=== PATIENT | male | born 1960 | race Caucasian/White ===

== ENCOUNTER 2018-04-04 23:46 | Emergency (ER) | payer MEDICAID, SELFPAY ==
[2018-04-04 23:47] VITALS: BP 206/116; PULSE 57; RESP 15; TEMP 36.2; O2SAT 96; BMI 31.4
[2018-04-05] VITALS (7 sets, daily range): BP systolic 162–176; BP diastolic 101–113; PULSE 53–56; RESP 14–18; O2SAT 95–98
--- NOTE | 2018-04-05 00:11 | EKG12_ITS ---
Test Reason : CP Blood Pressure : / mmHG Vent. Rate : 054 BPM Atrial Rate : 054 BPM P-R Int : 172 ms QRS Dur : 096 ms QT Int : 430 ms P-R-T Axes : 039 010 016 degrees QTc Int : 407 ms Sinus bradycardia Poor R wave progression Confirmed by KIM MORALES, YU ([id number]), greeting card editor YANCY CHINO ([id number]) on 04/06/2018 10:30:11 AM Referred By: DR PIKE Confirmed By:YU ALVAREZ MD
--- NOTE | 2018-04-05 00:13 | RAD_ITS ---
STUDY: X-RAY CHEST REASON FOR EXAM: Male, 57 years old. Chest pain and hypertension TECHNIQUE: Single AP portable view of the chest. COMPARISON: None. FINDINGS: The lungs are clear and expanded. There is no demonstrated pleural abnormality. There is mild cardiac enlargement. Normal mediastinum and sofia. Normal visualized pulmonary arteries. Normal visualized aortic arch and descending thoracic aorta. Normal visualized thoracic spine. Normal visualized ribs, clavicles, and shoulders. Status post lower cervical fusion. There is no demonstrated abnormality of the visualized soft tissue structures of the upper abdomen. RAD/Chest 1 View (Portable) IMPRESSION: Cardiomegaly. No pulmonary edema, congestive heart failure or confluent pneumonia. Electronically Signed: Evie Martinez MD at 1:13 EDT , Service support ,
--- NOTE | 2018-04-05 00:32 | ED.VISSUMM ---
- ER Visit Summary Date of Service: 04/05/18 Chief Complaint: Elevated blood pressure History of Present Illness: The patient is a 57 M history of hypertension. States he has been taking his medications. He says for the last 2 months he has had elevated blood pressures. He believes it stress related. Denies that his blood pressure was 200/100+. He had episodes of some dull aching left-sided chest pain. No shortness of breath. Mild nausea. No vomiting. No diaphoresis. He denies any recent exertional chest pain. He has had negative stress test in the past but none done recently. He is never had a cardiac catheterization. No history of DVT or PE. No recent travel, surgery, mobilization. No leg pain or swelling. No hemoptysis. Currently he is pain-free. Physical Examination: Well-appearing middle-age male. Vital signs initial blood pressure is 206/116. Otherwise stable and afebrile. Pulse ox 96% on room air no signs of hypoxia. No distress. H EENT exam unremarkable. Neck nontender. No JVD. Lungs clear to auscultation bilaterally. Heart regular rhythm rate about 60 no murmur. Chest wall nontender. Abdomen is soft and nontender. Normal bowel sounds no peritoneal signs. He is moving all 4 extremities. They are neurovascularly intact. Calves are nontender without edema nor cords. Radial pulses are equal and symmetrical. Back exam nontender. Neurologically is awake and alert with no focal motor deficits. Test Results: Patient will undergo cardiac workup. His initial EKG shows a sinus tachycardia rate of 54 with no signs of [place] nor ischemia. Chest x-ray shows mild cardiomegaly to myself. CBC unremarkable. White count of 9. Hemoglobin 15. Electrolytes unremarkable. Normal creatinine and gap. Troponin normal. Emergency Department Course and Treatment: Patient treated with Lopressor IV x2. Ibuprofen for mild headache. And metoprolol p.o. His blood pressure is improving. On multiple exams is doing well. They are comfortable being discharged home. To follow-up as an outpatient with his primary care physician for reevaluation of his blood pressure medications. And also potentially outpatient stress testing. Treatment Plan: Follow-up with his PCP. Disposition: Discharge Impression: Acute on chronic hypertension Chest pain of uncertain etiology This note was generated with Websupportation software. It may contain incorrect words, spelling, and punctuation that were not noted in review of the chart prior to signing ED Disposition - Plan for ED Patient: Chief Complaint: Hypertension Referrals: Brock Wilkins [Primary Care Provider] -
[2018-04-05 00:33] LABS: Absolute Lymphocyte Count 2.87 X10^3/ul (0.83-4.51); Absolute Neutrophil Count 5.1 X10^3/uL (2.0-7.7); Basophil# 0.04 X10^3/uL; Basophil% 0.4 % (0-1); Eosinophils% 2.2 % (0-5); Hematocrit 46.6 % (40-54); Hemoglobin 15.6 g/dl (13.0-16.5); Lymphocyte # 2.87 X10^3/ul (4.0); Lymphocyte % 31.9 % (19-41); Mean Corp Hgb Conc 33.5 g/gl (32-36); Mean Corpuscular Hgb 30.8 pg (27.0-32.0); Mean Corpuscular Volume 92.1 fL (80-94); Mean Platelet Vol. 10.1 fl (6.2-12.0); Monocyte% 8.9 % (0-10); Neutrophil # 5.08 X10^3/uL (2.7-7.7); Neutrophil % 56.5 % (47-70); Platelet Count 223 K/mm3 (150-450); RBC Distribution Width CV 12.1 % (11.6-14.6); RBC Distribution Width SD 40.3 fl (35.1-43.9); Red Blood Count 5.06 M/mm3 (4.6-6.2)
--- NOTE | 2018-04-05 00:35 | ED.DCSUM_ITS ---
- ER Visit Summary Date of Service: 04/05/18 Chief Complaint: Elevated blood pressure History of Present Illness: The patient is a 57 M history of hypertension. States he has been taking his medications. He says for the last 2 months he has had elevated blood pressures. He believes it stress related. Denies that his blood pressure was 200/100+. He had episodes of some dull aching left-sided chest pain. No shortness of breath. Mild nausea. No vomiting. No diaphoresis. He denies any recent exertional chest pain. He has had negative stress test in the past but none done recently. He is never had a cardiac catheterization. No history of DVT or PE. No recent travel, surgery, mobilization. No leg pain or swelling. No hemoptysis. Currently he is pain- free. Physical Examination: Well-appearing middle-age male. Vital signs initial blood pressure is 206/116. Otherwise stable and afebrile. Pulse ox 96% on room air no signs of hypoxia. No distress. H EENT exam unremarkable. Neck nontender. No JVD. Lungs clear to auscultation bilaterally. Heart regular rhythm rate about 60 no murmur. Chest wall nontender. Abdomen is soft and nontender. Normal bowel sounds no peritoneal signs. He is moving all 4 extremities. They are neurovascularly intact. Calves are nontender without edema nor cords. Radial pulses are equal and symmetrical. Back exam nontender. Neurologically is awake and alert with no focal motor deficits. Test Results: Patient will undergo cardiac workup. His initial EKG shows a sinus tachycardia rate of 54 with no signs of [place] nor ischemia. Chest x-ray shows mild cardiomegaly to myself. CBC unremarkable. White count of 9. Hemoglobin 15. Electrolytes unremarkable. Normal creatinine and gap. Troponin normal. Emergency Department Course and Treatment: Patient treated with Lopressor IV x2. Ibuprofen for mild headache. And metoprolol p.o. His blood pressure is improving. On multiple exams is doing well. They are comfortable being discharged home. To follow-up as an outpatient with his primary care physician for reevaluation of his blood pressure medications. And also potentially outpatient stress testing. Treatment Plan: Follow-up with his PCP. Disposition: Discharge Impression: Acute on chronic hypertension Chest pain of uncertain etiology This note was generated with RollCall (roll.[email or web address])ation software. It may contain incorrect words, spelling, and punctuation that were not noted in review of the chart prior to signing ED Disposition - Plan for ED Patient: Chief Complaint: Hypertension Referrals: Brock Wilkins [Primary Care Provider] -
[2018-04-05 00:36] LABS: POSITIVE COUNT NO; POSITIVE DIFFERENTIAL NO; POSITIVE MORPHOLOGY NO
[2018-04-05 00:48] LABS: Anion Gap 9 (5-15); BUN 8 mg/dL (7-18); BUN/Creat Ratio 8.8 RATIO (10-20); Calcium,Total 8.2 mg/dL (8.5-10.1); Chloride 105 mmol/L (98-107); EST Glomerular Filtration Rate 93 mL/min (>60); Est Glom Filt Rate - Afr Amer 112 mL/min (>60); Estimated Creatinine Clearance 104.81 ml/min; Glucose 100 mg/dL (74-106); Potassium 3.8 mmol/L (3.5-5.1); Sodium Level 140 mmol/L (136-145)
[2018-04-05] MEDS: Metoprolol Tartrate 5 MG/5 ML Vial IV ×2 (01:15→01:52)
[2018-04-05] MEDS: Ibuprofen 600 MG Tablet PO (01:16)
[2018-04-05] MEDS: HYDROcodone Bitartrate/Apap 5/325 Tablet PO (02:03)
--- NOTE | 2018-04-05 02:57 | ED.DEP ---
ED Disposition - Plan for ED Patient: Disposition: Home or Assisted Living Chief Complaint: Hypertension Instructions: ED Hypertension Conf Out Of Control, ED Chest Pain Atypical Unkn Cause Referrals: Brock Wilkins [Primary Care Provider] - As soon as possible Additional Instructions: Continue your current medications. Log your blood pressures at least twice daily and ensure there is readings your primary care physician so he can regulate your blood pressure medications as needed. Also follow-up your primary care physician for your chest pain. If you feel worse or having increasing episodes of chest pain that you need to return for further evaluation. You may need outpatient stress test.
[2018-04-05] MEDS: Metoprolol Tartrate 25 MG Tablet 50 MG PO (03:22)
--- NOTE | 2018-04-05 03:25 | ED.RN ---
pt given written and verbal discharge instructions. pt educated to take morning medications if bp systolic is >140. pt verbalizes understanding and denies any further questions. pt iv d/c and covered with 2x2 gauze and paper tape.
== END 2018-04-05 03:28 | disposition home or self-care (01) ==
PROVIDERS: Emergency Provider Emergency Medicine
DX: R07.89 Other chest pain (principal); I10 Essential (primary) hypertension; Z79.899 Other long term (current) drug therapy
CPT/HCPCS: 71045; 80048; 84484; 85025; 93005; 99285; A4216

== ENCOUNTER → 2018-06-30 09:53 | Outpatient (CLI) | payer MEDICAID, SELFPAY ==
[2018-05-12 13:48] VITALS: BMI 29.9
[2018-06-30 11:52] LABS: AST(SGOT) 28 U/L (15-37); Alanine Aminotransfer ALT/SGPT 48 U/L (16-61); Albumin, Serum 3.6 g/dL (3.2-5.0); Alkaline Phosphatase 78 U/L (45-117); Anion Gap 8 (5-15); BUN 12 mg/dL (7-18); BUN/Creat Ratio 10.8 RATIO (10-20); Bilirubin, Direct 0.13 mg/dL (0.00-0.30); Chloride 104 mmol/L (98-107); Cholesterol 129 mg/dL (200); Creatinine, Serum 1.11 mg/dL (0.70-1.30); EST Glomerular Filtration Rate 73 mL/min (>60); Est Glom Filt Rate - Afr Amer 88 mL/min (>60); Globulin 2.9 g/dL (2.2-4.2); Glucose 92 mg/dL (74-106); High Density Lipoprotein 34 mg/dL; Potassium 3.9 mmol/L (3.5-5.1); Protein, Total 6.5 g/dL (6.4-8.2); Sodium Level 141 mmol/L (136-145); T4 Free Direct 0.85 ng/dL (0.76-1.46); Thyroid Stim Hormone (TSH) 1.16 uIU/mL (0.358-3.74); Triglycerides 178 mg/dL; Very Low Density Lipoprotein 36 mg/dL (5-40)
--- OUTSIDE RECORDS SUMMARY | 2018-09-01 06:28 | XMS RPT_ITS ---
:1960 Author Organization [employer] Address [address] [place] [address] Phone Care Team Providers Name Role Phone Marcos DERAS, Scot D Unavailable Reason for Visit Reason For Visit Description Start Date Postop - subsequent visit Preliminary reason for visit data, not yet signed by the author as of lower neck post ACDF C5-7 on 08/25/2016 Preliminary reason for visit data, not yet signed by the author as of Chief Complaint Chief Complaint Description Start Date lower neck post ACDF C5-7 on 08/25/2016 Preliminary chief complaint data, not yet signed by the author as of Instructions Instruction Description Start Date Please follow-up with Primary Care Physician or Barrel Loader for treatment or adjustment of medication regarding elevated blood pressure.Patient advised to follow-up with Primary Care Physician for BMI management. Plan of Care Type Date Detail Appointment 03:45 PM Suad Mejia , [address] [facility], [place], [address], Pending order XR CERVICAL 4VWS FLEX/EXT Patient education \cps-sql1\CPS_PtEducation\htn .pdf Medications Medication Instructions Start Stop Generic Name NDC Provider Date Date NORCO 5-325 MG one tab every / HYDROCODONE-PHILIP [id number] Scot D TABS six hours as 10 TAMINOPHEN Marcos DERAS needed for pain. ATIVAN 1 MG take 1 tablet / LORAZEPAM [id number] Shelby TABS once daily as 08 [place] ASSISTANT OPERATIONS MANAGER needed TOPROL XL 25 take 1 tablet / METOPROLOL 62670178814 Shelby MG [id number] once daily 05 SUCCINATE Stone ASSISTANT OPERATIONS MANAGER EC-NAPROSYN Take 1 tablet 2 / NAPROXEN 21250918927 Shelby 500 MG TBEC times a day as 24 Stone ASSISTANT OPERATIONS MANAGER needed FIORICET take 1 capsule / BUTALBITAL-APAP 96019724338 Shelby 50-300-40 MG once daily as 08 -CAFFEINE [place] ASSISTANT OPERATIONS MANAGER CAPS needed LIPITOR 40 MG take 1 tablet / ATORVASTATIN 95584451933 Shelby TABS once daily 08 CALCIUM Stone ASSISTANT OPERATIONS MANAGER SINGULAIR 10 take 1 tablet / MONTELUKAST 38772257519 Shelby MG TABS once daily 08 SODIUM Stone ASSISTANT OPERATIONS MANAGER COZAAR 100 MG take 1 tablet / LOSARTAN 81324297403 Shelby TABS once daily 05 POTASSIUM [place]arr[place] ASSISTANT OPERATIONS MANAGER FLUOXETINE HCL take 1 capsule / FLUOXETINE HCL 86573048256 Shelby 40 MG CAPS once daily 08 Stone ASSISTANT OPERATIONS MANAGER LORATADINE 10 take 1 tablet / LORATADINE 85587699505 Shelby MG TABS once daily 08 [place] ASSISTANT OPERATIONS MANAGER Conditions or Problems Problem Name Problem Onset Status Entry Provider Comment Standard Annotate Code Date Date Description Low back pain 819116701 Active Toya Hernandez Low back pain (SNOMED 02/10 02/[address] [place] [address]) DIRECTOR PATIENT FINANCIAL SERVICES-STREETCAR OPERATOR S/P cervical 114643394 Active Leanna H/O: spinal fusion (SNOMED 09/11 09/[address] [place] [address]) DIRECTOR PATIENT FINANCIAL SERVICES-STREETCAR OPERATOR Spinal 33051917 Active Toya Hernandez Spinal stenosis stenosis of (SNOMED 08/05 08/05 [place] in cervical cervical CT) DIRECTOR PATIENT FINANCIAL SERVICES-STREETCAR OPERATOR region region HNP (herniated [id number] Active Toya Hernandez Herniation of nucleus (SNOMED 08/05 08/05 [place] nucleus pulposus), CT) DIRECTOR PATIENT FINANCIAL SERVICES-STREETCAR OPERATOR pulposus cervical Risk for falls 087235840 Active Tyrone Wong At risk for (SNOMED 07/04 07/[address] [place] [address]) Degenerative 38973161 Active Tyrone Wong Degeneration of cervical disc (SNOMED 06/29 07/[address] [place] [address]) intervertebral disc Cervical spine 095504316 Active Tyrone Wong Cervical degeneration (SNOMED 06/29 07/[address] [place] [address]) Hypertension 81989803 Active Tyrone Wong Hypertensive (SNOMED 06/29 07/[address] [place] [address]) Cervical 22046402 Active Rebeca A Cervical radiculopathy (SNOMED 11/14 11/[address] [place] [address]) DIRECTOR PATIENT FINANCIAL SERVICES-STREETCAR OPERATOR Cervicalgia 36670868 Active Rebeca A Neck pain (SNOMED 11/14 11/[address] [place] [address]) DIRECTOR PATIENT FINANCIAL SERVICES-STREETCAR OPERATOR Allergies, Adverse Reactions, Alerts Allergy Name Reaction Start Date Severity Status Provider Description HAY Critical Active Shelby Stone ASSISTANT OPERATIONS MANAGER SEASONAL Critical Active Shelby [place]arr[place] ASSISTANT OPERATIONS MANAGER TOPICAL He states that Critical Active Shelby Stone ANESTHETICS any of the ASSISTANT OPERATIONS MANAGER topical medications in the ki family cause hives POLLEN, GOLDENROD Critical Active Shelby Farrar ASSISTANT OPERATIONS MANAGER Social History No information available. Vital Signs Date Name Value Unit Description BMI (Body Mass 29.40 kg/m2 Body Mass Index Index) [Ratio] Preliminary vital sign data, not yet signed by the author as of BP Diastolic 93 mm[Hg] blood pressure, diastolic Preliminary vital sign data, not yet signed by the author as of BP Diastolic 96 mm[Hg] blood pressure, diastolic, second observation Preliminary vital sign data, not yet signed by the author as of BP Systolic 161 mm[Hg] blood pressure, systolic Preliminary vital sign data, not yet signed by the author as of BP Systolic 153 mm[Hg] blood pressure, systolic, second observation Preliminary vital sign data, not yet signed by the author as of Heart Rate 48 /min pulse rate E&M Preliminary vital sign data, not yet signed by the author as of Height 73 [in_us] height E&M Preliminary vital sign data, not yet signed by the author as of Height 185 cm height in centimeters E&M Preliminary vital sign data, not yet signed by the author as of Weight Measured 222 [lb_av] weight E&M Preliminary vital sign data, not yet signed by the author as of Weight Measured 101 kg weight in kilograms E&M Preliminary vital sign data, not yet signed by the author as of Results Date Name Value Unit Range Flag Description Office Visit: Postop - subsequent visit, Rm: 23 MEDS REVIEW Done Documentation of current medications (procedure) Preliminary observation data, not yet signed by the author as of Preliminary observation data, not yet signed by the author as of Clinical Summary: HMSPatientID OOP account number Procedures Code Procedure Name Date Entry Date G8731 Pain assessment documented as negative - follow-up not required G8427 Current medications documented 1036F Tobacco screening was negative - non user G8417 BMI documented as above normal parameters - follow-up documented G8950 Blood pressure outside of normal parameters - follow-up documented [id number] Patient Encounter Medications Administered No information available. Immunizations No information available. Advance Directives There may be information available, but it has not been provided by the sender. Assessments There may be information available, but it has not been provided by the sender. Review of Systems There may be information available, but it has not been provided by the sender. Family History There may be information available, but it has not been provided by the sender. History of Past Illness There may be information available, but it has not been provided by the sender. History of Present Illness There may be information available, but it has not been provided by the sender.
--- OUTSIDE RECORDS SUMMARY | 2018-09-01 06:28 | XMS RPT_ITS ---
:1960 Author Organization [employer] Address [address] [place] [address] Phone Care Team Providers Name Role Phone Gaetano CARO, Toya Hernandez Unavailable Reason for Visit Reason For Visit Description Start Date Follow-up by complaint Preliminary reason for visit data, not yet signed by the author as of neck pain Preliminary reason for visit data, not yet signed by the author as of Chief Complaint Chief Complaint Description Start Date neck pain Preliminary chief complaint data, not yet signed by the author as of Instructions Instruction Description Start Date Please follow-up with Primary Care Physician or Narrow Fabric Calenderer for treatment or adjustment of medication regarding elevated blood pressure.Patient advised to follow-up with Primary Care Physician for BMI management. Plan of Care Type Date Detail Appointment 11:00 AM Toya CARO, [address] [facility], [place], [address], Appointment 05:30 PM Suad Mejia PT, [address] [place], [address], Appointment 05:30 PM Suad Mejia PT, [address], [place], [address], Appointment 05:30 PM Suad Mejia PT, [address], [place], [address], Appointment 05:30 PM Suad Mejia PT, [address] [place], [address], Appointment 02:40 PM Toya Hernandez Gaetano BLOCK-HOOF TRIMMER, [address] [facility], [place], [address], Appointment 05:30 PM Suad Herve-Mary PT, [address], [place], [address], Appointment 05:30 PM Suad Herve-Mary PT, [address], [place], [address], Appointment 05:30 PM Suad Herve-Mary PT, [address], [place], [address], Appointment 05:30 PM Suad Herve-Mary PT, [address], [place], [address], Appointment 05:30 PM Suad Herve-Mary PT, [address] [place], [address], Appointment 05:30 PM Suad Herve-Mary PT, [address], [place], [address], Pending order XR CERVICAL 4VWS FLEX/EXT Pending order XR CERVICAL 4VWS FLEX/EXT Patient education \cps-sql1\CPS_PtEducation\htn .pdf Medications Medication Instructions Start Stop Generic Name [facility] Provider Date Date MELOXICAM 7.5 Take 1 tablet / MELOXICAM [id number] Toya M MG TABS by mouth daily 10 Gaetano BLOCK-HOOF TRIMMER ATIVAN 1 MG take 1 tablet / LORAZEPAM 29439302888 Shelby [place] TABS once daily as 08 CUSTOMS COMPLIANCE SPECIALIST needed TOPROL XL 25 take 1 tablet / METOPROLOL 55851602446 Shelby [place] MG [id number] once daily 05 SUCCINATE CUSTOMS COMPLIANCE SPECIALIST FIORICET take 1 capsule / BUTALBITAL-APAP 12027711032 Shelby Stone 50-300-40 MG once daily as 08 -CAFFEINE CUSTOMS COMPLIANCE SPECIALIST CAPS needed LIPITOR 40 MG take 1 tablet / ATORVASTATIN 84506021608 Shelby [place] TABS once daily 08 CALCIUM CUSTOMS COMPLIANCE SPECIALIST SINGULAIR 10 take 1 tablet / MONTELUKAST 81955043325 Shelby Stone MG TABS once daily 08 SODIUM CUSTOMS COMPLIANCE SPECIALIST COZAAR 100 MG take 1 tablet / LOSARTAN 62017511086 Shelby [place] TABS once daily 05 POTASSIUM CUSTOMS COMPLIANCE SPECIALIST FLUOXETINE HCL take 1 capsule / FLUOXETINE HCL 22010501063 Shelby [place] 40 MG CAPS once daily 08 CUSTOMS COMPLIANCE SPECIALIST LORATADINE 10 take 1 tablet / LORATADINE 35033358613 Shelby Stone MG TABS once daily 08 CUSTOMS COMPLIANCE SPECIALIST Conditions or Problems Problem Name Problem Onset Status Entry Provider Comment Standard Annotate Code Date Date Description Low back pain 884130001 Active Toya Hernandez Low back pain (SNOMED 02/10 02/[address] [place] [address]) MICA SIZER-HOOF TRIMMER S/P cervical 156473299 Active Leanna H/O: spinal fusion [facility]11 [facility] MICA SIZER-HOOF TRIMMER Spinal 44891875 Active Toya Hernandez Spinal stenosis stenosis of (SNOMED 08/05 08/05 [place] in cervical cervical CT) MICA SIZER-HOOF TRIMMER region region HNP (herniated [id number] Active Toya Hernandez Herniation of nucleus (SNOMED 08/05 08/05 [place] nucleus pulposus), CT) MICA SIZER-HOOF TRIMMER pulposus cervical Risk for falls 030221264 Active Tyrone Wong At risk for (SNOMED 07/04 07/[address] [place] [address]) Degenerative 55097511 Active Tyrone Wong Degeneration of cervical disc (SNOMED 06/29 07/[address] [place] [address]) intervertebral disc Cervical spine 084124760 Active Tyrone Wong Cervical degeneration (SNOMED 06/29 07/[address] [place] [address]) Hypertension 18888426 Active Tyrone Wogn Hypertensive (SNOMED 06/29 07/[address] [place] [address]) Cervical 75055528 Active Rebeca A Cervical radiculopathy (SNOMED 11/14 11/[address] [place] [address]) MICA SIZER-HOOF TRIMMER Cervicalgia 93545316 Active Rebeca A Neck pain (SNOMED 11/14 11/[address] [place] [address]) MICA SIZER-HOOF TRIMMER Allergies, Adverse Reactions, Alerts Allergy Name Reaction Start Date Severity Status Provider Description HAY Critical Active Shelby [place] CUSTOMS COMPLIANCE SPECIALIST SEASONAL Critical Active Shelby [place] CUSTOMS COMPLIANCE SPECIALIST TOPICAL He states that Critical Active Shelby Stone ANESTHETICS any of the CUSTOMS COMPLIANCE SPECIALIST topical medications in the ki family cause hives POLLEN, GOLDENROD Critical Active Shelby Stone CUSTOMS COMPLIANCE SPECIALIST Social History No information available. Vital Signs Date Name Value Unit Description BMI (Body Mass 29.40 kg/m2 Body Mass Index Index) [Ratio] Preliminary vital sign data, not yet signed by the author as of BP Diastolic 99 mm[Hg] blood pressure, diastolic Preliminary vital sign data, not yet signed by the author as of BP Diastolic 104 mm[Hg] blood pressure, diastolic, second observation Preliminary vital sign data, not yet signed by the author as of BP Systolic 161 mm[Hg] blood pressure, systolic Preliminary vital sign data, not yet signed by the author as of BP Systolic 153 mm[Hg] blood pressure, systolic, second observation Preliminary vital sign data, not yet signed by the author as of Heart Rate 55 /min pulse rate E&M Preliminary vital sign [...] Value Unit Range Flag Description Office Visit: Follow-up by complaint, Rm: 42 EMG HX of the BUE on EMG (electromyograph) 08/2017 history Preliminary observation data, not yet signed by the author as of MRI HX of the cervical on MRI (magnetic 06/03/2017 at [facility] resonance imaging) history Preliminary observation data, not yet signed by the author as of MEDS REVIEW Done Documentation of current medications (procedure) Preliminary observation data, not yet signed by the author as of XRAY HX of the cervical xray history spine on 09/15/2017 at [facility] Preliminary observation data, not yet signed by the author as of Preliminary observation data, not yet signed by the author as of Clinical Summary: HMSPatientID OOP account number Procedures Code Procedure Name Date Entry Date CPT-12966 Physical Therapy G8730 Pain assessment documented as positive - follow-up documented G8427 Current medications documented 1036F Tobacco screening was negative - non user G8417 BMI documented as above normal parameters - follow-up documented G8950 Blood pressure outside of normal parameters - follow-up documented [facility]-[id number] Patient Encounter Medications Administered No information available. [...]
--- OUTSIDE RECORDS SUMMARY | 2018-09-01 06:29 | XMS RPT_ITS ---
:1960 Author Organization OHIP Support Name Relationship Address Phone GLENDY MAJANO Unavailable [address] + [place] [address] S Unavailable Unavailable Unavailable GLENDY MAJANO Unavailable [address] + [place] [address] S Unavailable Unavailable Unavailable GLENDY MAJANO Unavailable [address] + [place] [address] S Unavailable Unavailable Unavailable GLENDY MAJANO Unavailable [address] + [place] [address] S Unavailable Unavailable Unavailable GLENDY MAJANO Unavailable [address] + [place] [address] S Unavailable Unavailable Unavailable ALMAS COOPER Unavailable [address] + [place] [address] ALMAS COOPER Unavailable [address] + [place] [address] NONE PER PT Unavailable Unavailable + GLENDY MAJANO Unavailable [address] + [place] [address] S Unavailable Unavailable Unavailable ALMAS COOPER Unavailable [address] + [place] [address] ALMAS COOPER Unavailable [address] + [place] [address] NONE PER PT Unavailable Unavailable Unavailable ALAMS COOPER Unavailable [address] + [place] [address] ALMAS COOPER Unavailable [address] + [place] [address] NONE PER PT Unavailable Unavailable Unavailable SONIA GAMBOA Unavailable Unavailable + Care Team Providers Name Role Phone FELIPE HACKETT Attending Unavailable RYANTAY, FELIPE B Attending Unavailable FALTAY, FELIPE B Referring Unavailable FALTAY, FELIPE B Attending Unavailable FALTAY, FELIPE B Referring Unavailable UNKNOWN, PROVIDER Attending Unavailable CAREY, BROCK Referring Unavailable CAREY, BROCK Primary Care Unavailable CAREY, BROCK Referring Unavailable CAREY, BROCK Primary Care Unavailable UNKNOWN, PROVIDER Attending Unavailable CAREY, BROCK Primary Care Unavailable ERNESTO OVALLES Attending Unavailable CAREY, BROCK Referring Unavailable Kodak Quinones Attending Unavailable CAREY, DALE Primary Care Unavailable Karina Hoyt Attending Unavailable Torie, Fermin Attending Unavailable CAREY, DALE Referring Unavailable Roof, Shon H Attending Unavailable CAREY, DALE Referring Unavailable Torie, Fermin Attending Unavailable Torie, Fermin Referring Unavailable CAREY, DALE Primary Care Unavailable Roof, Shon H Attending Unavailable Roof, Shon H Referring Unavailable CAREY, DALE Primary Care Unavailable KODAK MIJARES Admitting Unavailable KODAK MIJARES Attending Unavailable JUDE CLARK Attending Unavailable MATTI SCOT Ramakrishna Referring Unavailable SHIVAM BUTT (DC) Attending Unavailable FIDENCIOOZLEONILA, MENDY EAGLE Referring Unavailable ELLA NEELY (AWNING MAKER AND INSTALLER) Attending Unavailable BANOZLEONILA, MENDY EAGLE Referring Unavailable SHIVAM BUTT (DC) Attending Unavailable BANOZIC, MENDY EAGLE Referring Unavailable SHIVAM BUTT (DC) Attending Unavailable SHIVAM BUTT (DC) Referring Unavailable ELLA NEELY (AWNING MAKER AND INSTALLER) Attending Unavailable SHIVAM BUTT (DC) Attending Unavailable SHIVAM BUTT (DC) Referring Unavailable PROVIDER, UNKNOWN Admitting Unavailable PROVIDER, UNKNOWN Attending Unavailable AZAM CARDOSO Referring Unavailable CAREY, BROCK R. Primary Care Unavailable Ramirez MIJARES Attending Unavailable IMCA Referring Unavailable BANOZIC, MENDY Primary Care Unavailable Ramirez MIJARES Admitting Unavailable Ramirez MIJARES Attending Unavailable BANOZIC, MENDY Primary Care Unavailable JUDE CLARK Attending Unavailable MATTI, SCOT D Referring Unavailable BANOZIC, MENDY Primary Care Unavailable SHIVAM BUTT (DC) Attending Unavailable BANOZIC, MENDY Referring Unavailable BANOZIC, MENDY Primary Care Unavailable ELLA NEELY Attending Unavailable BANOZIC, MENDY Referring Unavailable BANOZIC, MENDY Primary Care Unavailable SHIVAM BUTT (DC) Attending Unavailable BANOZIC, MENDY Referring Unavailable BANOZIC, MENDY Primary Care Unavailable SHIVAM BUTT (DC) Attending Unavailable BANOZIC, MENDY Referring Unavailable BANOZIC, MENDY Primary Care Unavailable SHIVAM BUTT (DC) Attending Unavailable BANOZIC, MENDY Referring Unavailable BANOZIC, MENDY Primary Care Unavailable SHIVAM BUTT (DC) Attending Unavailable SHIVAM BUTT (DC) Referring Unavailable BANOZIC, MENDY Primary Care Unavailable SHIVAM BUTT (DC) Attending Unavailable SHIVAM BUTT (DC) Referring Unavailable BANOZIC, MENDY Primary Care Unavailable SHIVAM BUTT (DC) Attending Unavailable SHIVAM BUTT (DC) Referring Unavailable BANOZIC, MENDY Primary Care Unavailable ELLA NEELY Attending Unavailable IMCA Referring Unavailable BANOZIC, MENDY Primary Care Unavailable SHIVAM BUTT (DC) Attending Unavailable SHIVAM BUTT (DC) Referring Unavailable BANOZIC, MENDY Primary Care Unavailable SHIVAM BUTT (DC) Attending Unavailable SHIVAM BUTT (DC) Referring Unavailable BANOZIC, MENDY Primary Care Unavailable PROBLEMS PROBLEMS DATE TYPE CONDITION / CODE ATTENDING STATUS SOURCE Unknown I10 - Essential (primary) Shon [place]es Active [facility] hypertension / Community I10(ICD-10) Hospital Repository Unknown E78.5 - Hyperlipidemia, Shon Corrales Active [facility] 9 unspecified / Community E78.5(ICD-10) Hospital Repository Unknown R53.83 - Other fatigue / Shon Corrales Active [facility] 9 R53.83(ICD-10) [facility] Repository Active Postlaminectomy syndrome, ELLA NEELY Active [facility] 8 not elsewhere classified (AWNING MAKER AND INSTALLER) Clinic Other / M96.1(ICD-10) [place] Repository Active Cervicalgia / ELLA NEELY Active [facility] 8 M54.2(ICD-10) (AWNING MAKER AND INSTALLER) Clinic Other [place] Repository Active Other chronic pain / ELLA NEELY Active [facility] 8 G89.29(ICD-10) (AWNING MAKER AND INSTALLER) Clinic Other [place] Repository Active Radiculopathy, cervical ELLA NEELY Active [facility] 8 region / M54.12(ICD-10) (AWNING MAKER AND INSTALLER) Clinic Other [place] Repository Admitting Unknown / UNK(Unknown) ELLA NEELY Active [facility] 8 diagnosis [facility] Repository Unknown E78.00 - Pure Torie, Fermin Active [facility] 8 hypercholesterolemia, Community unspecified / Hospital E78.00(ICD-10) Repository Unknown E78.0 - Pure Torie, Fermin Active [facility] 8 hypercholesterolemia / Community E78.0(ICD-10) Hospital Repository Admitting ACUTE PHARYNGITIS, CHARLETTE, Active [facility] 8 Diagnosis UNSPECIFIED / [facility] J02.9(ICD-10) Hospital Repository Final ACUTE PHARYNGITIS, CHARLETTE, Active [facility] 8 Diagnosis UNSPECIFIED / [facility] (Discharge) J02.9(ICD-10) Hospital Repository Final OTHER SOLUTIONS ANALYST (CURRENT) CHARLETTE, Active [facility] 8 Diagnosis DRUG THERAPY / [facility] (Discharge) Z79.899(ICD-10) Hospital Repository Active Other cervical disc VUCETIC, Active [facility] 8 degeneration, unspecified [facility] Other cervical region / [place] M50.30(ICD-10) Repository Active 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, Active [facility] 8 myelopathy or [facility] Other radiculopathy, cervical [place] region / M47.812(ICD-10) Repository Admitting ALCOHOL ABUSE WITH Unknown Active [facility] 8 Diagnosis INTOXICATION, UNSPECIFIED [facility] / F10.129(ICD-10) Hospital Repository Final ALCOHOL ABUSE WITH Unknown Active [facility] 8 Diagnosis INTOXICATION, UNSPECIFIED [facility] (Discharge) / F10.129(ICD-10) Hospital Repository Final ALTERED MENTAL STATUS, Unknown Active [facility] 8 Diagnosis UNSPECIFIED / [facility] (Discharge) R41.82(ICD-10) Hospital Repository Final ESSENTIAL (PRIMARY) Unknown Active [facility] 8 Diagnosis HYPERTENSION / [facility] (Discharge) I10(ICD-10) Hospital Repository Final HYPERLIPIDEMIA, Unknown Active [facility] 8 Diagnosis UNSPECIFIED / [facility] (Discharge) E78.5(ICD-10) Hospital Repository Final MAJOR DEPRESSIVE Unknown Active [facility] 8 Diagnosis DISORDER, SINGLE EPISODE, [facility] (Discharge) UNSPECIFIED / Hospital F32.9(ICD-10) Repository Final BLOOD ALCOHOL LEVEL OF Unknown Active [facility] 8 Diagnosis 200-239 MG/100 ML / [facility] (Discharge) Y90.7(ICD-10) Hospital Repository Admitting ALLERGY, UNSPECIFIED, Unknown Active [facility] 8 Diagnosis INITIAL ENCOUNTER / [facility] T78.40XA(ICD-10) Hospital Repository Final ADVERSE EFFECT OF UNSP Unknown Active [facility] 8 Diagnosis DRUG/MEDS/BIOL [facility] (Discharge) INIT / T50.905A(ICD-10) Hospital Repository Active Personal history of NE, Active [place] 8 colonic polyps / KODAK RAY Clinic Other Z86.010(ICD-10) [place] Repository PROCEDURES PROCEDURES No Procedure Records FoundRESULTS RESULTS TESTOSTERONE, SERUM TOTAL Collected: 06/30/2018 Status: F Source: [place] 10:03 AM [facility] REPOSITORY Order Comment: XAVIER WANTS THE T4F TSH WANTS [facility] LIPID TEST PSA LIVER TYPE CODE TESTS RESULT OUT OF REFERENCE UNITS RANGE LAB L509.3000 ng/dL Testosterone Normal 464.86 Result Comment: NORMAL REFERENCE RANGES MALE AGE <50 123.06 - 813.86 ng/dL MALE AGE >50 89.98 - 780.10 ng/dL FEMALE PREMENOPAUSE AGE 21 - 60 9.01 - 47.94 ng/dL FEMALE POSTMENOPAUSE AGE 45 - 89 <7.00 - 45.62 ng/dL REFERENCE RANGE AND METHODOLOGY CHANGED 05/27/2017 Performed By: #### L509.3000 #### [facility] [place], [address] BASIC METABOLIC Collected: 06/30/2018 Status: F Source: [place] PROFILE (BMP) 10:00 AM [facility] REPOSITORY Order Comment: XAVIER WANTS THE T4F TSH WANTS THE BMP LIPID TEST PSA LIVER TYPE CODE TESTS RESULT OUT OF RANGE REFERENCE UNITS LAB L501.0100 74-106 mg/dL Normal GLU 92 Result Comment: Please note revised GLUCOSE reference range effective 2017. LAB L501.1000 7-18 mg/dL Normal BUN 12 LAB L501.1100 0.70-1.30 mg/dL Normal CREAT,SERUM 1.11 Result Comment: The validity of the calculated GFR AND GFRAA in patients over 70 years has not been determined. Clinical correlation is essential. LAB L501.1110 >60 mL/min Normal EST GFR 73 Result Comment: Non- GFR Calc LAB L501.1115 >60 mL/min Normal EST GFR - AA 88 Result Comment: GFR Calc LAB L501.1300 10-20 RATIO Normal BUN/CRE 10.8 LAB L501.2200 8.5-10.1 mg/dL CA Normal 9.0 LAB L501.5300 136-145 mmol/L NA Normal 141 LAB L501.5600 3.5-5.1 mmol/L K Normal 3.9 LAB L501.5900 98-107 mmol/L CL Normal 104 LAB L501.6100 21.0-32.0 mmol/L Normal CO2 29.0 LAB L501.6200 5-15 Normal GAP 8 Performed By: #### L500.2500, L500.3400, L500.4100, L501.9520, L501.9910, L506.0400 #### [facility] [address] [facility] [place], [place], [id number] LIVER PROFILE Collected: 06/30/2018 Status: F Source: [place] 10:00 AM [facility] REPOSITORY Order Comment: XAVIER WANTS THE T4F TSH WANTS THE BMP LIPID TEST PSA LIVER TYPE CODE TESTS RESULT OUT OF RANGE REFERENCE UNITS LAB L501.1500 6.4-8.2 g/dL Normal T PROT 6.5 LAB L501.1800 3.2-5.0 g/dL Normal ALB 3.6 LAB L501.1950 2.2-4.2 g/dL Normal GLOB 2.9 LAB L501.4100 15-37 U/L Normal AST 28 LAB L501.4305 45-117 U/L Normal ALK P 78 LAB L501.4405 16-61 U/L Normal ALT 48 LAB L501.4600 0.20-1.00 mg/dL Normal T BILI 0.50 LAB L501.4700 0.00-0.30 mg/dL Normal D BILI 0.13 Performed By: #### L500.2500, L500.3400, L500.4100, L501.9520, L501.9910, L506.0400 #### [facility] [address] [place], [address] LIPID PROFILE Collected: 06/30/2018 Status: F Source: [place] 10:00 AM [facility] REPOSITORY Order Comment: XAVIER WANTS THE T4F TSH WANTS THE BMP LIPID TEST PSA LIVER TYPE CODE TESTS RESULT OUT OF RANGE REFERENCE UNITS LAB L501.4900 200 mg/dL Normal CHOL 129 Result Comment: <200 mg/dL Desirable 200-240 mg/dL Borderline >240 mg/dL High Risk LAB L501.5000 mg/dL Normal TRIG 178 Result Comment: The drugs N-Acetylcysteine and Metamizole may falsely depress this assay. Serum Triglycerides Reference Interval Normal <150 mg/dL Borderline high 150 - 199 mg/dL High 200 - 499 mg/dL Very High > or = 500 mg/dL LAB L501.6400 mg/dL Low HDL 34 Result Comment: The drugs N-Acetylcysteine and Metamizole may falsely depress this assay. Reference Range HDL <40 mg/dL Low HDL Cholesterol HDL >or= 60 mg/dL High HDL Cholesterol LAB L501.6500 0-130 mg/dL Normal LDL 59 LAB L501.6600 5-40 mg/dL Normal VLDL 36 Performed By: #### L500.2500, L500.3400, L500.4100, L501.9520, L501.9910, L506.0400 #### [facility] [address] [facility] [place], [place], [id number] THYROID STIM HORMONE Collected: 06/30/2018 Status: F Source: [place] (TSH) 10:00 AM [facility] REPOSITORY Order Comment: XAVIER WANTS THE T4F TSH WANTS THE BMP LIPID TEST PSA LIVER TYPE CODE TESTS RESULT OUT OF RANGE REFERENCE UNITS LAB L501.9520 0.358-3.74 uIU/mL Normal TSH 1.16 Performed By: #### L500.2500, L500.3400, L500.4100, L501.9520, L501.9910, L506.0400 #### [facility] [address] [facility] [facility] [place], [address] PSA,TOTAL - ANNUAL Collected: 06/30/2018 Status: F Source: [place] SCREEN 10:00 AM [facility] REPOSITORY Order Comment: XAVIER WANTS THE T4F TSH WANTS THE BMP LIPID TEST PSA LIVER TYPE CODE TESTS RESULT OUT OF RANGE REFERENCE UNITS LAB L501.9910 0.00-4.00 ng/mL Normal PSA,TOT 0.90 SCREEN Result Comment: This test was performed using the TPSA assay method for the saperatec chemistry system. Values obtained with different assay methods cannot be used interchangably. When changing PSA assays in the course of monitoring a patient, additional sequential testing should be carried out to confirm baseline values. Performed By: #### L500.2500, L500.3400, L500.4100, L501.9520, L501.9910, L506.0400 #### [facility] [address] [place], [place], [address] T4 FREE DIRECT Collected: 06/30/2018 Status: F Source: [place] 10:00 AM [facility] REPOSITORY Order Comment: XAVIER WANTS THE T4F TSH WANTS THE BMP LIPID TEST PSA LIVER TYPE CODE TESTS RESULT OUT OF RANGE REFERENCE UNITS LAB L506.0400 0.76-1.46 ng/dL Normal T4 FREE 0.85 DIRECT Performed By: #### L500.2500, L500.3400, L500.4100, L501.9520, L501.9910, L506.0400 #### [facility] [address] [facility] [place], [place], [address] CNPN Observed: 06/14/2018 Status: COMPLETED Source: [place] 12:00 AM [facility] REPOSITORY Telephone ([facility]) KODAK GAMBOA ([id number]) 1960 M [facility] Date Time Provider Department 06/14/[address] [facility] During your visit today, we recorded the following information about you: Angelia Choe, RN, RN 06/14/2018 2:29 PM [facility] stating that [facility] needs medical clearance before Functional Capacity Evaluation can be performed. Please advise. Allergies As of Date: 06/14/2018 Noted Allergy Reaction BENZOCAINE 04/01/2016 4 - Hives POLLEN EXTRACTS 03/01/2013 9 - Itching PROCAINE 03/01/2013 4 - Hives Date Reviewed: 06/13/2018 Reviewed by: Shivam Tsang) Daquan - Fully Assessed Reason for Visit: Medical Clearance [1983] Prescriptions as of 06/14/2018 Sig: VITAMIN B-12 ORAL Take by mouth. FLUOROMETHOLONE 0.1 % EYE ROSALINDA* OXYCODONE-ACETAMINOPHEN 5 MG-* TRIAMCINOLONE ACETONIDE 0.1 %* 1 application by DENTAL route* MOMETASONE 0.1 % TOPICAL CREAM Apply 1 application to affect* VITAMIN D2 ORAL Take by mouth once daily. CALCIUM 166.75 MG-VIT D3 166.* Take 1,500 mg by mouth once d* MAGNESIUM 250 MG TABLET Take 500 mg by mouth once deysi* SELENIUM 200 MCG TABLET,DELAY* Take 250 tablets by mouth onc* BIOTIN 5 MG TABLET Take 5 mg by mouth once daily. MULTIVITAMIN-IRON 9 MG-FOLIC * Take 1 tablet by mouth once d* ZINC-FOR TPN once daily. VIT C 1000 [id number]* Take by mouth. AMOXICILLIN 500 MG CAPSULE Take 500 mg by mouth twice da* ATORVASTATIN 40 MG TABLET Take 40 mg by mouth once tray* BUTALBITAL 50 MG-ACETAMINOPHE* Take 1 capsule by mouth as ne* FLUOXETINE 40 MG CAPSULE Take 40 mg by mouth once tray* FLUTICASONE 50 MCG/ACTUATION * Use 2 Sprays in the nose once* IBUPROFEN 800 MG TABLET Take 800 mg by mouth every 8 * LORATADINE 10 MG TABLET Take 10 mg by mouth once tray* LORAZEPAM 1 MG TABLET Take 1 mg by mouth every 8 ho* LOSARTAN 100 MG TABLET Take 100 mg by mouth once deysi* METOPROLOL SUCCINATE ER 50 MG* Take 50 mg by mouth once tray* NAPROXEN 500 MG TABLET,DELAYE* Take 500 mg by mouth twice da* MONTELUKAST 10 MG TABLET Take 10 mg by mouth daily at * FISH OIL 60 MG-90 MG-500 MG C* Take 1 capsule by mouth once * TESTOSTERONE CYPIONATE 200 MG* Inject 200 mg intramuscularly* TIZANIDINE 4 MG TABLET Take 4 mg by mouth as needed.* ALBUTEROL SULFATE HFA 90 MCG/* Inhale 2 Puffs as instructed * Problem List As Of Date 06/14/2018 Noted Resolved Benzocaine adverse reaction, initial encounter *INVALID FOR* Cervical spondylosis without myelopathy [M47.81*INVALID FOR* DDD (degenerative disc disease), cervical [M50.*INVALID FOR* Chronic cervical pain [M54.2, G89.29] INVALID FOR* Cervical post-laminectomy syndrome [M96.1] INVALID FOR* Encounter Status:Closed by ANGELIA CHOE on 06/14/18 LIN[place] Observed: 06/14/2018 Status: COMPLETED Source: [place] 12:00 AM [facility] OTHER [facility] REPOSITORY Telephone ([facility]) KODAK GAMBOA ([id number]) 1960 M [facility] Date Time Provider Department 06/14/18 ELLA NEELY (AWNING MAKER AND INSTALLER) [facility] During your visit today, we recorded the following information about you: Kelli Dickerson THERAPIST 06/14/2018 3:04 PM Signed Fish from [facility] orthopedics called in stating that the patient was sent to them for functional capacity test and the patient has DDD so they need medical clearance to perform the evaluation. Her number is [phone] - fish Neely APRN.ENTERER 06/15/2018 8:37 AM Signed He is post laminectomy on his neck. He may need to look into other work. I would like this completed Felipe Valdovinos CMA 06/16/2018 10:05 AM Signed I called and spoke to Fish from [facility]. I provided her with the information and she stated that she needs a letter stating that they can go ahead with the FCT. Just a brief summary stating that you're clearing him for the test. The letter can be faxed to [phone], attn: Fish. Thank you, Felipe YESSENIA Valdovinos June 16, 2018 10:05 AM Ella Neely APRN.ENTERER 06/18/2018 8:24 AM Signed Am I clearing him medically? Because I only treat his ortho issues. They may need this from his PCP Felipe Valdovinos CMA 06/18/2018 8:40 AM Signed I called and spoke to Fish. She states that she needs clearance from us that you are comfortable, in reference to his medical treatment here, that you are okay with him getting the FCT. They are getting a clearance from his PCP as well. Thanks, Felipe Valdovinos CMA June 18, 2018 8:40 AM Ella Neely APRN.ENTERER 06/19/2018 2:46 PM Signed Ok letter in. Nanette Saldana 06/21/2018 8:05 AM Signed Letter faxed to Fish at fax number below. Nanette Saldana Salt Washer to Dr. Jude Clark and Dr. Valentine Chapman [facility] [phone] ext [phone] Allergies As of Date: 06/14/2018 Noted Allergy Reaction BENZOCAINE 04/01/2016 4 - Hives POLLEN EXTRACTS 03/01/2013 9 - Itching PROCAINE 03/01/2013 4 - Hives Date Reviewed: 06/13/2018 Reviewed by: Shivam Butt - Fully Assessed Reason for Visit: Physical Therapy [503] Cmt: [facility] Prescriptions as of 06/14/2018 Sig: VITAMIN B-12 ORAL Take by mouth. FLUOROMETHOLONE 0.1 % EYE ROSALINDA* OXYCODONE-ACETAMINOPHEN 5 MG-* TRIAMCINOLONE ACETONIDE 0.1 %* 1 application by DENTAL route* MOMETASONE 0.1 % TOPICAL CREAM Apply 1 application to affect* VITAMIN D2 ORAL Take by mouth once daily. CALCIUM 166.75 MG-VIT D3 166.* Take 1,500 mg by mouth once d* MAGNESIUM 250 MG TABLET Take 500 mg by mouth once deysi* SELENIUM 200 MCG TABLET,DELAY* Take 250 tablets by mouth onc* BIOTIN 5 MG TABLET Take 5 mg by mouth once daily. MULTIVITAMIN-IRON 9 MG-FOLIC * Take 1 tablet by mouth once d* ZINC-FOR TPN once daily. VIT C 1000 [id number]* Take by mouth. AMOXICILLIN 500 MG CAPSULE Take 500 mg by mouth twice da* ATORVASTATIN 40 MG TABLET Take 40 mg by mouth once tray* BUTALBITAL 50 MG-ACETAMINOPHE* Take 1 capsule by mouth as ne* FLUOXETINE 40 MG CAPSULE Take 40 mg by mouth once tray* FLUTICASONE 50 MCG/ACTUATION * Use 2 Sprays in the nose once* IBUPROFEN 800 MG TABLET Take 800 mg by mouth every 8 * LORATADINE 10 MG TABLET Take 10 mg by mouth once tray* LORAZEPAM 1 MG TABLET Take 1 mg by mouth every 8 ho* LOSARTAN 100 MG TABLET Take 100 mg by mouth once deysi* METOPROLOL SUCCINATE ER 50 MG* Take 50 mg by mouth once tray* NAPROXEN 500 MG TABLET,DELAYE* Take 500 mg by mouth twice da* MONTELUKAST 10 MG TABLET Take 10 mg by mouth daily at * FISH OIL 60 MG-90 MG-500 MG C* Take 1 capsule by mouth once * TESTOSTERONE CYPIONATE 200 MG* Inject 200 mg intramuscularly* TIZANIDINE 4 MG TABLET Take 4 mg by mouth as needed.* ALBUTEROL SULFATE HFA 90 MCG/* Inhale 2 Puffs as instructed * Problem List As Of Date 06/14/2018 Noted Resolved Benzocaine adverse reaction, initial encounter *INVALID FOR* Cervical spondylosis without myelopathy [M47.81*INVALID FOR* DDD (degenerative disc disease), cervical [M50.*INVALID FOR* Chronic cervical pain [M54.2, G89.29] INVALID FOR* Cervical post-laminectomy syndrome [M96.1] INVALID FOR* Letter Text [facility] Ella Neely APRN.ENTERER 06/19/2018 Kodak Rosenberg [facility] [address] To Whom This May Concern, I am clearing patient to have the FCE completed. This is needed to determine workability. If you have any further questions please contact our office at [phone]. Ella Neely APRN.LINNETTE (Signed electronically to expedite mailing.) [address] [address] Encounter Status:Closed by CB THERAPISTKELLI on 06/14/18 PROGRESS Observed: 06/09/2018 Status: COMPLETED Source: [place] 12:14 PM CLINIC OTHER CAMPUS REPOSITORY HNO ID: [id number] Author: Shivam Butt Service: (none) Author Type: Chiropractor Type: Progress Notes Filed: 06/13/2018 8:02 PM Note Text: Kodak Gamboa is a 57 year old male who presents for Chiropractic follow up for Neck Pain (left arm) 10/05 - benefits need called to check 15 mp tm Have you noticed any improvement since your last visit? Yes, less pain Have you done any home exercises that Dr. Butt gave you? None given What is your response to the home exercises? na What aggravates your pain? Nothing specific What makes your pain better? meds Current pain level? 11/15 How low has your pain level been on the pain scale since your last visit? 08/15 How high has your pain level been on the pain scale since your last visit? 11/15. Since your last visit with Dr. Butt have you had any Images or injections? no REVIEW OF SYSTEMS: Constitutional: Negative for fever and chills. Eyes: Negative for blurred vision and double vision. Respiratory: Negative for shortness of breath. Cardiovascular: Negative for chest pain and leg swelling. Gastrointestinal: Negative for nausea. Genitourinary: Negative for dysuria. Neurological: Negative for tingling, weakness and headaches. Endo/Heme/Allergies: Does not bruise/bleed easily. Psychiatric/Behavioral: Negative for suicidal ideas and substance abuse. The patient is alert and oriented in no acute distress. There is moderate hypertonicity through the bilateral cervical paraspinal muscles, bilateral shoulder girdle, bilateral interscapular muscles and bilateral thoracic paraspinal muscles. Range of motion: reduced Pain on side bend and rotation. Motor Strength: normal Neurovascular intact. Orthopedic testing left shoulder depression test positive for reproduction of neck pain. Brachial plexus tension test, median bias, reproduces ongoing left radicular symptoms .Axial compression positive for reproduction of neck pain. Axial distraction negative.. Spinal segmental dysfunction: none noted on motion palpation TREATMENTS: Acupuncture: 30 minutes; bilateral cervical and left UE; prone position Patient responded well, instructed to call with problems or concerns Time In: 12:08 Time Out:: 117 IMPRESSION/PLAN: (M96.1) Cervical post-laminectomy syndrome (primary encounter diagnosis) (G89.29) Other chronic pain Shivam Butt DC CNOV Observed: 06/09/2018 Status: COMPLETED Source: [place] 11:45 AM CLINIC OTHER CAMPUS REPOSITORY Office Visit (AGSP[facility]3) KODAK GAMBOA ([id number]) 1960 M [facility] Date Time Provider Department 06/09/18 11:45 AM SHIVAM BUTT (JAVIER) AGSPINE3 During your visit today, we recorded the following information about you: Pulse Blood pressure Weight Height 86/minute 130/90 99.8 kg 1.854 m Shivam Butt DC 06/13/2018 8:02 PM Signed Kodak Gamboa is a 57 year old male who presents for Chiropractic follow up for Neck Pain (left arm) 10/05 - benefits need called to check 15 mp tm Have you noticed any improvement since your last visit? Yes, less pain Have you done any home exercises that Dr. Butt gave you? None given What is your response to the home exercises? na What aggravates your pain? Nothing specific What makes your pain better? meds Current pain level? 10 How low has your pain level been on the pain scale since your last visit? 310 How high has your pain level been on the pain scale since your last visit? 10. Since your last visit with Dr. Butt have you had any Images or injections? no REVIEW OF SYSTEMS: Constitutional: Negative for fever and chills. Eyes: Negative for blurred vision and double vision. Respiratory: Negative for shortness of breath. Cardiovascular: Negative for chest pain and leg swelling. Gastrointestinal: Negative for nausea. Genitourinary: Negative for dysuria. Neurological: Negative for tingling, weakness and headaches. Endo/Heme/Allergies: Does not bruise/bleed easily. Psychiatric/Behavioral: Negative for suicidal ideas and substance abuse. The patient is alert and oriented in no acute distress. There is moderate hypertonicity through the bilateral cervical paraspinal muscles, bilateral shoulder girdle, bilateral interscapular muscles and bilateral thoracic paraspinal muscles. Range of motion: reduced Pain on side bend and rotation. Motor Strength: normal Neurovascular intact. Orthopedic testing left shoulder depression test positive for reproduction of neck pain. Brachial plexus tension test, median bias, reproduces ongoing left radicular symptoms .Axial compression positive for reproduction of neck pain. Axial distraction negative.. Spinal segmental dysfunction: none noted on motion palpation TREATMENTS: Acupuncture: 30 minutes; bilateral cervical and left UE; prone position Patient responded well, instructed to call with problems or concerns Time In: 12:08 Time Out:: 117 IMPRESSION/PLAN: (M96.1) Cervical post-laminectomy syndrome (primary encounter diagnosis) (G89.29) Other chronic pain JAVIER Ku DC 06/13/2018 8:00 PM Signed Activity as tolerated Continue HEP Ice/Heat as needed Call if symptoms worsen Referring Provider: SHIVAM BUTT) [[id number]] Allergies As of Date: 06/09/2018 Noted Allergy Reaction BENZOCAINE 04/01/2016 4 - Hives POLLEN EXTRACTS 03/01/2013 9 - Itching PROCAINE 03/01/2013 4 - Hives Date Reviewed: 06/09/2018 Reviewed by: Faviola (t) Alberto - Fully Assessed Reason for Visit: Neck Pain [135] Cmt: left arm Primary Visit Diagnosis:Cervical post-laminectomy syndrome [M96.1] Other Visit Diagnosis:Other chronic pain [G89.29] Order(s):ACUPUNCT W/O STIMUL 15 MIN [[id number]] Order #: [id number] ACUPUNCT W/O STIMUL ADDL 15M [[id number]] Order #: [id number] Prescriptions as of 06/09/2018 Sig: VITAMIN B-12 ORAL Take by mouth. FLUOROMETHOLONE 0.1 % EYE ROSALINDA* OXYCODONE-ACETAMINOPHEN 5 MG-* TRIAMCINOLONE ACETONIDE 0.1 %* 1 application by DENTAL route* MOMETASONE 0.1 % TOPICAL CREAM Apply 1 application to affect* VITAMIN D2 ORAL Take by mouth once daily. CALCIUM 166.75 MG-VIT D3 166.* Take 1,500 mg by mouth once d* MAGNESIUM 250 MG TABLET Take 500 mg by mouth once deysi* SELENIUM 200 MCG TABLET,DELAY* Take 250 tablets by mouth onc* BIOTIN 5 MG TABLET Take 5 mg by mouth once daily. MULTIVITAMIN-IRON 9 MG-FOLIC * Take 1 tablet by mouth once d* ZINC-FOR TPN once daily. VIT C 1000 SY-ONQBHAWB-VOU-LY* Take by mouth. AMOXICILLIN 500 MG CAPSULE Take 500 mg by mouth twice da* ATORVASTATIN 40 MG TABLET Take 40 mg by mouth once tray* BUTALBITAL 50 MG-ACETAMINOPHE* Take 1 capsule by mouth as ne* FLUOXETINE 40 MG CAPSULE Take 40 mg by mouth once tray* FLUTICASONE 50 MCG/ACTUATION * Use 2 Sprays in the nose once* IBUPROFEN 800 MG TABLET Take 800 mg by mouth every 8 * LORATADINE 10 MG TABLET Take 10 mg by mouth once tray* LORAZEPAM 1 MG TABLET Take 1 mg by mouth every 8 ho* LOSARTAN 100 MG TABLET Take 100 mg by mouth once deysi* METOPROLOL SUCCINATE ER 50 MG* Take 50 mg by mouth once tray* NAPROXEN 500 MG TABLET,DELAYE* Take 500 mg by mouth twice da* MONTELUKAST 10 MG TABLET Take 10 mg by mouth daily at * FISH OIL 60 MG-90 MG-500 MG C* Take 1 capsule by mouth once * TESTOSTERONE CYPIONATE 200 MG* Inject 200 mg intramuscularly* TIZANIDINE 4 MG TABLET Take 4 mg by mouth as needed.* ALBUTEROL SULFATE HFA 90 MCG/* Inhale 2 Puffs as instructed * Problem List As Of Date 06/09/2018 Noted Resolved Benzocaine adverse reaction, initial encounter *INVALID FOR* Cervical spondylosis without myelopathy [M47.81*INVALID FOR* DDD (degenerative disc disease), cervical [M50.*INVALID FOR* Chronic cervical pain [M54.2, G89.29] INVALID FOR* Cervical post-laminectomy syndrome [M96.1] INVALID FOR* Other instructions from your clinician: Activity as tolerated Continue HEP Ice/Heat as needed Call if symptoms worsen Level of Service: CLINIC VISIT NO CHARGE [[id number]] Disposition: Return in about 1 week (around 06/16/2018). Follow-up and Disposition History Recorded Encounter Status:Closed by SHIVAM BUTT DC on 06/13/18 PROGRESS Observed: 06/09/2018 Status: COMPLETED Source: [place] 11:44 AM CLINIC OTHER CAMPUS REPOSITORY HNO ID: [id number] Author: Ella (Priya) Tomy Service: (none) Author Type: Nurse Practitioner Type: Progress Notes Filed: 06/09/2018 12:12 PM Note Text: Subjective Neck Pain The problem has been unchanged. The quality of the pain is described as aching. The pain is at a severity of 6/10. The pain is moderate. Associated symptoms include headaches and tingling. Pertinent negatives include no chest pain or weakness. He is currently doing acupuncture with Dr. Butt. HE is getting some relief with this. He would like to hold off on an injection at this time. Review of Systems Eyes: Negative for blurred vision. Respiratory: Negative for shortness of breath. Cardiovascular: Negative for chest pain and leg swelling. Gastrointestinal: Negative for constipation, diarrhea, nausea and vomiting. Genitourinary: Negative for dysuria. Musculoskeletal: Positive for neck pain. Skin: Negative for itching. Neurological: Positive for dizziness, tingling and headaches. Negative for weakness. Endo/Heme/Allergies: Does not bruise/bleed easily. Psychiatric/Behavioral: Negative for depression and suicidal ideas. The patient is nervous/anxious. PAST MEDICAL HISTORY Diagnosis Date - Anxiety - Asthma - High cholesterol - Hypertension - Migraines - Subdural hematoma caused by concussion (HCC) 2001 PAST SURGICAL HISTORY Procedure Laterality Date - ADDTL NECK SPINE FUSION - ELBOW SURGERY HX Right - HERNIA REPAIR HX - PRK ENHANCEMENT - REMOVAL OF TONSILS,<12 Y/O FAMILY HISTORY Problem Relation Age of Onset - Hypertension Mother - Arthritis Mother - Heart disease Father - other (Pancreatic Cancer) Maternal Grandmother - Colon Cancer Maternal Grandfather - Heart disease Paternal Grandfather Social History Marital status: Spouse name: Years of education: Number of children: Social History Main Topics Smoking status: Never Smoker Smokeless tobacco: Never Used Alcohol use: Yes Comment: Occasional Drug use: No Other Topics Concern Caffeine Concern No Special Diet No Exercise No Current Meds albuterol HFA (VENTOLIN HFA) 90 mcg/actuation inhaler Inhale 2 Puffs as instructed every 4 hours as needed. atorvastatin (LIPITOR) 40 mg tablet Take 40 mg by mouth once daily. biotin 5 mg tab Take 5 mg by mouth once daily. Fdsiabjlia-Avu-Jlehfbdxbt-Caf 15-356-13-30 mg per capsule Take 1 capsule by mouth as needed. cyanocobalamin, vitamin B-12, (VITAMIN B-12 ORAL) Take by mouth. ergocalciferol, vitamin D2, (VITAMIN D2 ORAL) Take by mouth once daily. FISH OIL 60-90-500 mg cap Take 1 capsule by mouth once daily. fluorometholone (FML LIQUID FILM) 0.1 % ophthalmic suspension FLUoxetine HCl (PROZAC) 40 mg capsule Take 40 mg by mouth once daily. fluticasone (FLONASE) 50 mcg/actuation nasal spray Use 2 Sprays in the nose once daily. ibuprofen (MOTRIN) 800 mg tablet Take 800 mg by mouth every 8 hours as needed. loratadine (CLARITIN) 10 mg tablet Take 10 mg by mouth once daily. LORazepam (ATIVAN) 1 mg tablet Take 1 mg by mouth every 8 hours as needed. losartan (COZAAR) 100 mg tablet Take 100 mg by mouth once daily. metoprolol succinate ER (TOPROL XL) 50 mg 24 hr tablet Take 50 mg by mouth once daily. mometasone (ELOCON) 0.1 % cream Apply 1 application to affected area twice daily. montelukast (SINGULAIR) 10 mg tablet Take 10 mg by mouth daily at bedtime. Naproxen SR (EC-NAPROSYN) 500 mg EC tablet Take 500 mg by mouth twice daily as needed. Selenium 200 mcg TbEC Take 250 tablets by mouth once daily. testosterone cypionate (DEPO-TESTOSTERONE) 200 mg/mL injection Inject 200 mg intramuscularly once every month. therapeutic multivitamin w/ iron (THERAGRAN-M) 9 mg iron-400 mcg tablet Take 1 tablet by mouth once daily. tiZANidine (ZANAFLEX) 4 mg tablet Take 4 mg by mouth as needed. triamcinolone (KENALOG IN ORABASE) 0.1 % paste 1 application by DENTAL route twice daily. amoxicillin (POLYMOX, AMOXIL) 500 mg capsule Take 500 mg by mouth twice daily. calcium-vits Y6-M-G1-minerals 166.75 mg- 166.75 unit cap Take 1,500 mg by mouth once daily. Magnesium 250 mg tab Take 500 mg by mouth once daily. oxyCODONE-acetaminophen (PERCOCET) 5-325 mg tablet vit I-ttkrvzqh-ztqf-lycopene 1,000-2-650 mg pwep Take by mouth. zinc once daily. Objective BP 130/90 Ht 6' 1 (1.85m) Wt 220 lb (99.8kg) BMI 29.03 kg/(m2). Physical Exam Constitutional: He is oriented to person, place, and time and well-developed, well-nourished, and in no distress. HENT: Head: Normocephalic and atraumatic. Head is without abrasion and without contusion. Hair is normal. Right Ear: Hearing normal. Left Ear: Hearing normal. Nose: No rhinorrhea. Mouth/Throat: No oropharyngeal exudate. Eyes: Lids are normal. Right eye exhibits no discharge. Left eye exhibits no discharge. Right conjunctiva is not injected. Left conjunctiva is not injected. Neck: Normal range of motion. No JVD present. Muscular tenderness present. No spinous process tenderness present. No neck rigidity. Pulmonary/Chest: Effort normal. No stridor. No apnea and no tachypnea. No respiratory distress. Abdominal: Normal appearance. He exhibits no distension. Musculoskeletal: Normal range of motion. Lumbar back: Normal. Lymphadenopathy: He has no cervical adenopathy. Neurological: He is alert and oriented to person, place, and time. He has normal strength. He displays no weakness, no atrophy, no tremor and normal reflexes. No sensory deficit. He exhibits normal muscle tone. Gait normal. Coordination and gait normal. Reflex Scores: Bicep reflexes are 2+ on the right side and 2+ on the left side. Brachioradialis reflexes are 2+ on the right side and 2+ on the left side. Velázquez (-) BL Skin: Skin is warm and dry. No lesion noted. Psychiatric: Mood, memory, affect and judgment normal. Nursing note and vitals reviewed. Assessment/Plan 1. Chronic cervical pain He will continue with acupuncture. He is doing well with this. WE will hold off on an injection at this time. He was given a script for an FCE. 2. Cervical spondylosis without myelopathy 3. DDD (degenerative disc disease), cervical 4. Cervical post-laminectomy syndrome Follow upprn - CONSULT TO PHYSICAL THERAPY (AG) Ella Neely APRN.LINNETTE GIBSON Observed: 06/09/2018 Status: COMPLETED Source: [place] 11:30 AM CLINIC OTHER CAMPUS REPOSITORY Office Visit (AGSPINE3) KODAK GAMBOA ([id number]) 1960 M [facility] Date Time Provider Department 06/09/18 11:30 AM ELLA NEELY ([employer]) AGSPINE3 During your visit today, we recorded the following information about you: Blood pressure Weight Height 130/90 99.8 kg 1.854 m Ella Neely APRN.ENTERER 06/09/2018 12:12 PM Signed Subjective Neck Pain The problem has been unchanged. The quality of the pain is described as aching. The pain is at a severity of 6/10. The pain is moderate. Associated symptoms include headaches and tingling. Pertinent negatives include no chest pain or weakness. He is currently doing acupuncture with Dr. Butt. HE is getting some relief with this. He would like to hold off on an injection at this time. Review of Systems Eyes: Negative for blurred vision. Respiratory: Negative for shortness of breath. Cardiovascular: Negative for chest pain and leg swelling. Gastrointestinal: Negative for constipation, diarrhea, nausea and vomiting. Genitourinary: Negative for dysuria. Musculoskeletal: Positive for neck pain. Skin: Negative for itching. Neurological: Positive for dizziness, tingling and headaches. Negative for weakness. Endo/Heme/Allergies: Does not bruise/bleed easily. Psychiatric/Behavioral: Negative for depression and suicidal ideas. The patient is nervous/anxious. PAST MEDICAL HISTORY Diagnosis Date - Anxiety - Asthma - High cholesterol - Hypertension - Migraines - Subdural hematoma caused by concussion (HCC) 2001 PAST SURGICAL HISTORY Procedure Laterality Date - ADDTL NECK SPINE FUSION - ELBOW SURGERY HX Right - HERNIA REPAIR HX - PRK ENHANCEMENT - REMOVAL OF TONSILS,<12 Y/O FAMILY HISTORY Problem Relation Age of Onset - Hypertension Mother - Arthritis Mother - Heart disease Father - other (Pancreatic Cancer) Maternal Grandmother - Colon Cancer Maternal Grandfather - Heart disease Paternal Grandfather Social History Marital status: Spouse name: Years of education: Number of children: Social History Main Topics Smoking status: Never Smoker Smokeless tobacco: Never Used Alcohol use: Yes Comment: Occasional Drug use: No Other Topics Concern Caffeine Concern No Special Diet No Exercise No Current Meds albuterol HFA (VENTOLIN HFA) 90 mcg/actuation inhaler Inhale 2 Puffs as instructed every 4 hours as needed. atorvastatin (LIPITOR) 40 mg tablet Take 40 mg by mouth once daily. biotin 5 mg tab Take 5 mg by mouth once daily. Xwcdquofex-Koe-Hehfdoqvpj-Caf 48-748-91-30 mg per capsule Take 1 capsule by mouth as needed. cyanocobalamin, vitamin B-12, (VITAMIN B-12 ORAL) Take by mouth. ergocalciferol, vitamin D2, (VITAMIN D2 ORAL) Take by mouth once daily. FISH OIL 60-90-500 mg cap Take 1 capsule by mouth once daily. fluorometholone (FML LIQUID FILM) 0.1 % ophthalmic suspension FLUoxetine HCl (PROZAC) 40 mg capsule Take 40 mg by mouth once daily. fluticasone (FLONASE) 50 mcg/actuation nasal spray Use 2 Sprays in the nose once daily. ibuprofen (MOTRIN) 800 mg tablet Take 800 mg by mouth every 8 hours as needed. loratadine (CLARITIN) 10 mg tablet Take 10 mg by mouth once daily. LORazepam (ATIVAN) 1 mg tablet Take 1 mg by mouth every 8 hours as needed. losartan (COZAAR) 100 mg tablet Take 100 mg by mouth once daily. metoprolol succinate ER (TOPROL XL) 50 mg 24 hr tablet Take 50 mg by mouth once daily. mometasone (ELOCON) 0.1 % cream Apply 1 application to affected area twice daily. montelukast (SINGULAIR) 10 mg tablet Take 10 mg by mouth daily at bedtime. Naproxen SR (EC-NAPROSYN) 500 mg EC tablet Take 500 mg by mouth twice daily as needed. Selenium 200 mcg TbEC Take 250 tablets by mouth once daily. testosterone cypionate (DEPO-TESTOSTERONE) 200 mg/mL injection Inject 200 mg intramuscularly once every month. therapeutic multivitamin w/ iron (THERAGRAN-M) 9 mg iron-400 mcg tablet Take 1 tablet by mouth once daily. tiZANidine (ZANAFLEX) 4 mg tablet Take 4 mg by mouth as needed. triamcinolone (KENALOG IN ORABASE) 0.1 % paste 1 application by DENTAL route twice daily. amoxicillin (POLYMOX, AMOXIL) 500 mg capsule Take 500 mg by mouth twice daily. calcium-vits A5-M-Q0-minerals 166.75 mg- 166.75 unit cap Take 1,500 mg by mouth once daily. Magnesium 250 mg tab Take 500 mg by mouth once daily. oxyCODONE-acetaminophen (PERCOCET) 5-325 mg tablet vit H-iyakikcp-nsbw-lycopene 1,000-2-650 mg pwep Take by mouth. zinc once daily. Objective BP 130/90 Ht 6' 1 (1.85m) Wt 220 lb (99.8kg) BMI 29.03 kg/(m2). Physical Exam Constitutional: He is oriented to person, place, and time and well-developed, well-nourished, and in no distress. HENT: Head: Normocephalic and atraumatic. Head is without abrasion and without contusion. Hair is normal. Right Ear: Hearing normal. Left Ear: Hearing normal. Nose: No rhinorrhea. Mouth/Throat: No oropharyngeal exudate. Eyes: Lids are normal. Right eye exhibits no discharge. Left eye exhibits no discharge. Right conjunctiva is not injected. Left conjunctiva is not injected. Neck: Normal range of motion. No JVD present. Muscular tenderness present. No spinous process tenderness present. No neck rigidity. Pulmonary/Chest: Effort normal. No stridor. No apnea and no tachypnea. No respiratory distress. Abdominal: Normal appearance. He exhibits no distension. Musculoskeletal: Normal range of motion. Lumbar back: Normal. Lymphadenopathy: He has no cervical adenopathy. Neurological: He is alert and oriented to person, place, and time. He has normal strength. He displays no weakness, no atrophy, no tremor and normal reflexes. No sensory deficit. He exhibits normal muscle tone. Gait normal. Coordination and gait normal. Reflex Scores: Bicep reflexes are 2+ on the right side and 2+ on the left side. Brachioradialis reflexes are 2+ on the right side and 2+ on the left side. Velázquez (-) BL Skin: Skin is warm and dry. No lesion noted. Psychiatric: Mood, memory, affect and judgment normal. Nursing note and vitals reviewed. Assessment/Plan 1. Chronic cervical pain He will continue with acupuncture. He is doing well with this. WE will hold off on an injection at this time. He was given a script for an FCE. 2. Cervical spondylosis without myelopathy 3. DDD (degenerative disc disease), cervical 4. Cervical post-laminectomy syndrome Follow upprn - CONSULT TO PHYSICAL THERAPY () Ella Neely APRN.ENTERER Referring Provider: SELF [[id number]] Allergies As of Date: 06/09/2018 Noted Allergy Reaction BENZOCAINE 04/01/2016 4 - Hives POLLEN EXTRACTS 03/01/2013 9 - Itching PROCAINE 03/01/2013 4 - Hives Date Reviewed: 06/09/2018 Reviewed by: Rosalia ([facility]) Yinka - Fully Assessed Reason for Visit: Follow Up [171] Neck Pain [135] Pain [78] Cmt: Shoulders Reason For Visit History Recorded Primary Visit Diagnosis:Chronic cervical pain [M54.2, G89.29] Other Visit Diagnoses:Cervical spondylosis without myelopathy [M47.812] DDD (degenerative disc disease), cervical [M50.30] Cervical post-laminectomy syndrome [M96.1] Order(s):CONSULT TO PHYSICAL THERAPY () [[id number]] Order #: [id number]: 1 Prescriptions as of 06/09/2018 Sig: ALBUTEROL SULFATE HFA 90 MCG/* Inhale 2 Puffs as instructed * ATORVASTATIN 40 MG TABLET Take 40 mg by mouth once tray* BIOTIN 5 MG TABLET Take 5 mg by mouth once daily. BUTALBITAL 50 MG-ACETAMINOPHE* Take 1 capsule by mouth as ne* VITAMIN B-12 ORAL Take by mouth. VITAMIN D2 ORAL Take by mouth once daily. FISH OIL 60 MG-90 MG-500 MG C* Take 1 capsule by mouth once * FLUOROMETHOLONE 0.1 % EYE ROSALINDA* FLUOXETINE 40 MG CAPSULE Take 40 mg by mouth once tray* FLUTICASONE 50 MCG/ACTUATION * Use 2 Sprays in the nose once* IBUPROFEN 800 MG TABLET Take 800 mg by mouth every 8 * LORATADINE 10 MG TABLET Take 10 mg by mouth once tray* LORAZEPAM 1 MG TABLET Take 1 mg by mouth every 8 ho* LOSARTAN 100 MG TABLET Take 100 mg by mouth once deysi* METOPROLOL SUCCINATE ER 50 MG* Take 50 mg by mouth once tray* MOMETASONE 0.1 % TOPICAL CREAM Apply 1 application to affect* MONTELUKAST 10 MG TABLET Take 10 mg by mouth daily at * NAPROXEN 500 MG TABLET,DELAYE* Take 500 mg by mouth twice da* SELENIUM 200 MCG TABLET,DELAY* Take 250 tablets by mouth onc* TESTOSTERONE CYPIONATE 200 MG* Inject 200 mg intramuscularly* MULTIVITAMIN-IRON 9 MG-FOLIC * Take 1 tablet by mouth once d* TIZANIDINE 4 MG TABLET Take 4 mg by mouth as needed.* TRIAMCINOLONE ACETONIDE 0.1 %* 1 application by DENTAL route* AMOXICILLIN 500 MG CAPSULE Take 500 mg by mouth twice da* CALCIUM 166.75 MG-VIT D3 166.* Take 1,500 mg by mouth once d* MAGNESIUM 250 MG TABLET Take 500 mg by mouth once deysi* OXYCODONE-ACETAMINOPHEN 5 MG-* VIT C 1000 HR-YKDJMMXU-BTW-LY* Take by mouth. ZINC-FOR TPN once daily. Problem List As Of Date 06/09/2018 Noted Resolved Benzocaine adverse reaction, initial encounter *INVALID FOR* Cervical spondylosis without myelopathy [M47.81*INVALID FOR* DDD (degenerative disc disease), cervical [M50.*INVALID FOR* Chronic cervical pain [M54.2, G89.29] INVALID FOR* Cervical post-laminectomy syndrome [M96.1] INVALID FOR* Encounter Status:Closed by ELLA NEELY CNP on 06/09/18 PROGRESS Observed: 05/17/2018 Status: COMPLETED Source: [place] 4:10 PM CLINIC OTHER CAMPUS REPOSITORY HNO ID: [id number] Author: Shivam Butt Service: (none) Author Type: Chiropractor Type: Progress Notes Filed: 05/17/2018 4:49 PM Note Text: Kodak Gamboa is a 57 year old male who presents for Chiropractic follow up for Neck Pain 09/04 acu 0/15 MP USED Have you noticed any improvement since your last visit? No reduction in pain level Have you done any home exercises that Dr. Butt gave you? Patient has not been performing What is your response to the home exercises? n/a What aggravates your pain? Cervical rotation, cervical extension What makes your pain better? Heat, medication Current pain level? 12/15 How low has your pain level been on the pain scale since your last visit? 08/15 How high has your pain level been on the pain scale since your last visit? 12/15. Since your last visit with Dr. Butt have you had any Images or injections? none REVIEW OF SYSTEMS: Constitutional: Negative for fever and chills. Eyes: Negative for blurred vision and double vision. Respiratory: Negative for shortness of breath. Cardiovascular: Negative for chest pain and leg swelling. Gastrointestinal: Negative for nausea. Genitourinary: Negative for dysuria. Neurological: POSITIVE for tingling, NEG weakness POSITIVE headaches. Endo/Heme/Allergies: Does not bruise/bleed easily. Psychiatric/Behavioral: Negative for suicidal ideas and substance abuse. POSITIVE anxiety The patient is alert and oriented in no acute distress. There is moderate hypertonicity through the bilateral cervical paraspinal muscles, bilateral shoulder girdle, bilateral interscapular muscles. Range of motion: reduced Pain on side bend and rotation. Motor Strength: normal Neurovascular intact. Orthopedic testing right shoulder depression test positive for reproduction of neck pain. Axial compression positive for reproduction of neck pain. Axial distraction negative. Right brachial plexus tension test, median bias, positive reproduction of ongoing neural tension Spinal segmental dysfunction: none noted on motion palpation TREATMENTS: Acupuncture: 30 minutes; bilateral cervical and right UE; prone position Patient responded well, instructed to call with problems or concerns Time In: 4:07pm Time Out:: 450 IMPRESSION/PLAN: (M96.1) Cervical post-laminectomy syndrome (primary encounter diagnosis) (M47.812) Cervical spondylosis without myelopathy (G89.29) Other chronic pain Shivam Butt DC CNOV Observed: 05/17/2018 Status: COMPLETED Source: [place] 4:00 PM CLINIC OTHER CAMPUS REPOSITORY Office Visit (AGSPINE3) KODAK GAMBOA ([id number]) 1960 M [facility] Date Time Provider Department 05/17/18 4:00 PM SHIVAM BUTT) AGSPINE3 During your visit today, we recorded the following information about you: Pulse Blood pressure Weight Height 66/minute 122/85 99.8 kg 1.854 m Shivam Butt DC 05/17/2018 4:49 PM Signed Kodak Gamboa is a 57 year old male who presents for Chiropractic follow up for Neck Pain AH 09/04 acu 0/15 MP USED Have you noticed any improvement since your last visit? No reduction in pain level Have you done any home exercises that Dr. Butt gave you? Patient has not been performing What is your response to the home exercises? n/a What aggravates your pain? Cervical rotation, cervical extension What makes your pain better? Heat, medication Current pain level? 12/15 How low has your pain level been on the pain scale since your last visit? 08/15 How high has your pain level been on the pain scale since your last visit? 12/15. Since your last visit with Dr. Butt have you had any Images or injections? none REVIEW OF SYSTEMS: Constitutional: Negative for fever and chills. Eyes: Negative for blurred vision and double vision. Respiratory: Negative for shortness of breath. Cardiovascular: Negative for chest pain and leg swelling. Gastrointestinal: Negative for nausea. Genitourinary: Negative for dysuria. Neurological: POSITIVE for tingling, NEG weakness POSITIVE headaches. Endo/Heme/Allergies: Does not bruise/bleed easily. Psychiatric/Behavioral: Negative for suicidal ideas and substance abuse. POSITIVE anxiety The patient is alert and oriented in no acute distress. There is moderate hypertonicity through the bilateral cervical paraspinal muscles, bilateral shoulder girdle, bilateral interscapular muscles. Range of motion: reduced Pain on side bend and rotation. Motor Strength: normal Neurovascular intact. Orthopedic testing right shoulder depression test positive for reproduction of neck pain. Axial compression positive for reproduction of neck pain. Axial distraction negative. Right brachial plexus tension test, median bias, positive reproduction of ongoing neural tension Spinal segmental dysfunction: none noted on motion palpation TREATMENTS: Acupuncture: 30 minutes; bilateral cervical and right UE; prone position Patient responded well, instructed to call with problems or concerns Time In: 4:07pm Time Out:: 450 IMPRESSION/PLAN: (M96.1) Cervical post-laminectomy syndrome (primary encounter diagnosis) (M47.812) Cervical spondylosis without myelopathy (G89.29) Other chronic pain JAVIER Ku DC 05/17/2018 4:46 PM Signed Activity as tolerated Continue HEP Ice/Heat as needed Call if symptoms worsen Referring Provider: SHIVAM BUTT (JAVIER) [[id number]] Allergies As of Date: 05/17/2018 Noted Allergy Reaction BENZOCAINE 04/01/2016 4 - Hives POLLEN EXTRACTS 03/01/2013 9 - Itching PROCAINE 03/01/2013 4 - Hives Date Reviewed: 05/17/2018 Reviewed by: Shivam (Javier) Daquan - Fully Assessed Reason for Visit: Neck Pain [135] Primary Visit Diagnosis:Cervical post-laminectomy syndrome [M96.1] Other Visit Diagnoses:Cervical spondylosis without myelopathy [M47.812] Other chronic pain [G89.29] Order(s):ACUPUNCT W/O STIMUL ADDL 15M [[id number]] Order #: [id number] ACUPUNCT W/O STIMUL 15 MIN [[id number]] Order #: [id number] Prescriptions as of 05/17/2018 Sig: VITAMIN B-12 ORAL Take by mouth. FLUOROMETHOLONE 0.1 % EYE ROSALINDA* OXYCODONE-ACETAMINOPHEN 5 MG-* TRIAMCINOLONE ACETONIDE 0.1 %* 1 application by DENTAL route* MOMETASONE 0.1 % TOPICAL CREAM Apply 1 application to affect* VITAMIN D2 ORAL Take by mouth once daily. CALCIUM 166.75 MG-VIT D3 166.* Take 1,500 mg by mouth once d* MAGNESIUM 250 MG TABLET Take 500 mg by mouth once deysi* SELENIUM 200 MCG TABLET,DELAY* Take 250 tablets by mouth onc* BIOTIN 5 MG TABLET Take 5 mg by mouth once daily. MULTIVITAMIN-IRON 9 MG-FOLIC * Take 1 tablet by mouth once d* ZINC-FOR TPN once daily. VIT C 1000 PK-[id number]-VPK-LY* Take by mouth. AMOXICILLIN 500 MG CAPSULE Take 500 mg by mouth twice da* ATORVASTATIN 40 MG TABLET Take 40 mg by mouth once tray* BUTALBITAL 50 MG-ACETAMINOPHE* Take 1 capsule by mouth as ne* FLUOXETINE 40 MG CAPSULE Take 40 mg by mouth once tray* FLUTICASONE 50 MCG/ACTUATION * Use 2 Sprays in the nose once* IBUPROFEN 800 MG TABLET Take 800 mg by mouth every 8 * LORATADINE 10 MG TABLET Take 10 mg by mouth once tray* LORAZEPAM 1 MG TABLET Take 1 mg by mouth every 8 ho* LOSARTAN 100 MG TABLET Take 100 mg by mouth once deysi* METOPROLOL SUCCINATE ER 50 MG* Take 50 mg by mouth once tray* NAPROXEN 500 MG TABLET,DELAYE* Take 500 mg by mouth twice da* MONTELUKAST 10 MG TABLET Take 10 mg by mouth daily at * FISH OIL 60 MG-90 MG-500 MG C* Take 1 capsule by mouth once * TESTOSTERONE CYPIONATE 200 MG* Inject 200 mg intramuscularly* TIZANIDINE 4 MG TABLET Take 4 mg by mouth as needed.* ALBUTEROL SULFATE HFA 90 MCG/* Inhale 2 Puffs as instructed * Problem List As Of Date 05/17/2018 Noted Resolved Benzocaine adverse reaction, initial encounter *INVALID FOR* Cervical spondylosis without myelopathy [M47.81*INVALID FOR* DDD (degenerative disc disease), cervical [M50.*INVALID FOR* Chronic cervical pain [M54.2, G89.29] INVALID FOR* Cervical post-laminectomy syndrome [M96.1] INVALID FOR* Other instructions from your clinician: Activity as tolerated Continue HEP Ice/Heat as needed Call if symptoms worsen Level of Service: CLINIC VISIT NO CHARGE [[id number]] Disposition: Return in about 1 week (around 05/24/2018). Follow-up and Disposition History Recorded Encounter Status:Closed by SHIVAM BUTT DC on 05/17/18 PROGRESS Observed: 05/07/2018 Status: COMPLETED Source: [place] 11:48 AM CLINIC OTHER CAMPUS REPOSITORY O ID: [id number] Author: Shivam Butt Service: (none) Author Type: Chiropractor Type: Progress Notes Filed: 05/07/2018 12:55 PM Note Text: Kodak Gamboa is a 57 year old male who presents for Chiropractic follow up for Neck Pain Df vpcy 15mp Have you noticed any improvement since your last visit? No didn't notice much after last visit Have you done any home exercises that Dr. butt gave you? yes What is your response to the home exercises? Not doing them What aggravates your pain? Working every day is different with pain What makes your pain better? Rest Current pain level? 10 How low has your pain level been on the pain scale since your last visit? 10 How high has your pain level been on the pain scale since your last visit? 12/15. Since your last visit with Dr. Butt have you had any Images or injections? no REVIEW OF SYSTEMS: Constitutional: Negative for fever and chills. Eyes: Negative for blurred vision and double vision. Respiratory: Negative for shortness of breath. Cardiovascular: Negative for chest pain and leg swelling. Gastrointestinal: Negative for nausea. Genitourinary: Negative for dysuria. Neurological: POSITIVE for tingling, weakness and POSITIVE headaches. Endo/Heme/Allergies: Does not bruise/bleed easily. Psychiatric/Behavioral: Negative for suicidal ideas and substance abuse. The patient is alert and oriented in no acute distress. There is moderate hypertonicity through the cervical paraspinal muscles, suboccipital muscles, shoulder girdle, interscapular muscles and thoracic paraspinal muscles. Range of motion: reduced Pain on side bend and rotation. Motor Strength: normal Neurovascular intact. Orthopedic testing shoulder depression test positive bilaterally for reproduction of neck pain. Axial compression positive for reproduction of neck pain. Axial distraction negative.. Spinal segmental dysfunction: none noted on motion palpation TREATMENTS: Acupuncture 30 minutes 1155-1225pm; bilateral cervical and Left UE; prone position Patient responded well, instructed to call with problems or concerns Time In: 1145am Time Out:: 1230 IMPRESSION/PLAN: (M96.1) Cervical post-laminectomy syndrome (primary encounter diagnosis) (M54.2, G89.29) Chronic cervical pain (G89.29) Other chronic pain (G44.209) Tension headache Shivam Butt DC CNOV Observed: 05/07/2018 Status: COMPLETED Source: [place] 11:15 AM CLINIC OTHER CAMPUS REPOSITORY Office Visit (AGSPINE3) KODAK GAMBOA ([id number]) 1960 [facility] Date Time Provider Department 05/07/18 11:15 AM SHIVAM BUTT) AGSPINE3 During your visit today, we recorded the following information about you: Pulse Blood pressure Weight Height 60/minute 112/65 99.8 kg 1.854 m Shivam Butt DC 05/07/2018 12:55 PM Addendum Kodak Gamboa is a 57 year old male who presents for Chiropractic follow up for Neck Pain Df vpcy 15mp Have you noticed any improvement since your last visit? No didn't notice much after last visit Have you done any home exercises that Dr. butt gave you? yes What is your response to the home exercises? Not doing them What aggravates your pain? Working every day is different with pain What makes your pain better? Rest Current pain level? 10 How low has your pain level been on the pain scale since your last visit? 10 How high has your pain level been on the pain scale since your last visit? 12/15. Since your last visit with Dr. Butt have you had any Images or injections? no REVIEW OF SYSTEMS: Constitutional: Negative for fever and chills. Eyes: Negative for blurred vision and double vision. Respiratory: Negative for shortness of breath. Cardiovascular: Negative for chest pain and leg swelling. Gastrointestinal: Negative for nausea. Genitourinary: Negative for dysuria. Neurological: POSITIVE for tingling, weakness and POSITIVE headaches. Endo/Heme/Allergies: Does not bruise/bleed easily. Psychiatric/Behavioral: Negative for suicidal ideas and substance abuse. The patient is alert and oriented in no acute distress. There is moderate hypertonicity through the cervical paraspinal muscles, suboccipital muscles, shoulder girdle, interscapular muscles and thoracic paraspinal muscles. Range of motion: reduced Pain on side bend and rotation. Motor Strength: normal Neurovascular intact. Orthopedic testing shoulder depression test positive bilaterally for reproduction of neck pain. Axial compression positive for reproduction of neck pain. Axial distraction negative.. Spinal segmental dysfunction: none noted on motion palpation TREATMENTS: Acupuncture 30 minutes 1155-1225pm; bilateral cervical and Left UE; prone position Patient responded well, instructed to call with problems or concerns Time In: 1145am Time Out:: 1230 IMPRESSION/PLAN: (M96.1) Cervical post-laminectomy syndrome (primary encounter diagnosis) (M54.2, G89.29) Chronic cervical pain (G89.29) Other chronic pain (G44.209) Tension headache JAVIER Ku DC 05/07/2018 12:50 PM Signed Activity as tolerated Continue HEP Ice/Heat as needed Call if symptoms worsen Referring Provider: MENDY TREJO [[id number]] Allergies As of Date: 05/07/2018 Noted Allergy Reaction BENZOCAINE 04/01/2016 4 - Hives POLLEN EXTRACTS 03/01/2013 9 - Itching PROCAINE 03/01/2013 4 - Hives Date Reviewed: 05/07/2018 Reviewed by: Shivam Tsang) Daquan - Fully Assessed Reason for Visit: Neck Pain [135] Primary Visit Diagnosis:Cervical post-laminectomy syndrome [M96.1] Other Visit Diagnoses:Chronic cervical pain [M54.2, G89.29] Other chronic pain [G89.29] Order(s):ACUPUNCT W/O STIMUL ADDL 15M [[id number]] Order #: [id number] ACUPUNCT W/O STIMUL 15 MIN [[id number]] Order #: [id number] Prescriptions as of 05/07/2018 Sig: VITAMIN B-12 ORAL Take by mouth. FLUOROMETHOLONE 0.1 % EYE ROSALINDA* OXYCODONE-ACETAMINOPHEN 5 MG-* TRIAMCINOLONE ACETONIDE 0.1 %* 1 application by DENTAL route* MOMETASONE 0.1 % TOPICAL CREAM Apply 1 application to affect* VITAMIN D2 ORAL Take by mouth once daily. CALCIUM 166.75 MG-VIT D3 166.* Take 1,500 mg by mouth once d* MAGNESIUM 250 MG TABLET Take 500 mg by mouth once deysi* SELENIUM 200 MCG TABLET,DELAY* Take 250 tablets by mouth onc* BIOTIN 5 MG TABLET Take 5 mg by mouth once daily. MULTIVITAMIN-IRON 9 MG-FOLIC * Take 1 tablet by mouth once d* ZINC once daily. VIT C 1000 YU-IUMYDBAC-NCO-LY* Take by mouth. AMOXICILLIN 500 MG CAPSULE Take 500 mg by mouth twice da* ATORVASTATIN 40 MG TABLET Take 40 mg by mouth once tray* BUTALBITAL 50 MG-ACETAMINOPHE* Take 1 capsule by mouth as ne* FLUOXETINE 40 MG CAPSULE Take 40 mg by mouth once tray* FLUTICASONE 50 MCG/ACTUATION * Use 2 Sprays in the nose once* IBUPROFEN 800 MG TABLET Take 800 mg by mouth every 8 * LORATADINE 10 MG TABLET Take 10 mg by mouth once tray* LORAZEPAM 1 MG TABLET Take 1 mg by mouth every 8 ho* LOSARTAN 100 MG TABLET Take 100 mg by mouth once deysi* METOPROLOL SUCCINATE ER 50 MG* Take 50 mg by mouth once tray* NAPROXEN 500 MG TABLET,DELAYE* Take 500 mg by mouth twice da* MONTELUKAST 10 MG TABLET Take 10 mg by mouth daily at * FISH OIL 60 MG-90 MG-500 MG C* Take 1 capsule by mouth once * TESTOSTERONE CYPIONATE 200 MG* Inject 200 mg intramuscularly* TIZANIDINE 4 MG TABLET Take 4 mg by mouth as needed.* ALBUTEROL SULFATE HFA 90 MCG/* Inhale 2 Puffs as instructed * Problem List As Of Date 05/07/2018 Noted Resolved Benzocaine adverse reaction, initial encounter *INVALID FOR* Cervical spondylosis without myelopathy [M47.81*INVALID FOR* DDD (degenerative disc disease), cervical [M50.*INVALID FOR* Chronic cervical pain [M54.2, G89.29] INVALID FOR* Cervical post-laminectomy syndrome [M96.1] INVALID FOR* Other instructions from your clinician: Activity as tolerated Continue HEP Ice/Heat as needed Call if symptoms worsen Level of Service: CLINIC VISIT NO CHARGE [[id number]] Disposition: Return in about 1 week (around 05/14/2018). Follow-up and Disposition History Recorded Encounter Status:Closed by SHIVAM BUTT DC on 05/07/18 PROGRESS Observed: 05/07/2018 Status: COMPLETED Source: [place] 9:55 AM CLINIC OTHER CAMPUS REPOSITORY O ID: [id number] Author: Ella (Priya) Tomy Service: (none) Author Type: Nurse Practitioner Type: Progress Notes Filed: 05/07/2018 12:32 PM Note Text: Subjective Neck Pain The problem has been unchanged. The quality of the pain is described as aching. The pain is at a severity of 6/10. The pain is moderate. Associated symptoms include headaches, tingling and weakness. He just started with Dr. Butt. He states it seemed to be helpful. Review of Systems HENT: Negative. Eyes: Negative. Respiratory: Negative. Cardiovascular: Negative. Gastrointestinal: Negative. Genitourinary: Negative. Musculoskeletal: Positive for neck pain. Skin: Negative. Neurological: Positive for dizziness, tingling, weakness and headaches. Endo/Heme/Allergies: Negative. Psychiatric/Behavioral: The patient is nervous/anxious. PAST MEDICAL HISTORY Diagnosis Date - Anxiety - Asthma - High cholesterol - Hypertension - Migraines - Subdural hematoma caused by concussion (HCC) 2002 PAST SURGICAL HISTORY Procedure Laterality Date - ADDTL NECK SPINE FUSION - ELBOW SURGERY HX Right - HERNIA REPAIR HX - PRK ENHANCEMENT - REMOVAL OF TONSILS,<12 Y/O FAMILY HISTORY Problem Relation Age of Onset - Hypertension Mother - Arthritis Mother - Heart disease Father - other (Pancreatic Cancer) Maternal Grandmother - Colon Cancer Maternal Grandfather - Heart disease Paternal Grandfather Social History Marital status: Spouse name: Years of education: Number of children: Social History Main Topics Smoking status: Never Smoker Smokeless tobacco: Never Used Alcohol use: Yes Comment: Occasional Drug use: No Other Topics Concern Caffeine Concern No Special Diet No Exercise No Current Meds cyanocobalamin, vitamin B-12, (VITAMIN B-12 ORAL) Take by mouth. fluorometholone (FML LIQUID FILM) 0.1 % ophthalmic suspension triamcinolone (KENALOG IN ORABASE) 0.1 % paste 1 application by DENTAL route twice daily. mometasone (ELOCON) 0.1 % cream Apply 1 application to affected area twice daily. ergocalciferol, vitamin D2, (VITAMIN D2 ORAL) Take by mouth once daily. Magnesium 250 mg tab Take 500 mg by mouth once daily. Selenium 200 mcg TbEC Take 250 tablets by mouth once daily. biotin 5 mg tab Take 5 mg by mouth once daily. therapeutic multivitamin w/ iron (THERAGRAN-M) 9 mg iron-400 mcg tablet Take 1 tablet by mouth once daily. amoxicillin (POLYMOX, AMOXIL) 500 mg capsule Take 500 mg by mouth twice daily. atorvastatin (LIPITOR) 40 mg tablet Take 40 mg by mouth once daily. Ilzdwgnqwx-Hqj-Csyuboldae-Caf 61-304-56-30 mg per capsule Take 1 capsule by mouth as needed. FLUoxetine HCl (PROZAC) 40 mg capsule Take 40 mg by mouth once daily. fluticasone (FLONASE) 50 mcg/actuation nasal spray Use 2 Sprays in the nose once daily. ibuprofen (MOTRIN) 800 mg tablet Take 800 mg by mouth every 8 hours as needed. loratadine (CLARITIN) 10 mg tablet Take 10 mg by mouth once daily. LORazepam (ATIVAN) 1 mg tablet Take 1 mg by mouth every 8 hours as needed. losartan (COZAAR) 100 mg tablet Take 100 mg by mouth once daily. metoprolol succinate ER (TOPROL XL) 50 mg 24 hr tablet Take 50 mg by mouth once daily. Naproxen SR (EC-NAPROSYN) 500 mg EC tablet Take 500 mg by mouth twice daily as needed. montelukast (SINGULAIR) 10 mg tablet Take 10 mg by mouth daily at bedtime. FISH OIL 60-90-500 mg cap Take 1 capsule by mouth once daily. testosterone cypionate (DEPO-TESTOSTERONE) 200 mg/mL injection Inject 200 mg intramuscularly once every month. tiZANidine (ZANAFLEX) 4 mg tablet Take 4 mg by mouth as needed. albuterol HFA (VENTOLIN HFA) 90 mcg/actuation inhaler Inhale 2 Puffs as instructed every 4 hours as needed. oxyCODONE-acetaminophen (PERCOCET) 5-325 mg tablet calcium-vits A0-Q-V2-minerals 166.75 mg- 166.75 unit cap Take 1,500 mg by mouth once daily. zinc once daily. vit W-tqomkebu-hrce-lycopene 1,000-2-650 mg pwep Take by mouth. Objective There were no vitals taken for this visit. Physical Exam Constitutional: He is oriented to person, place, and time and well-developed, well-nourished, and in no distress. HENT: Head: Normocephalic and atraumatic. Head is without abrasion and without contusion. Hair is normal. Right Ear: Hearing normal. Left Ear: Hearing normal. Nose: No rhinorrhea. Mouth/Throat: No oropharyngeal exudate. Eyes: Lids are normal. Right eye exhibits no discharge. Left eye exhibits no discharge. Right conjunctiva is not injected. Left conjunctiva is not injected. Neck: Normal range of motion. No JVD present. Muscular tenderness present. No spinous process tenderness present. No neck rigidity. Pulmonary/Chest: Effort normal. No stridor. No apnea and no tachypnea. No respiratory distress. Abdominal: Normal appearance. He exhibits no distension. Musculoskeletal: Normal range of motion. Lumbar back: Normal. Lymphadenopathy: He has no cervical adenopathy. Neurological: He is alert and oriented to person, place, and time. He has normal strength. He displays no weakness, no atrophy, no tremor and normal reflexes. No sensory deficit. He exhibits normal muscle tone. Gait normal. Coordination and gait normal. Reflex Scores: Bicep reflexes are 2+ on the right side and 2+ on the left side. Brachioradialis reflexes are 2+ on the right side and 2+ on the left side. Velázquez (-) BL Skin: Skin is warm and dry. No lesion noted. Psychiatric: Mood, memory, affect and judgment normal. Nursing note and vitals reviewed. Assessment/Plan 1. Cervical post-laminectomy syndrome WE will continue with acupuncture for now. He may benfeit from a C7/t1 ILIR. He will follow up after acupuncture. 2. Chronic cervical pain 3. Radiculopathy, cervical region Ella Neely APRN.LINNETTE CNOV Observed: 05/07/2018 Status: COMPLETED Source: [place] 9:45 AM CLINIC OTHER CAMPUS REPOSITORY Office Visit (AGSPINE3) KODAK GAMBOA ([id number]) 1960 [facility] Date Time Provider Department 05/07/18 9:45 AM ELLA NEELY ([employer]) AGSPINE3 During your visit today, we recorded the following information about you: Pulse Blood pressure Weight Height 60/minute 112/65 99.8 kg 1.854 m Ella Neely APRN.ENTERER 05/07/2018 12:32 PM Signed Subjective Neck Pain The problem has been unchanged. The quality of the pain is described as aching. The pain is at a severity of 6/10. The pain is moderate. Associated symptoms include headaches, tingling and weakness. He just started with Dr. Butt. He states it seemed to be helpful. Review of Systems HENT: Negative. Eyes: Negative. Respiratory: Negative. Cardiovascular: Negative. Gastrointestinal: Negative. Genitourinary: Negative. Musculoskeletal: Positive for neck pain. Skin: Negative. Neurological: Positive for dizziness, tingling, weakness and headaches. Endo/Heme/Allergies: Negative. Psychiatric/Behavioral: The patient is nervous/anxious. PAST MEDICAL HISTORY Diagnosis Date - Anxiety - Asthma - High cholesterol - Hypertension - Migraines - Subdural hematoma caused by concussion (HCC) 2001 PAST SURGICAL HISTORY Procedure Laterality Date - ADDTL NECK SPINE FUSION - ELBOW SURGERY HX Right - HERNIA REPAIR HX - PRK ENHANCEMENT - REMOVAL OF TONSILS,<12 Y/O FAMILY HISTORY Problem Relation Age of Onset - Hypertension Mother - Arthritis Mother - Heart disease Father - other (Pancreatic Cancer) Maternal Grandmother - Colon Cancer Maternal Grandfather - Heart disease Paternal Grandfather Social History Marital status: Spouse name: Years of education: Number of children: Social History Main Topics Smoking status: Never Smoker Smokeless tobacco: Never Used Alcohol use: Yes Comment: Occasional Drug use: No Other Topics Concern Caffeine Concern No Special Diet No Exercise No Current Meds cyanocobalamin, vitamin B-12, (VITAMIN B-12 ORAL) Take by mouth. fluorometholone (FML LIQUID FILM) 0.1 % ophthalmic suspension triamcinolone (KENALOG IN ORABASE) 0.1 % paste 1 application by DENTAL route twice daily. mometasone (ELOCON) 0.1 % cream Apply 1 application to affected area twice daily. ergocalciferol, vitamin D2, (VITAMIN D2 ORAL) Take by mouth once daily. Magnesium 250 mg tab Take 500 mg by mouth once daily. Selenium 200 mcg TbEC Take 250 tablets by mouth once daily. biotin 5 mg tab Take 5 mg by mouth once daily. therapeutic multivitamin w/ iron (THERAGRAN-M) 9 mg iron-400 mcg tablet Take 1 tablet by mouth once daily. amoxicillin (POLYMOX, AMOXIL) 500 mg capsule Take 500 mg by mouth twice daily. atorvastatin (LIPITOR) 40 mg tablet Take 40 mg by mouth once daily. Qmnpvzkooi-Tcp-Gpksglenda-Caf 98-105-05-30 mg per capsule Take 1 capsule by mouth as needed. FLUoxetine HCl (PROZAC) 40 mg capsule Take 40 mg by mouth once daily. fluticasone (FLONASE) 50 mcg/actuation nasal spray Use 2 Sprays in the nose once daily. ibuprofen (MOTRIN) 800 mg tablet Take 800 mg by mouth every 8 hours as needed. loratadine (CLARITIN) 10 mg tablet Take 10 mg by mouth once daily. LORazepam (ATIVAN) 1 mg tablet Take 1 mg by mouth every 8 hours as needed. losartan (COZAAR) 100 mg tablet Take 100 mg by mouth once daily. metoprolol succinate ER (TOPROL XL) 50 mg 24 hr tablet Take 50 mg by mouth once daily. Naproxen SR (EC-NAPROSYN) 500 mg EC tablet Take 500 mg by mouth twice daily as needed. montelukast (SINGULAIR) 10 mg tablet Take 10 mg by mouth daily at bedtime. FISH OIL 60-90-500 mg cap Take 1 capsule by mouth once daily. testosterone cypionate (DEPO-TESTOSTERONE) 200 mg/mL injection Inject 200 mg intramuscularly once every month. tiZANidine (ZANAFLEX) 4 mg tablet Take 4 mg by mouth as needed. albuterol HFA (VENTOLIN HFA) 90 mcg/actuation inhaler Inhale 2 Puffs as instructed every 4 hours as needed. oxyCODONE-acetaminophen (PERCOCET) 5-325 mg tablet calcium-vits S0-E-W0-minerals 166.75 mg- 166.75 unit cap Take 1,500 mg by mouth once daily. zinc once daily. vit Z-pousjuna-axmk-lycopene 1,000-2-650 mg pwep Take by mouth. Objective There were no vitals taken for this visit. Physical Exam Constitutional: He is oriented to person, place, and time and well-developed, well-nourished, and in no distress. HENT: Head: Normocephalic and atraumatic. Head is without abrasion and without contusion. Hair is normal. Right Ear: Hearing normal. Left Ear: Hearing normal. Nose: No rhinorrhea. Mouth/Throat: No oropharyngeal exudate. Eyes: Lids are normal. Right eye exhibits no discharge. Left eye exhibits no discharge. Right conjunctiva is not injected. Left conjunctiva is not injected. Neck: Normal range of motion. No JVD present. Muscular tenderness present. No spinous process tenderness present. No neck rigidity. Pulmonary/Chest: Effort normal. No stridor. No apnea and no tachypnea. No respiratory distress. Abdominal: Normal appearance. He exhibits no distension. Musculoskeletal: Normal range of motion. Lumbar back: Normal. Lymphadenopathy: He has no cervical adenopathy. Neurological: He is alert and oriented to person, place, and time. He has normal strength. He displays no weakness, no atrophy, no tremor and normal reflexes. No sensory deficit. He exhibits normal muscle tone. Gait normal. Coordination and gait normal. Reflex Scores: Bicep reflexes are 2+ on the right side and 2+ on the left side. Brachioradialis reflexes are 2+ on the right side and 2+ on the left side. Velázquez (-) BL Skin: Skin is warm and dry. No lesion noted. Psychiatric: Mood, memory, affect and judgment normal. Nursing note and vitals reviewed. Assessment/Plan 1. Cervical post-laminectomy syndrome WE will continue with acupuncture for now. He may benfeit from a C7/t1 ILIR. He will follow up after acupuncture. 2. Chronic cervical pain 3. Radiculopathy, cervical region Ella Neely APRN.ENTERER Referring Provider: MENDY TREJO [[id number]] Allergies As of Date: 05/07/2018 Noted Allergy Reaction BENZOCAINE 04/01/2016 4 - Hives POLLEN EXTRACTS 03/01/2013 9 - Itching PROCAINE 03/01/2013 4 - Hives Date Reviewed: 05/07/2018 Reviewed by: Kelli Dickerson THERAPIST - Fully Assessed Reason for Visit: Follow Up [171] Cmt: chiro Primary Visit Diagnosis:Cervical post-laminectomy syndrome [M96.1] Other Visit Diagnoses:Chronic cervical pain [M54.2, G89.29] Radiculopathy, cervical region [M54.12] Prescriptions as of 05/07/2018 Sig: VITAMIN B-12 ORAL Take by mouth. FLUOROMETHOLONE 0.1 % EYE ROSALINDA* TRIAMCINOLONE ACETONIDE 0.1 %* 1 application by DENTAL route* MOMETASONE 0.1 % TOPICAL CREAM Apply 1 application to affect* VITAMIN D2 ORAL Take by mouth once daily. MAGNESIUM 250 MG TABLET Take 500 mg by mouth once deysi* SELENIUM 200 MCG TABLET,DELAY* Take 250 tablets by mouth onc* BIOTIN 5 MG TABLET Take 5 mg by mouth once daily. MULTIVITAMIN-IRON 9 MG-FOLIC * Take 1 tablet by mouth once d* AMOXICILLIN 500 MG CAPSULE Take 500 mg by mouth twice da* ATORVASTATIN 40 MG TABLET Take 40 mg by mouth once tray* BUTALBITAL 50 MG-ACETAMINOPHE* Take 1 capsule by mouth as ne* FLUOXETINE 40 MG CAPSULE Take 40 mg by mouth once tray* FLUTICASONE 50 MCG/ACTUATION * Use 2 Sprays in the nose once* IBUPROFEN 800 MG TABLET Take 800 mg by mouth every 8 * LORATADINE 10 MG TABLET Take 10 mg by mouth once tray* LORAZEPAM 1 MG TABLET Take 1 mg by mouth every 8 ho* LOSARTAN 100 MG TABLET Take 100 mg by mouth once deysi* METOPROLOL SUCCINATE ER 50 MG* Take 50 mg by mouth once tray* NAPROXEN 500 MG TABLET,DELAYE* Take 500 mg by mouth twice da* MONTELUKAST 10 MG TABLET Take 10 mg by mouth daily at * FISH OIL 60 MG-90 MG-500 MG C* Take 1 capsule by mouth once * TESTOSTERONE CYPIONATE 200 MG* Inject 200 mg intramuscularly* TIZANIDINE 4 MG TABLET Take 4 mg by mouth as needed.* ALBUTEROL SULFATE HFA 90 MCG/* Inhale 2 Puffs as instructed * OXYCODONE-ACETAMINOPHEN 5 MG-* CALCIUM 166.75 MG-VIT D3 166.* Take 1,500 mg by mouth once d* ZINC once daily. VIT C 1000 JX-EQLKJRVU-NTL-LY* Take by mouth. Medication notes this encounter AMOXICILLIN 500 MG CAPSULE >> Patt Del Real CMA 05/07/2018 9:53 AM >> PATT DEL REAL CMA ThuMay 07, 2018 9:53 AM D/C Problem List As Of Date 05/07/2018 Noted Resolved Benzocaine adverse reaction, initial encounter *INVALID FOR* Cervical spondylosis without myelopathy [M47.81*INVALID FOR* DDD (degenerative disc disease), cervical [M50.*INVALID FOR* Chronic cervical pain [M54.2, G89.29] INVALID FOR* Cervical post-laminectomy syndrome [M96.1] INVALID FOR* Encounter Status:Closed by ELLA NEELY CNP on 05/07/18 PROGRESS Observed: 04/26/2018 Status: COMPLETED Source: [place] 9:43 AM CLINIC OTHER CAMPUS REPOSITORY O ID: [id number] Author: Shivam Butt Service: (none) Author Type: Chiropractor Type: Progress Notes Filed: 04/26/2018 12:57 PM Note Text: Kodak Gamboa is a 57 year old male who presents today with complaints of low back and neck pain. He describes the pain as being burning, aching and shooting and rates the pain as a 6/10. The pain began many years ago as a result of nothing specific. The pain is exacerbated by looking up. Previous treatments have included Tylenol, heat, activity modification, rest, Physical therapy and massage therapy. He complains of radiation to the the left arm. He reports numbness or tingling. He reports grinding. He reports difficulty with walking. 07/07 acu 15mp Tm Pain Intensity The pain is moderate at the moment Personal Care (Washing/Dressing) I can look after myself normally but it causes extra pain Lifting I can lift heavy weights but it gives extra pain Walking Pain prevents me from walking more than 1 mile Sitting no answer Standing I stand as long as I want without extra pain Sleeping I can sleep well only by using medication Sex Life My sex life is normal but causes some extra pain Social Life My social life is normal but increases the degree of pain Traveling I can travel anywhere but it gives me extra pain MEDICATIONS: Current Outpatient Prescriptions: cyanocobalamin, vitamin B-12, (VITAMIN B-12 ORAL) Take by mouth. fluorometholone (FML LIQUID FILM) 0.1 % ophthalmic suspension oxyCODONE-acetaminophen (PERCOCET) 5-325 mg tablet triamcinolone (KENALOG IN ORABASE) 0.1 % paste 1 application by DENTAL route twice daily. mometasone (ELOCON) 0.1 % cream Apply 1 application to affected area twice daily. ergocalciferol, vitamin D2, (VITAMIN D2 ORAL) Take by mouth once daily. calcium-vits H1-L-N9-minerals 166.75 mg- 166.75 unit cap Take 1,500 mg by mouth once daily. Magnesium 250 mg tab Take 500 mg by mouth once daily. Selenium 200 mcg TbEC Take 250 tablets by mouth once daily. biotin 5 mg tab Take 5 mg by mouth once daily. therapeutic multivitamin w/ iron (THERAGRAN-M) 9 mg iron-400 mcg tablet Take 1 tablet by mouth once daily. zinc once daily. vit Y-jlajxnuf-zaqq-lycopene 1,000-2-650 mg pwep Take by mouth. amoxicillin (POLYMOX, AMOXIL) 500 mg capsule Take 500 mg by mouth twice daily. atorvastatin (LIPITOR) 40 mg tablet Take 40 mg by mouth once daily. Fuofesmcul-Pua-Zpecpbsuuj-Caf 35-454-17-30 mg per capsule Take 1 capsule by mouth as needed. FLUoxetine HCl (PROZAC) 40 mg capsule Take 40 mg by mouth once daily. fluticasone (FLONASE) 50 mcg/actuation nasal spray Use 2 Sprays in the nose once daily. ibuprofen (MOTRIN) 800 mg tablet Take 800 mg by mouth every 8 hours as needed. loratadine (CLARITIN) 10 mg tablet Take 10 mg by mouth once daily. LORazepam (ATIVAN) 1 mg tablet Take 1 mg by mouth every 8 hours as needed. losartan (COZAAR) 100 mg tablet Take 100 mg by mouth once daily. metoprolol succinate ER (TOPROL XL) 50 mg 24 hr tablet Take 50 mg by mouth once daily. Naproxen SR (EC-NAPROSYN) 500 mg EC tablet Take 500 mg by mouth twice daily as needed. montelukast (SINGULAIR) 10 mg tablet Take 10 mg by mouth daily at bedtime. FISH OIL 60-90-500 mg cap Take 1 capsule by mouth once daily. testosterone cypionate (DEPO-TESTOSTERONE) 200 mg/mL injection Inject 200 mg intramuscularly once every month. tiZANidine (ZANAFLEX) 4 mg tablet Take 4 mg by mouth as needed. albuterol HFA (VENTOLIN HFA) 90 mcg/actuation inhaler Inhale 2 Puffs as instructed every 4 hours as needed. No current facility-administered medications for this visit. REVIEW OF SYSTEMS: Constitutional: Negative for fever and chills. Eyes: Negative for blurred vision and double vision. Respiratory: Negative for shortness of breath. Cardiovascular: Negative for chest pain and leg swelling. Gastrointestinal: Negative for nausea. Genitourinary: Negative for dysuria. Neurological: Negative for tingling, weakness and headaches. Endo/Heme/Allergies: Does not bruise/bleed easily. Psychiatric/Behavioral: Negative for suicidal ideas and substance abuse. OBSERVATION/PHYSICAL EXAM: AANDOx3 Antalgic: Flexed Bilateral, rounded shoulders bilaterally, anterior head carriage DTR: 2/4 to UE and LE MOTOR : 5/5 to upper extremity and lower extremity SENSORY: Pin prick/light touch intact RANGE OF MOTION: Decreased active range of motion in lateral flexion bilaterally HEEL WALK: WNL TOE WALK: WNL ORTHO EXAM: Shoulder depression test positive bilaterally for production of ongoing neck pain. Left brachial plexus tension test, median bias, reproduces ongoing neural tension. Axial compression negative, axial distraction negative Spurling's negative bilaterally. Increases in hypertonicity palpated throughout the bilateral cervical paraspinal trapezius levator scalenes SCM. LEG LENGTH: N/A wnl PERIPHERAL PULSES: Palpable PERIPHERAL EDEMA: Visually noted be within normal limits Segmental dysfunction : none noted on motion palpation IMPRESSION AND PLAN: (M47.812) Cervical spondylosis without myelopathy (primary encounter diagnosis) (M50.30) DDD (degenerative disc disease), cervical (G89.29) Other chronic pain Office Visit on 04/26/18 -ACUPUNCT W/O STIMUL 15 MIN -ACUPUNCT W/O STIMUL ADDL 15M Treatment: Acupuncture: 30min cervcial Prone position Patient responded well, instructed to call with problems or concerns. Time In: 9:45 Time Out:: 1051 PLAN: 1.) Activity: As tolerated and Discussed activity modifications 2.) Massage therapy: none 3.) resident care aid: Discussed with patient the etiology of his ongoing neck pain and left arm symptoms are likely neural tension. Discussed with patient treatment options treatment recommendations. Plan is being care manager consisting of spinal manipulation when indicated, and acupuncture. However, high velocity low amplitude chiropractic manipulation contraindicated due to patient's history of cervical fusion 4.) Duration: 1 time a week for 4 weeks 5.) Interventions: May consider lumbar medial branch blocks if patient does not respond well to conservative management 6.) Patient will call with any questions, concerns, or neurologic changes. Shivam Butt DC CNOV Observed: 04/26/2018 Status: COMPLETED Source: [place] 9:30 AM [facility] OTHER [facility] REPOSITORY Office Visit (AGSPINE3) KODAK GAMBOA ([id number]) 1960 [facility] Date Time Provider Department 04/26/18 9:30 AM SHIVAM BUTT) AGSPINE3 During your visit today, we recorded the following information about you: Pulse Blood pressure Weight Height 57/minute 88/60 99.8 kg 1.854 m Shivam Butt DC 04/26/2018 12:57 PM Signed Kodak Gamboa is a 57 year old male who presents today with complaints of low back and neck pain. He describes the pain as being burning, aching and shooting and rates the pain as a 6/10. The pain began many years ago as a result of nothing specific. The pain is exacerbated by looking up. Previous treatments have included Tylenol, heat, activity modification, rest, Physical therapy and massage therapy. He complains of radiation to the the left arm. He reports numbness or tingling. He reports grinding. He reports difficulty with walking. 07/07 acu 15mp Tm Pain Intensity The pain is moderate at the moment Personal Care (Washing/Dressing) I can look after myself normally but it causes extra pain Lifting I can lift heavy weights but it gives extra pain Walking Pain prevents me from walking more than 1 mile Sitting no answer Standing I stand as long as I want without extra pain Sleeping I can sleep well only by using medication Sex Life My sex life is normal but causes some extra pain Social Life My social life is normal but increases the degree of pain Traveling I can travel anywhere but it gives me extra pain MEDICATIONS: Current Outpatient Prescriptions: cyanocobalamin, vitamin B-12, (VITAMIN B-12 ORAL) Take by mouth. fluorometholone (FML LIQUID FILM) 0.1 % ophthalmic suspension oxyCODONE-acetaminophen (PERCOCET) 5-325 mg tablet triamcinolone (KENALOG IN ORABASE) 0.1 % paste 1 application by DENTAL route twice daily. mometasone (ELOCON) 0.1 % cream Apply 1 application to affected area twice daily. ergocalciferol, vitamin D2, (VITAMIN D2 ORAL) Take by mouth once daily. calcium-vits S5-T-S3-minerals 166.75 mg- 166.75 unit cap Take 1,500 mg by mouth once daily. Magnesium 250 mg tab Take 500 mg by mouth once daily. Selenium 200 mcg TbEC Take 250 tablets by mouth once daily. biotin 5 mg tab Take 5 mg by mouth once daily. therapeutic multivitamin w/ iron (THERAGRAN-M) 9 mg iron-400 mcg tablet Take 1 tablet by mouth once daily. zinc once daily. vit L-syhjfuko-cakm-lycopene 1,000-2-650 mg pwep Take by mouth. amoxicillin (POLYMOX, AMOXIL) 500 mg capsule Take 500 mg by mouth twice daily. atorvastatin (LIPITOR) 40 mg tablet Take 40 mg by mouth once daily. Ywqmtxgwma-Iir-Uynzoygfub-Caf 13-553-94-30 mg per capsule Take 1 capsule by mouth as needed. FLUoxetine HCl (PROZAC) 40 mg capsule Take 40 mg by mouth once daily. fluticasone (FLONASE) 50 mcg/actuation nasal spray Use 2 Sprays in the nose once daily. ibuprofen (MOTRIN) 800 mg tablet Take 800 mg by mouth every 8 hours as needed. loratadine (CLARITIN) 10 mg tablet Take 10 mg by mouth once daily. LORazepam (ATIVAN) 1 mg tablet Take 1 mg by mouth every 8 hours as needed. losartan (COZAAR) 100 mg tablet Take 100 mg by mouth once daily. metoprolol succinate ER (TOPROL XL) 50 mg 24 hr tablet Take 50 mg by mouth once daily. Naproxen SR (EC-NAPROSYN) 500 mg EC tablet Take 500 mg by mouth twice daily as needed. montelukast (SINGULAIR) 10 mg tablet Take 10 mg by mouth daily at bedtime. FISH OIL 60-90-500 mg cap Take 1 capsule by mouth once daily. testosterone cypionate (DEPO-TESTOSTERONE) 200 mg/mL injection Inject 200 mg intramuscularly once every month. tiZANidine (ZANAFLEX) 4 mg tablet Take 4 mg by mouth as needed. albuterol HFA (VENTOLIN HFA) 90 mcg/actuation inhaler Inhale 2 Puffs as instructed every 4 hours as needed. No current facility-administered medications for this visit. REVIEW OF SYSTEMS: Constitutional: Negative for fever and chills. Eyes: Negative for blurred vision and double vision. Respiratory: Negative for shortness of breath. Cardiovascular: Negative for chest pain and leg swelling. Gastrointestinal: Negative for nausea. Genitourinary: Negative for dysuria. Neurological: Negative for tingling, weakness and headaches. Endo/Heme/Allergies: Does not bruise/bleed easily. Psychiatric/Behavioral: Negative for suicidal ideas and substance abuse. OBSERVATION/PHYSICAL EXAM: AANDOx3 Antalgic: Flexed Bilateral, rounded shoulders bilaterally, anterior head carriage DTR: 2/4 to UE and LE MOTOR : 5/5 to upper extremity and lower extremity SENSORY: Pin prick/light touch intact RANGE OF MOTION: Decreased active range of motion in lateral flexion bilaterally HEEL WALK: WNL TOE WALK: WNL ORTHO EXAM: Shoulder depression test positive bilaterally for production of ongoing neck pain. Left brachial plexus tension test, median bias, reproduces ongoing neural tension. Axial compression negative, axial distraction negative Spurling's negative bilaterally. Increases in hypertonicity palpated throughout the bilateral cervical paraspinal trapezius levator scalenes SCM. LEG LENGTH: N/A wnl PERIPHERAL PULSES: Palpable PERIPHERAL EDEMA: Visually noted be within normal limits Segmental dysfunction : none noted on motion palpation IMPRESSION AND PLAN: (M47.812) Cervical spondylosis without myelopathy (primary encounter diagnosis) (M50.30) DDD (degenerative disc disease), cervical (G89.29) Other chronic pain Office Visit on 04/26/18 -ACUPUNCT W/O STIMUL 15 MIN -ACUPUNCT W/O STIMUL ADDL 15M Treatment: Acupuncture: 30min cervcial Prone position Patient responded well, instructed to call with problems or concerns. Time In: 9:45 Time Out:: 1051 PLAN: 1.) Activity: As tolerated and Discussed activity modifications 2.) Massage therapy: none 3.) resident care aid: Discussed with patient the etiology of his ongoing neck pain and left arm symptoms are likely neural tension. Discussed with patient treatment options treatment recommendations. Plan is being care manager consisting of spinal manipulation when indicated, and acupuncture. However, high velocity low amplitude chiropractic manipulation contraindicated due to patient's history of cervical fusion 4.) Duration: 1 time a week for 4 weeks 5.) Interventions: May consider lumbar medial branch blocks if patient does not respond well to conservative management 6.) Patient will call with any questions, concerns, or neurologic changes. JAVIER Ku DC 04/26/2018 12:55 PM Signed Activity as tolerated Continue HEP Ice/Heat as needed Call if symptoms worsen Referring Provider: MENDY TREJO [[id number]] Allergies As of Date: 04/26/2018 Noted Allergy Reaction BENZOCAINE 04/01/2016 4 - Hives POLLEN EXTRACTS 03/01/2013 9 - Itching PROCAINE 03/01/2013 4 - Hives Date Reviewed: 04/26/2018 Reviewed by: Shivam Tsang) [place] - Fully Assessed Reason for Visit: Low Back Pain [126] Neck Pain [135] Primary Visit Diagnosis:Cervical spondylosis without myelopathy [M47.812] Other Visit Diagnoses:DDD (degenerative disc disease), cervical [M50.30] Other chronic pain [G89.29] Order(s):ACUPUNCT W/O STIMUL 15 MIN [[id number]] Order #: [id number] ACUPUNCT W/O STIMUL ADDL 15M [[id number]] Order #: [id number] Prescriptions as of 04/26/2018 Sig: VITAMIN B-12 ORAL Take by mouth. FLUOROMETHOLONE 0.1 % EYE ROSALINDA* OXYCODONE-ACETAMINOPHEN 5 MG-* TRIAMCINOLONE ACETONIDE 0.1 %* 1 application by DENTAL route* MOMETASONE 0.1 % TOPICAL CREAM Apply 1 application to affect* VITAMIN D2 ORAL Take by mouth once daily. CALCIUM 166.75 MG-VIT D3 166.* Take 1,500 mg by mouth once d* MAGNESIUM 250 MG TABLET Take 500 mg by mouth once deysi* SELENIUM 200 MCG TABLET,DELAY* Take 250 tablets by mouth onc* BIOTIN 5 MG TABLET Take 5 mg by mouth once daily. MULTIVITAMIN-IRON 9 MG-FOLIC * Take 1 tablet by mouth once d* ZINC once daily. VIT C 1000 GA-KCPYXTVU-UOD-LY* Take by mouth. AMOXICILLIN 500 MG CAPSULE Take 500 mg by mouth twice da* ATORVASTATIN 40 MG TABLET Take 40 mg by mouth once tray* BUTALBITAL 50 MG-ACETAMINOPHE* Take 1 capsule by mouth as ne* FLUOXETINE 40 MG CAPSULE Take 40 mg by mouth once tray* FLUTICASONE 50 MCG/ACTUATION * Use 2 Sprays in the nose once* IBUPROFEN 800 MG TABLET Take 800 mg by mouth every 8 * LORATADINE 10 MG TABLET Take 10 mg by mouth once tray* LORAZEPAM 1 MG TABLET Take 1 mg by mouth every 8 ho* LOSARTAN 100 MG TABLET Take 100 mg by mouth once deysi* METOPROLOL SUCCINATE ER 50 MG* Take 50 mg by mouth once tray* NAPROXEN 500 MG TABLET,DELAYE* Take 500 mg by mouth twice da* MONTELUKAST 10 MG TABLET Take 10 mg by mouth daily at * FISH OIL 60 MG-90 MG-500 MG C* Take 1 capsule by mouth once * TESTOSTERONE CYPIONATE 200 MG* Inject 200 mg intramuscularly* TIZANIDINE 4 MG TABLET Take 4 mg by mouth as needed.* ALBUTEROL SULFATE HFA 90 MCG/* Inhale 2 Puffs as instructed * Problem List As Of Date 04/26/2018 Noted Resolved Benzocaine adverse reaction, initial encounter *INVALID FOR* Cervical spondylosis without myelopathy [M47.81*INVALID FOR* DDD (degenerative disc disease), cervical [M50.*INVALID FOR* Other instructions from your clinician: Activity as tolerated Continue HEP Ice/Heat as needed Call if symptoms worsen Level of Service: CLINIC VISIT NO CHARGE [[id number]] Disposition: Return in about 1 week (around 05/03/2018). Follow-up and Disposition History Recorded Questionnaire: AG SPINE PAIN OSWESTRY QUESTIONNAIRE Pain Intensity -> The pain is moderate at the moment Personal Care (Washing/Dressing) -> I can look after myself normally but it causes extra pain Lifting -> I can lift heavy weights but it gives extra pain Walking -> Pain prevents me from walking more than 1 mile Sitting -> Cmt: no answer Standing -> I stand as long as I want without extra pain Sleeping -> I can sleep well only by using medication Sex Life -> My sex life is normal but causes some extra pain Social Life -> My social life is normal but increases the degree of pain Traveling -> I can travel anywhere but it gives me extra pain Encounter Status:Closed by SHIVAM BUTT DC on 04/26/18 GIOVANNI Observed: 04/20/2018 Status: COMPLETED Source: [place] 12:00 AM CLINIC OTHER CAMPUS REPOSITORY Telephone (AGSPINE2) KODAK GAMBOA ([id number]) 1960 [facility] Date Time Provider Department 04/20/18 SHIVAM BUTT) AGSPINE2 During your visit today, we recorded the following information about you: Anastasiya Hager 04/20/2018 2:28 PM Signed INSURANCE CO. ID # GROUP # CO-PAY DEDUCTIBLE COINSUR. OUT OF POCKET MAX PRIOR AUTH REQU'D LIMITATIONS REFERENCE # SPOKE TO: Sandra [id number] Manip 15 VPCY 0 Used ACU 30 VPCY 0 uSED [id number] Aysha Is this a Medicare or Medicaid product? Yes Does this follow Medicare guidelines? No Is this a [employer] product? No Does this require clinical submission through [employer]? NA Chiropractor: Dr. Neely/ Dr. Butt Contracted: Yes Chiropractic benefits: In network Are the billable benefits a HARD LIMIT? Yes If yes, what is the mailing address for additional requests to be sent? Where are chiropractic claims sent: Is there a pre-existing rider on claims: Ask for the [employer] care department for benefits Be sure to ask: Are these supervised or unsupervised therapeutic modalities covered if billed by a chiropractor? CPT CODE NAME COVERED? 93674 Manual manipulations spine 1-2 Y [id number] Manual manipulations spine 3-4 Manual manipulations spine 5 Y Y 70526 Manual manipulations of extremities Y 00682 Hot/cold packs N 44158 Mechanical traction N 49584 Electrical stimulation N 65323 Therapeutic exercises N 65496 Neuromuscular re-education N 09966 Massage therapy N 81596 Manual therapy N 48349 Acupuncture < 15 minutes Y 54744 [id number] Acupuncture > 15 minutes Acupuncture with stim < 15 minutes Acupuncture with stim > 15 minutes Y Y Y Anastasiya Hager Allergies As of Date: 04/20/2018 Noted Allergy Reaction BENZOCAINE 04/01/2016 4 - Hives POLLEN EXTRACTS 03/01/2013 9 - Itching PROCAINE 03/01/2013 4 - Hives Date Reviewed: 04/06/2018 Reviewed by: Jude Clark - Fully Assessed Reason for Visit: other [Other] Cmt: CHIRO BENEFITS Reason For Visit History Recorded Prescriptions as of 04/20/2018 Sig: VITAMIN B-12 ORAL Take by mouth. FLUOROMETHOLONE 0.1 % EYE ROSALINDA* OXYCODONE-ACETAMINOPHEN 5 MG-* TRIAMCINOLONE ACETONIDE 0.1 %* 1 application by DENTAL route* MOMETASONE 0.1 % TOPICAL CREAM Apply 1 application to affect* VITAMIN D2 ORAL Take by mouth once daily. CALCIUM 166.75 MG-VIT D3 166.* Take 1,500 mg by mouth once d* MAGNESIUM 250 MG TABLET Take 500 mg by mouth once deysi* SELENIUM 200 MCG TABLET,DELAY* Take 250 tablets by mouth onc* BIOTIN 5 MG TABLET Take 5 mg by mouth once daily. MULTIVITAMIN-IRON 9 MG-FOLIC * Take 1 tablet by mouth once d* ZINC once daily. VIT C 1000 HW-AEHVJGOD-OUF-LY* Take by mouth. AMOXICILLIN 500 MG CAPSULE Take 500 mg by mouth twice da* ATORVASTATIN 40 MG TABLET Take 40 mg by mouth once tray* BUTALBITAL 50 MG-ACETAMINOPHE* Take 1 capsule by mouth as ne* FLUOXETINE 40 MG CAPSULE Take 40 mg by mouth once tray* FLUTICASONE 50 MCG/ACTUATION * Use 2 Sprays in the nose once* IBUPROFEN 800 MG TABLET Take 800 mg by mouth every 8 * LORATADINE 10 MG TABLET Take 10 mg by mouth once tray* LORAZEPAM 1 MG TABLET Take 1 mg by mouth every 8 ho* LOSARTAN 100 MG TABLET Take 100 mg by mouth once deysi* METOPROLOL SUCCINATE ER 50 MG* Take 50 mg by mouth once tray* NAPROXEN 500 MG TABLET,DELAYE* Take 500 mg by mouth twice da* MONTELUKAST 10 MG TABLET Take 10 mg by mouth daily at * FISH OIL 60 MG-90 MG-500 MG C* Take 1 capsule by mouth once * TESTOSTERONE CYPIONATE 200 MG* Inject 200 mg intramuscularly* TIZANIDINE 4 MG TABLET Take 4 mg by mouth as needed.* ALBUTEROL SULFATE HFA 90 MCG/* Inhale 2 Puffs as instructed * Problem List As Of Date 04/20/2018 Noted Resolved Benzocaine adverse reaction, initial encounter *INVALID FOR* Cervical spondylosis without myelopathy [M47.81*INVALID FOR* DDD (degenerative disc disease), cervical [M50.*INVALID FOR* Encounter Status:Closed by ANASTASIYA HAGER on 04/20/18 CARDIOLOGY VISIT Observed: 04/07/2018 Status: F Source: [facility] REPORT 4:48 PM [facility] REPOSITORY [facility] [address] [place] [address]. [address] [place] [address] OFFICE VISIT Date of Service: 04/07/18 MR#: [id number] Acct: [id number] Name: DEBORA GAMBOA Rep #: [id number] : 1960 Provider: Fermin Vogt MD Age/Sex: 57/M [place] [facility] [place] Status: Signed HPI [facility] Chief Complaint: Initial visit Details: DEBORA GAMBOA, is a 57 M who presents to the office today for an initial visit. He is a pleasant gentleman with a history of long-standing hypertension who is also under some amount of stress. He tells me that his blood pressure has been markedly elevated and it sometimes over 200 systolic. He has been on 2 blood pressure medications and says that he was diagnosed with probable mitral valve prolapse in the past. A stress test in 2013 for evaluation of chest discomfort did not demonstrate any evidence of ischemia. He has had no neck arm or jaw discomfort suggest angina no dizziness or diaphoresis no near syncope or syncope. He does have a significant family history of coronary artery disease with his father having of a myocardial infarction at age 44. His last visit to the emergency room was a few days ago where he was noted to have a blood pressure of 206 / 116. His physical exam today demonstrates clear lung dominguez regular rate and rhythm and no pedal edema his electrocardiogram demonstrated sinus bradycardia with a rate of 54 bpm and poor R wave progression. Intake Vital Signs04/07/18 Height 6 ft 1 in 04/07/18 Weight: 230 lb 04/07/18 Body Mass Index (BMI) 30.3 04/07/18 Blood Pressure 162/102 H 04/07/18 Blood Pressure Location Lt brachial Intake Visit Reasons: ER WC 04-04 for high BP, has cardiac Hx Sheet Sewer Required: No Accompanied by: one Is patient in pain?: No Allergies benzocaine Adverse Reaction (Verified 04/07/18 16:13) Hives Medications Atorvastatin Calcium 40 mg PO QHS 04/04/18 [History Confirmed 04/07/18] Butalbit/Acetamin/Caff/Codeine [Pnrbik-Sdhh-Rccfyfddnau-Codein] 1 tab PO DAILY PRN 04/04/18 [History Confirmed 04/07/18] Fluoxetine [Prozac] 40 mg PO DAILY 04/04/18 [History Confirmed 04/07/18] Loratadine 10 mg PO DAILY 04/04/18 [History Confirmed 04/07/18] Lorazepam [Ativan] 1 mg PO BID 04/04/18 [History Confirmed 04/07/18] Losartan Potassium 100 mg PO QHS 04/04/18 [History Confirmed 04/07/18] Meloxicam 7.5 mg PO DAILY 04/04/18 [History Confirmed 04/07/18] Metoprolol Succinate 50 mg PO DAILY 04/04/18 [History Confirmed 04/07/18] Montelukast [Singulair] 10 mg PO DAILY 04/04/18 [History Confirmed 04/07/18] Mayfield-3 Fatty Acids [Fish Oil] 500 mg PO DAILY 04/04/18 [History Confirmed 04/07/18] Pantoprazole Sodium 40 mg PO DAILY PRN 04/04/18 [History Confirmed 04/07/18] amlodipine 10 mg tablet 10 mg PO DAILY #90 tab 04/07/18 [Rx Confirmed 04/07/18] hydrochlorothiazide 25 mg tablet 25 mg PO DAILY #90 tab 04/07/18 [Rx Confirmed 04/07/18] tizanidine 4 mg capsule 4 mg PO TID PRN 04/07/18 [History Confirmed 04/07/18] [facility] Medical History Hyperlipidemia (Chronic) Essential (primary) hypertension (Chronic) GERD (gastroesophageal reflux disease) (Chronic) Surgical History H/O cervical spine surgery (Resolved 08/2016) History of elbow surgery (Resolved) Family History Father CAD (coronary artery disease) Myocardial infarction age 42 from [place] Mother Hypertension Social History Smoking Status: Never smoker ROS Const Const: Positive for headache(s) (due to high blood pressure); negative for fatigue, weakness, night sweats, excessive sweating, frequent falls or daytime sleepiness Eyes Eyes: Negative for loss of peripheral vision, transient loss of vision, blind spots, double vision or blurry vision ENT ENT: Positive for headache(s) (due to high blood pressure); negative for dizziness, balance problems, Nosebleed/epistaxis, tongue swelling or lip swelling Cardio Chest Pain: No Palpitations: No Edema: None Muscle aches with walking: None Resp Respiratory: Positive for SOB with activity; negative for SOB at rest, SOB orthopnea\SOB lying down, Cough or paroxysmal nocturnal dyspnea GI GI: Negative nausea, vomiting, heartburn, black,tarry stools or bright, red blood in stools : Negative for hematuria Musc Musc: Negative for balance problems, muscle aches/ myalgia, muscle weakness or joint pain Skin Skin: Negative non-healing lesions, unusual bruising or rash Neuro Neuro: Positive for headache(s) (due to high blood pressure); negative for weakness, frequent falls, double vision, dizziness, lightheadedness, orthostatic symptoms, blurry vision or lack of coordination [place] Hematologic/Lymphatic: Negative for easy bruising or easy bleeding Endo Endo: Negative for fatigue, excessive sweating, cold intolerance, heat intolerance, increased thirst/drinking or hair loss Psych Psych: Negative for anxiety or depression Allergy Allergy/Immunology: Negative for throat swelling, Negative for tongue swelling, Negative for hives, Negative for rash, Negative for lip swelling Cardiology Exam Const Appearance: cooperative, healthy appearing, well developed, well groomed and no acute distress Nutritional Appearance: well nourished and average body habitus Orientation: alert, awake and oriented x3 Head Head: normal to inspection, normocephalic and atraumatic Ears: hearing grossly normal bilaterally and external ears normal Nose: external nose normal, nasal mucous membranes and turbinates normal, nares normal, septum normal, no nasal discharge Face and Sinus: face symmetric Mouth: oral mucosae normal, tongue normal, oropharynx normal and moist mucous membranes Teeth and gingiva: dentition normal Throat: posterior oropharynx normal, tonsils normal and uvula midline Eyes General: appearance normal, both eyes and all related structures Eyelids: eyelids normal Conjunctivae: conjunctivae normal Pupils: PERRL, normal by confrontation and accommodation normal EOM: EOM intact bilaterally Neck Neck: normal visual inspection, trachea midline and no JVD JVD: +5 Carotids: normal carotid upstroke and bounding pulses Chest Chest inspection: normal inspection of the chest, symmetric chest movement and normal respiratory effort Auscultation: Bilateral: Clear to Auscultation Cardio Palpation: normal PMI Rate: regular rate Rhythm: regular rhythm Heart sounds: S1 normal, S2 normal and normal, physiologic split S2; negative rub, gallop or murmur GI GI: normal to inspection, soft, no hepatosplenomegaly and bowel sounds present Neuro General: alert, awake, oriented x3, no focal sensory deficit, gait normal and moves all extremities Skin Skin: no rashes or lesions noted Extremities Pulses: Normal: Right Femoral Pulse, Left Femoral Pulse, Right Dorsalis Pedis Pulse, Left Dorsalis Pedis Pulse, Right Posterior Tibial Pulse, Left Posterior Tibial Pulse, Right Radial Pulse, Left Radial Pulse Lower Extremity Edema: None: Bilateral Musculoskel Musculoskeletal: No joint tenderness Psych Psychological: normal affect Assessment AND Plan 1. Essential (primary) hypertension I10 Plan He does have a history of uncontrolled hypertension. My recommendation at this time would be to add a thiazide diuretic to his losartan and to add amlodipine 10 mg to his current regimen. He would continue to monitor his blood pressure and we would obtain an echocardiogram to assess his left ventricular function, evaluate wall thickness, and evaluate for any other valvular abnormality. I do not hear any murmur suggestive of mitral regurgitation though at this time. Depending on the findings further recommendations will be made. Orders Orders: 2. Pure hypercholesterolemia E78.00; E78.0 Plan He does have a history of hyperlipidemia and remains on high intensity statin. We will continue him on the same without making any changes. A lipid profile will be obtained within the next few months. Thank you for allowing me to participate in his care. Plan Detail Other Medications New: Follow Up 6 Weeks (jhr) Coding Level of Care Code Off vis,new,level 4 Diagnoses Essential (primary) hypertension I10 Pure hypercholesterolemia E78.00; E78.0 Hyperlipidemia type: pure hypercholesterolemia Coding Level of Care Code Off vis,new,level 4 Diagnoses Essential (primary) hypertension I10 Pure hypercholesterolemia E78.00; E78.0 Hyperlipidemia type: pure hypercholesterolemia 04/07/18 1648 <Electronically signed by Fermin Vogt MD> Date Fermin Vogt MD Cosigner Signature: Date (if applicable) CC: DALE CAREY PROVIDER NOTE - ED Observed: 04/07/2018 Status: COMPLETED Source: [place] 6:15 AM [facility] REPOSITORY TIME SEEN: ? Time [id number] 05:55 ED NOTES: ? ED Notes Patient states he's had a sore throat for about 2 or 3 days. He doesn't think he's had a fever. He really doesn't have a cough. He has a slight left earache. He is eating and drinking normally. He has no abdominal pain, chest pain or shortness of breath. He's had no wheezing. Of note patient's blood pressures up this morning. But over the weekend he admitted his mother's house and was tender. He left his medications there. He did not take his losartan dose last night. He has not yet taken his metoprolol this morning although he does have that one with him. He is going [id number] this [place] and will nut picker his medications there. He is taking his metoprolol now. CHIEF COMPLAINT/REASON FOR VISIT: ? REASON FOR VISITsore throat(1) ALLERGIES: Allergies: ? topical anesthetics- gets welts: Drug Category, topical anesthetics- gets welts, Other(See Desc), Active OUTPATIENT MEDICATION, REVIEW/ADD MEDICATIONS: * Patient Currently Takes Medications as of 22-Jan-2018 14:58 documented in Structured Notes PAST MEDICAL HISTORY: CV: HYPERTENSION, HYPERLIPIDEMIA(1) Neuro/Psych: DEPRESSION(1) SUBSTANCE USE: ? Smoking Statusnever smoker(1) ? Alcohol Use Statuscurrent alcohol (1) ? Street Drug/Inhalant/Medication Use Statusstreet drug/inhalants/medication never used (1) ? Exposure to Second Hand Smokenone (1) HISTORY ATTESTATION: ? AttestationI have reviewed and confirmed nurse's/medic's notes for patient's medications, allergies, medical history, and surgical history REVIEW OF SYSTEMS: ? General: NEGATIVE: chills, fever, malaise/fatigue ? Skin: NEGATIVE: rash ? Ear: POSITIVE: pain ? Nose: NEGATIVE: congestion ? Mouth/Throat: POSITIVE: throat pain; NEGATIVE: dysphagia, hoarseness, lesions, rash ? Respiratory: NEGATIVE: dyspnea, hemoptysis, wheezing ? Cardiovascular: NEGATIVE: chest pain, palpitation ? Gastrointestinal: NEGATIVE: abdominal pain, nausea, vomiting ? Neurological: NEGATIVE: dizziness, headache ? Musculoskeletal: NEGATIVE: arthralgia/myalgia, back pain VITAL SIGNS: 2. Vital Signs: Date/TimeTemp (degrees F) (degrees F)Temp (degrees C) (degrees C)Temperature Site SiteHeart Rate (beats/min) beats/minBP Systolic (mm Hg) Systolic 07-Apr-2018 05:[id number] BP Diastolic (mm Hg) Diastolic (mm Hg)BP Mean (mm Hg) Mean (mm Hg) Respiration (breaths/min) Respiration (breaths/min)SpO2 (%) SpO2 (%)Height (ft) Height (ft) [id number] Height (remainder in inches) Height (in)Height (cm) Height (cm)Height Method Height MethodWeight MethodBSA (m2) 1185.5wpdxvuqavced4.29 BMI (kg/m2) BMI (kg/m2)Weight (lbs) Weight (lbs)Weight (kg) Weight (kg) Presence of PainLocation Location [id number] of pain/discomfortthroat Pain Rating 10/10 PHYSICAL EXAMINATION: ? General Appearance CommentsPatient awake alert and nontoxic. He is laying comfortably in the bed. ? Skin CommentsNo rashes or pallor is noted. ? Neck and Thyroid CommentsNo JVD. ? Eyes CommentsExtraocular muscles are intact. There is no discharge or erythema. ? Ears, Nose, Mouth and Throat CommentsBoth tympanic membranes are clear. The left one does have a very small amount of fluid. There is no sign of infection. There is no sinus tenderness or nasal congestion. His throat has some mild erythema but no exudate. His voice is normal. ? Respiratory CommentsLungs are clear bilaterally. No pain with a deep breath. No rales. ? Cardiovascular CommentsHeart is regular without murmur gallop or rub. No muffled heart tones. ? Pulses CommentsPeripheral pulses are normal. ? Edema Or Varicosities CommentsThere is no edema. ? Gastrointestinal CommentsAbdomen is soft, nondistended and nontender. ? Musculoskeletal CommentsNo discomfort with joint motion. ? Neurological CommentsPatient awake alert and appropriate. Moves all extremities well. LAB AND MICRO RESULTS (24 hours): General Microbiology: 07-Apr-2018 06:02 Rapid Strep ResultValueRange Rapid StrepNegative[Negative] DIAGNOSES/PROBLEM LIST: Problem [id number] ? Elevated blood pressure readingED BdCcsxpa289.2R03.0 ? Sore throatED [id number] DISCHARGE DISPOSITION: ? Disposition: discharged ? Discharge Type: home CONDITION ON DISCHARGE: ? Condition on Dispositionstable MEDICATION RECONCILIATION AND DISCHARGE MEDS: * Outpatient Medication Status not yet specified CO-SIGN/ATTESTATION: Comments/ Additional Findings: Rapid strep test is negative. Patient has symptoms most consistent with viral URI. Patient is taking his morning metoprolol dose. He will be taking his low certain within a few hours. Although his blood pressure is elevated he has a long history of hypertension and has missed medication dosages. As long as he is back on these medications and well-controlled that should be appropriate. 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 He will have repeat blood pressures done at that visit. Electronic Signatures: Ernesto Ovalles () (Signed 07-Apr-2018 06:26) Entered: Time Seen/ED Notes, Chief Complaint/Reason for Visit via Triage Note, Patient History, History Attestation, ROS, Physical Exam, Lab Results Review, ED Disposition (REQUIRED), Attestation Authored: Time Seen/ED Notes, Chief Complaint/Reason for Visit via Triage Note, Patient History, History Attestation, ROS, Vital Signs, Physical Exam, Lab Results Review, ED Disposition (REQUIRED), Attestation Last Updated: 07-Apr-2018 06:26 by Ernesto Ovalles () References: 1. Data Referenced From Triage Note, Emergency 04/07/2018 5:52 AM RSTP Collected: 04/07/2018 Status: F Source: [place] 6:02 AM [facility] REPOSITORY TYPE CODE TESTS RESULT OUT OF REFERENCE UNITS RANGE LAB [id number]([place] Negative NC) Rapid Negative Strep PROGRESS Observed: 04/06/2018 Status: COMPLETED Source: [place] 2:09 PM [facility] OTHER [facility]US REPOSITORY O ID: [id number] Author: Jude Clark Service: (none) Author Type: Physician Type: Progress Notes Filed: 04/06/2018 3:11 PM Note Text: Subjective Neck Pain The history is provided by the patient. Kodak Gamboa is a 57 year old male who presents today for a new patient evaluation of his neck pain. He had ACDF with Dr. Chino in 08/2016. He did well for about 1 year before his pain returned. Pain is mostly in the neck but it will occasionally shoot down the arms. He reports that the left = right. He reports some numbness and tingling in the hands but not as bad as it was before the surgery. He is rating his pain as a 6-7/10 today. He attempted to start PT but had to cancel because of his work. He has never tried acu before but is interested in this. He had a surgical evaluation with Dr. Chino and was told no more surgery is indicated at this time and he should focus on conservative rehab and intervention. 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 Greenlight Questionnaire GREENLIGHT Completed Date 04/06/2018 Opioid Risk Tool Opiod Risk Tool Date Completed 04/06/2018 Review of Systems Eyes: Negative for blurred vision and double vision. Respiratory: Negative for shortness of breath. Cardiovascular: Positive for chest pain. Negative for leg swelling. Gastrointestinal: Negative for constipation, diarrhea, nausea and vomiting. Genitourinary: Negative for dysuria. Skin: Negative for itching. Neurological: Positive for dizziness and headaches. Negative for tingling and weakness. Endo/Heme/Allergies: Does not bruise/bleed easily. Psychiatric/Behavioral: Negative for depression and suicidal ideas. The patient is nervous/anxious. PAST MEDICAL HISTORY Diagnosis Date - Anxiety - Asthma - High cholesterol - Hypertension - Migraines - Subdural hematoma caused by concussion (HCC) 2001 PAST SURGICAL HISTORY Procedure Laterality Date - ADDTL NECK SPINE FUSION - ELBOW SURGERY HX Right - HERNIA REPAIR HX - PRK ENHANCEMENT - REMOVAL OF TONSILS,<12 Y/O FAMILY HISTORY Problem Relation Age of Onset - Hypertension Mother - Arthritis Mother - Heart disease Father - other (Pancreatic Cancer) Maternal Grandmother - Colon Cancer Maternal Grandfather - Heart disease Paternal Grandfather Social History Marital status: Spouse name: Years of education: Number of children: Social History Main Topics Smoking status: Never Smoker Smokeless tobacco: Never Used Alcohol use: Yes Comment: Occasional Drug use: No Other Topics Concern Caffeine Concern No Special Diet No Exercise No Current Meds cyanocobalamin, vitamin B-12, (VITAMIN B-12 ORAL) Take by mouth. fluorometholone (FML LIQUID FILM) 0.1 % ophthalmic suspension triamcinolone (KENALOG IN ORABASE) 0.1 % paste 1 application by DENTAL route twice daily. mometasone (ELOCON) 0.1 % cream Apply 1 application to affected area twice daily. ergocalciferol, vitamin D2, (VITAMIN D2 ORAL) Take by mouth once daily. Selenium 200 mcg TbEC Take 250 tablets by mouth once daily. biotin 5 mg tab Take 5 mg by mouth once daily. therapeutic multivitamin w/ iron (THERAGRAN-M) 9 mg iron-400 mcg tablet Take 1 tablet by mouth once daily. amoxicillin (POLYMOX, AMOXIL) 500 mg capsule Take 500 mg by mouth twice daily. atorvastatin (LIPITOR) 40 mg tablet Take 40 mg by mouth once daily. Fgarldxjjv-Skp-Dywpokllcp-Caf 50-641-05-30 mg per capsule Take 1 capsule by mouth as needed. FLUoxetine HCl (PROZAC) 40 mg capsule Take 40 mg by mouth once daily. fluticasone (FLONASE) 50 mcg/actuation nasal spray Use 2 Sprays in the nose once daily. ibuprofen (MOTRIN) 800 mg tablet Take 800 mg by mouth every 8 hours as needed. loratadine (CLARITIN) 10 mg tablet Take 10 mg by mouth once daily. LORazepam (ATIVAN) 1 mg tablet Take 1 mg by mouth every 8 hours as needed. losartan (COZAAR) 100 mg tablet Take 100 mg by mouth once daily. metoprolol succinate ER (TOPROL XL) 50 mg 24 hr tablet Take 50 mg by mouth once daily. Naproxen SR (EC-NAPROSYN) 500 mg EC tablet Take 500 mg by mouth twice daily as needed. montelukast (SINGULAIR) 10 mg tablet Take 10 mg by mouth daily at bedtime. FISH OIL 60-90-500 mg cap Take 1 capsule by mouth once daily. testosterone cypionate (DEPO-TESTOSTERONE) 200 mg/mL injection Inject 200 mg intramuscularly once every month. tiZANidine (ZANAFLEX) 4 mg tablet Take 4 mg by mouth as needed. albuterol HFA (VENTOLIN HFA) 90 mcg/actuation inhaler Inhale 2 Puffs as instructed every 4 hours as needed. oxyCODONE-acetaminophen (PERCOCET) 5-325 mg tablet calcium-vits C2-T-D0-minerals 166.75 mg- 166.75 unit cap Take 1,500 mg by mouth once daily. Magnesium 250 mg tab Take 500 mg by mouth once daily. zinc once daily. vit W-heenrdef-jink-lycopene 1,000-2-650 mg pwep Take by mouth. Objective Ht 6' 1 (1.85m) Wt 220 lb (99.8kg) BMI 29.03 kg/(m2). Physical Exam Constitutional: He is oriented to person, place, and time and well-developed, well-nourished, and in no distress. HENT: Head: Normocephalic and atraumatic. Head is without abrasion and without contusion. Hair is normal. Right Ear: Hearing normal. Left Ear: Hearing normal. Nose: No rhinorrhea. Mouth/Throat: No oropharyngeal exudate. Eyes: Lids are normal. Right eye exhibits no discharge. Left eye exhibits no discharge. Right conjunctiva is not injected. Left conjunctiva is not injected. Neck: Normal range of motion. No JVD present. Muscular tenderness present. No spinous process tenderness present. No neck rigidity. Pulmonary/Chest: Effort normal. No stridor. No apnea and no tachypnea. No respiratory distress. Abdominal: Normal appearance. He exhibits no distension. Musculoskeletal: Normal range of motion. Lumbar back: Normal. Lymphadenopathy: He has no cervical adenopathy. Neurological: He is alert and oriented to person, place, and time. He has normal strength. He displays no weakness, no atrophy, no tremor and normal reflexes. No sensory deficit. He exhibits normal muscle tone. Gait normal. Coordination and gait normal. Reflex Scores: Bicep reflexes are 2+ on the right side and 2+ on the left side. Brachioradialis reflexes are 2+ on the right side and 2+ on the left side. Velázquez (-) BL Skin: Skin is warm and dry. No lesion noted. Psychiatric: Mood, memory, affect and judgment normal. Nursing note and vitals reviewed. Assessment and Plan I had a nice discussion with the patient today about their current pain and the pathology that could be causing it. We discussed different treatment options. Our plan will be as follows: 1. Chronic neck pain Patient with C5/6 and C6/7 ACDF now with adjacent segment degeneration. He would like to work with Dr. Butt on Acu and rehab. We will follow up in about 5 weeks and discuss ILIR and MBB. Patient in agreement of this plan. - PSYCHOLOGIC TESTING ADMIN BY COMPUTER - CONSULT TO CHIROPRACTOR 2. DDD (degenerative disc disease), cervical 3. Cervical spondylosis without myelopathy A Greenlight medical screen for depression, anxiety, and potential for opioid abuse was completed on the patient. There are no concerns or need for referral to [facility] at this time. CNOV Observed: 04/06/2018 Status: COMPLETED Source: [place] 2:00 PM [facility] REPOSITORY Office Visit (AGSPINE3) KODAK GAMBOA ([id number]) 1960 [address] [facility] Date Time Provider Department 04/06/18 2:00 PM JUDE CLARK AGSPINE3 During your visit today, we recorded the following information about you: Pulse Blood pressure Weight Height 62/minute 170/104 99.8 kg 1.854 m Octavia Marion LPN 04/06/2018 1:57 PM Signed PDMP website checked and validated. 04/06/2018 by Octavia Clark MD 04/06/2018 3:11 PM Signed Subjective Neck Pain The history is provided by the patient. Kodak Gamboa is a 57 year old male who presents today for a new patient evaluation of his neck pain. He had ACDF with Dr. Chino in 08/2016. He did well for about 1 year before his pain returned. Pain is mostly in the neck but it will occasionally shoot down the arms. He reports that the left = right. He reports some numbness and tingling in the hands but not as bad as it was before the surgery. He is rating his pain as a 6-7/10 today. He attempted to start PT but had to cancel because of his work. He has never tried acu before but is interested in this. He had a surgical evaluation with Dr. Chino and was told no more surgery is indicated at this time and he should focus on conservative rehab and intervention. 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 Greenlight Questionnaire GREENLIGHT Completed Date 04/06/2018 Opioid Risk Tool Opiod Risk Tool Date Completed 04/06/2018 Review of Systems Eyes: Negative for blurred vision and double vision. Respiratory: Negative for shortness of breath. Cardiovascular: Positive for chest pain. Negative for leg swelling. Gastrointestinal: Negative for constipation, diarrhea, nausea and vomiting. Genitourinary: Negative for dysuria. Skin: Negative for itching. Neurological: Positive for dizziness and headaches. Negative for tingling and weakness. Endo/Heme/Allergies: Does not bruise/bleed easily. Psychiatric/Behavioral: Negative for depression and suicidal ideas. The patient is nervous/anxious. PAST MEDICAL HISTORY Diagnosis Date - Anxiety - Asthma - High cholesterol - Hypertension - Migraines - Subdural hematoma caused by concussion (HCC) 2001 PAST SURGICAL HISTORY Procedure Laterality Date - ADDTL NECK SPINE FUSION - ELBOW SURGERY HX Right - HERNIA REPAIR HX - PRK ENHANCEMENT - REMOVAL OF TONSILS,<12 Y/O FAMILY HISTORY Problem Relation Age of Onset - Hypertension Mother - Arthritis Mother - Heart disease Father - other (Pancreatic Cancer) Maternal Grandmother - Colon Cancer Maternal Grandfather - Heart disease Paternal Grandfather Social History Marital status: Spouse name: Years of education: Number of children: Social History Main Topics Smoking status: Never Smoker Smokeless tobacco: Never Used Alcohol use: Yes Comment: Occasional Drug use: No Other Topics Concern Caffeine Concern No Special Diet No Exercise No Current Meds cyanocobalamin, vitamin B-12, (VITAMIN B-12 ORAL) Take by mouth. fluorometholone (FML LIQUID FILM) 0.1 % ophthalmic suspension triamcinolone (KENALOG IN ORABASE) 0.1 % paste 1 application by DENTAL route twice daily. mometasone (ELOCON) 0.1 % cream Apply 1 application to affected area twice daily. ergocalciferol, vitamin D2, (VITAMIN D2 ORAL) Take by mouth once daily. Selenium 200 mcg TbEC Take 250 tablets by mouth once daily. biotin 5 mg tab Take 5 mg by mouth once daily. therapeutic multivitamin w/ iron (THERAGRAN-M) 9 mg iron-400 mcg tablet Take 1 tablet by mouth once daily. amoxicillin (POLYMOX, AMOXIL) 500 mg capsule Take 500 mg by mouth twice daily. atorvastatin (LIPITOR) 40 mg tablet Take 40 mg by mouth once daily. Jagkvbhrcm-Htr-Skzgzsjjyx-Caf 01-361-29-30 mg per capsule Take 1 capsule by mouth as needed. FLUoxetine HCl (PROZAC) 40 mg capsule Take 40 mg by mouth once daily. fluticasone (FLONASE) 50 mcg/actuation nasal spray Use 2 Sprays in the nose once daily. ibuprofen (MOTRIN) 800 mg tablet Take 800 mg by mouth every 8 hours as needed. loratadine (CLARITIN) 10 mg tablet Take 10 mg by mouth once daily. LORazepam (ATIVAN) 1 mg tablet Take 1 mg by mouth every 8 hours as needed. losartan (COZAAR) 100 mg tablet Take 100 mg by mouth once daily. metoprolol succinate ER (TOPROL XL) 50 mg 24 hr tablet Take 50 mg by mouth once daily. Naproxen SR (EC-NAPROSYN) 500 mg EC tablet Take 500 mg by mouth twice daily as needed. montelukast (SINGULAIR) 10 mg tablet Take 10 mg by mouth daily at bedtime. FISH OIL 60-90-500 mg cap Take 1 capsule by mouth once daily. testosterone cypionate (DEPO-TESTOSTERONE) 200 mg/mL injection Inject 200 mg intramuscularly once every month. tiZANidine (ZANAFLEX) 4 mg tablet Take 4 mg by mouth as needed. albuterol HFA (VENTOLIN HFA) 90 mcg/actuation inhaler Inhale 2 Puffs as instructed every 4 hours as needed. oxyCODONE-acetaminophen (PERCOCET) 5-325 mg tablet calcium-vits U0-H-B1-minerals 166.75 mg- 166.75 unit cap Take 1,500 mg by mouth once daily. Magnesium 250 mg tab Take 500 mg by mouth once daily. zinc once daily. vit N-qhihsgyf-bykd-lycopene 1,000-2-650 mg pwep Take by mouth. Objective Ht 6' 1 (1.85m) Wt 220 lb (99.8kg) BMI 29.03 kg/(m2). Physical Exam Constitutional: He is oriented to person, place, and time and well-developed, well-nourished, and in no distress. HENT: Head: Normocephalic and atraumatic. Head is without abrasion and without contusion. Hair is normal. Right Ear: Hearing normal. Left Ear: Hearing normal. Nose: No rhinorrhea. Mouth/Throat: No oropharyngeal exudate. Eyes: Lids are normal. Right eye exhibits no discharge. Left eye exhibits no discharge. Right conjunctiva is not injected. Left conjunctiva is not injected. Neck: Normal range of motion. No JVD present. Muscular tenderness present. No spinous process tenderness present. No neck rigidity. Pulmonary/Chest: Effort normal. No stridor. No apnea and no tachypnea. No respiratory distress. Abdominal: Normal appearance. He exhibits no distension. Musculoskeletal: Normal range of motion. Lumbar back: Normal. Lymphadenopathy: He has no cervical adenopathy. Neurological: He is alert and oriented to person, place, and time. He has normal strength. He displays no weakness, no atrophy, no tremor and normal reflexes. No sensory deficit. He exhibits normal muscle tone. Gait normal. Coordination and gait normal. Reflex Scores: Bicep reflexes are 2+ on the right side and 2+ on the left side. Brachioradialis reflexes are 2+ on the right side and 2+ on the left side. Velázquez (-) BL Skin: Skin is warm and dry. No lesion noted. Psychiatric: Mood, memory, affect and judgment normal. Nursing note and vitals reviewed. Assessment and Plan I had a nice discussion with the patient today about their current pain and the pathology that could be causing it. We discussed different treatment options. Our plan will be as follows: 1. Chronic neck pain Patient with C5/6 and C6/7 ACDF now with adjacent segment degeneration. He would like to work with Dr. Butt on Acu and rehab. We will follow up in about 5 weeks and discuss ILIR and MBB. Patient in agreement of this plan. - PSYCHOLOGIC TESTING ADMIN BY COMPUTER - CONSULT TO CHIROPRACTOR 2. DDD (degenerative disc disease), cervical 3. Cervical spondylosis without myelopathy A [facility] medical screen for depression, anxiety, and potential for opioid abuse was completed on the patient. There are no concerns or need for referral to [facility] at this time. Referring Provider: IAN CHINO [[id number]] Allergies As of Date: 04/06/2018 Noted Allergy Reaction BENZOCAINE 04/01/2016 4 - Hives POLLEN EXTRACTS 03/01/2013 9 - Itching PROCAINE 03/01/2013 4 - Hives Date Reviewed: 04/06/2018 Reviewed by: Jude Clark - Fully Assessed Reason for Visit: New Patient Evaluation [154] Cmt: referred by Ian Chino [facility] [[id number]] Reason For Visit History Recorded Primary Visit Diagnosis:Chronic neck pain [M54.2, G89.29] Other Visit Diagnoses:DDD (degenerative disc disease), cervical [M50.30] Cervical spondylosis without myelopathy [M47.812] Order(s):PSYCHOLOGIC TESTING ADMIN BY COMPUTER [[id number]] Order #: [id number] CONSULT TO CHIROPRACTOR [[id number]] Order #: [id number]: 1 Prescriptions as of 04/06/2018 Sig: VITAMIN B-12 ORAL Take by mouth. FLUOROMETHOLONE 0.1 % EYE ROSALINDA* TRIAMCINOLONE ACETONIDE 0.1 %* 1 application by DENTAL route* MOMETASONE 0.1 % TOPICAL CREAM Apply 1 application to affect* VITAMIN D2 ORAL Take by mouth once daily. SELENIUM 200 MCG TABLET,DELAY* Take 250 tablets by mouth onc* BIOTIN 5 MG TABLET Take 5 mg by mouth once daily. MULTIVITAMIN-IRON 9 MG-FOLIC * Take 1 tablet by mouth once d* AMOXICILLIN 500 MG CAPSULE Take 500 mg by mouth twice da* ATORVASTATIN 40 MG TABLET Take 40 mg by mouth once tray* BUTALBITAL 50 MG-ACETAMINOPHE* Take 1 capsule by mouth as ne* FLUOXETINE 40 MG CAPSULE Take 40 mg by mouth once tray* FLUTICASONE 50 MCG/ACTUATION * Use 2 Sprays in the nose once* IBUPROFEN 800 MG TABLET Take 800 mg by mouth every 8 * LORATADINE 10 MG TABLET Take 10 mg by mouth once tray* LORAZEPAM 1 MG TABLET Take 1 mg by mouth every 8 ho* LOSARTAN 100 MG TABLET Take 100 mg by mouth once deysi* METOPROLOL SUCCINATE ER 50 MG* Take 50 mg by mouth once tray* NAPROXEN 500 MG TABLET,DELAYE* Take 500 mg by mouth twice da* MONTELUKAST 10 MG TABLET Take 10 mg by mouth daily at * FISH OIL 60 MG-90 MG-500 MG C* Take 1 capsule by mouth once * TESTOSTERONE CYPIONATE 200 MG* Inject 200 mg intramuscularly* TIZANIDINE 4 MG TABLET Take 4 mg by mouth as needed.* ALBUTEROL SULFATE HFA 90 MCG/* Inhale 2 Puffs as instructed * OXYCODONE-ACETAMINOPHEN 5 MG-* CALCIUM 166.75 MG-VIT D3 166.* Take 1,500 mg by mouth once d* MAGNESIUM 250 MG TABLET Take 500 mg by mouth once deysi* ZINC once daily. VIT C 1000 PR-PSKZORLD-RBA-LY* Take by mouth. Medication notes this encounter TRIAMCINOLONE ACETONIDE 0.1 % DENTAL PASTE >> Octavia Marion LPN 04/06/2018 2:08 PM >> OCTAVIA MARION LPN ThuApr 06, 2018 2:08 PM PRN AMOXICILLIN 500 MG CAPSULE >> Octavia Marion LPN 04/06/2018 2:07 PM >> OCTAVIA MARION LPN ThuApr 06, 2018 2:07 PM Taking for dental work FLUTICASONE 50 MCG/ACTUATION NASAL SPRAY,SUSPENSION >> Octavia Marion LPN 04/06/2018 2:07 PM >> OCTAVIA MARION LPN ThuApr 06, 2018 2:07 PM PRN IBUPROFEN 800 MG TABLET >> Octavia Marion LPN 04/06/2018 2:07 PM >> OCTAVIA MARION LPN ThuApr 06, 2018 2:07 PM PRN LORATADINE 10 MG TABLET >> Octavia Marion LPN 04/06/2018 2:07 PM >> OCTAVIA MARION LPN ThuApr 06, 2018 2:07 PM PRN LORAZEPAM 1 MG TABLET >> Octavia Marion LPN 04/06/2018 2:07 PM >> OCTAVIA MARION LPN ThuApr 06, 2018 2:07 PM PRN NAPROXEN 500 MG TABLET,DELAYED RELEASE >> Octavia Marion LPN 04/06/2018 2:08 PM >> OCTAVIA MARION LPN ThuApr 06, 2018 2:08 PM PRN MONTELUKAST 10 MG TABLET >> Octavia Marion LPN 04/06/2018 2:08 PM >> OCTAVIA MARION LPN ThuApr 06, 2018 2:08 PM PRN ALBUTEROL SULFATE HFA 90 MCG/ACTUATION AEROSOL INHALER >> Octavia Marion LPN 04/06/2018 2:09 PM >> OCTAVIA MARION LPN ThuApr 06, 2018 2:09 PM PRN OXYCODONE-ACETAMINOPHEN 5 MG-325 MG TABLET >> Octavia Marion LPN 04/06/2018 2:08 PM >> ARACELY BEAN OCTAVIA cande Apr 06, 2018 2:08 PM Not taking CALCIUM 166.75 MG-VIT D3 166.75 UNIT-VIT C-VIT K2-MINERALS CAPSULE >> Octavia Marion LPN 04/06/2018 2:07 PM >> ARACELY BEAN OCTAVIA Lugo Apr 06, 2018 2:07 PM Not taking MAGNESIUM 250 MG TABLET >> Octavia Marion LPN 04/06/2018 2:08 PM >> MARY MARION LPNFELIPE Lugo Apr 06, 2018 2:08 PM Not taking ZINC >> Octavia Marion LPN 04/06/2018 2:09 PM >> MARY MARION LPNFELIPE Samuelscande Apr 06, 2018 2:09 PM Not taking VIT C 1000 HZ-IHFJETCF-TER-LYCOP 2 MG-PLANT STER 650 MG POWD EFFER PKT >> Octavia Marion LPN 04/06/2018 2:09 PM >> ARACELY BEAN OCTAVIA Lugo Apr 06, 2018 2:09 PM Not taking Problem List As Of Date 04/06/2018 Noted Resolved Benzocaine adverse reaction, initial encounter *INVALID FOR* Cervical spondylosis without myelopathy [M47.81*INVALID FOR* DDD (degenerative disc disease), cervical [M50.*INVALID FOR* Visit Notes: >> Octavia Marion LPN cande Apr 06, 2018 1:55 PM Status: Signed PDMP website checked and validated. 04/06/2018 by Octavia Marion LPN Letter Text 1 [facility] Jude Clark MD Kodak Gamboa 1960 5 04/06/2018 Patient: Kodak Gamboa : 1960 Gender: male Dear Ian Chino, Thank you for the opportunity of seeing your patient, Kodak Gamboa, today. Following is a summary of today's visit and my recommendation(s). Subjective Neck Pain The history is provided by the patient. Kodak Gamboa is a 57 year old male who presents today for a new patient evaluation of his neck pain. He had ACDF with Dr. Chino in 08/2016. He did well for about 1 year before his pain returned. Pain is mostly in the neck but it will occasionally shoot down the arms. He reports that the left = right. He reports some numbness and tingling in the hands but not as bad as it was before the surgery. He is rating his pain as a 6-7/10 today. He attempted to start PT but had to cancel because of his work. He has never tried acu before but is interested in this. He had a surgical evaluation with Dr. Chino and was told no more surgery is indicated at this time and he should focus on conservative rehab and intervention. 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 Greenlight Questionnaire GREENLIGHT Completed Date 04/06/2018 Opioid Risk Tool Opiod Risk Tool Date Completed 04/06/2018 Review of Systems Eyes: Negative for blurred vision and double vision. Respiratory: Negative for shortness of breath. Cardiovascular: Positive for chest pain. Negative for leg swelling. Gastrointestinal: Negative for constipation, diarrhea, nausea and vomiting. Genitourinary: Negative for dysuria. Skin: Negative for itching. Neurological: Positive for dizziness and headaches. Negative for tingling and weakness. Endo/Heme/Allergies: Does not bruise/bleed easily. Psychiatric/Behavioral: Negative for depression and suicidal ideas. The patient is nervous/anxious. PAST MEDICAL HISTORY Diagnosis Date - Anxiety - Asthma - High cholesterol - Hypertension - Migraines - Subdural hematoma caused by concussion (HCC) 2001 PAST SURGICAL HISTORY Procedure Laterality Date - ADDTL NECK SPINE FUSION - ELBOW SURGERY HX Right - HERNIA REPAIR HX - PRK ENHANCEMENT - REMOVAL OF TONSILS,<12 Y/O FAMILY HISTORY Problem Relation Age of Onset - Hypertension Mother - Arthritis Mother - Heart disease Father - other (Pancreatic Cancer) Maternal Grandmother - Colon Cancer Maternal Grandfather - Heart disease Paternal Grandfather Social History Marital status: Spouse name: Years of education: Number of children: Social History Main Topics Smoking status: Never Smoker Smokeless tobacco: Never Used Alcohol use: Yes Comment: Occasional Drug use: No Other Topics Concern Caffeine Concern No Special Diet No Exercise No Current Meds cyanocobalamin, vitamin B-12, (VITAMIN B-12 ORAL) Take by mouth. fluorometholone (FML LIQUID FILM) 0.1 % ophthalmic suspension triamcinolone (KENALOG IN ORABASE) 0.1 % paste 1 application by DENTAL route twice daily. mometasone (ELOCON) 0.1 % cream Apply 1 application to affected area twice daily. ergocalciferol, vitamin D2, (VITAMIN D2 ORAL) Take by mouth once daily. Selenium 200 mcg TbEC Take 250 tablets by mouth once daily. biotin 5 mg tab Take 5 mg by mouth once daily. therapeutic multivitamin w/ iron (THERAGRAN-M) 9 mg iron-400 mcg tablet Take 1 tablet by mouth once daily. amoxicillin (POLYMOX, AMOXIL) 500 mg capsule Take 500 mg by mouth twice daily. atorvastatin (LIPITOR) 40 mg tablet Take 40 mg by mouth once daily. Naodizzulo-Wky-Jcupimznms-Caf 93-580-72-30 mg per capsule Take 1 capsule by mouth as needed. FLUoxetine HCl (PROZAC) 40 mg capsule Take 40 mg by mouth once daily. fluticasone (FLONASE) 50 mcg/actuation nasal spray Use 2 Sprays in the nose once daily. ibuprofen (MOTRIN) 800 mg tablet Take 800 mg by mouth every 8 hours as needed. loratadine (CLARITIN) 10 mg tablet Take 10 mg by mouth once daily. LORazepam (ATIVAN) 1 mg tablet Take 1 mg by mouth every 8 hours as needed. losartan (COZAAR) 100 mg tablet Take 100 mg by mouth once daily. metoprolol succinate ER (TOPROL XL) 50 mg 24 hr tablet Take 50 mg by mouth once daily. Naproxen SR (EC-NAPROSYN) 500 mg EC tablet Take 500 mg by mouth twice daily as needed. montelukast (SINGULAIR) 10 mg tablet Take 10 mg by mouth daily at bedtime. FISH OIL 60-90-500 mg cap Take 1 capsule by mouth once daily. testosterone cypionate (DEPO-TESTOSTERONE) 200 mg/mL injection Inject 200 mg intramuscularly once every month. tiZANidine (ZANAFLEX) 4 mg tablet Take 4 mg by mouth as needed. albuterol HFA (VENTOLIN HFA) 90 mcg/actuation inhaler Inhale 2 Puffs as instructed every 4 hours as needed. oxyCODONE-acetaminophen (PERCOCET) 5-325 mg tablet calcium-vits J6-I-Y2-minerals 166.75 mg- 166.75 unit cap Take 1,500 mg by mouth once daily. Magnesium 250 mg tab Take 500 mg by mouth once daily. zinc once daily. vit M-owvwmpbm-leob-lycopene 1,000-2-650 mg pwep Take by mouth. Objective Ht 6' 1 (1.85m) Wt 220 lb (99.8kg) BMI 29.03 kg/(m2). Physical Exam Constitutional: He is oriented to person, place, and time and well-developed, well-nourished, and in no distress. HENT: Head: Normocephalic and atraumatic. Head is without abrasion and without contusion. Hair is normal. Right Ear: Hearing normal. Left Ear: Hearing normal. Nose: No rhinorrhea. Mouth/Throat: No oropharyngeal exudate. Eyes: Lids are normal. Right eye exhibits no discharge. Left eye exhibits no discharge. Right conjunctiva is not injected. Left conjunctiva is not injected. Neck: Normal range of motion. No JVD present. Muscular tenderness present. No spinous process tenderness present. No neck rigidity. Pulmonary/Chest: Effort normal. No stridor. No apnea and no tachypnea. No respiratory distress. Abdominal: Normal appearance. He exhibits no distension. Musculoskeletal: Normal range of motion. Lumbar back: Normal. Lymphadenopathy: He has no cervical adenopathy. Neurological: He is alert and oriented to person, place, and time. He has normal strength. He displays no weakness, no atrophy, no tremor and normal reflexes. No sensory deficit. He exhibits normal muscle tone. Gait normal. Coordination and gait normal. Reflex Scores: Bicep reflexes are 2+ on the right side and 2+ on the left side. Brachioradialis reflexes are 2+ on the right side and 2+ on the left side. Velázquez (-) BL Skin: Skin is warm and dry. No lesion noted. Psychiatric: Mood, memory, affect and judgment normal. Nursing note and vitals reviewed. Assessment and Plan I had a nice discussion with the patient today about their current pain and the pathology that could be causing it. We discussed different treatment options. Our plan will be as follows: 1. Chronic neck pain Patient with C5/6 and C6/7 ACDF now with adjacent segment degeneration. He would like to work with Dr. Butt on Acu and rehab. We will follow up in about 5 weeks and discuss ILIR and MBB. Patient in agreement of this plan. - PSYCHOLOGIC TESTING ADMIN BY COMPUTER - CONSULT TO CHIROPRACTOR 2. DDD (degenerative disc disease), cervical 3. Cervical spondylosis without myelopathy A [facility] medical screen for depression, anxiety, and potential for opioid abuse was completed on the patient. There are no concerns or need for referral to [facility] at this time. Jude Clark MD (Signed electronically to expedite mailing) [facility] [address] [place] [address] [address], [place] [address] Encounter Status:Closed by JUDE CLARK MD on 04/06/18 12 LEAD ELECTROCARDIOGRAM Observed: 04/06/2018 Status: F Source: [place] 10:30 AM [facility] Cardiovascular Services [address] [place] [address] 12 Lead EKG 04/04/18 2356 MR#: [id number] Acct: [id number] Name: DEBORA GAMBOA Rep #: [id number] : 1960 57 From: Glenn Alvarado MD Attending Dr: Status: DEP ER Ordering Dr: Kodak Quinones MD Date: 04/05/18 Location: ED Sex: M C Admitted: Test Reason : CP Blood Pressure : / mmHG Vent. Rate : 054 BPM Atrial Rate : 054 BPM P-R Int : 172 ms QRS Dur : 096 ms QT Int : 430 ms P-R-T Axes : 039 010 016 degrees QTc Int : 407 ms Sinus bradycardia Poor R wave progression Confirmed by GLENN ALVARADO MD ([id number]), manager editorial YANCY CHINO ([id number]) on 04/06/2018 10:30:11 AM Referred By: DR QUINONES Confirmed By:GLENN ALVARADO MD 04/06/18 1030 Date Glenn Alvarado MD CC: DALE CAREY; Kodak Quinones MD Signed EMERGENCY DEPARTMENT Observed: 04/05/2018 Status: F Source: [place] SUMMARY 6:40 AM [facility] Medical Records Department [address] [place] [address] Emergency Department Summary 04/05/18 0032 MR#: [id number] Acct: [id number] Name: DEBORA GAMBOA Rep #: [id number] : 1960 57 From: Kodak Quinones MD PCP: DALE CAREY Status: DEP ER - ER Visit Summary Date of Service: 04/05/18 Chief Complaint: Elevated blood pressure History of Present Illness: The patient is a 57 M history of hypertension. States he has been taking his medications. He says for the last 2 months he has had elevated blood pressures. He believes it stress related. Denies that his blood pressure was 200/100+. He had episodes of some dull aching left-sided chest pain. No shortness of breath. Mild nausea. No vomiting. No diaphoresis. He denies any recent exertional chest pain. He has had negative stress test in the past but none done recently. He is never had a cardiac catheterization. No history of DVT or PE. No recent travel, surgery, mobilization. No leg pain or swelling. No hemoptysis. Currently he is pain-free. Physical Examination: Well-appearing middle-age male. Vital signs initial blood pressure is 206/116. Otherwise stable and afebrile. Pulse ox 96% on room air no signs of hypoxia. No distress. H EENT exam unremarkable. Neck nontender. No JVD. Lungs clear to auscultation bilaterally. Heart regular rhythm rate about 60 no murmur. Chest wall nontender. Abdomen is soft and nontender. Normal bowel sounds no peritoneal signs. He is moving all 4 extremities. They are neurovascularly intact. Calves are nontender without edema nor cords. Radial pulses are equal and symmetrical. Back exam nontender. Neurologically is awake and alert with no focal motor deficits. Test Results: Patient will undergo cardiac workup. His initial EKG shows a sinus tachycardia rate of 54 with no signs of NH nor ischemia. Chest x-ray shows mild cardiomegaly to myself. CBC unremarkable. White count of 9. Hemoglobin 15. Electrolytes unremarkable. Normal creatinine and gap. Troponin normal. Emergency Department Course and Treatment: Patient treated with Lopressor IV x2. Ibuprofen for mild headache. And metoprolol p.o. His blood pressure is improving. On multiple exams is doing well. They are comfortable being discharged home. To follow-up as an outpatient with his primary care physician for reevaluation of his blood pressure medications. And also potentially outpatient stress testing. Treatment Plan: Follow-up with his PCP. Disposition: Discharge Impression: Acute on chronic hypertension Chest pain of uncertain etiology This note was generated with Orbeus dictation software. It may contain incorrect words, spelling, and punctuation that were not noted in review of the chart prior to signing ED Disposition - Plan for ED Patient: Chief Complaint: Hypertension Referrals: Brock Carey [Primary Care Provider] - What to do if you have Problems For any increased pain, shortness of breath, bleeding, nausea or vomiting, chest pain, or any unexpected problems, contact your Primary Care Provider. Call [facility] ([phone]) or report to the closest Emergency Room. Call 911 if necessary. 04/05/18 0640 <Electronically signed by Kodak Quinones MD> Date Kodak Quinones MD Cosigner Signature (If Indicated): Date CC: DALE CAREY DISCHARGE INSTRUCTION Observed: 04/05/2018 Status: F Source: [place] 6:40 AM [facility] Medical Records Department [address] [place] [address] Discharge Instruction 04/05/18 0257 MR#: [id number] Acct: [id number] Name: DEBORA GAMBOA Rep #: [id number] : 1960 57 From: Kodak Quinones MD PCP: DALE CAREY Status: [facility] ER ED Disposition - Plan for ED Patient: Disposition: Home or Assisted Living Chief Complaint: Hypertension Instructions: ED Hypertension Conf Out Of Control, ED Chest Pain Atypical Unkn Cause Referrals: Brock Carey [Primary Care Provider] - As soon as possible Additional Instructions: Continue your current medications. Log your blood pressures at least twice daily and ensure there is readings your primary care physician so he can regulate your blood pressure medications as needed. Also follow-up your primary care physician for your chest pain. If you feel worse or having increasing episodes of chest pain that you need to return for further evaluation. You may need outpatient stress test. What to do if you have Problems For any increased pain, shortness of breath, bleeding, nausea or vomiting, chest pain, or any unexpected problems, contact your Primary Care Provider. Call [facility] ([phone]) or report to the closest Emergency Room. Call 911 if necessary. 04/05/18 0640 <Electronically signed by Kodak Quinones MD> Date Kodak Quinones MD Cosigner Signature (If Indicated): Date CC: DALE CAREY CHEST 1 VIEW Observed: 04/05/2018 Status: F Source: [place] (PORTABLE) 12:12 AM [facility] Imaging Services [address] [place] [address] Chest 1 View (Portable) MR#: [id number] Acct: [id number] Name: DEBORA GAMBOA Rep #: [id number] : 1960 M 57 From: Evie Martinez MD PCP: DALE CAREY Status: REG ER Study: Chest 1 View (Portable) Date of Exam: 04/05/18 Exam# [id number] Ordering Dr: Kodak Quinones MD STUDY: X-RAY CHEST REASON FOR EXAM: Male, 57 years old. Chest pain and hypertension TECHNIQUE: Single AP portable view of the chest. COMPARISON: None. FINDINGS: The lungs are clear and expanded. There is no demonstrated pleural abnormality. There is mild cardiac enlargement. Normal mediastinum and sofia. Normal visualized pulmonary arteries. Normal visualized aortic arch and descending thoracic aorta. Normal visualized thoracic spine. Normal visualized ribs, clavicles, and shoulders. Status post lower cervical fusion. There is no demonstrated abnormality of the visualized soft tissue structures of the upper abdomen. RAD/Chest 1 View (Portable) IMPRESSION: Cardiomegaly. No pulmonary edema, congestive heart failure or confluent pneumonia. Electronically Signed: Evie Martinez MD at 1:13 EDT , Service support , CC: DALE CAREY; Koadk Quinones MD Emergency Crew Supervisor: Signed CBC W/DIFF, AUTOMATED Collected: 04/05/2018 Status: F Source: [place] 12:10 AM [facility] REPOS[facility]ORY TYPE CODE TESTS RESULT OUT OF RANGE REFERENCE UNITS LAB L100.1000 4.4-11.0 K/mm3 Normal WBC 9.0 LAB L100.1200 4.6-6.2 M/mm3 Normal RBC 5.06 LAB L100.1300 13.0-16.5 g/dl Normal HGB 15.6 LAB L100.1400 40-54 % Normal HCT 46.6 LAB L100.1500 80-94 fL Normal MCV 92.1 LAB L100.1600 27.0-32.0 pg Normal MCH 30.8 LAB L100.1700 32-36 g/gl Normal MCHC 33.5 LAB L100.1810 11.6-14.6 % Normal RDW CV 12.1 LAB L100.1820 35.1-43.9 fl Normal RDW SD 40.3 LAB L100.1900 150-450 K/mm3 Normal PLT 223 LAB L100.2000 6.2-12.0 fl Normal MPV 10.1 LAB L100.2100 47-70 % Normal NEUT% 56.5 LAB L100.2200 19-41 % Normal LY% 31.9 LAB L100.2300 0-10 % Normal MONO% 8.9 LAB L100.2400 0-5 % Normal EO% 2.2 LAB L100.2500 0-1 % Normal BASO% 0.4 LAB L100.2550 0.0-0.9 % Normal IM GRAN % 0.100 Result Comment: IG% - Immature Granulocytes (promyelocytes, myelocytes and metamyelocytes) > 1% indicates that a LEFT SHIFT is Present. LAB L100.2620 2.0-7.7 X10 3/uL Normal Absolute Neut 5.1 LAB L100.2720 0.83-4.51 X10 3/ul Normal Absolute Lymph 2.87 Performed By: #### L100.0100 #### [facility] [address], [address] BASIC METABOLIC Collected: 04/05/2018 Status: F Source: [place] PROFILE (BMP) 12:10 AM [facility] REPOSITORY TYPE CODE TESTS RESULT OUT OF RANGE REFERENCE UNITS LAB L501.0100 74-106 mg/dL Normal GLU 100 Result Comment: Fasting Glucose result from 100 to 125 mg/dL suggests IMPAIRED HOMEOSTASIS per A.D.A. criteria. Please note revised GLUCOSE reference range effective 2017. LAB L501.1000 7-18 mg/dL Normal BUN 8 LAB L501.1100 0.70-1.30 mg/dL Normal CREAT,SERUM 0.90 Result Comment: The validity of the calculated GFR AND GFRAA in patients over 70 years has not been determined. Clinical correlation is essential. LAB L501.1110 >60 mL/min Normal EST GFR 93 Result Comment: Non- GFR Calc LAB L501.1115 >60 mL/min Normal EST GFR - AA 112 Result Comment: GFR Calc LAB L501.1255 ml/min Normal Estimated CRCL 104.81 LAB L501.1300 10-20 RATIO Low BUN/CRE 8.8 LAB L501.2200 8.5-10 mg/dL Low .1 CA 8.2 LAB L501.5300 136-14 mmol/L 5 NA Normal 140 LAB L501.5600 3.5-5. mmol/L 1 K Normal 3.8 Result Comment: Slight Hemolysis, Result may be falsely increased. LAB L501.5900 98-107 mmol/L Normal CL 105 LAB L501.6100 21.0-32.0 mmol/L Normal CO2 26.0 LAB L501.6200 5-15 Normal 9 GAP Performed By: #### L500.2500, L501.4010 #### [facility] [address] [place], [address] TROPONIN-I Collected: 04/05/2018 Status: F Source: [place] 12:10 AM [facility] REPOSITORY TYPE CODE TESTS RESULT OUT OF RANGE REFERENCE UNITS LAB L501.4010 <0.045 ng/mL Normal < 0.015 TROPONIN-I Result Comment: TROPONIN-I EXPECTED VALUES <0.045 Negative 0.045 - 0.590 Consistent with Cardiac Damage > OR = 0.600 Critical Value Not every elevated troponin is indicative of NH. These values should be used with clinical judgement in examining the patient's clinical picture for diagnosis. To establish a diagnosis of NH versus myocardial injury, there must be a demonstrated rise and/or fall in the troponin values, in addition to ischemic symptoms, EKG changes, new regional wall motion abnormality, and/or angiographical evidence. PLEASE NOTE: REFERENCE RANGES EDITED 17 Performed By: #### L500.2500, L501.4010 #### [facility] [address] [place], [address] SULLY/CT/CERVICAL W/O Observed: 01/17/2018 Status: F Source: [place] 9:18 PM [facility] REPOSITORY Patient Name: KODAK GAMBOA STUDY: SULLY/CT/CERVICAL W/O; 01/17/2018 9:00 pm INDICATION: intoxicated, found passed out on driveway. COMPARISON: The images of the patient's cervical spine MRI of 06/29/2014 are not in PACS for direct comparison as at the time of this interpretation. ACCESSION NUMBER(S): [id number] ORDERING CLINICIAN: ROSE ENAMORADO TECHNIQUE: Axial noncontrast images of the cervical spine with coronal and sagittal reconstructed images. FINDINGS: There is straightening of the normal cervical lordosis and the patient's neck is deviated to the left, both probably positional artifact rather than acute injury. There is prior anterior fusion at C5-C6 and C6-C7 and mild multilevel spondylosis. Otherwise: ALIGNMENT: Normal. VERTEBRAE: No acute fracture. SPINAL CANAL: No critical spinal canal stenosis. PREVERTEBRAL SOFT TISSUES: No prevertebral soft tissue swelling. LUNG APICES: Imaged portion of the lung apices are within normal limits. IMPRESSION: No acute fracture or traumatic subluxation of the cervical spine. Dictated by: Electronically Signed by: Pro Gardiner Electronically Signed on: 01/17/2018 9:18 PM SULLY/CT/HEAD W/O Observed: 01/17/2018 Status: F Source: [place] 9:10 PM [facility] REPOSITORY Patient Name: KODAK GAMBOA STUDY: SULLY/CT/HEAD W/O; 01/17/2018 9:00 pm INDICATION: intoxicated, found passed out on driveway. COMPARISON: None ACCESSION NUMBER(S): [id number] ORDERING CLINICIAN: ROSE ENAMORADO TECHNIQUE: Noncontrast CT images of head. FINDINGS: BRAIN PARENCHYMA: Leonard-white matter interfaces are preserved. No mass, mass effect or midline shift. 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 HEMORRHAGE: No acute intracranial hemorrhage. VENTRICLES and EXTRA-AXIAL SPACES: Normal size. EXTRACRANIAL SOFT TISSUES: Within normal limits. PARANASAL SINUSES/MASTOIDS: Tiny-small mucous retention cysts/polyps bilateral maxillary sinuses. Trace-mild mucosal thickening bilateral ethmoid sinuses. Right frontal sinus is aplastic, incidental finding. Otherwise, within normal limits. CALVARIUM: No depressed acute skull fracture. IMPRESSION: No acute intracranial abnormality. Dictated by: Electronically Signed by: Pro Gardiner Electronically Signed on: 01/17/2018 9:10 PM PROVIDER NOTE - ED Observed: 01/17/2018 Status: COMPLETED Source: [place] 8:19 PM [facility] REPOSITORY TIME SEEN: ? Time [id number] 20:02 CHIEF COMPLAINT/REASON FOR VISIT: ? Chief ComplaintFound passed out by , admits to alcohol and ativan tonight, denies pain(1) ? REASON FOR VISITLoss of consciousness(1) ? Historianpatient EMS/ambulance HISTORY OF PRESENT ILLNESS - ADDITIONAL: ? ComplaintThis is a 57 year old male presenting by EMS for intoxication. Patient was found passed out in the driveway by his . Patient admits to drinking alcohol tonight, also took ativan. He denies pain. He was placed in a c-collar by EMS. He denies abdominal pain, neck pain, headache, blurry vision, nausea, vomiting. He has a history of hypertension and hyperlipidemia. He denies taking any blood thinners. ALLERGIES: Allergies: ? topical anesthetics- gets welts: Drug Category, topical anesthetics- gets welts, Other(See Desc), Active HISTORY: ? History Reviewed Medications reviewed OUTPATIENT MEDICATION, REVIEW/ADD MEDICATIONS: * Patient Currently Takes Medications as of 17-Jan-2018 20:07 documented in Structured Notes PAST MEDICAL HISTORY: CV: HYPERTENSION, HYPERLIPIDEMIA Neuro/Psych: DEPRESSION SUBSTANCE USE: ? Smoking Statusnever smoker(1) ? Alcohol Use Statuscurrent alcohol (1) ? Street Drug/Inhalant/Medication Use Statusstreet drug/inhalants/medication never used (1) ? Exposure to Second Hand Smokenone (1) HISTORY ATTESTATION: ? AttestationI have reviewed and confirmed nurse's/medic's notes for patient's medications, allergies, medical history, and surgical history REVIEW OF SYSTEMS: ? General: NEGATIVE: fever ? Skin: NEGATIVE: rash ? Eye: NEGATIVE: vision changes ? Mouth/Throat: NEGATIVE: throat pain ? Respiratory: NEGATIVE: cough, dyspnea ? Cardiovascular: NEGATIVE: chest pain ? Gastrointestinal: NEGATIVE: abdominal pain, nausea, vomiting ? Genitourinary: NEGATIVE: dysuria ? Neurological: NEGATIVE: headache, numbness, weakness ? Musculoskeletal: NEGATIVE: pain VITAL SIGNS: 2. Vital Signs: Date/TimeTemp (degrees F) (degrees F)Temp (degrees C) (degrees C)Temperature Site SiteHeart Rate (beats/min) beats/minBP Systolic (mm Hg) Systolic 17-Jan-2018 20:[id number] BP Diastolic (mm Hg) Diastolic (mm Hg)BP Mean (mm Hg) Mean (mm Hg) Respiration (breaths/min) Respiration (breaths/min)SpO2 (%) SpO2 (%)Height (ft) Height (ft) [id number] Height (remainder in inches) Height (in)Height (cm) Height (cm)Weight Method BSA (m2)BMI (kg/m2) BMI (kg/m2) 1185.2nnoxzu5.3230.3 Weight (lbs) Weight (lbs)Weight (kg) Weight (kg)Presence of Pain 345913.3denies pain/discomfort PHYSICAL EXAMINATION: ? General Appearance CommentsWell-developed well-nourished middle-aged male, intoxicated, mild distress. Head is normocephalic and atraumatic. ? Skin CommentsWarm, well-perfused, no obvious rash. ? Neck and Thyroid CommentsSupple, trachea midline. ? Eyes CommentsPupils equally round and reactive to light. Extra-ocular muscle movements intact. ? Ears, Nose, Mouth and Throat CommentsMoist oral mucosa. ? Respiratory CommentsLungs clear to auscultation bilaterally. No acute respiratory distress. ? Cardiovascular CommentsRegular rate and rhythm, no murmurs, rubs, or gallops appreciated. Normal capillary refill. ? Gastrointestinal CommentsSoft, nontender, nondistended abdomen. No rebound or guarding. ? Musculoskeletal CommentsNo lower extremity edema or tenderness. No gross deformity. ? Neurological CommentsAlert and oriented ?4. Cranial nerves II-XII intact. Sensation and strength intact throughout the upper and lower extremities bilaterally. CURRENTORDERS/STITCHDOWNS TOE FORMER: Order NameOrder Summary LineDateStatus ? Sodium Chloride 0.9% InfusionInfuse 1000 milliLiter(s) IntraVenous Bolus at 1000 ml/hrHang Time: 1 [id number] ? Ondansetron InjectableGive 4 milliGRAM(s), IntraVenous Push, ONCE Special Instructions: Doses over 4 mg to be made as IVPB[Ordered as ZOFRAN Injectable]55-Ilm-9088Rjfjuruko ? Auto Dif Collect STAT Source: [id number] or more Final Results Received ? CBC With Auto Diff Collect STAT Source: [id number] or more Final Results Received ? Comprehensive Metabolic Panel Collect STAT Source: [id number] Specimen Received by Performing Department ? Ethanol, Level Collect STAT Source: [id number] Received by Performing Department ? Prothrombin Time Collect [id number] Received by Performing Department ? CT Head without Contrast Requested STAT ,Reason for Exam : intoxicated, found passed out on sbmbigml41-Gty-2912Nwbesa ? CT Cervical Spine without Contrast Requested STAT ,Reason for Exam : intoxicated, found passed out on iglhpstg69-Wwd-7013Yppksz ? IV InsertStart Date: 17-Jan-2018 [id number] LAB AND MICRO RESULTS (24 hours): General Hematology: 17-Jan-2018 20:04 Auto Dif ResultValueAbnRangeText Neutrophil %_42.7[41.0 - 73.8 %] Lymphocyte %_44.0[17.0 - 44.0 %] Monocyte %_9.6[5.3 - 12.5 %] Eosinophil %_2.8[0.7 - 6.5 %] Basophil %_0.9[0.0 - 2.4 %] Neutrophil Count_3.2[1.8 - 7.5 x10E9/L] Lymphocyte Count_3.3[1.1 - 3.5 x10E9/L] Monocyte Count_0.7[0.3 - 1.0 x10E9/L] Eosinophil Count_0.2[0.0 - 0.5 x10E9/L] Basophil Count_0.1[0.0 - 0.2 x10E9/L] 17-Jan-2018 20:04 CBC With Auto Diff ResultValueAbnRangeText WBC7.4[4.3 - 10.5 x10E9/L] RBC4.93[4.18 - 5.87 x10E12/L] Zymkusjhks55.4[13.4 - 17.5 g/dL] Hebswlfdxp08.7[37.5 - 49.2 %] MCV_90.7[80.0 - 100.0 fL] MCH_31.2[26.5 - 33.0 pg] MCHC_34.5[32.6 - 36.0 g/dL] Platelets Mkghl826[144 - 400 x10E9/L] Mean Plt Vol_9.5[7.2 - 10.3 fL] RDW_12.3[11.4 - 16.0 %] General Coagulation: 17-Jan-2018 20:04 Prothrombin Time ResultValueAbnRangeText Prothrombin Time, Plasma_10.7[9.0 - 11.8 seconds] INR_0.99[0.87 - 1.16]Recommended ranges for Protime INR: 2.0-3.0 for most medical and surgical thromboembolic states. 2.5-3.5 for artificial heart valves and recurrent embolism. NOTE: Utilizing the INR is appropriate only for those patients who are taking oral anticoagulant therapy, are stable for at least two weeks and have appropriately responded to the anticoagulant drug. General Chemistry: 17-Jan-2018 20:04 Comprehensive Metabolic Panel ResultValueAbnRangeText Sodium, Csqxj609[136 - 144 mmol/L] Potassium, Level3.8[3.4 - 5.1 mmol/L] Levqafgh964[98 - 107 mmol/L] CO230[22 - 32 mmol/L] Anion Gap, Serum_7.0[5.0 - 19.0 mmol/L] Glucose, Omknw533Napww has been removed.[70 - 100 mg/dL] Blood Urea Nitrogen, Rxody5Wcvge has been removed.[8 - 26 mg/dL] Creatinine0.94[0.60 - 1.30 mg/dL] Calcium, Level9.1[8.6 - 10.6 mg/dL] Total Protein6.3Image has been removed.[6.5 - 8.1 g/dL] Albumin, Level4.3[3.5 - 5.0 g/dL] Bilirubin Total0.3[0.3 - 1.2 mg/dL] Aspartate Lgejigchhqrk04[9 - 39 IU/L] Alanine Zsgmoquuxacd44[7 - 45 IU/L] Alkaline Mhyyipvorty79[32 - 91 IU/L] BUN/Creatinine Ratio_7.0 Osmolality-Calc_285[ mOsm/kg] Toxicology: 17-Jan-2018 20:04 Ethanol, Level ResultValueAbnRangeText Ethanol, Gqqss145[ mg/dL] DIAGNOSTIC TESTS AND OTHER RESULTS (24 hours): CTs: 17-Jan-2018 21:10 CT Head without Contrast ResultText CT Head without ContrastMRN: [id number] Patient Name: KODAK GAMBOA STUDY: SULLY/CT/HEAD W/O; 01/17/2018 9:00 pm INDICATION: intoxicated, found passed out on driveway. COMPARISON: None ACCESSION NUMBER(S): [id number] ORDERING CLINICIAN: ROSE ENAMORADO TECHNIQUE: Noncontrast CT images of head. FINDINGS: BRAIN PARENCHYMA: Leonard-white matter interfaces are preserved. No mass, mass effect or midline shift. 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 HEMORRHAGE: No acute intracranial hemorrhage. VENTRICLES and EXTRA-AXIAL SPACES: Normal size. EXTRACRANIAL SOFT TISSUES: Within normal limits. PARANASAL SINUSES/MASTOIDS: Tiny-small mucous retention cysts/polyps bilateral maxillary sinuses. Trace-mild mucosal thickening bilateral ethmoid sinuses. Right frontal sinus is aplastic, incidental finding. Otherwise, within normal limits. CALVARIUM: No depressed acute skull fracture. IMPRESSION: No acute intracranial abnormality. Dictated by: Electronically Signed by: Pro Gardiner Electronically Signed on: 01/17/2018 9:10 PM 17-Jan-2018 21:18 CT Cervical Spine without Contrast ResultText CT Cervical Spine without ContrastMRN: [id number] Patient Name: KODAK GAMBOA STUDY: SULLY/CT/CERVICAL W/O; 01/17/2018 9:00 pm INDICATION: intoxicated, found passed out on driveway. COMPARISON: The images of the patient's cervical spine MRI of 06/29/2014 are not in PACS for direct comparison as at the time of this interpretation. ACCESSION NUMBER(S): [id number] ORDERING CLINICIAN: ROSE ENAMORADO TECHNIQUE: Axial noncontrast images of the cervical spine with coronal and sagittal reconstructed images. FINDINGS: There is straightening of the normal cervical lordosis and the patient's neck is deviated to the left, both probably positional artifact rather than acute injury. There is prior anterior fusion at C5-C6 and C6-C7 and mild multilevel spondylosis. Otherwise: ALIGNMENT: Normal. VERTEBRAE: No acute fracture. SPINAL CANAL: No critical spinal canal stenosis. PREVERTEBRAL SOFT TISSUES: No prevertebral soft tissue swelling. LUNG APICES: Imaged portion of the lung apices are within normal limits. IMPRESSION: No acute fracture or traumatic subluxation of the cervical spine. Dictated by: Electronically Signed by: Pro Gardiner Electronically Signed on: 01/17/2018 9:18 PM General Radiology: 17-Jan-2018 21:10 CT Head without Contrast ResultText PACS Viewer 17-Jan-2018 21:18 CT Cervical Spine without Contrast ResultText PACS Viewer PROGRESS NOTE: ? ED Course: This is a 57-year-old male presenting as per history of present illness above. The patient was evaluated by myself. They had an IV placed. They were found to be in no immediate cardiac or pulmonary distress based on my initial examination. Patient presenting with alcohol intoxication. He was found unconscious in his own driveway. Alcohol level just over 200. CT scans of the head and cervical spine done and are reassuring. Labs otherwise reassuring. and daughter are here. They're willing to take him home. I told him to go home and get some sleep. They're amenable to this. He is able to walk and talk at this time. Clinical impressions: Alcohol intoxication DIAGNOSES/PROBLEM LIST: Problem SffeCcpdEowbqpOZY-6DOQ-83 ? Alcohol intoxicationED WkTgteam505.00F10.929 DISCHARGE DISPOSITION: ? Disposition: discharged ? Discharge Type: home CONDITION ON DISCHARGE: ? Condition on Dispositionstable MEDICATION RECONCILIATION AND DISCHARGE MEDS: * Patient Currently Takes Medications as of 17-Jan-2018 20:07 documented in Structured Notes MedicationInstructionsQuantityRefillsSubmitted By metoprolol succinate 50 mg oral tablet, extended release1 tab(s) orally once a tzv6FqhwHgasmjChey Magallanes atorvastatin 40 mg oral tablet1 tab(s) orally once a yni1JgkqLeaqrtChey Magallanes losartan 100 mg oral tablet1 tab(s) orally once a ymm4DgvjQcdqlbChey Magallanes FLUoxetine 40 mg oral capsule1 cap(s) orally once a eiy4CkriXsmspuChey Magallanes Xqkjnv8PrbaWpgwtiChey Magallanes Electronic Signatures: Rose Enamorado) (Signed 17-Jan-2018 23:35) Entered: Time Seen/ED Notes, Chief Complaint/Reason for Visit via Triage Note, Patient History, History Attestation, ROS, Physical Exam, 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 Data Referenced From Triage Note, Emergency 01/17/2018 8:04 PM AUTO DIFF Collected: 01/17/2018 Status: F Source: [place] 8:04 PM [facility] REPOSITORY TYPE CODE TESTS RESULT OUT OF REFERENCE UNITS RANGE LAB NEUT(LOINC 41.0-73.8 % ) Neutrophil% 42.7 LAB LYMP%(LOIN 17.0-44.0 % C) Lymph % 44.0 LAB MONO%(LOIN 5.3-12.5 % C) Lamar % 9.6 LAB EO%(LOINC) 0.7-6.5 % Eo% 2.8 LAB BASO%(LOIN 0.0-2.4 % C) Baso% 0.9 LAB ANEUT(LOIN 1.8-7.5 x10E9/L C) Neutrophil 3.2 LAB ALYMP(LOIN 1.1-3.5 x10E9/L C) Lymphocyte 3.3 LAB AMONO(LOIN 0.3-1.0 x10E9/L C) Monocyte 0.7 LAB AEO(LOINC) 0.0-0.5 x10E9/L Eosinophil 0.2 LAB ABASO(LOIN 0.0-0.2 x10E9/L C) Basophil 0.1 ZCBCD Collected: 01/17/2018 Status: F Source: [place] 8:04 PM [facility] REPOSITORY TYPE CODE TESTS RESULT OUT OF REFERENCE UNITS RANGE LAB [id number](LO 4.3-10.5 x10E9/L INC) WBC 7.4 LAB 1741488(LO 4.18-5.87 x10E12/L INC) RBC 4.93 LAB 1654675(LO 13.4-17.5 g/dL INC) Hemoglobin 15.4 LAB 2285268(LO 37.5-49.2 % INC) Hematocrit 44.7 LAB MCV(LOINC) 80.0-100.0 fL MCV 90.7 LAB MCH(LOINC) 26.5-33.0 pg MCH 31.2 LAB MCHC(LOINC 32.6-36.0 g/dL ) MCHC 34.5 LAB 6082096(LO 144-400 x10E9/L INC) Platelet 208 LAB 386453([place] 7.2-10.3 fL NC) Mean Plt Vol 9.5 LAB 610278([place] 11.4-16.0 % NC) RDW 12.3 PT Collected: 01/17/2018 Status: F Source: [place] 8:04 PM [facility] REPOSITORY TYPE CODE TESTS RESULT OUT OF REFERENCE UNITS RANGE LAB 389447([place] 9.0-11.8 seconds NC) Protime 10.7 LAB INR(LOINC) 0.87-1.16 INR 0.99 Result Comment: Recommended ranges for Protime INR: 2.0-3.0 for most medical and surgical thromboembolic states. 2.5-3.5 for artificial heart valves and recurrent embolism. NOTE: Utilizing the INR is appropriate only for those patients who are taking oral anticoagulant therapy, are stable for at least two weeks and have appropriately responded to the anticoagulant drug. CMP Collected: 01/17/2018 Status: F Source: [place] 8:04 PM [facility] REPOSITORY TYPE CODE TESTS RESULT OUT OF REFERENCE UNITS RANGE LAB 0048748(LO 136-144 mmol/L INC) Sodium 144 LAB 1409415(LO 3.4-5.1 mmol/L INC) Potassium 3.8 LAB 4419666(LO 98-107 mmol/L INC) Chloride 107 LAB 7962094(LO 22-32 mmol/L INC) CO2 30 LAB 413184([place] 5.0-19.0 mmol/L NC) Anion Gap 7.0 LAB 1337856(LO 70-100 mg/dL INC) Glucose High 103 LAB 1585378(LO 8-26 mg/dL INC) Low BUN 7 LAB 5787707(LO 0.60-1.30 mg/dL INC) Creatinine 0.94 LAB 6579306(LO 8.6-10.6 mg/dL INC) Calcium 9.1 LAB 8494591(LO 6.5-8.1 g/dL INC) Low Total Protein 6.3 LAB 0314379(LO 3.5-5.0 g/dL INC) Albumin 4.3 LAB 8935865(LO 0.3-1.2 mg/dL INC) Bilirubin Total 0.3 LAB 3409586(LO 9-39 IU/L INC) AST (SGOT) 25 LAB 5964954(LO 7-45 IU/L INC) ALT (SGPT) 27 LAB 0165458(LO 32-91 IU/L INC) Alk Phos 80 LAB 547079([place] NC) Bun/CretRatio 7.0 LAB 512729([place] mOsm/kg NC) Osmolality-Calc 285 ETOH Collected: 01/17/2018 Status: F Source: [place] 8:04 PM [facility] REPOSITORY TYPE CODE TESTS RESULT OUT OF REFERENCE UNITS RANGE LAB 0142893([place] mg/dL NC) Ethanol 207 PROGRESS Observed: 10/22/2017 Status: COMPLETED Source: [place] 2:00 PM [facility] REPOSITORY HNO ID: [id number] Author: Felipe Hackett Service: (none) Author Type: Physician Type: Progress Notes Filed: 10/22/2017 3:30 PM Note Text: Allergy AND Immunology Established Visit PATIENT NAME: Kodak Gamboa SERVICE DATE: 10/22/2017 HPI: Kodak Gamboa is a 56 year old male who presents for follow up of benzocaine allergy, seasonal allergies. He notes that his dentist is a topical agent which triggered a delayed blistering reaction in his mouth. He is tolerated injectable lidocaine and bupivacaine without issue. He denies any fevers or chills no nausea vomiting. He also had some rash on his neck that came up with same time as hismouth reaction. He is scheduled for allergy testing today but had received Kenalog approximately 2-3 weeks ago. I discussed that this would likely reduce risk of false negative reactions. PAST MEDICAL HISTORY Diagnosis Date - Anxiety - Asthma - High cholesterol - Hypertension - Migraines - Subdural hematoma caused by concussion (HCC) 2001 ACTIVE PROBLEM LIST Benzocaine Adverse Reaction, Initial Encounter PAST SURGICAL HISTORY Procedure Laterality Date - ADDTL NECK SPINE FUSION - ELBOW SURGERY HX Right - HERNIA REPAIR HX - PRK ENHANCEMENT - REMOVAL OF TONSILS,<12 Y/O Social History Marital status: Spouse name: Years of education: Number of children: Social History Main Topics Smoking status: Never Smoker Smokeless tobacco: Never Used Alcohol use: Yes Comment: Occasional Drug use: No CURRENT OUTPATIENT MEDICATIONS: Current Outpatient Prescriptions: ergocalciferol, vitamin D2, (VITAMIN D2 ORAL) Take by mouth once daily. Disp: Rfl: biotin 5 mg tab Take 5 mg by mouth once daily. Disp: Rfl: therapeutic multivitamin w/ iron (THERAGRAN-M) 9 mg iron-400 mcg tablet Take 1 tablet by mouth once daily. Disp: Rfl: atorvastatin (LIPITOR) 40 mg tablet Take 40 mg by mouth once daily. Disp: Rfl: Vbmxdzkogg-Fpl-Rrbqhsdrsl-Caf 66-025-55-30 mg per capsule Take 1 capsule by mouth as needed. Disp: Rfl: FLUoxetine HCl (PROZAC) 40 mg capsule Take 40 mg by mouth once daily. Disp: Rfl: fluticasone (FLONASE) 50 mcg/actuation nasal spray Use 2 Sprays in the nose once daily. Disp: Rfl: ibuprofen (MOTRIN) 800 mg tablet Take 800 mg by mouth every 8 hours as needed. Disp: Rfl: loratadine (CLARITIN) 10 mg tablet Take 10 mg by mouth once daily. Disp: Rfl: LORazepam (ATIVAN) 1 mg tablet Take 1 mg by mouth every 8 hours as needed. Disp: Rfl: losartan (COZAAR) 100 mg tablet Take 100 mg by mouth once daily. Disp: Rfl: metoprolol succinate ER (TOPROL XL) 50 mg 24 hr tablet Take 50 mg by mouth once daily. Disp: Rfl: montelukast (SINGULAIR) 10 mg tablet Take 10 mg by mouth daily at bedtime. Disp: Rfl: FISH OIL 60-90-500 mg cap Take 1 capsule by mouth once daily. Disp: Rfl: testosterone cypionate (DEPO-TESTOSTERONE) 200 mg/mL injection Inject 200 mg intramuscularly once every month. Disp: Rfl: tiZANidine (ZANAFLEX) 4 mg tablet Take 4 mg by mouth as needed. Disp: Rfl: albuterol HFA (VENTOLIN HFA) 90 mcg/actuation inhaler Inhale 2 Puffs as instructed every 4 hours as needed. Disp: Rfl: fluorometholone (FML LIQUID FILM) 0.1 % ophthalmic suspension Disp: Rfl: oxyCODONE-acetaminophen (PERCOCET) 5-325 mg tablet Disp: Rfl: 0 calcium-vits S1-J-P3-minerals 166.75 mg- 166.75 unit cap Take 1,500 mg by mouth once daily. Disp: Rfl: Magnesium 250 mg tab Take 500 mg by mouth once daily. Disp: Rfl: Selenium 200 mcg TbEC Take 250 tablets by mouth once daily. Disp: Rfl: zinc once daily. Disp: Rfl: vit G-fjhijyrl-zydp-lycopene 1,000-2-650 mg pwep Take by mouth. Disp: Rfl: amoxicillin (POLYMOX, AMOXIL) 500 mg capsule Take 500 mg by mouth twice daily. Disp: Rfl: Naproxen SR (EC-NAPROSYN) 500 mg EC tablet Take 500 mg by mouth twice daily as needed. Disp: Rfl: No current facility-administered medications for this visit. ALLERGIES: ALLERGIES Allergen Reactions - Benzocaine Hives - Pollen Extracts Itching - Procaine Hives REVIEW OF SYSTEMS: HEENT: negative RESPIRATORY: No cough, hemoptysis, asthma, recent chest infection, wheezing CONSTITUTIONALl: No acute distress. No weight loss or gain, no fevers or chills CARDIOVASCULAR: negative for chest pain, leg swelling or palpitations. GASTROINTESTINAL: Negativeor abdominal discomfort, No blood in stools or black stools MUSCULOSKELETAL: negative for joint pain or swelling, back pain or muscle pain. NEUROLOGIC:Negative for focal numbness or weakness, headaches and dizziness or syncope. DERM/SKIN: notable for rash on neck with itching . PSYCHIATRIC: Negative for sleep disturbance, mood disorder and recent psychosocial stressors HEMATOLOGIC/LYMPHATIC/IMMUNOLOGIC:Negative for cold or heat intolerance, polyuria, polydipsia and goiter. The remainder of the ROS was negative. PHYSICAL EXAM: BP 127/84 Pulse 60 Ht 6' 1 (1.85m) Wt 220 lb (99.8kg) SpO2 96% BMI 29.03 kg/(m2). General appearance: Well appearing, alert, in no acute distress, well-hydrated, well nourished. HENT: External ears normal, canals clear, TM's normal Eyes: no scleral icterus, PERRLA, EOMS, no conjunctivitis Nose/Sinuses: Nares normal. Septum midline. Mucosa normal. No drainage or sinus tenderness. Oropharynx: Positive findings: moderate oropharyngeal erythema [place] Classification:Class III Respiratory: Lungs clear to auscultation. No wheezing, rhonchi, rales Cardiovascular: RRR without murmur, gallop, or rubs. No ectopy Gastroenterology: Inspection: Normal appearing abdomen Musculoskeletal: No joint pain, muscle weakness, or impaired gait Integumentary: Negative for lesions, rash, and itching. Psychiatric: Alert and oriented x 3. No mood disorders noted, calm affect. DATA: Diagnostic tests reviewed for today's visit were personally reviewed by me: No new labs No textual results found for the specified procedure(s). No results found for: GLUC, K, NA, CHLOR, CO2, CREAT, BUN, ANION, CA, TPROT, ALB, TBILI, ALKPHOS, AST, ALT No results found for: WBC, RBC, HB, HCT, MCV, MCH, MCHC, RDWCV, PLT, MPV, MPV, NEUT, ABSNEUT, LYMPHP, ABSLYMPH, MONOP, ABSMONO, EOSINP, ABSEOSIN, BASOP, ABSBASO No results found for: IGE Return for late December, Follow up and allergy testing. ASSESSMENT/PLAN: 1. Adverse effect of local anesthetic drug, subsequent encounter - ICD9: V58.89, ICD10: T41.3X5D (primary diagnosis) Apply topical steroids to mouth and neck area. Recommended strict avoidance of benzocaine 2. Allergic contact dermatitis due to adhesives - ICD9: 692.4, ICD10: L23.1 Continue avoidance 3. Allergic dermatitis due to other chemical product - ICD9: 692.4, ICD10: L23.5 Continue avoidance 4. Seasonal allergic rhinitis due to pollen - ICD9: 477.0, ICD10: J30.1 Skin test in mid December 5. Benzocaine adverse reaction, sequela - ICD9: 909.5, E938.5, ICD10: T41.3X5S As above Felipe Hackett MD > 25 minutes spent face to face with more than half of this for disease counselling. CNOV Observed: 10/22/2017 Status: COMPLETED Source: [place] 1:40 PM [facility] REPOSITORY Office Visit ([facility]) KODAK GAMBOA ([id number]) 1960 M [facility] Date Time Provider Department 10/22/17 1:40 PM FELIPE HACKETT [facility] During your visit today, we recorded the following information about you: Pulse Blood pressure Weight Height 60/minute 127/84 99.8 kg 1.854 m Charlotte Banda Ma 10/22/2017 1:46 PM Signed ACT TOTAL SCORE = 24 Charlotte Hackett MD 10/22/2017 3:30 PM Signed Allergy AND Immunology Established Visit PATIENT NAME: Kodak Gamboa SERVICE DATE: 10/22/2017 HPI: Kodak Gamboa is a 56 year old male who presents for follow up of benzocaine allergy, seasonal allergies. He notes that his dentist is a topical agent which triggered a delayed blistering reaction in his mouth. He is tolerated injectable lidocaine and bupivacaine without issue. He denies any fevers or chills no nausea vomiting. He also had some rash on his neck that came up with same time as hismouth reaction. He is scheduled for allergy testing today but had received Kenalog approximately 2-3 weeks ago. I discussed that this would likely reduce risk of false negative reactions. PAST MEDICAL HISTORY Diagnosis Date - Anxiety - Asthma - High cholesterol - Hypertension - Migraines - Subdural hematoma caused by concussion (HCC) 2001 ACTIVE PROBLEM LIST Benzocaine Adverse Reaction, Initial Encounter PAST SURGICAL HISTORY Procedure Laterality Date - ADDTL NECK SPINE FUSION - ELBOW SURGERY HX Right - HERNIA REPAIR HX - PRK ENHANCEMENT - REMOVAL OF TONSILS,<12 Y/O Social History Marital status: Spouse name: Years of education: Number of children: Social History Main Topics Smoking status: Never Smoker Smokeless tobacco: Never Used Alcohol use: Yes Comment: Occasional Drug use: No CURRENT OUTPATIENT MEDICATIONS: Current Outpatient Prescriptions: ergocalciferol, vitamin D2, (VITAMIN D2 ORAL) Take by mouth once daily. Disp: Rfl: biotin 5 mg tab Take 5 mg by mouth once daily. Disp: Rfl: therapeutic multivitamin w/ iron (THERAGRAN-M) 9 mg iron-400 mcg tablet Take 1 tablet by mouth once daily. Disp: Rfl: atorvastatin (LIPITOR) 40 mg tablet Take 40 mg by mouth once daily. Disp: Rfl: Xsxxbmspwi-Hww-Khupfqvbbv-Caf 90-358-99-30 mg per capsule Take 1 capsule by mouth as needed. Disp: Rfl: FLUoxetine HCl (PROZAC) 40 mg capsule Take 40 mg by mouth once daily. Disp: Rfl: fluticasone (FLONASE) 50 mcg/actuation nasal spray Use 2 Sprays in the nose once daily. Disp: Rfl: ibuprofen (MOTRIN) 800 mg tablet Take 800 mg by mouth every 8 hours as needed. Disp: Rfl: loratadine (CLARITIN) 10 mg tablet Take 10 mg by mouth once daily. Disp: Rfl: LORazepam (ATIVAN) 1 mg tablet Take 1 mg by mouth every 8 hours as needed. Disp: Rfl: losartan (COZAAR) 100 mg tablet Take 100 mg by mouth once daily. Disp: Rfl: metoprolol succinate ER (TOPROL XL) 50 mg 24 hr tablet Take 50 mg by mouth once daily. Disp: Rfl: montelukast (SINGULAIR) 10 mg tablet Take 10 mg by mouth daily at bedtime. Disp: Rfl: FISH OIL 60-90-500 mg cap Take 1 capsule by mouth once daily. Disp: Rfl: testosterone cypionate (DEPO-TESTOSTERONE) 200 mg/mL injection Inject 200 mg intramuscularly once every month. Disp: Rfl: tiZANidine (ZANAFLEX) 4 mg tablet Take 4 mg by mouth as needed. Disp: Rfl: albuterol HFA (VENTOLIN HFA) 90 mcg/actuation inhaler Inhale 2 Puffs as instructed every 4 hours as needed. Disp: Rfl: fluorometholone (FML LIQUID FILM) 0.1 % ophthalmic suspension Disp: Rfl: oxyCODONE-acetaminophen (PERCOCET) 5-325 mg tablet Disp: Rfl: 0 calcium-vits A5-N-F2-minerals 166.75 mg- 166.75 unit cap Take 1,500 mg by mouth once daily. Disp: Rfl: Magnesium 250 mg tab Take 500 mg by mouth once daily. Disp: Rfl: Selenium 200 mcg TbEC Take 250 tablets by mouth once daily. Disp: Rfl: zinc once daily. Disp: Rfl: vit Z-tfiofseh-gzdv-lycopene 1,000-2-650 mg pwep Take by mouth. Disp: Rfl: amoxicillin (POLYMOX, AMOXIL) 500 mg capsule Take 500 mg by mouth twice daily. Disp: Rfl: Naproxen SR (EC-NAPROSYN) 500 mg EC tablet Take 500 mg by mouth twice daily as needed. Disp: Rfl: No current facility-administered medications for this visit. ALLERGIES: ALLERGIES Allergen Reactions - Benzocaine Hives - Pollen Extracts Itching - Procaine Hives REVIEW OF SYSTEMS: HEENT: negative RESPIRATORY: No cough, hemoptysis, asthma, recent chest infection, wheezing CONSTITUTIONALl: No acute distress. No weight loss or gain, no fevers or chills CARDIOVASCULAR: negative for chest pain, leg swelling or palpitations. GASTROINTESTINAL: Negativeor abdominal discomfort, No blood in stools or black stools MUSCULOSKELETAL: negative for joint pain or swelling, back pain or muscle pain. NEUROLOGIC:Negative for focal numbness or weakness, headaches and dizziness or syncope. DERM/SKIN: notable for rash on neck with itching . PSYCHIATRIC: Negative for sleep disturbance, mood disorder and recent psychosocial stressors HEMATOLOGIC/LYMPHATIC/IMMUNOLOGIC:Negative for cold or heat intolerance, polyuria, polydipsia and goiter. The remainder of the ROS was negative. PHYSICAL EXAM: BP 127/84 Pulse 60 Ht 6' 1 (1.85m) Wt 220 lb (99.8kg) SpO2 96% BMI 29.03 kg/(m2). General appearance: Well appearing, alert, in no acute distress, well-hydrated, well nourished. HENT: External ears normal, canals clear, TM's normal Eyes: no scleral icterus, PERRLA, EOMS, no conjunctivitis Nose/Sinuses: Nares normal. Septum midline. Mucosa normal. No drainage or sinus tenderness. Oropharynx: Positive findings: moderate oropharyngeal erythema [place] Classification:Class III Respiratory: Lungs clear to auscultation. No wheezing, rhonchi, rales Cardiovascular: RRR without murmur, gallop, or rubs. No ectopy Gastroenterology: Inspection: Normal appearing abdomen Musculoskeletal: No joint pain, muscle weakness, or impaired gait Integumentary: Negative for lesions, rash, and itching. Psychiatric: Alert and oriented x 3. No mood disorders noted, calm affect. DATA: Diagnostic tests reviewed for today's visit were personally reviewed by me: No new labs No textual results found for the specified procedure(s). No results found for: GLUC, K, NA, CHLOR, CO2, CREAT, BUN, ANION, CA, TPROT, ALB, TBILI, ALKPHOS, AST, ALT No results found for: WBC, RBC, HB, HCT, MCV, MCH, MCHC, RDWCV, PLT, MPV, MPV, NEUT, ABSNEUT, LYMPHP, ABSLYMPH, MONOP, ABSMONO, EOSINP, ABSEOSIN, BASOP, ABSBASO No results found for: IGE Return for late December, Follow up and allergy testing. ASSESSMENT/PLAN: 1. Adverse effect of local anesthetic drug, subsequent encounter - ICD9: V58.89, ICD10: T41.3X5D (primary diagnosis) Apply topical steroids to mouth and neck area. Recommended strict avoidance of benzocaine 2. Allergic contact dermatitis due to adhesives - ICD9: 692.4, ICD10: L23.1 Continue avoidance 3. Allergic dermatitis due to other chemical product - ICD9: 692.4, ICD10: L23.5 Continue avoidance 4. Seasonal allergic rhinitis due to pollen - ICD9: 477.0, ICD10: J30.1 Skin test in mid December 5. Benzocaine adverse reaction, sequela - ICD9: 909.5, E938.5, ICD10: T41.3X5S As above Felipe Hackett MD > 25 minutes spent face to face with more than half of this for disease counselling. Referring Provider: FELIPE HACKETT [[id number]] Allergies As of Date: 10/22/2017 Noted Allergy Reaction BENZOCAINE 04/01/2016 4 - Hives POLLEN EXTRACTS 03/01/2013 9 - Itching PROCAINE 03/01/2013 4 - Hives Date Reviewed: 10/22/2017 Reviewed by: Felipe Hackett - Fully Assessed Reason for Visit: Allergy Testing [1096] Asthma [11] Reason For Visit History Recorded Primary Visit Diagnosis:Adverse effect of local anesthetic drug, subsequent encounter [T41.3X5D] Other Visit Diagnoses:Allergic contact dermatitis due to adhesives [L23.1] Allergic dermatitis due to other chemical product [L23.5] Seasonal allergic rhinitis due to pollen [J30.1] Benzocaine adverse reaction, sequela [T41.3X5S] Order(s):triamcinolone (KENALOG IN ORABASE) 0.1 % paste1 application by DENTAL route twice daily.Disp: 30 gRfl: 1 mometasone (ELOCON) 0.1 % creamApply 1 application to affected area twice daily.Disp: 80 gRfl: 1 Prescriptions as of 10/22/2017 Sig: VITAMIN D2 ORAL Take by mouth once daily. BIOTIN 5 MG TABLET Take 5 mg by mouth once daily. MULTIVITAMIN-IRON 9 MG-FOLIC * Take 1 tablet by mouth once d* ATORVASTATIN 40 MG TABLET Take 40 mg by mouth once tray* BUTALBITAL 50 MG-ACETAMINOPHE* Take 1 capsule by mouth as ne* FLUOXETINE 40 MG CAPSULE Take 40 mg by mouth once tray* FLUTICASONE 50 MCG/ACTUATION * Use 2 Sprays in the nose once* IBUPROFEN 800 MG TABLET Take 800 mg by mouth every 8 * LORATADINE 10 MG TABLET Take 10 mg by mouth once tray* LORAZEPAM 1 MG TABLET Take 1 mg by mouth every 8 ho* LOSARTAN 100 MG TABLET Take 100 mg by mouth once deysi* METOPROLOL SUCCINATE ER 50 MG* Take 50 mg by mouth once tray* MONTELUKAST 10 MG TABLET Take 10 mg by mouth daily at * FISH OIL 60 MG-90 MG-500 MG C* Take 1 capsule by mouth once * TESTOSTERONE CYPIONATE 200 MG* Inject 200 mg intramuscularly* TIZANIDINE 4 MG TABLET Take 4 mg by mouth as needed.* ALBUTEROL SULFATE HFA 90 MCG/* Inhale 2 Puffs as instructed * FLUOROMETHOLONE 0.1 % EYE ROSALINDA* OXYCODONE-ACETAMINOPHEN 5 MG-* TRIAMCINOLONE ACETONIDE 0.1 %* 1 application by DENTAL route* MOMETASONE 0.1 % TOPICAL CREAM Apply 1 application to affect* CALCIUM 166.75 MG-VIT D3 166.* Take 1,500 mg by mouth once d* MAGNESIUM 250 MG TABLET Take 500 mg by mouth once deysi* SELENIUM 200 MCG TABLET,DELAY* Take 250 tablets by mouth onc* ZINC once daily. VIT C 1000 KR-PAJORCDS-GXR-LY* Take by mouth. AMOXICILLIN 500 MG CAPSULE Take 500 mg by mouth twice da* NAPROXEN 500 MG TABLET,DELAYE* Take 500 mg by mouth twice da* Problem List As Of Date 10/22/2017 Noted Resolved Benzocaine adverse reaction, initial encounter *INVALID FOR* Visit Notes: >> Charlotte Banda Ma [facility] October 22, 2017 1:40 PM Status: Signed ACT TOTAL SCORE = 24 Charlotte Banda Ma Prescriptions ordered this encounter Disp Refills Start End TRIAMCINOLONE ACETONIDE 0.1 % DENTAL* 30 g 1 10/22/2017 Route: DENTAL Si application by DENTAL route twice daily. MOMETASONE 0.1 % TOPICAL CREAM 80 g 1 10/22/2017 Route: TOPICAL Sig: Apply 1 application to affected area twice daily. Disposition: Return for late December, Follow up and allergy testing. Follow-up and Disposition History Recorded Questionnaire: ASTHMA CONTROL TEST Last 4 weeks, your asthma limited your activity at work or home: -> 5 NONE OF THE TIME Past 4 weeks, how often have you had shortness of breath? -> 5 NOT AT ALL Past 4 weeks: Asthma symptoms woke you at night or earlier than usual? -> 5 NOT AT ALL Past 4 weeks: How often did you use rescue inhaler or nebulizer med? -> 5 NOT AT ALL Rate your Asthma Control during the past 4 weeks: -> 4 WELL CONTROLLED ACT TOTAL SCORE: -> 24 Letter Text Encounter Status:Closed by FELIPE HACKETT MD on 10/22/17 ANES POST Observed: 10/14/2017 Status: COMPLETED Source: [place] 12:01 PM [facility] REPOSITORY HNO ID: [id number] Author: Giovanni Sexton Service: Anesthesiology Author Type: Physician Type: Anesthesia PostOp Filed: 10/14/2017 12:36 PM Note Text: POST ANESTHESIA EVALUATION NOTE SERVICE DATE: 10/14/2017 SERVICE TIME: 12:35 PM : 1960 Vitals: 10/14/17 1002 Temp: 36.3 ?C (97.4 ?F) 10/14/17 1002 10/14/17 1137 10/14/17 1158 BP: 139/80 114/76 133/74 10/14/17 1002 10/14/17 1137 10/14/17 1158 Pulse: (!) 53 (!) 53 60 10/14/17 1002 10/14/17 1137 10/14/17 1158 Resp: 18 18 20 10/14/17 1002 10/14/17 1137 10/14/17 1158 SpO2: 95% 97% 98% Validated Vital Signs: Yes POST ANES STATUS: No apparent anesthetic complications. The patient is appropriately hydrated with stable respiratory and cardiovascular status. Patient has safe and adequate airway control. The patient has appropriate pain relief and no significant post operative nausea or vomiting. The patient has achieved baseline mental status. Further assessment by Anesthesia Service: None Other Remarks: SIGNATURE: Giovanni Sexton MD PATIENT NAME: Kodak Gamboa DATE: October 14, 2017 TIME: 12:35 PM PAGER/CONTACT #: PT ED Observed: 10/14/2017 Status: COMPLETED Source: [place] 11:43 AM [facility] REPOSITORY HNO ID: [id number] Author: Jess Molina (Rn), RN Service: Gastroenterology Author Type: Registered Nurse Type: Patient Education Filed: 10/14/2017 11:44 AM Note Text: POST OP LEARNING RESPONSE INSTRUCTION PROVIDED TO: Patient and Family member METHOD OF INSTRUCTION: Verbal instruction PATIENT / FAMILY RESPONSE: Information received as demonstrated by interest and questions FOLLOW-UP PLAN: Recommend - Recommend continued instruction and follow up as directed REFERRAL (RECOMMENDATION): None Electronically Signed By: Jess Molina RN In Department: [place] ENDOcolon with anesthesia, diet and activity instructions, f/u with physician, emergent symptoms to report to physician post proc BRIEF OP NOT Observed: 10/14/2017 Status: COMPLETED Source: [place] 11:43 AM [facility] REPOSITORY HNO ID: [id number] Author: Kodak Mijares Service: Gastroenterology Author Type: Physician Type: Brief Op Note Filed: 10/14/2017 11:44 AM Note Text: BRIEF OPERATIVE / PROCEDURE NOTE LOG ID: [id number] SURGERY/PROCEDURE DATE: 10/14/2017 INCISION/PROCEDURE START TIME: 11:16 AM INCISION CLOSE/PROCEDURE END TIME: 11:28 AM SURGEON(S)/PROCEDURALIST(S) AND JUKEBOX CHECKER(S): Surgeon(s) and Role: * Kodak Mijares - Primary No Additional Staff PROCEDURE(S): Colonoscopy ANESTHESIA: Monitored Anesthesia Care FINDINGS: Nl colon and TI ESTIMATED BLOOD LOSS: None SPECIMENS: * No specimens in log * COMPLICATIONS: None PRE-OP/PRE-PROCEDURE DIAGNOSIS: 1. PHx of polyps,but exam in 2011 neg. POST-OP/POST-PROCEDURE DIAGNOSIS: As above SIGNATURE: Kodak Mijares MD PATIENT NAME: Kodak Gamboa DATE: October 14, 2017 TIME: 11:43 AM PAGER/CONTACT #: ANES PREOP Observed: 10/14/2017 Status: COMPLETED Source: [place] 10:42 AM [facility] REPOSITORY HNO ID: [id number] Author: Giovanni Sexton Service: Anesthesiology Author Type: Physician Type: Anesthesia PreOp Filed: 10/14/2017 10:44 AM Note Text: ANESTHESIOLOGY DAY OF SURGERY NOTE SERVICE DATE: 10/14/2017 SERVICE TIME: 10:43 AM : 1960 Procedure(s) (LRB): COLONOSCOPY (Left) Surgeon(s): Kodak Mijares Estimated body mass index is 28.63 kg/m? as calculated from the following: Height as of this encounter: 185.4 cm (6' 1). Weight as of this encounter: 98.4 kg (217 lb). Most recent hematocrit and potassium results: No results found for this basename: HCT,HEMATOCRIT,K,POTASSIUM ANES DOS/PREOP NOTE: Vitals: 10/14/17 0946 10/14/17 1002 BP: 139/80 Pulse: (!) 53 Resp: 18 Temp: 36.3 ?C (97.4 ?F) TempSrc: Oral SpO2: 95% Weight: 102.1 kg (225 lb) 98.4 kg (217 lb) Height: 185.4 cm (6' 1) 185.4 cm (6' 1) There is no problem list on file for this patient. PAST MEDICAL HISTORY Diagnosis Date - Anxiety - Asthma - High cholesterol - Hypertension - Migraines - Subdural hematoma caused by concussion (HCC) 2001 PAST SURGICAL HISTORY Procedure Laterality Date - ADDTL NECK SPINE FUSION - ELBOW SURGERY HX Right - HERNIA REPAIR HX - PRK ENHANCEMENT - REMOVAL OF TONSILS,<12 Y/O FAMILY HISTORY Problem Relation Age of Onset - Hypertension Mother - Arthritis Mother - Heart disease Father - Pancreatic Cancer [OTHER] Maternal Grandmother - Colon Cancer Maternal Grandfather - Heart disease Paternal Grandfather Social History: Social History Substance Use Topics - Smoking status: Never Smoker - Smokeless tobacco: Never Used - Alcohol use Yes Comment: Occasional No current facility-administered medications on file prior to encounter. Current Outpatient Prescriptions on File Prior to Encounter: atorvastatin (LIPITOR) 40 mg tablet Take 40 mg by mouth once daily. Hqpdposzuj-Hio-Scmvcljqdb-Caf 37-764-04-30 mg per capsule Take 1 capsule by mouth as needed. FLUoxetine HCl (PROZAC) 40 mg capsule Take 40 mg by mouth once daily. LORazepam (ATIVAN) 1 mg tablet Take 1 mg by mouth every 8 hours as needed. losartan (COZAAR) 100 mg tablet Take 100 mg by mouth once daily. metoprolol succinate ER (TOPROL XL) 50 mg 24 hr tablet Take 50 mg by mouth once daily. montelukast (SINGULAIR) 10 mg tablet Take 10 mg by mouth daily at bedtime. fluticasone (FLONASE) 50 mcg/actuation nasal spray Use 2 Sprays in the nose once daily. ibuprofen (MOTRIN) 800 mg tablet Take 800 mg by mouth every 8 hours as needed. loratadine (CLARITIN) 10 mg tablet Take 10 mg by mouth once daily. Naproxen SR (EC-NAPROSYN) 500 mg EC tablet Take 500 mg by mouth twice daily as needed. FISH OIL 60-90-500 mg cap Take 1 capsule by mouth once daily. testosterone cypionate (DEPO-TESTOSTERONE) 200 mg/mL injection Inject 200 mg intramuscularly once every month. tiZANidine (ZANAFLEX) 4 mg tablet Take 4 mg by mouth as needed. albuterol HFA (VENTOLIN HFA) 90 mcg/actuation inhaler Inhale 2 Puffs as instructed every 4 hours as needed. Current Facility-Administered Medications: lactated ringers infusion 30 mL/hr INTRAVENOUS CONTINUOUS Dana Fletcher ([employer]) Allergies: ALLERGIES Allergen Reactions - Benzocaine Hives - Pollen Extracts Itching - Procaine Hives DOS EXAM: Adequate NPO status: Yes Anesthetic risks, benefits, alternatives, personnel and consent discussed: Yes Patient agrees to proceed: Yes Previous Anesthesia: No history of adverse event. Airway Assessment: MP 2; Neck ROM: Full ROM without neurologic symptoms; Airway Evaluation: No significant abnormalities Symptoms of Sleep Apnea: Hypertension, Age over 50 (56 year old) and Male gender Dentition: Teeth intact Additional Physical Exam: Lungs: Patient health status unchanged since recent history and physical. See history and physical for exam findings. Cardiac: Patient health status unchanged since recent history and physical. See history and physical for exam findings. Additional Pertinent Findings: N/A Blood Products: Not anticipated for this procedure. Anesthetic Plan: MAC with Sedation Pain Management Plan: Parenteral or Oral ASA Class: 2 Other Medical Problems: None Chronic Beta Reinier medication administered within 24 hours: N/A I have interviewed and examined the patient. I have reviewed the medical record and/or the pre-anesthesia evaluation, pertinent labs, and test results. Significant changes in the patient's condition since the History and Physical, not otherwise documented in primary service progress notes: No This contains updated information obtained within 48 hours of Surgery/Procedure. SIGNATURE: Giovanni Sexton MD PATIENT NAME: Kodak Gamboa DATE: October 14, 2017 TIME: 10:43 AM CSN: [id number] PT ED Observed: 10/14/2017 Status: COMPLETED Source: [place] 10:16 AM [facility] REPOSITORY HNO ID: [id number] Author: Rand Howe (Rn), RN Service: Nursing Author Type: Registered Nurse Type: Patient Education Filed: 10/14/2017 10:18 AM Note Text: ONGOING PATIENT EDUCATION TOPIC Reinforced: pre and post procedure Patient Name: Kodak Gamboa [place] [facility] [facility] Readiness To Learn Motivation To Learn: Interested Instruction Provided To: Patient and family member Learning Response Patient/Family Response: Information received as demonstrated by interest and questions Method of Instruction: Individual instruction Follow-Up Plan: Recommend - Recommend continued instruction and follow up as directed Electronically signed by: Rand Howe RN PROGRESS Observed: 10/14/2017 Status: COMPLETED Source: [place] 9:49 AM CLINIC OTHER [facility] REPOSITORY O ID: [id number] Author: Dana Fletcher ([employer]) Service: General Surgery Author Type: Nurse Practitioner Type: Progress Notes Filed: 10/14/2017 10:25 AM Note Text: HISTORY AND PHYSICAL EXAMINATION SERVICE DATE: 10/14/2017 SERVICE TIME: 9:49 AM PRIMARY CARE PHYSICIAN: Dr. Brock Carey REASON FOR VISIT: Kodak Gamboa is a 56 year old male who is scheduled for Procedure(s): COLONOSCOPY (Left) - Dr. Mijares. The patient has the following: There is no problem list on file for this patient. Subjective CHIEF COMPLAINT: History of colon polyps HPI: 56 year old male reports for colonoscopy. Last colonoscopy was in 2011- history of polyps. Denies bloody and tarry stools. Occasional diarrhea and constipation (once every few months). Denies fever and chills. Denies abd pain. Denies weight changes in the past 6 months. Maternal grandfather- colon cancer (diagnosed at age 84). Positive GERD. Denies nausea and vomiting. Denies pain at this time. PAST MEDICAL HISTORY Diagnosis Date - Anxiety - Asthma - High cholesterol - Hypertension - Migraines - Subdural hematoma caused by concussion (HCC) 2001 PAST SURGICAL HISTORY Procedure Laterality Date - ADDTL NECK SPINE FUSION - ELBOW SURGERY HX Right - HERNIA REPAIR HX - PRK ENHANCEMENT - REMOVAL OF TONSILS,<12 Y/O FAMILY HISTORY Problem Relation Age of Onset - Hypertension Mother - Arthritis Mother - Heart disease Father - Pancreatic Cancer [OTHER] Maternal Grandmother - Colon Cancer Maternal Grandfather - Heart disease Paternal Grandfather SOCIAL HISTORY: Social History Marital status: Spouse name: Years of education: Number of children: Social History Main Topics Smoking status: Never Smoker Smokeless tobacco: Never Used Alcohol use: Yes Comment: Occasional Drug use: No Prior to Admission medications as of 10/14/17 1001 Medication Sig Last Dose Taking ergocalciferol, vitamin D2, (VITAMIN D2 ORAL) Take by mouth once daily. Yes calcium-vits A2-J-D1-minerals 166.75 mg- 166.75 unit cap Take 1,500 mg by mouth once daily. Yes Magnesium 250 mg tab Take 500 mg by mouth once daily. Yes Selenium 200 mcg TbEC Take 250 tablets by mouth once daily. Yes biotin 5 mg tab Take 5 mg by mouth once daily. Yes therapeutic multivitamin w/ iron (THERAGRAN-M) 9 mg iron-400 mcg tablet Take 1 tablet by mouth once daily. Yes zinc once daily. Yes vit N-tjhrkykd-egir-lycopene 1,000-2-650 mg pwep Take by mouth. Yes amoxicillin (POLYMOX, AMOXIL) 500 mg capsule Take 500 mg by mouth twice daily. 10/13/2017 at Unknown time Yes atorvastatin (LIPITOR) 40 mg tablet Take 40 mg by mouth once daily. 10/13/2017 at Unknown time Yes Pptfdrtnbr-Sed-Sbpzixsdof-Caf 11-000-96-30 mg per capsule Take 1 capsule by mouth as needed. Past Week at Unknown time Yes FLUoxetine HCl (PROZAC) 40 mg capsule Take 40 mg by mouth once daily. 10/14/2017 at Unknown time Yes LORazepam (ATIVAN) 1 mg tablet Take 1 mg by mouth every 8 hours as needed. Past Week at Unknown time Yes losartan (COZAAR) 100 mg tablet Take 100 mg by mouth once daily. 10/13/2017 at Unknown time Yes metoprolol succinate ER (TOPROL XL) 50 mg 24 hr tablet Take 50 mg by mouth once daily. 10/14/2017 at Unknown time Yes montelukast (SINGULAIR) 10 mg tablet Take 10 mg by mouth daily at bedtime. Past Week at Unknown time Yes fluticasone (FLONASE) 50 mcg/actuation nasal spray Use 2 Sprays in the nose once daily. Unknown at Unknown time ibuprofen (MOTRIN) 800 mg tablet Take 800 mg by mouth every 8 hours as needed. 10/11/2017 loratadine (CLARITIN) 10 mg tablet Take 10 mg by mouth once daily. 10/11/2017 Naproxen SR (EC-NAPROSYN) 500 mg EC tablet Take 500 mg by mouth twice daily as needed. Unknown at Unknown time FISH OIL 60-90-500 mg cap Take 1 capsule by mouth once daily. 10/11/2017 testosterone cypionate (DEPO-TESTOSTERONE) 200 mg/mL injection Inject 200 mg intramuscularly once every month. Unknown at Unknown time tiZANidine (ZANAFLEX) 4 mg tablet Take 4 mg by mouth as needed. 10/11/2017 albuterol HFA (VENTOLIN HFA) 90 mcg/actuation inhaler Inhale 2 Puffs as instructed every 4 hours as needed. Unknown at Unknown time No medication comments found. ALLERGIES Allergen Reactions - Benzocaine Hives - Lidocaine Hives - Pollen Extracts Itching - Procaine Hives REVIEW OF SYSTEMS: PAIN ASSESSMENT: Pain Pain Score: 0/10 Pain Assessment (RN/ANIMAL CARE ATTENDANT): Assessment Tool: Verbal (Numeric Rating or Visual Analog Scale) General: Denies fever, chills, and unexpected weight change. Neuro: Positive dizziness and headaches. Respiratory: Denies SOB. Cardiovascular: Denies CP and palpitations. GI: see HPI. : Denies dysuria. Endocrine: No history of diabetes. Hematology: Denies history of bleeding or clotting disorder. Psych: Positive anxiety/depression. Musculoskeletal: Denies joint pain and swelling. Skin: Denies open sores and rashes. Objective PHYSICAL EXAM: VITALS: BP 139/80 Pulse 53 Temp (Src) 97.4 (Oral) Resp 18 Ht 6' 1 (1.85m) Wt 217 lb (98.4kg) SpO2 95% BMI 28.64 kg/(m2). General: NAD. Cooperative. Skin: Skin is warm, no rashes, and no open sores. HEENT: Normocephalic. Cardiovascular: Normal S1 AND S2. RRR Lungs: CTA. No respiratory distress. Abdomen: Soft. +BS Extremities: No edema. Neurological: Alert and oriented to person, place, and time. Pulses: radial pulses +2 Assessment/Plan METS: Take care of self; that is eating, dressing, bathing, using the toilet (2.75 METs) ANESTHESIA FINDINGS: Intubation History: No history of difficult intubation Significant Anesthesia Considerations: None PLAN Diagnosis: History of colon polyps [Z86.010] Planned Procedure: Procedure(s): COLONOSCOPY (Left) The Following Tests/Procedures Have Been Initiated: Insert IV, LR KVO Planned Anesthetic: MAC Instructions Given to Patient: Patient given verbal preop instructions and voices comprehension and compliance. SIGNATURE: Dana Fletcher APRN.CNP PATIENT NAME: Kodak Gamboa DATE: October 14, 2017 TIME: 9:49 AM PAGER/CONTACT #: OPERATIVE NO Observed: 10/14/2017 Status: COMPLETED Source: [place] 12:00 AM CLINIC OTHER CAMPUS REPOSITORY HNO ID: [id number] Author: Kodak Mijares Service: Gastroenterology Author Type: Physician Type: Operative Report Filed: 12/22/2017 11:56 AM Note Text: [facility] - Operative Report SURGEON: Kodak Mijares MD PATIENT NAME: KODAK GAMBOA CSN: [id number] DATE OF SURGERY: 10/14/2017 DATE OF : 1960 SEX/AGE: M/56 PATIENT TYPE: A HOSP SVC: [place] LOCATION: [facility] DATE OF SURGERY: 10/14/2017 SURGEON: Kodak Mijares MD PROCEDURE PERFORMED: Colonoscopy. PREPROCEDURE DIAGNOSIS: Remote history of colon polyps, none removed and last exam in 2011. Postprocedure Diagnosis: Nl colonoscopy including TI CONSENT: Risks and benefits of the procedure were discussed with the patient and consent was obtained. ENDOSCOPE: Olympus adult colonoscope. MEDICATIONS: MAC sedation. DESCRIPTION OF PROCEDURE: The procedure was performed in the endoscopy suite. The patient was placed in left lateral decubitus position. The patient was monitored throughout. Once the patient was sedated, a perianal exam was performed, which was normal. Digital examination revealed no rectal masses. The endoscope was pulled into the anorectal canal and advanced all the way to the cecum. The appendiceal orifice and ileocecal valve were identified and photo documented. The terminal ileum was intubated few centimeters distally and revealed normal mucosal pattern. The endoscope was then brought back slowly. There were no mucosal abnormalities noted throughout the exam. Retroflexed view of the distal rectum was unremarkable. The endoscope was then withdrawn. The patient was transferred to recovery room in stable condition. RECOMMENDATIONS: The patient does have a family history and a grandfather with colon cancer in his mid to late 80s that is not significant. Therefore, the patient can return for average risk screening exam in approximately 10 years or as needed in the future. Kodak Mijares MD Gastroenterology JRN:modl /[id number] cc: * Ángel Hansen Dr. PROGRESS Observed: 09/24/2017 Status: COMPLETED Source: [place] 8:52 AM [facility] REPOSITORY HNO ID: [id number] Author: Molly Guerrier Service: (none) Author Type: (none) Type: Progress Notes Filed: 09/24/2017 12:25 PM Note Text: LOCAL ANESTHETIC INJECTION CHALLENGE 0800 Informed consent for bupivacaine challenge obtained per Dr. Hackett. 0805 Bupivacaine 0.75% full strength 0.1 ml given subcutaneously at left upper arm per Dr. Hackett's orders. [facility] [id number] Expires 07/2018 Lot [id number] [id number] No sign of allergic reaction small pinpoint wheal palpable at injection site, no erythema. VSS. Bupivacaine 0.75% full strength 0.3 ml given subcutaneously at right upper arm per Dr. Hackett's orders. BP 131/82 HR 50 T 97.3 0835 No sign of allergic reaction. Injection site negative. VSS. Bupivacaine 0.75% full strength 0.6 ml given subcutaneously at left upper arm per Dr. Hackett's orders. BP 126/81 HR 51 T 97.6 0855 No sign of allergic reaction. Injection site negative. VSS. Dr. Hackett in to speak with patient. Patient discharged from Clinic. BP 144/84 HR 50 Molly Guerrier RN PROGRESS Observed: 09/24/2017 Status: COMPLETED Source: [place] 7:29 AM [facility] REPOSITORY HNO ID: [id number] Author: Felipe Hackett Service: (none) Author Type: Physician Type: Progress Notes Filed: 09/24/2017 12:25 PM Note Text: Allergy AND Immunology Established Visit PATIENT NAME: Kodak Gamboa SERVICE DATE: 09/24/2017 HPI: Kodak Gamboa is a 56 year old male who presents for follow up of local anesthetic allergy. He had noted no problems after lidocaine but was not effectively numbed by this. His dentist wanted to use bupivacaine which he felt would be more effective. Previous skin testing to bupivacaine was negative PAST MEDICAL HISTORY Diagnosis Date - Anxiety - High cholesterol - Hypertension - Migraines There is no problem list on file for this patient. PAST SURGICAL HISTORY Procedure Laterality Date - ADDTL NECK SPINE FUSION - ELBOW SURGERY HX Right - HERNIA REPAIR HX Social History Marital status: Spouse name: Years of education: Number of children: Social History Main Topics Smoking status: Never Smoker Smokeless status: Never Used Alcohol use: Yes Comment: Occasional Drug use: No CURRENT OUTPATIENT MEDICATIONS: Current Outpatient Prescriptions: amoxicillin (POLYMOX, AMOXIL) 500 mg capsule Take 500 mg by mouth twice daily. Disp: Rfl: atorvastatin (LIPITOR) 40 mg tablet Take 40 mg by mouth once daily. Disp: Rfl: Zkjjpcllxe-Tic-Ndipegfnqw-Caf 96-452-49-30 mg per capsule Take 1 capsule by mouth as needed. Disp: Rfl: FLUoxetine HCl (PROZAC) 40 mg capsule Take 40 mg by mouth once daily. Disp: Rfl: fluticasone (FLONASE) 50 mcg/actuation nasal spray Use 2 Sprays in the nose once daily. Disp: Rfl: ibuprofen (MOTRIN) 800 mg tablet Take 800 mg by mouth every 8 hours as needed. Disp: Rfl: loratadine (CLARITIN) 10 mg tablet Take 10 mg by mouth once daily. Disp: Rfl: LORazepam (ATIVAN) 1 mg tablet Take 1 mg by mouth every 8 hours as needed. Disp: Rfl: losartan (COZAAR) 100 mg tablet Take 100 mg by mouth once daily. Disp: Rfl: metoprolol succinate ER (TOPROL XL) 50 mg 24 hr tablet Take 50 mg by mouth once daily. Disp: Rfl: Naproxen SR (EC-NAPROSYN) 500 mg EC tablet Take 500 mg by mouth twice daily as needed. Disp: Rfl: montelukast (SINGULAIR) 10 mg tablet Take 10 mg by mouth daily at bedtime. Disp: Rfl: FISH OIL 60-90-500 mg cap Take 1 capsule by mouth once daily. Disp: Rfl: testosterone cypionate (DEPO-TESTOSTERONE) 200 mg/mL injection Inject 200 mg intramuscularly once every month. Disp: Rfl: tiZANidine (ZANAFLEX) 4 mg tablet Take 4 mg by mouth as needed. Disp: Rfl: albuterol HFA (VENTOLIN HFA) 90 mcg/actuation inhaler Inhale 2 Puffs as instructed every 4 hours as needed. Disp: Rfl: gabapentin (NEURONTIN) 300 mg capsule Disp: Rfl: HYDROcodone-acetaminophen (NORCO) 5-325 mg per tablet Disp: Rfl: FLUZONE QUAD 8756-8941, PF, 60 mcg (15 mcg x 4)/0.5 mL injection Disp: Rfl: PNEUMOVAX 23 25 mcg/0.5 mL syrg injection Disp: Rfl: No current facility-administered medications for this visit. ALLERGIES: ALLERGIES Allergen Reactions - Benzocaine Hives - Lidocaine Hives - Pollen Extracts Itching - Procaine Hives REVIEW OF SYSTEMS: HEENT: negative RESPIRATORY: No cough, hemoptysis, asthma, recent chest infection, wheezing CONSTITUTIONALl: No acute distress. No weight loss or gain, no fevers or chills CARDIOVASCULAR: negative for chest pain, leg swelling or palpitations. GASTROINTESTINAL: Negativeor abdominal discomfort, No blood in stools or black stools MUSCULOSKELETAL: negative for joint pain or swelling, back pain or muscle pain. NEUROLOGIC:Negative for focal numbness or weakness, headaches and dizziness or syncope. DERM/SKIN: No new skin eruptions no easy bruising or hives . PSYCHIATRIC: Negative for sleep disturbance, mood disorder and recent psychosocial stressors HEMATOLOGIC/LYMPHATIC/IMMUNOLOGIC:Negative for cold or heat intolerance, polyuria, polydipsia and goiter. The remainder of the ROS was negative. PHYSICAL EXAM: BP 135/86 Pulse 48 Resp 18 Ht 6' 1 (1.85m) Wt 225 lb (102.1kg) SpO2 95[Room air]% BMI 29.69 kg/(m2). General appearance: Well appearing, alert, in no acute distress, well-hydrated, well nourished. HENT: External ears normal, canals clear, TM's normal Eyes: no scleral icterus, PERRLA, EOMS, no conjunctivitis Nose/Sinuses: Nares normal. Septum midline. Mucosa normal. No drainage or sinus tenderness. Oropharynx: Lips, mucosa, and tongue normal, teeth and gums normal, oropharynx normal [place] Classification:Class II Respiratory: Lungs clear to auscultation. No wheezing, rhonchi, rales Cardiovascular: RRR without murmur, gallop, or rubs. No ectopy Gastroenterology: Inspection: Normal appearing abdomen Musculoskeletal: No joint pain, muscle weakness, or impaired gait Integumentary: Negative for lesions, rash, and itching. Psychiatric: Alert and oriented x 3. No mood disorders noted, calm affect. DATA: Diagnostic tests reviewed for today's visit were personally reviewed by me: No new labs No textual results found for the specified procedure(s). No results found for: GLUC, K, NA, CHLOR, CO2, CREAT, BUN, ANION, CA, TPROT, ALB, TBILI, ALKPHOS, AST, ALT No results found for: WBC, RBC, HB, HCT, MCV, MCH, MCHC, RDWCV, PLT, MPV, MPV, NEUT, ABSNEUT, LYMPHP, ABSLYMPH, MONOP, ABSMONO, EOSINP, ABSEOSIN, BASOP, ABSBASO No results found for: IGE No Follow-up on file. ASSESSMENT/PLAN: 1. Adverse effect of local anesthetic drug, initial encounter - ICD9: E938.9, ICD10: T41.3X5A (primary diagnosis) Vital reaction after challenge to bupivacaine. Patient's dentist may feel free to use this. If he has inadequate anesthesia he plans on going to proceed through general anesthesia 2. Benzocaine adverse reaction, initial encounter - ICD9: 995.22, E938.5, ICD10: T41.3X5A Continue avoidance of topical form 3. Allergic contact dermatitis due to adhesives - ICD9: 692.4, ICD10: L23.1 Continue avoidance of adhesives 4. Allergic dermatitis due to other chemical product - ICD9: 692.4, ICD10: L23.5 Stable 5. Seasonal allergic rhinitis due to pollen - ICD9: 477.0, ICD10: J30.1 Currently asymptomatic Felipe Hackett MD > 25 minutes spent face to face with more than half of this for disease counselling. CNOV Observed: 09/24/2017 Status: COMPLETED Source: [place] 6:40 AM [facility] REPOSITORY [facility] KODAK GAMBOA ([id number]) 1960 M [place] Date Time Provider Department 09/24/17 6:40 AM FELIPE HACKETT During your visit today, we recorded the following information about you: Pulse Respiration Blood pressure Weight 48/minute 18/minute 135/86 102.1 kg Height 1.854 m Felipe Hackett MD 09/24/2017 12:25 PM Signed Allergy ANDamp; Immunology Established Visit PATIENT NAME: Kodak Gamboa SERVICE DATE: 09/24/2017 HPI: Kodak Gamboa is a 56 year old male who presents for follow up of local anesthetic allergy. He had noted no problems after lidocaine but was not effectively numbed by this. His dentist wanted to use bupivacaine which he felt would be more effective. Previous skin testing to bupivacaine was negative PAST MEDICAL HISTORY Diagnosis Date - Anxiety - High cholesterol - Hypertension - Migraines There is no problem list on file for this patient. PAST SURGICAL HISTORY Procedure Laterality Date - ADDTL NECK SPINE FUSION - ELBOW SURGERY HX Right - HERNIA REPAIR HX Social History Marital status: Spouse name: Years of education: Number of children: Social History Main Topics Smoking status: Never Smoker Smokeless status: Never Used Alcohol use: Yes Comment: Occasional Drug use: No CURRENT OUTPATIENT MEDICATIONS: Current Outpatient Prescriptions: amoxicillin (POLYMOX, AMOXIL) 500 mg capsule Take 500 mg by mouth twice daily. Disp: Rfl: atorvastatin (LIPITOR) 40 mg tablet Take 40 mg by mouth once daily. Disp: Rfl: Ufficfjcot-Lab-Mwahqcvwya-Caf 95-682-72-30 mg per capsule Take 1 capsule by mouth as needed. Disp: Rfl: FLUoxetine HCl (PROZAC) 40 mg capsule Take 40 mg by mouth once daily. Disp: Rfl: fluticasone (FLONASE) 50 mcg/actuation nasal spray Use 2 Sprays in the nose once daily. Disp: Rfl: ibuprofen (MOTRIN) 800 mg tablet Take 800 mg by mouth every 8 hours as needed. Disp: Rfl: loratadine (CLARITIN) 10 mg tablet Take 10 mg by mouth once daily. Disp: Rfl: LORazepam (ATIVAN) 1 mg tablet Take 1 mg by mouth every 8 hours as needed. Disp: Rfl: losartan (COZAAR) 100 mg tablet Take 100 mg by mouth once daily. Disp: Rfl: metoprolol succinate ER (TOPROL XL) 50 mg 24 hr tablet Take 50 mg by mouth once daily. Disp: Rfl: Naproxen SR (EC-NAPROSYN) 500 mg EC tablet Take 500 mg by mouth twice daily as needed. Disp: Rfl: montelukast (SINGULAIR) 10 mg tablet Take 10 mg by mouth daily at bedtime. Disp: Rfl: FISH OIL 60-90-500 mg cap Take 1 capsule by mouth once daily. Disp: Rfl: testosterone cypionate (DEPO-TESTOSTERONE) 200 mg/mL injection Inject 200 mg intramuscularly once every month. Disp: Rfl: tiZANidine (ZANAFLEX) 4 mg tablet Take 4 mg by mouth as needed. Disp: Rfl: albuterol HFA (VENTOLIN HFA) 90 mcg/actuation inhaler Inhale 2 Puffs as instructed every 4 hours as needed. Disp: Rfl: gabapentin (NEURONTIN) 300 mg capsule Disp: Rfl: HYDROcodone-acetaminophen (NORCO) 5-325 mg per tablet Disp: Rfl: FLUZONE QUAD [id number], PF, 60 mcg (15 mcg x 4)/0.5 mL injection Disp: Rfl: PNEUMOVAX 23 25 mcg/0.5 mL syrg injection Disp: Rfl: No current facility-administered medications for this visit. ALLERGIES: ALLERGIES Allergen Reactions - Benzocaine Hives - Lidocaine Hives - Pollen Extracts Itching - Procaine Hives REVIEW OF SYSTEMS: HEENT: negative RESPIRATORY: No cough, hemoptysis, asthma, recent chest infection, wheezing CONSTITUTIONALl: No acute distress. No weight loss or gain, no fevers or chills CARDIOVASCULAR: negative for chest pain, leg swelling or palpitations. GASTROINTESTINAL: Negativeor abdominal discomfort, No blood in stools or black stools MUSCULOSKELETAL: negative for joint pain or swelling, back pain or muscle pain. NEUROLOGIC:Negative for focal numbness or weakness, headaches and dizziness or syncope. DERM/SKIN: No new skin eruptions no easy bruising or hives . PSYCHIATRIC: Negative for sleep disturbance, mood disorder and recent psychosocial stressors HEMATOLOGIC/LYMPHATIC/IMMUNOLOGIC:Negative for cold or heat intolerance, polyuria, polydipsia and goiter. The remainder of the ROS was negative. PHYSICAL EXAM: BP 135/86 Pulse 48 Resp 18 Ht 6' 1ANDquot; (1.85m) Wt 225 lb (102.1kg) SpO2 95[Room air]% BMI 29.69 kg/(m2). General appearance: Well appearing, alert, in no acute distress, well-hydrated, well nourished. HENT: External ears normal, canals clear, TM's normal Eyes: no scleral icterus, PERRLA, EOMS, no conjunctivitis Nose/Sinuses: Nares normal. Septum midline. Mucosa normal. No drainage or sinus tenderness. Oropharynx: Lips, mucosa, and tongue normal, teeth and gums normal, oropharynx normal [place] Classification:Class II Respiratory: Lungs clear to auscultation. No wheezing, rhonchi, rales Cardiovascular: RRR without murmur, gallop, or rubs. No ectopy Gastroenterology: Inspection: Normal appearing abdomen Musculoskeletal: No joint pain, muscle weakness, or impaired gait Integumentary: Negative for lesions, rash, and itching. Psychiatric: Alert and oriented x 3. No mood disorders noted, calm affect. DATA: Diagnostic tests reviewed for today's visit were personally reviewed by me: No new labs No textual results found for the specified procedure(s). No results found for: GLUC, K, NA, CHLOR, CO2, CREAT, BUN, ANION, CA, TPROT, ALB, TBILI, ALKPHOS, AST, ALT No results found for: WBC, RBC, HB, HCT, MCV, MCH, MCHC, RDWCV, PLT, MPV, MPV, NEUT, ABSNEUT, LYMPHP, ABSLYMPH, MONOP, ABSMONO, EOSINP, ABSEOSIN, BASOP, ABSBASO No results found for: IGE No Follow-up on file. ASSESSMENT/PLAN: 1. Adverse effect of local anesthetic drug, initial encounter - ICD9: E938.9, ICD10: T41.3X5A (primary diagnosis) Vital reaction after challenge to bupivacaine. Patient's dentist may feel free to use this. If he has inadequate anesthesia he plans on going to proceed through general anesthesia 2. Benzocaine adverse reaction, initial encounter - ICD9: 995.22, E938.5, ICD10: T41.3X5A Continue avoidance of topical form 3. Allergic contact dermatitis due to adhesives - ICD9: 692.4, ICD10: L23.1 Continue avoidance of adhesives 4. Allergic dermatitis due to other chemical product - ICD9: 692.4, ICD10: L23.5 Stable 5. Seasonal allergic rhinitis due to pollen - ICD9: 477.0, ICD10: J30.1 Currently asymptomatic Felipe Hackett MD ANDgt; 25 minutes spent face to face with more than half of this for disease counselling. Molly Guerrier 09/24/2017 12:25 PM Signed LOCAL ANESTHETIC INJECTION CHALLENGE 0800 Informed consent for bupivacaine challenge obtained per Dr. Hackett. 0805 Bupivacaine 0.75% full strength 0.1 ml given subcutaneously at left upper arm per Dr. Hackett's orders. [facility] [id number] Expires 07/2018 Lot [id number] No sign of allergic reaction small pinpoint wheal palpable at injection site, no erythema. VSS. Bupivacaine 0.75% full strength 0.3 ml given subcutaneously at right upper arm per Dr. Hackett's orders. BP 131/82 HR 50 T 97.3 0835 No sign of allergic reaction. Injection site negative. VSS. Bupivacaine 0.75% full strength 0.6 ml given subcutaneously at left upper arm per Dr. Hackett's orders. BP 126/81 HR 51 T 97.6 0855 No sign of allergic reaction. Injection site negative. VSS. Dr. Hackett in to speak with patient. Patient discharged from Clinic. BP 144/84 HR 50 Molly Guerrier RN Referring Provider: FELIPE HACKETT [[id number]] Allergies As of Date: 09/24/2017 Noted Allergy Reaction BENZOCAINE 04/01/2016 4 - Hives LIDOCAINE 08/02/2015 4 - Hives POLLEN EXTRACTS 03/01/2013 9 - Itching PROCAINE 03/01/2013 4 - Hives Date Reviewed: 09/24/2017 Reviewed by: Felipe Hackett - Fully Assessed Reason for Visit: Allergy testing [Other] Primary Visit Diagnosis:Adverse effect of local anesthetic drug, initial encounter [T41.3X5A] Other Visit Diagnoses:Benzocaine adverse reaction, initial encounter [T41.3X5A] Allergic contact dermatitis due to adhesives [L23.1] Allergic dermatitis due to other chemical product [L23.5] Seasonal allergic rhinitis due to pollen [J30.1] Order(s):RAPID DESENSITIZATION [39800DCO] Order #: [id number] RAPID DESENSITIZATION [15228RKE] Order #: [id number] Prescriptions as of 09/24/2017 Sig: AMOXICILLIN 500 MG CAPSULE Take 500 mg by mouth twice da* ATORVASTATIN 40 MG TABLET Take 40 mg by mouth once tray* BUTALBITAL 50 MG-ACETAMINOPHE* Take 1 capsule by mouth as ne* FLUOXETINE 40 MG CAPSULE Take 40 mg by mouth once tray* FLUTICASONE 50 MCG/ACTUATION * Use 2 Sprays in the nose once* IBUPROFEN 800 MG TABLET Take 800 mg by mouth every 8 * LORATADINE 10 MG TABLET Take 10 mg by mouth once tray* LORAZEPAM 1 MG TABLET Take 1 mg by mouth every 8 ho* LOSARTAN 100 MG TABLET Take 100 mg by mouth once deysi* METOPROLOL SUCCINATE ER 50 MG* Take 50 mg by mouth once tray* NAPROXEN 500 MG TABLET,DELAYE* Take 500 mg by mouth twice da* MONTELUKAST 10 MG TABLET Take 10 mg by mouth daily at * FISH OIL 60 MG-90 MG-500 MG C* Take 1 capsule by mouth once * TESTOSTERONE CYPIONATE 200 MG* Inject 200 mg intramuscularly* TIZANIDINE 4 MG TABLET Take 4 mg by mouth as needed.* ALBUTEROL SULFATE HFA 90 MCG/* Inhale 2 Puffs as instructed * GABAPENTIN 300 MG CAPSULE HYDROCODONE 5 MG-ACETAMINOPHE* FLUZONE QUAD (PF) 60 M* PNEUMOVAX 23 25 MCG/0.5 ML IN* Medication notes this encounter GABAPENTIN 300 MG CAPSULE >> Grazyna Hendricks 09/24/2017 6:50 AM >> GRAZYNA HENDRICKS Sep 24, 2017 6:50 AM No longer taking HYDROCODONE 5 MG-ACETAMINOPHEN 325 MG TABLET >> Grazyna Hendricks 09/24/2017 6:50 AM >> GRAZYNA HENDRICKS Sep 24, 2017 6:50 AM No longer taking Problem List As Of Date: 09/24/2017 (None) Encounter Status:Closed by FELIPE HACKETT MD on 09/24/17 LINNETETN Observed: 09/15/2017 Status: COMPLETED Source: [place] 12:00 AM CLINIC [facility] REPOSITORY Telephone ([facility]) COOP[place]AK Chaz ([id number]) 1960 [facility] Date Time Provider Department 09/15/[address] [facility] During your visit today, we recorded the following information about you: Cristiane Mercado, RN, RN 09/15/2017 9:55 AM Signed Patient called, stated he had lidocaine testing done, but when at the dentist, used lidocaine with no pain relief. Patient asking if he should come in for subcutaneous bupivicaine testing (skin prick and ID already done). Advised I will check with Dr. Hackett and then advise. Ok to leave message on voicemail, per patient, at [phone]. Felipe Hackett MD 09/15/2017 10:49 AM Signed I'm not sure why lidocaine did not give him adequate pain relief but we can set up graded challenge to bupivacaine. We'll need to make sure that we have enough bupivacaine in the office where he is scheduled to ensure that he can proceed with this for full challenge Cristiane Mercado RN, RN 09/15/2017 12:37 PM Signed Called patient and advised of message. Tried to transfer patient for scheduling, but front office secretary on the other line. Number provided for scheduling. Patient stated understanding. Renetta Garcia 09/15/2017 1:48 PM Addendum Patient is schedule next week at our [place] office. Does bupivacaine need ordered? Renetta Garcia Allergies As of Date: 09/15/2017 Noted Allergy Reaction BENZOCAINE 04/01/2016 4 - Hives LIDOCAINE 08/02/2015 4 - Hives POLLEN EXTRACTS 03/01/2013 9 - Itching PROCAINE 03/01/2013 4 - Hives Date Reviewed: 08/20/2017 Reviewed by: Felipe Hackett - Fully Assessed Reason for Visit: Patient Question [6047] Prescriptions as of 09/15/2017 Sig: ATORVASTATIN 40 MG TABLET Take 40 mg by mouth once tray* BUTALBITAL 50 MG-ACETAMINOPHE* Take 1 capsule by mouth as ne* FLUZONE QUAD 2017-(PF) 60 M* FLUOXETINE 40 MG CAPSULE Take 40 mg by mouth once tray* FLUTICASONE 50 MCG/ACTUATION * Use 2 Sprays in the nose once* IBUPROFEN 800 MG TABLET Take 800 mg by mouth every 8 * LORATADINE 10 MG TABLET Take 10 mg by mouth once tray* LORAZEPAM 1 MG TABLET Take 1 mg by mouth every 8 ho* LOSARTAN 100 MG TABLET Take 100 mg by mouth once deysi* METOPROLOL SUCCINATE ER 50 MG* Take 50 mg by mouth once tray* NAPROXEN 500 MG TABLET,DELAYE* Take 500 mg by mouth twice da* MONTELUKAST 10 MG TABLET Take 10 mg by mouth daily at * FISH OIL 60 MG-90 MG-500 MG C* Take 1 capsule by mouth once * PNEUMOVAX 23 25 MCG/0.5 ML IN* TESTOSTERONE CYPIONATE 200 MG* Inject 200 mg intramuscularly* TIZANIDINE 4 MG TABLET Take 4 mg by mouth as needed.* ALBUTEROL SULFATE HFA 90 MCG/* Inhale as instructed. Problem List As Of Date: 09/15/2017 (None) Encounter Status:Closed by CRISTIANE MERCADO RN on 09/15/17 HOSP Observed: 08/21/2017 Status: COMPLETED Source: [place] 12:00 AM CLINIC OTHER CAMPUS REPOSITORY Patient:Kodak Gamboa MRN: <[id number]> Height:6' 1(1.854 m) Weight:225 lb (102.059 kg) Outpatient Medications as of 10/14/17: ergocalciferol, vitamin D2, (VITAMIN D2 ORAL) calcium-vits S3-H-S9-minerals 166.75 mg- 166.75 unit cap Magnesium 250 mg tab Selenium 200 mcg TbEC biotin 5 mg tab therapeutic multivitamin w/ iron (THERAGRAN-M) 9 mg iron-400 mcg tablet zinc vit F-trsigwwt-uxep-lycopene 1,000-2-650 mg pwep amoxicillin (POLYMOX, AMOXIL) 500 mg capsule atorvastatin (LIPITOR) 40 mg tablet Fjdpncwdcr-Onz-Rklssnrocy-Caf 32-169-27-30 mg per capsule FLUoxetine HCl (PROZAC) 40 mg capsule fluticasone (FLONASE) 50 mcg/actuation nasal spray ibuprofen (MOTRIN) 800 mg tablet loratadine (CLARITIN) 10 mg tablet LORazepam (ATIVAN) 1 mg tablet losartan (COZAAR) 100 mg tablet metoprolol succinate ER (TOPROL XL) 50 mg 24 hr tablet Naproxen SR (EC-NAPROSYN) 500 mg EC tablet montelukast (SINGULAIR) 10 mg tablet FISH OIL 60-90-500 mg cap testosterone cypionate (DEPO-TESTOSTERONE) 200 mg/mL injection tiZANidine (ZANAFLEX) 4 mg tablet albuterol HFA (VENTOLIN HFA) 90 mcg/actuation inhaler Admission/Clinic Administered Medications as of 10/14/17: lactated ringers infusion lactated ringers infusion Problem List: No problem list on file for this patient. Allergies: Benzocaine Pollen Extracts Procaine Date Verified: 10/14/17 Lab Values No results within the last 30 days for the following basenames: K,HCT Progress Notes ([facility]): Felipe Hackett 09/24/2017 12:25 PM Signed Allergy AND Immunology Established Visit PATIENT NAME: Kodak Gamboa SERVICE DATE: 09/24/2017 HPI: Kodak Gamboa is a 56 year old male who presents for follow up of local anesthetic allergy. He had noted no problems after lidocaine but was not effectively numbed by this. His dentist wanted to use bupivacaine which he felt would be more effective. Previous skin testing to bupivacaine was negative PAST MEDICAL HISTORY Diagnosis Date - Anxiety - High cholesterol - Hypertension - Migraines There is no problem list on file for this patient. PAST SURGICAL HISTORY Procedure Laterality Date - ADDTL NECK SPINE FUSION - ELBOW SURGERY HX Right - HERNIA REPAIR HX Social History Marital status: Spouse name: Years of education: Number of children: Social History Main Topics Smoking status: Never Smoker Smokeless status: Never Used Alcohol use: Yes Comment: Occasional Drug use: No CURRENT OUTPATIENT MEDICATIONS: Current Outpatient Prescriptions: amoxicillin (POLYMOX, AMOXIL) 500 mg capsule Take 500 mg by mouth twice daily. Disp: Rfl: atorvastatin (LIPITOR) 40 mg tablet Take 40 mg by mouth once daily. Disp: Rfl: Tqsmnpldgi-Agt-Ukxpwsxxlj-Caf 51-556-21-30 mg per capsule Take 1 capsule by mouth as needed. Disp: Rfl: FLUoxetine HCl (PROZAC) 40 mg capsule Take 40 mg by mouth once daily. Disp: Rfl: fluticasone (FLONASE) 50 mcg/actuation nasal spray Use 2 Sprays in the nose once daily. Disp: Rfl: ibuprofen (MOTRIN) 800 mg tablet Take 800 mg by mouth every 8 hours as needed. Disp: Rfl: loratadine (CLARITIN) 10 mg tablet Take 10 mg by mouth once daily. Disp: Rfl: LORazepam (ATIVAN) 1 mg tablet Take 1 mg by mouth every 8 hours as needed. Disp: Rfl: losartan (COZAAR) 100 mg tablet Take 100 mg by mouth once daily. Disp: Rfl: metoprolol succinate ER (TOPROL XL) 50 mg 24 hr tablet Take 50 mg by mouth once daily. Disp: Rfl: Naproxen SR (EC-NAPROSYN) 500 mg EC tablet Take 500 mg by mouth twice daily as needed. Disp: Rfl: montelukast (SINGULAIR) 10 mg tablet Take 10 mg by mouth daily at bedtime. Disp: Rfl: FISH OIL 60-90-500 mg cap Take 1 capsule by mouth once daily. Disp: Rfl: testosterone cypionate (DEPO-TESTOSTERONE) 200 mg/mL injection Inject 200 mg intramuscularly once every month. Disp: Rfl: tiZANidine (ZANAFLEX) 4 mg tablet Take 4 mg by mouth as needed. Disp: Rfl: albuterol HFA (VENTOLIN HFA) 90 mcg/actuation inhaler Inhale 2 Puffs as instructed every 4 hours as needed. Disp: Rfl: gabapentin (NEURONTIN) 300 mg capsule Disp: Rfl: HYDROcodone-acetaminophen (NORCO) 5-325 mg per tablet Disp: Rfl: FLUZONE QUAD 9957-0898, PF, 60 mcg (15 mcg x 4)/0.5 mL injection Disp: Rfl: PNEUMOVAX 23 25 mcg/0.5 mL syrg injection Disp: Rfl: No current facility-administered medications for this visit. ALLERGIES: ALLERGIES Allergen Reactions - Benzocaine Hives - Lidocaine Hives - Pollen Extracts Itching - Procaine Hives REVIEW OF SYSTEMS: HEENT: negative RESPIRATORY: No cough, hemoptysis, asthma, recent chest infection, wheezing CONSTITUTIONALl: No acute distress. No weight loss or gain, no fevers or chills CARDIOVASCULAR: negative for chest pain, leg swelling or palpitations. GASTROINTESTINAL: Negativeor abdominal discomfort, No blood in stools or black stools MUSCULOSKELETAL: negative for joint pain or swelling, back pain or muscle pain. NEUROLOGIC:Negative for focal numbness or weakness, headaches and dizziness or syncope. DERM/SKIN: No new skin eruptions no easy bruising or hives . PSYCHIATRIC: Negative for sleep disturbance, mood disorder and recent psychosocial stressors HEMATOLOGIC/LYMPHATIC/IMMUNOLOGIC:Negative for cold or heat intolerance, polyuria, polydipsia and goiter. The remainder of the ROS was negative. PHYSICAL EXAM: BP 135/86 Pulse 48 Resp 18 Ht 6' 1 (1.85m) Wt 225 lb (102.1kg) SpO2 95[Room air]% BMI 29.69 kg/(m2). General appearance: Well appearing, alert, in no acute distress, well-hydrated, well nourished. HENT: External ears normal, canals clear, TM's normal Eyes: no scleral icterus, PERRLA, EOMS, no conjunctivitis Nose/Sinuses: Nares normal. Septum midline. Mucosa normal. No drainage or sinus tenderness. Oropharynx: Lips, mucosa, and tongue normal, teeth and gums normal, oropharynx normal [place]amp[place]i Classification:Class II Respiratory: Lungs clear to auscultation. No wheezing, rhonchi, rales Cardiovascular: RRR without murmur, gallop, or rubs. No ectopy Gastroenterology: Inspection: Normal appearing abdomen Musculoskeletal: No joint pain, muscle weakness, or impaired gait Integumentary: Negative for lesions, rash, and itching. Psychiatric: Alert and oriented x 3. No mood disorders noted, calm affect. DATA: Diagnostic tests reviewed for today's visit were personally reviewed by me: No new labs No textual results found for the specified procedure(s). No results found for: GLUC, K, NA, CHLOR, CO2, CREAT, BUN, ANION, CA, TPROT, ALB, TBILI, ALKPHOS, AST, ALT No results found for: WBC, RBC, HB, HCT, MCV, MCH, MCHC, RDWCV, PLT, MPV, MPV, NEUT, ABSNEUT, LYMPHP, ABSLYMPH, MONOP, ABSMONO, EOSINP, ABSEOSIN, BASOP, ABSBASO No results found for: IGE No Follow-up on file. ASSESSMENT/PLAN: 1. Adverse effect of local anesthetic drug, initial encounter - ICD9: E938.9, ICD10: T41.3X5A (primary diagnosis) Vital reaction after challenge to bupivacaine. Patient's dentist may feel free to use this. If he has inadequate anesthesia he plans on going to proceed through general anesthesia 2. Benzocaine adverse reaction, initial encounter - ICD9: 995.22, E938.5, ICD10: T41.3X5A Continue avoidance of topical form 3. Allergic contact dermatitis due to adhesives - ICD9: 692.4, ICD10: L23.1 Continue avoidance of adhesives 4. Allergic dermatitis due to other chemical product - ICD9: 692.4, ICD10: L23.5 Stable 5. Seasonal allergic rhinitis due to pollen - ICD9: 477.0, ICD10: J30.1 Currently asymptomatic Felipe Hackett MD > 25 minutes spent face to face with more than half of this for disease counselling. Molly Guerrier 09/24/2017 12:25 PM Signed LOCAL ANESTHETIC INJECTION CHALLENGE 0800 Informed consent for bupivacaine challenge obtained per Dr. Hackett. 0805 Bupivacaine 0.75% full strength 0.1 ml given subcutaneously at left upper arm per Dr. Hackett's orders. [facility] 9970-8049-93 Expires 07/2018 Lot [id number] No sign of allergic reaction small pinpoint wheal palpable at injection site, no erythema. VSS. Bupivacaine 0.75% full strength 0.3 ml given subcutaneously at right upper arm per Dr. Hackett's orders. BP 131/82 HR 50 T 97.3 0835 No sign of allergic reaction. Injection site negative. VSS. Bupivacaine 0.75% full strength 0.6 ml given subcutaneously at left upper arm per Dr. Hackett's orders. BP 126/81 HR 51 T 97.6 0855 No sign of allergic reaction. Injection site negative. VSS. Dr. Hackett in to speak with patient. Patient discharged from Clinic. BP 144/84 HR 50 Molly Guerrier RN Progress Notes ([facility] I): Cristiane Mercado (Rn), RN 09/15/2017 9:55 AM Signed Patient called, stated he had lidocaine testing done, but when at the dentist, used lidocaine with no pain relief. Patient asking if he should come in for subcutaneous bupivicaine testing (skin prick and ID already done). Advised I will check with Dr. Hackett and then advise. Ok to leave message on voicemail, per patient, at [phone]. Felipe Hackett 09/15/2017 10:49 AM Signed I'm not sure why lidocaine did not give him adequate pain relief but we can set up graded challenge to bupivacaine. We'll need to make sure that we have enough bupivacaine in the office where he is scheduled to ensure that he can proceed with this for full challenge Cristiane Mercado (Rn), RN 09/15/2017 12:37 PM Signed Called patient and advised of message. Tried to transfer patient for scheduling, but front office secretary on the other line. Number provided for scheduling. Patient stated understanding. Renetta Garcia 09/15/2017 1:48 PM Addendum Patient is schedule next week at our [place] office. Does bupivacaine need ordered? Renetta Garcia Previous Version PROGRESS Observed: 08/20/2017 Status: COMPLETED Source: [place] 10:11 AM [facility] REPOSITORY [facility] ID: [id number] Author: Felipe Hackett Service: (none) Author Type: Physician Type: Progress Notes Filed: 08/20/2017 12:26 PM Note Text: ALLERGY AND IMMUNOLOGY CONSULT Patient Name: Kodak Gamboa? ? PRIMARY CARE PHYSICIAN: Mendy Trejo MD ? REASON FOR CONSULT: Allergies to topical, anesthetic REQUESTING PHYSICIAN: Self My final recommendations will be communicated to the requesting health care provider by way of the shared medical record for internal providers or letter via the [employer] for external providers.? CHIEF COMPLAINT: Allergies HISTORY OF PRESENT ILLNESS: Kodak Gamboa is a 56 year old male, Ht 185.4 cm (6' 1) BMI 29.69 kg/m2, with a history of hives with contact with benzocaine, mouth swelling and hives after dental procedures. Patient notes that since he was a child products containing benzocaine caused fairly rapid onset of hives. He had tolerated dental procedures fairly well without incident up until recently. He is concerned that he has not been able to get dental procedures done out of concerns of reactions. He wanted to be tested for anesthetic agents. I discussed that he could have unique allergy to benzocaine and the naturally produced imtiaz type anesthetic agents, but may be able to tolerate those that are synthetic amide-type analgesic agents. Risks and benefits reviewed and she was agreeable to undergo testing to bupivacaine and lidocaine. He did not react to either skin tests and subsequently proceeded with graded challenge to 2% preservative free lidocaine. After a full cc cumulative dosage of 2% lidocaine he had no reaction He notes that his seasonal allergies bother him in spring and fall. He typically receives Kenalog twice yearly for this. He notes being borderline on osteopenia on previous bone scans. I discussed that if he has allergies that are severe enough to merit systemic corticosteroids that at some point he should pursue further testing and consider immunotherapy. Environmental history: Pets in the home: 3 cats, 5 dogs 2 GSD, great pyenses, yorkie, Dachsund Krystyna: Hardwood floor Air conditioning: Central air, Window air conditioning Heating: Forced hot air Basement: Dry basement Occupation: [place] PAST MEDICAL HISTORY Diagnosis Date - Anxiety - High cholesterol - Hypertension - Migraines There is no problem list on file for this patient. PAST SURGICAL HISTORY Procedure Laterality Date - ADDTL NECK SPINE FUSION - ELBOW SURGERY HX Right - HERNIA REPAIR HX FAMILY HISTORY Problem Relation Age of Onset - Hypertension Mother - Arthritis Mother - Heart disease Father - Pancreatic Cancer [OTHER] Maternal Grandmother - Colon Cancer Maternal Grandfather - Heart disease Paternal Grandfather Social History Substance Use Topics - Smoking status: Never Smoker - Smokeless tobacco: Never Used - Alcohol use Yes Comment: Occasional ALLERGIES: ALLERGIES Allergen Reactions - Benzocaine Hives - Lidocaine Hives - Pollen Extracts Itching - Procaine Hives CURRENT OUTPATIENT MEDICATIONS: atorvastatin (LIPITOR) 40 mg tablet Take 40 mg by mouth once daily. Buyezzhlsi-Rkj-Bynorfmvbe-Caf 37-814-25-30 mg per capsule Take 1 capsule by mouth as needed. FLUoxetine HCl (PROZAC) 40 mg capsule Take 40 mg by mouth once daily. fluticasone (FLONASE) 50 mcg/actuation nasal spray Use 2 Sprays in the nose once daily. ibuprofen (MOTRIN) 800 mg tablet Take 800 mg by mouth every 8 hours as needed. loratadine (CLARITIN) 10 mg tablet Take 10 mg by mouth once daily. LORazepam (ATIVAN) 1 mg tablet Take 1 mg by mouth every 8 hours as needed. losartan (COZAAR) 100 mg tablet Take 100 mg by mouth once daily. metoprolol succinate ER (TOPROL XL) 50 mg 24 hr tablet Take 50 mg by mouth once daily. Naproxen SR (EC-NAPROSYN) 500 mg EC tablet Take 500 mg by mouth twice daily as needed. montelukast (SINGULAIR) 10 mg tablet Take 10 mg by mouth daily at bedtime. FISH OIL 60-90-500 mg cap Take 1 capsule by mouth once daily. testosterone cypionate (DEPO-TESTOSTERONE) 200 mg/mL injection Inject 200 mg intramuscularly once every month. tiZANidine (ZANAFLEX) 4 mg tablet Take 4 mg by mouth as needed. albuterol HFA (VENTOLIN HFA) 90 mcg/actuation inhaler Inhale as instructed. FLUZONE QUAD 3476-7553, PF, 60 mcg (15 mcg x 4)/0.5 mL injection PNEUMOVAX 23 25 mcg/0.5 mL syrg injection REVIEW OF SYSTEMS: HEENT: Notable for seasonal flaring of itchy eyes and runny nose RESPIRATORY: negative symptoms (no cough, hemoptysis, SOB, BURROUGHS, PND, wheezing) CONSTITUTIONALl: No acute distress. CARDIOVASCULAR: Negative for chest pain, leg swelling or palpitations. GASTROINTESTINAL: Negative for abdominal discomfort, No blood in stools or black stools MUSCULOSKELETAL: Negative for joint pain or swelling, back pain or muscle pain. NEUROLOGIC:Negative for focal numbness or weakness, headaches and dizziness or syncope. SKIN:Negative for lesions, rash, and itching. PSYCHIATRIC: Negative for sleep disturbance, mood disorder and recent psychosocial stressors HEMATOLOGIC/LYMPHATIC/IMMUNOLOGIC:Negative for cold or heat intolerance, polyuria, polydipsia and goiter. DERM/SKIN: Negative for lesions, rash, excoriation, hives or pruritis. The remainder of the ROS was negative. PHYSICAL EXAM: BP 142/91 Pulse 56 Resp 18 Ht 6' 1 (1.85m) Wt 225 lb (102.1kg) SpO2 97[Room air]% BMI 29.69 kg/(m2). General appearance: Well appearing, alert, in no acute distress, well-hydrated, well nourished. HENT: External ears normal, canals clear, TM's normal Eyes: no scleral icterus, PERRLA, EOMS, no conjunctivitis Nose/Sinuses: Nares normal. Septum midline. Mucosa normal. No drainage or sinus tenderness. Oropharynx: Lips, mucosa, and tongue normal, teeth and gums normal, oropharynx normal [place] Classification:Class III Respiratory: Lungs clear to auscultation. No wheezing, rhonchi, rales Cardiovascular: RRR without murmur, gallop, or rubs. No ectopy Gastroenterology: Inspection: Normal appearing abdomen Musculoskeletal: No joint pain, muscle weakness, or impaired gait Integumentary: Negative for lesions, rash, and itching. Psychiatric: Alert and oriented x 3. No mood disorders noted, calm affect. No Follow-up on file. ASSESSMENT/PLAN: 1. Adverse effect of local anesthetic drug, initial encounter - ICD9: E938.9, ICD10: T41.3X5A (primary diagnosis) Negative skin test to lidocaine and bupivacaine, tolerated challenge to 2% plain preservative-free lidocaine He may proceed to use preservative-free lidocaine for dental procedures and should have no issues since he had no reaction after being monitored in our office 2. Benzocaine adverse reaction, initial encounter - ICD9: 995.22, E938.5, ICD10: T41.3X5A Avoidance of benzocaine for now consider testing this in the future 3. Allergic contact dermatitis due to adhesives - ICD9: 692.4, ICD10: L23.1 Notes significant reduction in frequency recently unclear as to why 4. Allergic dermatitis due to other chemical product - ICD9: 692.4, ICD10: L23.5 Notable reaction to certain pain since 5. Seasonal allergic rhinitis due to pollen - ICD9: 477.0, ICD10: J30.1 Skin test with follow-up consider for immunotherapy in the long-term MD PAIGE Levin Observed: 08/20/2017 Status: COMPLETED Source: [place] 9:20 AM [facility] REPOSITORY Office Visit ([facility]) KODAK GAMBOA ([id number]) 1960 [address] [facility] Date Time Provider Department 08/20/17 9:20 AM FELIPE HACKETT [facility] During your visit today, we recorded the following information about you: Pulse Respiration Blood pressure Weight 56/minute 18/minute 142/91 102.1 kg Height 1.854 m Felipe Hackett MD 08/20/2017 12:26 PM Signed ALLERGY ANDamp; IMMUNOLOGY CONSULT Patient Name: Kodak Gamboa? ? PRIMARY CARE PHYSICIAN: Mendy Trejo MD ? REASON FOR CONSULT: Allergies to topical, anesthetic REQUESTING PHYSICIAN: Self My final recommendations will be communicated to the requesting health care provider by way of the shared medical record for internal providers or letter via the [employer] for external providers.? CHIEF COMPLAINT: Allergies HISTORY OF PRESENT ILLNESS: Kodak Gamboa is a 56 year old male, Ht 185.4 cm (6' 1ANDquot;) BMI 29.69 kg/m2, with a history of hives with contact with benzocaine, mouth swelling and hives after dental procedures. Patient notes that since he was a child products containing benzocaine caused fairly rapid onset of hives. He had tolerated dental procedures fairly well without incident up until recently. He is concerned that he has not been able to get dental procedures done out of concerns of reactions. He wanted to be tested for anesthetic agents. I discussed that he could have unique allergy to benzocaine and the naturally produced imtiaz type anesthetic agents, but may be able to tolerate those that are synthetic amide-type analgesic agents. Risks and benefits reviewed and she was agreeable to undergo testing to bupivacaine and lidocaine. He did not react to either skin tests and subsequently proceeded with graded challenge to 2% preservative free lidocaine. After a full cc cumulative dosage of 2% lidocaine he had no reaction He notes that his seasonal allergies bother him in spring and fall. He typically receives Kenalog twice yearly for this. He notes being borderline on osteopenia on previous bone scans. I discussed that if he has allergies that are severe enough to merit systemic corticosteroids that at some point he should pursue further testing and consider immunotherapy. Environmental history: Pets in the home: 3 cats, 5 dogs 2 GSD, great pyenses, yorkie, Dachsund Krystyna: Hardwood floor Air conditioning: Central air, Window air conditioning Heating: Forced hot air Basement: Dry basement Occupation: [employer] PAST MEDICAL HISTORY Diagnosis Date - Anxiety - High cholesterol - Hypertension - Migraines There is no problem list on file for this patient. PAST SURGICAL HISTORY Procedure Laterality Date - ADDTL NECK SPINE FUSION - ELBOW SURGERY HX Right - HERNIA REPAIR HX FAMILY HISTORY Problem Relation Age of Onset - Hypertension Mother - Arthritis Mother - Heart disease Father - Pancreatic Cancer [OTHER] Maternal Grandmother - Colon Cancer Maternal Grandfather - Heart disease Paternal Grandfather Social History Substance Use Topics - Smoking status: Never Smoker - Smokeless tobacco: Never Used - Alcohol use Yes Comment: Occasional ALLERGIES: ALLERGIES Allergen Reactions - Benzocaine Hives - Lidocaine Hives - Pollen Extracts Itching - Procaine Hives CURRENT OUTPATIENT MEDICATIONS: atorvastatin (LIPITOR) 40 mg tablet Take 40 mg by mouth once daily. Orujgbpjbg-Iac-Lynrefmifs-Caf 67-884-77-30 mg per capsule Take 1 capsule by mouth as needed. FLUoxetine HCl (PROZAC) 40 mg capsule Take 40 mg by mouth once daily. fluticasone (FLONASE) 50 mcg/actuation nasal spray Use 2 Sprays in the nose once daily. ibuprofen (MOTRIN) 800 mg tablet Take 800 mg by mouth every 8 hours as needed. loratadine (CLARITIN) 10 mg tablet Take 10 mg by mouth once daily. LORazepam (ATIVAN) 1 mg tablet Take 1 mg by mouth every 8 hours as needed. losartan (COZAAR) 100 mg tablet Take 100 mg by mouth once daily. metoprolol succinate ER (TOPROL XL) 50 mg 24 hr tablet Take 50 mg by mouth once daily. Naproxen SR (EC-NAPROSYN) 500 mg EC tablet Take 500 mg by mouth twice daily as needed. montelukast (SINGULAIR) 10 mg tablet Take 10 mg by mouth daily at bedtime. FISH OIL 60-90-500 mg cap Take 1 capsule by mouth once daily. testosterone cypionate (DEPO-TESTOSTERONE) 200 mg/mL injection Inject 200 mg intramuscularly once every month. tiZANidine (ZANAFLEX) 4 mg tablet Take 4 mg by mouth as needed. albuterol HFA (VENTOLIN HFA) 90 mcg/actuation inhaler Inhale as instructed. FLUZONE QUAD [id number], PF, 60 mcg (15 mcg x 4)/0.5 mL injection PNEUMOVAX 23 25 mcg/0.5 mL syrg injection REVIEW OF SYSTEMS: HEENT: Notable for seasonal flaring of itchy eyes and runny nose RESPIRATORY: negative symptoms (no cough, hemoptysis, SOB, BURROUGHS, PND, wheezing) CONSTITUTIONALl: No acute distress. CARDIOVASCULAR: Negative for chest pain, leg swelling or palpitations. GASTROINTESTINAL: Negative for abdominal discomfort, No blood in stools or black stools MUSCULOSKELETAL: Negative for joint pain or swelling, back pain or muscle pain. NEUROLOGIC:Negative for focal numbness or weakness, headaches and dizziness or syncope. SKIN:Negative for lesions, rash, and itching. PSYCHIATRIC: Negative for sleep disturbance, mood disorder and recent psychosocial stressors HEMATOLOGIC/LYMPHATIC/IMMUNOLOGIC:Negative for cold or heat intolerance, polyuria, polydipsia and goiter. DERM/SKIN: Negative for lesions, rash, excoriation, hives or pruritis. The remainder of the ROS was negative. PHYSICAL EXAM: BP 142/91 Pulse 56 Resp 18 Ht 6' 1ANDquot; (1.85m) Wt 225 lb (102.1kg) SpO2 97[Room air]% BMI 29.69 kg/(m2). General appearance: Well appearing, alert, in no acute distress, well-hydrated, well nourished. HENT: External ears normal, canals clear, TM's normal Eyes: no scleral icterus, PERRLA, EOMS, no conjunctivitis Nose/Sinuses: Nares normal. Septum midline. Mucosa normal. No drainage or sinus tenderness. Oropharynx: Lips, mucosa, and tongue normal, teeth and gums normal, oropharynx normal [place]amp[place]i Classification:Class III Respiratory: Lungs clear to auscultation. No wheezing, rhonchi, rales Cardiovascular: RRR without murmur, gallop, or rubs. No ectopy Gastroenterology: Inspection: Normal appearing abdomen Musculoskeletal: No joint pain, muscle weakness, or impaired gait Integumentary: Negative for lesions, rash, and itching. Psychiatric: Alert and oriented x 3. No mood disorders noted, calm affect. No Follow-up on file. ASSESSMENT/PLAN: 1. Adverse effect of local anesthetic drug, initial encounter - ICD9: E938.9, ICD10: T41.3X5A (primary diagnosis) Negative skin test to lidocaine and bupivacaine, tolerated challenge to 2% plain preservative-free lidocaine He may proceed to use preservative-free lidocaine for dental procedures and should have no issues since he had no reaction after being monitored in our office 2. Benzocaine adverse reaction, initial encounter - ICD9: 995.22, E938.5, ICD10: T41.3X5A Avoidance of benzocaine for now consider testing this in the future 3. Allergic contact dermatitis due to adhesives - ICD9: 692.4, ICD10: L23.1 Notes significant reduction in frequency recently unclear as to why 4. Allergic dermatitis due to other chemical product - ICD9: 692.4, ICD10: L23.5 Notable reaction to certain pain since 5. Seasonal allergic rhinitis due to pollen - ICD9: 477.0, ICD10: J30.1 Skin test with follow-up consider for immunotherapy in the long-term Felipe Hackett MD Referring Provider: SELF [200] Allergies As of Date: 08/20/2017 Noted Allergy Reaction BENZOCAINE 04/01/2016 4 - Hives LIDOCAINE 08/02/2015 4 - Hives POLLEN EXTRACTS 03/01/2013 9 - Itching PROCAINE 03/01/2013 4 - Hives Date Reviewed: 08/20/2017 Reviewed by: Felipe Hackett - Fully Assessed Reason for Visit: Allergies [4] Primary Visit Diagnosis:Adverse effect of local anesthetic drug, initial encounter [T41.3X5A] Other Visit Diagnoses:Benzocaine adverse reaction, initial encounter [T41.3X5A] Allergic contact dermatitis due to adhesives [L23.1] Allergic dermatitis due to other chemical product [L23.5] Seasonal allergic rhinitis due to pollen [J30.1] Order(s):ALLG TEST PERQ AND IC DRUG/BIOL IMMED REACT W/ IANDR [[id number]] Order #: [id number] INTRACU/DERM TESTS-IMMEDIA RX [[id number]] Order #: [id number] lidocaine, PF, (XYLOCAINE) 20 mg/mL (2 %) soln1 mL one time only for 1 dose. Subcutaneous Challenge. Doses to be by 15 minutes: Dose 1: 0.1ml of undiluted solution injected subcutaneously. Dose 2: 0.3ml of undiluted solution injected subcutaneously. Dose 3: 0.6ml of undiluted solution injected subcutaneously.Disp: 1 mLRfl: 0 Prescriptions as of 08/20/2017 Sig: ATORVASTATIN 40 MG TABLET Take 40 mg by mouth once tray* BUTALBITAL 50 MG-ACETAMINOPHE* Take 1 capsule by mouth as ne* FLUOXETINE 40 MG CAPSULE Take 40 mg by mouth once tray* FLUTICASONE 50 MCG/ACTUATION * Use 2 Sprays in the nose once* IBUPROFEN 800 MG TABLET Take 800 mg by mouth every 8 * LORATADINE 10 MG TABLET Take 10 mg by mouth once tray* LORAZEPAM 1 MG TABLET Take 1 mg by mouth every 8 ho* LOSARTAN 100 MG TABLET Take 100 mg by mouth once deyis* METOPROLOL SUCCINATE ER 50 MG* Take 50 mg by mouth once tray* NAPROXEN 500 MG TABLET,DELAYE* Take 500 mg by mouth twice da* MONTELUKAST 10 MG TABLET Take 10 mg by mouth daily at * FISH OIL 60 MG-90 MG-500 MG C* Take 1 capsule by mouth once * TESTOSTERONE CYPIONATE 200 MG* Inject 200 mg intramuscularly* TIZANIDINE 4 MG TABLET Take 4 mg by mouth as needed.* ALBUTEROL SULFATE HFA 90 MCG/* Inhale as instructed. FLUZONE QUAD (PF) 60 M* PNEUMOVAX 23 25 MCG/0.5 ML IN* LIDOCAINE (PF) 20 MG/ML (2 %)* 1 mL one time only for 1 dose* Medication notes this encounter FLUZONE QUAD (PF) 60 MCG(15 MCGX4)/0.5 ML INTRAMUSCULAR SYRINGE >> Grazyna Hendricks 08/20/2017 9:35 AM >> GRAZYNA HENDRICKS Rajni Aug 20, 2017 9:35 AM Flu shot PNEUMOVAX 23 25 MCG/0.5 ML INJECTION SYRINGE >> Grazyna Orozcool 08/20/2017 9:36 AM >> GRAZYNA HENDRICKS Rajni Aug 20, 2017 9:36 AM Pneumonia Vaccine Problem List As Of Date: 08/20/2017 (None) Prescriptions ordered this encounter Disp Refills Start End LIDOCAINE (PF) 20 MG/ML (2 %) INJECT* 1 mL 0 08/20/2017 08/20/2017 Class: In Office Route: OTHER Si mL one time only for 1 dose. Subcutaneous Challenge. Doses to be by 15 minutes: Dose 1: 0.1ml of undiluted solution injected subcutaneously. Dose 2: 0.3ml of undiluted solution injected subcutaneously. Dose 3: 0.6ml of undiluted solution injected subcutaneously. Disposition: Return in about 2 months (around 10/20/2017) for allergy testing to inhalants. Follow-up and Disposition History Recorded Letter Text Encounter Status:Closed by FELIPE HACKETT MD on 08/20/17 ALLERGIES ALLERGIES DATE TYPE / CODE NAME / CODE REACTION SEVERITY SOURCE 05/12/2018 Drug benzocaine/I94994 Hives Unknown [facility] Allergy/416 1366[facility] 955464[facility]SN[facility] Rep[facility] ED CT) 04/01/2016 DRUG BENZOCAINE HIVES [facility] INGREDI/[address] [place] 851503(SNOM Repository ED CT) 08/02/2015 DRUG [facility]INE [facility] INGREDI/419 [address] [place] 674372(SNOM Repository ED CT) 12/13/2014 DRUG BENZOCAINE [facility] INGREDI/419 System Repository 206735(SNOM ED CT) 12/13/2014 DRUG/557581 [facility] [place] System Repository CT) 03/01/2013 DRUG POLLEN EXTRACT ITCHING [facility] INGREDI/419 System Repository 854292(SNOM ED CT) 03/01/2013 DRUG PROCAINE HIVES [facility] INGREDI/419 System Repository 745133(SNOM ED CT) 03/01/2013 DRUG POLLEN EXTRACTS ITCHING [facility] INGREDI/[address] [place] 825843(SNOM Repository ED CT) 03/01/2013 DRUG PROCAINE HIVES [facility] INGREDI/[address] [place] 589667(SNOM Repository ED CT) NG/66545767 BENZOCAINE [facility] 6([facility] Repository NG/85788946 LIDOCAINE [facility] 6([facility]) Repository NG/49215656 POLLEN EXTRACTS [facility] 6([facility] Repository NG/49110829 PROCAINE [facility] 6([facility]) Repository ENCOUNTERS ENCOUNTERS ADMIT/DISCHARGE ACCOUNT NUMBER ADMITTING ENCOUNTER LOCATION SOURCE CLASS 07/05/2018 [id number] Ambulatory [facility] MEDICAL Repository CENTERBuildi ng:AGSPINE3 06/30/2018 [id number] Ambulatory [facility] ding:[facility]S Repository 06/30/2018 [id number] Ambulatory [facility] ding:LAB Repository 06/28/2018 [id number] Ambulatory [facility] MEDICAL Repository CENTERBuildi ng:AGSPINE3 06/09/2018/06/09/19 [id number] Ambulatory [address] Repository 06/09/2018/06/09/19 [id number] Ambulatory [place] [facility] [address] MEDICAL Repository CENTERBuildi ng:AGSPINE3 06/09/2018/06/09/19 [id number] Ambulatory [address] Repository 06/09/2018/06/09/19 [id number] Ambulatory [place] [facility] [address] MEDICAL Repository CENTERBuildi ng:AGSPINE3 05/26/2018 [id number] Ambulatory [place] [facility] MEDICAL Repository CENTERBuildi ng:AGSPINE3 05/17/2018/05/17/20 [id number] Ambulatory [address] Repository 05/17/2018/05/17/20 [id number] Ambulatory [place] [facility] [address] MEDICAL Repository CENTERBuildi ng:AGSPINE3 05/14/2018 [id number] Ambulatory [facility] MEDICAL Repository CENTERBuildi ng:AGSPINE3 05/12/2018/05/12/20 [id number] Ambulatory BMSBuilding: [address] Repository 05/12/2018 [id number] Ambulatory [facility] MEDICAL Repository CENTERBuildi ng:AGSPINE3 05/07/2018 [id number] Ambulatory [facility] Repository 05/07/2018 [id number] Ambulatory [place] [facility] MEDICAL Repository CENTERBuildi ng:AGSPINE3 05/07/2018/05/07/20 [id number] Ambulatory [address] Repository 05/07/2018/05/07/20 [id number] Ambulatory [place] [facility] [address] MEDICAL Repository CENTERBuildi ng:AGSPINE3 04/26/2018/04/26/20 [id number] Ambulatory [address] Repository 04/26/2018/04/26/20 [id number] Ambulatory [address] MEDICAL Repository CENTERBuildi ng:AGSPINE3 04/07/2018/04/07/20 [id number] Ambulatory BMSBuilding: [place] 18 BMS.[facility] Repository 04/07/2018 [id number] Ambulatory BMSBuilding: Armando BMS.[facility] Repository 04/07/2018/04/07/20 [id number] Ambulatory BuildinKR Guzmán 18 oom: 0013 [facility] Repository 04/07/2018 [id number] Ambulatory [address] [place] [address] Repository 04/06/2018/04/06/20 [id number] Ambulatory [address] Repository 04/06/2018/04/06/20 [id number] Ambulatory [address] MEDICAL Repository CENTERBuildi ng:AGSPINE3 04/04/2018/04/05/20 [id number] Emergency [place] ding:ED Repository 01/17/2018/01/18/20 [id number] Ambulatory BuildinKR Guzmán 18 oom: 0009 [facility] Repository 01/17/2018 [id number] Ambulatory [address] [place] [address] Repository 11/17/2017 [id number] Ambulatory [facility] MEDICAL Repository CENTERBuildi ng:AGGASTN 10/22/2017/10/24/19 [id number] Ambulatory [address] Repository 10/22/2017/10/23/19 [id number] Ambulatory BuildinUR Guzmán 18 oom: 0006 [facility] Repository 10/22/2017 [id number] Ambulatory [address] [place] [address] Repository 10/16/2017/10/17/19 [id number] [place] [facility] [address] [facility] Repository 10/14/2017/10/15/19 [id number] MARYANA, Ambulatory [address] Repository 10/14/2017/10/15/19 [id number] NEHER, M.D. Inpatient [place] [facility] MEDICAL Repository CENTERBuildi ng:ENDORoom: POOLBed: 06 09/24/2017/09/26/19 [id number] Ambulatory [address] Repository 08/20/2017/08/22/19 [id number] Ambulatory [address] Repository PAYERS PAYERS ENCOUNTER GUARANTOR PAYER SUBSCRIBER SOURCE 06/30/2018 DEBORA L Primary DEBORA L [facility] [id number] Insurance[facility] FRANKDOB: [facility] [id number] Repository [place], [place] PLANPolicy Number: 35987Yya: 330 [id number] [phone] (HP) Date:3348-47-29ZK [address] [place] [address] 40648ZZ: 06/30/2018 Secondary NOT GIVENUNK [facility] Insurance:SELF PAY Hospital INSURANCEPolicy Repository Number: Effective Date:2018-05-12 06/30/2018 DEBORA L Primary DEBORA L [facility] [id number] N Insurance:[facility] COOPERDOB: [facility] [id number] Repository [place] PLANPolicy Number: [id number]: 330 [id number] [phone] (HP) Date:1787-86-37FR [address] [place] [address] 95642TM: 06/30/2018 Secondary NOT GIVENUNK [facility] Insurance:SELF PAY Hospital INSURANCEPolicy Repository Number: Effective Date:2018-06-30 06/28/2018 KODAK L [facility] FRANKDOB: [facility] MEDICAIDPolicy [id number] Repository [place] Number: [place], [place] [id number] [address]Bhb: (330) Date: [phone] (HP) 06/09/2018 KODAK L Primary KODAK L [facility]: [facility] FRANKDOB: [facility] MEDICAIDPolicy [id number] Repository [place] Number: [place] [id number] 87674Idh: (330) Date: (HP) 06/09/2018 KODAK L Primary KODAK L [facility] FRANKDOB: Insurance:[facility] FRANKDOB: Health System MEDICAIDPolicy [id number] Repository [place] Number: [place] [id number] [address]Qtn: (330) Date: (HP) 05/17/2018 KODAK L Primary KODAK L [facility] MEDICAIDPolicy [id number] Repository [place] Number: [place] [id number] 987[address]Dlf: (330) Date: (HP) 05/12/2018 DEBORA L Primary DEBORA [place] [address] [address] Insurance:[facility]: [facility] [id number] Repository [facility] PLANPolicy Number: [id number]: (244) [id number] (HP) Date:5622-98-35CN [address] [address]VH: 05/12/2018 [facility] Insurance:SELF PAY Hospital INSURANCEPolicy Repository Number: Effective Date:2018-05-12 05/12/2018 KODAK L Primary KODAK L [facility]: Insurance:[facility] MEDICAIDPolicy [id number] Repository [place] Number: [place] [id number] [address]Gaq: (330) Date: (HP) 05/07/2018 KODAK L Primary KODAK L [facility] FRANKDOB: Insurance:[facility] FRANKDOB: Health System MEDICAIDPolicy [id number] Repository [place] Number: [place] [id number] 996[address]Hik: (330) Date: (HP) 05/07/2018 KODAK L Primary KODAK Ware [facility]: [facility]: [facility] MEDICAIDPoly [id number] Repository [place] Number: [place] [id number] [address]Jak: (330) Date: (HP) 04/26/2018 KODAK L Primary [facility]AK L [facility]: Insurance:[facility]: [facility] MEDICAIDPolstewart [facility] [id number] Repository [place] Number: [place] [id number] [address]Dfv: (330) Date: (HP) 04/07/2018 DEBORA L Primary DEBORA [place] [address] Insurance:[facility]: [facility] [id number] Repository [place] PLANPolicy Number: 50777Tkc: (330) [id number] 3837 () Date:4753-67-90WK [address] [address]NX: 04/07/2018 [facility] Insurance:SELF PAY Hospital INSURANCEPolicy Repository Number: Effective Date:2018-04-07 04/07/2018 DEBORA L Primary DEBORA [place] [address] Insurance:[facility]: [facility] [id number] Repository [place] PLANPolicy Number: [id number]: (330) [id number] [phone] (HP) Date:9225-93-01ZF [address] [address]AU: 04/07/2018 Secondary [facility] Insurance:SELF PAY Hospital INSURANCEPolicy Repository Number: Effective Date:2018-04-07 04/07/2018 KODAK L Primary KODAK [facility]: Insurance:[facility]: [facility] [id number] Repository [facility] PLANPolicy Number: [address] [place], [place] [id number] [place] [address] 77951Rxc: (330) Date: (HP) () 04/07/2018 [facility]: Insurance:[facility]: [facility] [id number] Repository [place] PlanPolicy Number: [address] [place], [place] [id number] [place], [place] [address]Cjr: (330) Date:Plan 27[address]Aig: (HP) Name:[facility] [phone] () [address] [place] [address] [place] [address]ID: 04/06/2018 [facility]: [facility]: Health System MEDICAIDPolicy [id number] Repository TALLMAE Number: [place], [place] [id number] [address]Jao: (330) Date: 76 (HP) 04/04/2018 [facility] [place] [address] Insurance:[facility]: [facility] [id number] Repository [place], [place] PLANPolicy Number: [id number]: 330 [id number] [phone] () Date:8680-00-65KP [address] [place] [address] [place] [address]QF: 04/04/2018 Secondary [facility] Insurance:SELF PAY Hospital INSURANCEPolicy Repository Number: Effective Date:2018-04-04 01/17/2018 KODAK L Primary KODAK [facility]: Insurance:[facility]: [facility] [id number] Repository [place] PLANPolicy Number: [address] [place] [place], [place] [id number] [address]Fka: (330) Date: 10 (HP) (WP) 01/17/2018 [facility]: Insurance:[facility]: [facility] [id number] Repository [place] PlanPolicy Number: [address] [place], [place] [id number] [place], [place] [address]Gkk: (330) Date:Plan 177[address]Qsm: () Name:[facility] [address] () [address] [place] [address] [place] [address]LR: 11/17/2017 [facility]: Insurance:[facility]: Health System MEDICAIDPolicy [id number] Repository [place] Number: [place], [place] [id number] [address]Haa: (330) Date: [phone] () 10/22/2017 [facility]: Insurance:[facility]: [facility] [id number] Repository [place] PLANPolicy Number: [address] [place], [place] [id number] [place] [address] 83291Law: (330) Date: () (WP) 10/22/2017 [facility]: Insurance:[facility]: [facility] [id number] Repository [place] PlanPolicy Number: [address] [place], [place] [id number] [place] [address]Zwy: (330) Date:Plan 35[address]Zca: (HP) Name:[facility] [phone] () [address] [place] [address] 450[address]RW: 10/16/2017 KODAK Primary [facility]: [facility] System Repository HEALTHPolicy Number: [id number] [address] [id number] [address] [place], [place] Date:9658-11-06VW [address] [place] [address]Mgq: [phone] [place] [address] 207[address]Hpz: (HP) [phone]: (HP) [phone] 10/16/2017 Secondary KODAK [facility] Insurance:DENTAL FRANKDOB: System Repository HEALTHPolicy Number: [id number] [address] Date:9729-38-41LS [address] [place], [place] [address] [place] [address]Pyy: [phone]: (HP) [phone] 10/14/2017 KODAK L Primary [facility]: [facility] System MEDICAIDPolicy [id number] Repository [place] Number: [place] [id number] [address]Tis: (330) Date: [phone] (HP)
== END ==
PROVIDERS: Referring Provider Nurse Practitioner Family; Visit Provider Nurse Practitioner Family
DX: I10 Essential (primary) hypertension (principal); E78.2 Mixed hyperlipidemia; E29.1 Testicular hypofunction; R53.83 Other fatigue
CPT/HCPCS: 36415; 80048; 80061; 80076; 84153; 84403; 84439; 84443; G0103

== ENCOUNTER 2020-06-22 14:51 | Emergency (ER) | payer MEDICAID, SELFPAY ==
[2019-12-06 14:47] VITALS: BMI 29.7
[2020-06-22 14:52] VITALS: BP 130/85; PULSE 78; RESP 20; TEMP 35.8; O2SAT 95; BMI 29.0
[2020-06-22 14:53] VITALS: BP 130/85; PULSE 78; RESP 18; TEMP 35.8; O2SAT 95
[2020-06-22 15:42] VITALS: O2SAT 94
[2020-06-22 15:44] VITALS: O2SAT 96
[2020-06-22 15:58] LABS: Absolute Neutrophil Count 3.9 X10^3/uL (2.0-7.7); Basophil# 0.04 X10^3/uL; Basophil% 0.5 % (0-1); Eosinophil# 0.07 X10^3/uL; Eosinophils% 0.9 % (0-5); Hematocrit 48.8 % (40-54); Hemoglobin 16.6 g/dL (13.0-16.5); Lymphocyte % 30.9 % (19-41); Mean Corpuscular Hgb 30.4 pg (27.0-32.0); Mean Corpuscular Volume 89.4 fL (80-94); Mean Platelet Vol. 9.3 fl (6.2-12.0); Monocyte# 0.99 X10^3/uL; Monocyte% 12.8 % (0-10); NRBC Flagged by Analyzer 0 % (0-5); Neutrophil # 3.89 X10^3/uL (2.7-7.7); Neutrophil % 50.1 % (47-70); POSITIVE MORPHOLOGY YES; Platelet Count 255 K/mm3 (150-450); RBC Distribution Width CV 11.9 % (11.6-14.6); RBC Distribution Width SD 38.2 fl (35.1-43.9); Red Blood Count 5.46 M/mm3 (4.6-6.2); White Blood Count 7.8 K/mm3 (4.4-11.0)
--- NOTE | 2020-06-22 16:10 | RAD_ITS ---
STUDY: X-RAY CHEST REASON FOR EXAM: Male, 59 years old. covid pos since mon. did round of steriod and called for more. 88% on ra athome -- HX OF HTN TECHNIQUE: 1 view COMPARISON: Prior chest radiograph of 04/05/2018 FINDINGS: Lung dominguez are well expanded with focal moderate infiltrate of the right midlung zone and patchy small to minimal infiltrates in the mid left lung zone. There is no demonstrated pleural abnormality. Normal size heart. Normal mediastinum and sofia. Normal visualized pulmonary arteries. There is atherosclerotic tortuosity of the aortic arch and descending thoracic aorta. Cervical spinal fusion hardware partly included in the qactd-pq-dpps. Normal visualized ribs, clavicles, and shoulders. There is no demonstrated abnormality of the visualized soft tissue structures of the upper abdomen. RAD/Chest 1 View (Portable) IMPRESSION: Bilateral mild to moderate parenchymal infiltrates consistent with a pneumonic process of viral, atypical or typical nature. Negative for cardiomegaly. Negative for pleural effusion. Electronically Signed: Meaghan Ewing MD at 16:34 EST , Service support ,
[2020-06-22 16:13] LABS: Differential Indicated SCAN CRITERIA MET
[2020-06-22 16:15] LABS: Anion Gap 5 (5-15); BUN 17 mg/dL (7-18); BUN/Creat Ratio 14.8 RATIO (10-20); Calcium,Total 8.5 mg/dL (8.5-10.1); Chloride 102 mmol/L (98-107); Creatinine, Serum 1.15 mg/dL (0.70-1.30); EST Glomerular Filtration Rate 70 mL/min (>60); Est Glom Filt Rate - Afr Amer 84 mL/min (>60); Estimated Creatinine Clearance 80.09 ml/min; Glucose 102 mg/dL (74-106); Potassium 3.4 mmol/L (3.5-5.1); Sodium Level 137 mmol/L (136-145)
--- NOTE | 2020-06-22 16:16 | ED.DCSUM_ITS ---
- ER Visit Summary Date of Service: 06/22/20 Chief Complaint: Shortness of breath History of Present Illness: The patient is a [address] Wilkins. 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 States that anytime he gets a cough he gets short of breath. He tested positive for Covid by PCR on June 15. He was placed on a weeks worth of prednisone which he finished 3 days ago. He reports his shortness of breath began 2 days ago. Severe at worst mild currently. He reports that he has very mild cough that is occasionally productive yellow sputum without blood. He denies any fever or chills. He does complain of chest pain. He states it is a cool sens ation that is constant and diffuse. There is no change with deep breaths. Patient reports that his shortness of breath was actually much worse last week. However, he bought a pulse ox and it came yesterday. His pulse ox is been 88% on room air at home. He called his primary care physician to try to get a refill on his prednisone when he told them he was hypoxic they sent him to the emergency department. Physical Examination: Vitals: Stable. Afebrile. General: Well-nourished and well-developed. Head: Normocephalic atraumatic. Neck: Supple, no lymphadenopathy. No JVD. Nontender. Cardiovascular: Regular rate and rhythm. No murmurs. Respiratory: No respiratory distress. Clear to auscultation bilaterally. Abdominal: Soft, nontender, nondistended, normal bowel sounds. No guarding, rebound, or peritoneal signs. Back: Nontender. Extremities: Nontender, no edema. Skin: Normal color, no rash. Neurologic: Alert and oriented ?3. Cranial nerves II through XII are intact. Normal strength and sensation. Psych: Normal affect. Test Results: CBC shows a hemoglobin of 16.6 with immature granulocytes of 4.8%. BMP shows a potassium of 3.4. D-dimer is negative. Clinical Impression(s) from Imaging Studies Chest X-Ray 06/22/20 16:10 IMPRESSION: Bilateral mild to moderate parenchymal infiltrates consistent with a pneumonic process of viral, atypical or typical nature. Negative for cardiomegaly. Negative for pleural effusion. Electronically Signed: Meaghan Ewing MD at 16:34 EST , Service support , Emergency Department Course and Treatment: Chart review on [facility] does show the patient had a positive COVID-19 PCR on June 15 at [facility]. Patient with ambulation here pulse ox actually went up to 97% on room air. I had a prolonged discussion with him that he is not hypoxic here. However, with his pulse ox reading 88% on room air at home that he may be hypoxic if he exerts himself more. Or it may be that his pulse ox at home is not picking up well and is reading artificially low. After prolonged discussion the patient does not want to be placed on oxygen at home. He reports that he was more short of breath last week. He was instructed to return the emerge from and if his shortness of breath worsens and we could revisit the need for home O2. Treatment Plan: Patient does have a history of asthma. Reports that he is always needed prednisone when he gets a URI. He will be placed on a 2-week taper. Instructed to follow-up his primary care physician in 10 to 14 days if not improving. Return to the emergency department for any worsening symptoms. Disposition: To home in improved and stable condition. Impression: 1. COVID-19 infection. This note was generated with [employer] dictation software. It may contain incorrect words, spelling, and punctuation that were not noted in review of the chart prior to signing ED Disposition - Plan for ED Patient: Instructions: Coronavirus Disease 2019 (COVID-19): Overview Prescriptions: Prednisone 10 mg PO DAILY #63 tablet Referrals: Brock Wilkins MD [Primary Care Provider] - 10-14 Days if not better
[2020-06-22 16:34] LABS: Differential Comment SCANNED
[2020-06-22 16:51] VITALS: BP 118/78; PULSE 56; RESP 16; O2SAT 93
[2020-06-22 17:07] LABS: D-Dimer Quantitative (DVT/PE) 0.39 FEU/ug/m (0.27-0.49)
[2020-06-22 17:38] VITALS: BP 120/78; PULSE 56; RESP 16; O2SAT 96
== END 2020-06-22 17:30 | disposition home or self-care (01) ==
LOC: ED 15:48
PROVIDERS: Emergency Provider Emergency Medicine
DX: U07.1 COVID-19 (principal); J45.909 Unspecified asthma, uncomplicated; I10 Essential (primary) hypertension
CPT/HCPCS: 71045; 80048; 85025; 85379; 99284

== ENCOUNTER 2020-08-19 21:47 | Emergency (ER) | payer MEDICAID, SELFPAY ==
[2020-08-19 21:48] VITALS: BP 161/99; PULSE 80; RESP 16; TEMP 36.6; O2SAT 96; BMI 31.5
--- NOTE | 2020-08-19 22:08 | EKG12_ITS ---
Test Reason : DYSRYTHMIA Blood Pressure : / mmHG Vent. Rate : 060 BPM Atrial Rate : 060 BPM P-R Int : 176 ms QRS Dur : 104 ms QT Int : 420 ms P-R-T Axes : 025 017 000 degrees QTc Int : 420 ms Normal sinus rhythm Normal ECG Confirmed by ОЛЕГ MORALES, ENDER ([id number]), state editor DOUGLAS ZELAYA ([id number]) on 08/22/2020 10:02:31 AM Referred By: TIM Confirmed By:ENDER DENNEY MD
--- NOTE | 2020-08-19 22:09 | ED.VIS.GI ---
History of Present Illness Chief Complaint: General Illness Narrative: Patient presenting for evaluation secondary to abdominal pain diarrhea nausea and some chest pain with elevated blood pressures. Patient has an underlying history of hypertension, he is on multiple medications. He states that he missed a dose of his losartan last night. Patient states that this since this morning he has been dealing with crampy abdominal pain with some pretty case into the epigastric region. He reports that he has had around 4 episodes of loose watery diarrhea. No blood or mucus noted. Patient states that he has had nausea but no vomiting. He reports that he has had chills throughout the course of the day, he intermittently has noted that he has had some burning chest pain and was concerned because his blood pressure was in the 160s over 100s range. He states that he typically has been running normal blood pressures over the course of the last year, with heart rates in the 40s and he was concerned because his blood pressure was elevated and his heart rate was in the 80s. Patient denies any sick contacts. Review of systems otherwise negative. Past Medical History - Allergies and Home Meds Allergies/Adverse Reactions: Allergies benzocaine Adverse Reaction (Verified 08/19/20 21:51) [facility] Primary Care Physician: Brock Wilkins MD [Primary Care Provider] - Prior records reviewed: Yes Past Medical History: - - Hypertension, hyperlipidemia Lives: Spouse/ Significant Other Smoking Status: Unknown if ever smoked Alcohol: None Drugs: None Review of Systems All systems negative except as indicated General: Reports: Chills Eyes: Denies: Visual changes - bilaterally, Diplopia ENT: Denies: Rhinorrhea, Sore throat Cardiovascular: Denies: Chest pain, Palpitations Respiratory: Denies: Dyspnea, Cough, Dyspnea on exertion Gastrointestinal: Reports: Abdominal pain, Nausea, Diarrhea. Denies: Vomiting Genitourinary: Denies: Dysuria, Hematuria, Frequency Musculoskeletal: Denies: Back pain, Extremity Pain Skin: Denies: Rash, Wounds Neurological: Reports: Headache Physical Exam Vital Signs/Narrative: Vital Signs Temp Pulse Resp BP Pulse Ox 08/19/20 21:48 98 F 80 16 161/99 H 96 Inital Vital Signs reviewed: Yes General: Well nourished, Well developed, No Acute Distress Head: Normocephalic, Atraumatic Eyes: Perrl, EOMI ENT: Moist mucous membranes, No rhinorrhea Neck: Supple, Nontender Cardiovascular: Regular rate, Regular rhythm, No murmurs Respiratory: No distress, CTA bilaterally, Chest nontender Abdomen: Soft, Nondistended, Normal bowel sounds, Tender - Minimal epigastric no guarding or rebound tenderness is noted Back: Nontender, Normal Inspection Extremities: Nontender, No edema Skin: Normal color, No rash Neurological: Alert, Oriented x3, Cranial nerves II-XII grossly intact, Normal Strength, Normal Sensation Psychological: Normal affect, Normal Mood Diagnostic/Tx/Re-eval Laboratory Data 08/19/20 08/19/20 22:15 22:15 WBC 8.8 RBC 4.86 Hgb 15.2 Hct 44.7 MCV 92.0 MCH 31.3 MCHC 34.0 RDW Std Deviation 42.2 RDW Coeff of Tawana 12.9 Plt Count 225 MPV 9.5 Immature Gran % (Auto) 0.500 Neut % (Auto) 64.2 Lymph % (Auto) 24.3 [place] % (Auto) 9.1 Eos % (Auto) 1.1 Baso % (Auto) 0.8 Absolute Neuts (auto) 5.6 Absolute Lymphs (auto) 2.13 Nucleated RBC % 0 Sodium 140 Potassium 3.1 L Chloride 103 Carbon Dioxide 30.0 Anion Gap 7 BUN 8 Creatinine 1.02 Estim Creat Clear Calc 90.30 Est GFR (MDRD) Af Amer 97 Est GFR (MDRD) Non-Af 80 BUN/Creatinine Ratio 7.8 L Glucose 153 H Calcium 9.0 Total Bilirubin 0.40 AST 25 ALT 39 Alkaline Phosphatase 82 Troponin I < 0.015 Total Protein 6.5 Albumin 3.4 Globulin 3.1 Albumin/Globulin Ratio 1.1 Lipase 112 - EKG Initial EKG Interpretation: - - Sinus rhythm at [address] segments normal T waves normal MD and QTc intervals no evidence of acute ischemia or arrhythmia - Medical Decision Making Patient presenting for evaluation secondary to diarrhea abdominal pain with some chest discomfort. Patient was evaluated with an EKG was found to be unremarkable. CBC shows no significant leukocytosis or shift, chemistry demonstrates mild hypokalemia at 3.1. Troponin found to be negative. Patient was given IV fluids, Toradol, Zofran, and a GI cocktail in the emergency department. He did have some symptomatic improvement on repeat evaluation but continues to have a headache he was given Tylenol for that. This point I feel confident that the patient likely has gastroenteritis. Patient will be sent home with symptomatic treatment. He was recommended hydration, and follow-up with primary care as needed. ED Disposition - Plan for ED Patient: Disposition: Home or Assisted Living Diagnosis: Gastroenteritis Prescriptions: Dicyclomine HCl [Bentyl] 20 mg PO TIDAC #20 cap Transmission Status: Pending to [facility]/pharmacy #[id number] Referrals: Brock Wilkins MD [Primary Care Provider] - 3-5 Days if not improving
[2020-08-19] MEDS: Ketorolac 15 MG/ML Vial IV (22:19)
[2020-08-19] MEDS: 0.9% Normal Saline 1,000 ML 1000 ML IV (22:19)
[2020-08-19] MEDS: Ondansetron 4 MG/2 ML Vial IV (22:20)
[2020-08-19] MEDS: Mag Hydrox/Al Hydrox/Simeth 30 ML UDC PO (22:25)
[2020-08-19 22:37] LABS: Absolute Lymphocyte Count 2.13 X10^3/uL (0.83-4.51); Absolute Neutrophil Count 5.6 X10^3/uL (2.0-7.7); Basophil# 0.07 X10^3/uL; Basophil% 0.8 % (0-1); Eosinophils% 1.1 % (0-5); Hematocrit 44.7 % (40-54); Hemoglobin 15.2 g/dL (13.0-16.5); Lymphocyte # 2.13 X10^3/ul (4.0); Lymphocyte % 24.3 % (19-41); Mean Corpuscular Hgb 31.3 pg (27.0-32.0); Mean Platelet Vol. 9.5 fl (6.2-12.0); Monocyte% 9.1 % (0-10); NRBC Flagged by Analyzer 0 % (0-5); Neutrophil # 5.61 X10^3/uL (2.7-7.7); Neutrophil % 64.2 % (47-70); Platelet Count 225 K/mm3 (150-450); RBC Distribution Width CV 12.9 % (11.6-14.6); RBC Distribution Width SD 42.2 fl (35.1-43.9); Red Blood Count 4.86 M/mm3 (4.6-6.2); White Blood Count 8.8 K/mm3 (4.4-11.0)
[2020-08-19 22:51] LABS: ALB/GLOB Ratio 1.1 RATIO (0.9-2.4); AST(SGOT) 25 U/L (15-37); Alanine Aminotransfer ALT/SGPT 39 U/L (16-61); Albumin, Serum 3.4 g/dL (3.2-5.0); Alkaline Phosphatase 82 U/L (45-117); Anion Gap 7 (5-15); BUN 8 mg/dL (7-18); BUN/Creat Ratio 7.8 RATIO (10-20); Chloride 103 mmol/L (98-107); Creatinine, Serum 1.02 mg/dL (0.70-1.30); EST Glomerular Filtration Rate 80 mL/min (>60); Est Glom Filt Rate - Afr Amer 97 mL/min (>60); Globulin 3.1 g/dL (2.2-4.2); Glucose 153 mg/dL (74-106); Lipase 112 U/L (73-393); Potassium 3.1 mmol/L (3.5-5.1); Protein, Total 6.5 g/dL (6.4-8.2); Sodium Level 140 mmol/L (136-145)
[2020-08-19] MEDS: Acetaminophen 500 MG Tablet 1000 MG PO (23:30)
== END 2020-08-19 23:45 | disposition home or self-care (01) ==
PROVIDERS: Emergency Provider Emergency Medicine
DX: K52.9 Noninfective gastroenteritis and colitis, unspecified (principal); I10 Essential (primary) hypertension; E78.5 Hyperlipidemia, unspecified; Z79.899 Other long term (current) drug therapy
CPT/HCPCS: 80053; 83690; 84484; 85025; 93005; 96361; 96374; 96375; 99284; J7030; A4216; J2405

== ENCOUNTER 2020-08-24 13:45 | Outpatient (RCR) | payer MEDICAID, SELFPAY ==
[2020-08-24] MEDS: COVID-19 VACC, MRNA(PFIZER)/PF 30 MCG/0.3 ML SYRINGE IM (10:44)
[2020-09-14] MEDS: COVID-19 VACC, MRNA(PFIZER)/PF 30 MCG/0.3 ML SYRINGE IM (10:35)
== END 2020-08-24 23:59 ==
LOC: IMMUN 13:45
PROVIDERS: Visit Provider Family Medicine
DX: Z23 Encounter for immunization (principal)
CPT/HCPCS: 0001A; 0002A; 91300

== ENCOUNTER → 2020-11-28 11:12 | Outpatient (CLI) | payer MEDICAID, SELFPAY ==
[2020-11-28 06:26] VITALS: BMI 31.9
[2020-11-28 11:31] LABS: Absolute Neutrophil Count 4.9 X10^3/uL (2.0-7.7); Basophil# 0.04 X10^3/uL; Basophil% 0.5 % (0-1); Eosinophil# 0.18 X10^3/uL; Eosinophils% 2.4 % (0-5); Hematocrit 49.5 % (40-54); Hemoglobin 16.8 g/dL (13.0-16.5); Lymphocyte % 24.9 % (19-41); Mean Corp Hgb Conc 33.9 g/dL (32-36); Mean Corpuscular Volume 88.4 fL (80-94); Mean Platelet Vol. 9.4 fl (6.2-12.0); Monocyte# 0.54 X10^3/uL; Monocyte% 7.1 % (0-10); NRBC Flagged by Analyzer 0 % (0-5); Neutrophil # 4.92 X10^3/uL (2.7-7.7); Neutrophil % 64.6 % (47-70); Platelet Count 264 K/mm3 (150-450); RBC Distribution Width CV 11.9 % (11.6-14.6); RBC Distribution Width SD 37.7 fl (35.1-43.9); White Blood Count 7.6 K/mm3 (4.4-11.0)
[2020-12-05 04:14] LABS: Aspirgillus flavus Negative (Neg:<1:1); Aspirgillus fumigatus Negative (Neg:<1:1); Aspirgillus niger Negative (Neg:<1:1)
[2020-12-05 11:41] LABS: Immunoglobulin E 13 IU/mL (6-495)
[2020-12-06 03:07] LABS: Alternaria tenuis <0.10 kU/L (Class 0); Ash, White <0.10 kU/L (Class 0); Aspergillus fumigatus <0.10 kU/L (Class 0); Birch <0.10 kU/L (Class 0); Black Walnut <0.10 kU/L (Class 0); Cat Hair / Dander,Stand <0.10 kU/L (Class 0); Cedar, Mountain <0.10 kU/L (Class 0); Cladosporium herbarum <0.10 kU/L (Class 0); Cockroach, American <0.10 kU/L (Class 0); Cottonwood <0.10 kU/L (Class 0); D farinae Mite <0.10 kU/L (Class 0); D pteronyssinus <0.10 kU/L (Class 0); Dog Epithelia <0.10 kU/L (Class 0); Elm, American White <0.10 kU/L (Class 0); Immunoglobulin E 12 IU/mL (6-495); Maple/Box Elder <0.10 kU/L (Class 0); Mulberry, White <0.10 kU/L (Class 0); Oak, White <0.10 kU/L (Class 0); Pecan <0.10 kU/L (Class 0); Penicillium Notatum <0.10 kU/L (Class 0); Pigweed, Rough <0.10 kU/L (Class 0); Ragweed, Short/Common <0.10 kU/L (Class 0); Russian Thistle <0.10 kU/L (Class 0); Sheep Sorrel <0.10 kU/L (Class 0); Sycamore, American <0.10 kU/L (Class 0); Timothy Grass 0.83 kU/L (Class II)
[2020-12-06 13:59] LABS: Mouse Urine <0.10 kU/L (Class 0)
== END ==
PROVIDERS: Referring Provider Internal Medicine Critical Care Medicine; Visit Provider Internal Medicine Critical Care Medicine
DX: J45.909 Unspecified asthma, uncomplicated (principal)
CPT/HCPCS: 36415; 82785; 85025; 86003; 86606

== ENCOUNTER → 2020-12-13 10:36 | Outpatient (CLI) | payer MEDICAID, SELFPAY ==
[2020-11-28 06:26] VITALS: BMI 31.9
[2020-12-05 15:29] VITALS: BMI 32.0
--- NOTE | 2020-12-13 14:44 | PFTCOMP ---
COMPLETE PULMONARY FUNCTION TEST INTERPRETATION Brief HPI: Patient is a 60 year old male, currently under the care of Dr. Ford, who presents to [facility] for complete pulmonary function tests secondary to diagnosis of asthma. Respiratory therapist reports good effort and reproducible results. Interpretation: Forced expiration spirometry shows no large airways obstructive ventilatory defect with an FEV1 of 90% predicted. There is no significant bronchodilator response by strict ATS criteria. Spirograms are of good quality and plateau normally. The respiratory flow volume loop shows a normal pattern. Lung volumes by body plethysmography show a decreased total lung capacity at 5.56 L, 75% predicted. All other lung volumes are reduced symmetrically. Diffusion capacity by carbon monoxide is normal at 87% predicted. The airway resistance is normal. No previous pulmonary function tests were available for review. Impression: Mild restrictive ventilatory defect with preserved diffusion capacity and spirometry
== END ==
PROVIDERS: Referring Provider Internal Medicine Critical Care Medicine; Visit Provider Internal Medicine Critical Care Medicine
DX: J45.909 Unspecified asthma, uncomplicated (principal)
CPT/HCPCS: 94060; 94726; 94729

== ENCOUNTER 2021-06-14 08:08 | Outpatient (CLI) | payer MEDICAID, SELFPAY ==
--- NOTE | 2021-06-14 08:10 | NM_ITS ---
CLINICAL: 60-year-old male with reported history of low back discomfort. WHOLE BODY 99m Tc MDP RADIONUCLIDE BONE SCINTIGRAPHY COMPARISON: None available FINDINGS: Following the intravenous administration of 24.9 mCi of 99m Tc MDP, whole body bone images reveal: 1. Increased radiopharmaceutical concentration is demonstrated in the acromioclavicular and sternoclavicular compartments of both shoulders, subtly defined in the right and left knees. 2. Barely perceptible enhanced uptake is noted in the right posterior ninth rib. 3. The remaining skeletal structures are scintigraphically unremarkable with normal-appearing renal images and urinary bladder activity identified. NM/Bone Scan Whole Body IMPRESSION: 1. The increase in tracer uptake defined in the bilateral shoulders, knee articulations bilaterally is most consistent with degenerative arthritis. 2. Facilitated tracer distribution observed in the right posterior ninth rib is most consistent with trauma-fracture. Plain film radiography correlation may be of benefit. 3. No other definitive scintigraphic abnormalities are visualized. Electronically Signed: Nick Leo DO at 21:28 EST Tel , Service support ,
== END 2021-06-14 23:59 | disposition short-term general hospital (02) ==
LOC: NM 08:09
PROVIDERS: Referring Provider Orthopaedic Surgery; Visit Provider Orthopaedic Surgery
DX: M46.96 Unspecified inflammatory spondylopathy, lumbar region (principal)
CPT/HCPCS: 78306; A9503

== ENCOUNTER → 2024-11-17 | Outpatient (CLI) | payer MEDICAID, SELFPAY | END | disposition home or self-care (01) | LOC: PSN 08:30 | PROVIDERS: Referring Provider Nurse Practitioner Family; Visit Provider Nurse Practitioner Family | DX: J45.51 Severe persistent asthma with (acute) exacerbation (principal) | CPT/HCPCS: 94060; 94726; 94729 ==

== ENCOUNTER → 2024-11-22 | Outpatient (CLI) | payer MEDICAID, SELFPAY ==
[2024-11-22 11:13] VITALS: PULSE 58; PULSE 59; PULSE 76; PULSE 81; PULSE 82; PULSE 83; O2SAT 91; O2SAT 92; O2SAT 93; O2SAT 95; O2SAT 97
--- NOTE | 2024-11-25 10:46 | PCM.PSN.6M ---
PSN 6 Minute Walk Test 6 Minute Walk Test 6 Minute Walk Test: 6 Minute Walk Test PSN:6-Minute Walk Test Start: 11/22/24 12:26 Freq: Status: Active Protocol: [id number].6MINW Document 11/22/24 11:13 [facility]B (Rec: 11/22/24 12:31 WLB [id number]) 6 Minute Walk Test Date Performed 11/22/24 Time Performed 11:13 Height 27.95 in Weight: 230 lb Weight in Pounds 230.[address]: Su Stewart Assistive device None used: Pre-test Oxygen Delivery Room Air Method Pulse Ox (%) 95 Pulse Rate (60-100 58 L beats/min) Dyspnea Hazel Scale ( 3 0-10) Exertion Hazel Scale 7 (6-20) 1st minute Oxygen Delivery Room Air Method Pulse Ox (%) 93 Pulse Rate (60-100 76 beats/min) 2nd minute Oxygen Delivery Room Air Method Pulse Ox (%) 91 Pulse Rate (60-100 81 beats/min) 3rd minute Oxygen Delivery Room Air Method Pulse Ox (%) 93 Pulse Rate (60-100 82 beats/min) 4th minute Oxygen Delivery Room Air Method Pulse Ox (%) 92 Pulse Rate (60-100 81 beats/min) 5th minute Oxygen Delivery Room Air Method Pulse Ox (%) 92 Pulse Rate (60-100 83 beats/min) 6th minute Oxygen Delivery Room Air Method Pulse Ox (%) 93 Pulse Rate (60-100 82 beats/min) Dyspnea Hazel Scale ( 4 0-10) Exertion Hazel Scale 8 (6-20) Post-test Oxygen Delivery Room Air Method Pulse Ox (%) 97 Pulse Rate (60-100 59 L beats/min) Full Laps Walked 22 Partial Lap, Number 0 of Tiles Walked Total Distance 1298 Walked (ft) Interpretation Interpretation: The patient ambulated 1298 feet over the course of 6 minutes beginning on room air without assistive devices. Pretesting oxygen saturation was noted to be 95% on room air. With ambulation, the roc oxygen saturation was 91%. There was no significant exertional oxygen desaturation. Recommendations Recommendations: There is no indication for the use of supplemental oxygen at this time.
== END | disposition home or self-care (01) ==
LOC: PSN 11:06
PROVIDERS: Referring Provider Nurse Practitioner Family; Visit Provider Nurse Practitioner Family
DX: J45.51 Severe persistent asthma with (acute) exacerbation (principal)
CPT/HCPCS: 94618

== ENCOUNTER → 2024-11-25 | Outpatient (CLI) | payer MEDICAID, SELFPAY ==
--- NOTE | 2024-11-25 12:55 | ECHOD_ITS ---
Reason For Study Reason For Study: ASSESS LV W/ HTN Procedure This was a 2D Doppler, Color Flow transthoracic echocardiogram. Exam performed in department. Left Ventricle Normal LV size. The left ventricular ejection fraction is 65 %. No regional wall motion abnormalities noted. Right Ventricle Normal RV size. Normal systolic function. Atria Normal left atrium. Normal right atrium. Mitral Valve Normal mitral valve. Tricuspid Valve Normal tricuspid valve. Aortic Valve Trisinus/trileaflet aortic valve. Great Vessels Normal aortic root. The pulmonary artery is normal size. Pericardium/Pleural No pericardial effusion. MMode/2D Measurements & Calculations LVIDd: 4.7 cm IVSd: 1.1 cm LVOT diam: 2.0 cm LVIDs: 3.0 cm LVPWd: 1.1 cm LVOT area: 3.1 cm2 FS: 37.6 % Ao root diam: 3.1 cm LAV(MOD-bp): 38.3 ml LVAd ap4: 29.5 cm2 LAV(MOD-bp) Indexed: 16.8 ml/m2 LVLd ap4: 8.7 cm LAV(MOD-sp2): 37.1 ml EDV(MOD-sp4): 85.0 ml LAV(MOD-sp4): 30.8 ml EDV(sp4-el): 84.8 ml LVAs ap4: 14.3 cm2 LVLs ap4: 6.3 cm ESV(MOD-sp4): 27.3 ml ESV(sp4-el): 27.2 ml EF(MOD-sp4): 67.9 % EF(sp4-el): 67.9 % SV(MOD-sp4): 57.7 ml SV(sp4-el): 57.5 ml LA A4 area: 14.7 cm2 SI(MOD-sp4): 25.3 ml/m2 LA dimension(2D): 4.2 cm RA A4 area: 15.6 cm2 Time Measurements MV dec time: 0.30 sec Doppler Measurements & Calculations MV E max yifan: 74.9 cm/sec Lat Peak E' Yifan: 15.7 cm/sec Med Peak E' Yifan: 12.7 cm/sec MV A max yifan: 66.4 cm/sec E/E' lat: 4.8 E/E' med: 5.9 MV E/A: 1.1 MV V2 max: 72.4 cm/sec Ao V2 max: 140.4 cm/sec MV max P.1 mmHg MV dec slope: 251.3 cm/sec2 Ao max P.9 mmHg MV V2 mean: 45.5 cm/sec Ao V2 mean: 93.1 cm/sec MV mean P.93 mmHg Ao mean P.2 mmHg MV V2 VTI: 31.3 cm Ao V2 VTI: 31.1 cm AV (velocity ratio): 0.97 MVA(VTI): 3.0 cm2 SERGIO(I,D): 3.0 cm2 SERGIO(V,D): 3.0 cm2 LV V1 max: 136.8 cm/sec SV(LVOT): 93.8 ml PA V2 max: 94.8 cm/sec LV V1 max P.5 mmHg PA V2 mean: 70.1 cm/sec LV V1 mean P.2 mmHg LV V1 mean: 94.6 cm/sec LV V1 VTI: 30.2 cm ECHO/Echo Complete Interpretation Summary The left ventricular ejection fraction is 65 %. Normal LV size. No regional wall motion abnormalities noted. Ordering Physician: Fermin Vogt Referring Physician: Fermin Vogt Performed By: Angela Colvin RCS
== END | disposition home or self-care (01) ==
PROVIDERS: Referring Provider Internal Medicine Cardiovascular Disease; Visit Provider Internal Medicine Cardiovascular Disease
DX: R94.31 Abnormal electrocardiogram [ECG] [EKG] (principal); R06.02 Shortness of breath; R01.1 Cardiac murmur, unspecified; I10 Essential (primary) hypertension
CPT/HCPCS: 93306

== ENCOUNTER → 2024-12-27 | Outpatient (CLI) | payer MEDICAID, SELFPAY | END | disposition home or self-care (01) | LOC: SL 19:56 | PROVIDERS: Referring Provider Nurse Practitioner Family; Visit Provider Nurse Practitioner Family | DX: G47.10 Hypersomnia, unspecified (principal) | CPT/HCPCS: 95810 ==

== ENCOUNTER → 2025-05-17 | Outpatient (CLI) | payer MEDICAID, SELFPAY ==
--- NOTE | 2025-05-17 14:20 | RAD_ITS ---
PROCEDURE: CHEST PA AND LATERAL 05/17/2025 REASON FOR EXAM: BURROUGHS TECHNIQUE: Procedure Code: RADCXR Modality: DX Procedure: CHEST PA AND LATERAL COMPARISON: 06/22/2020 FINDINGS: No large focal consolidation. Right lower lobe opacity likely atelectasis. No pleural effusion or pneumothorax. Cardiac silhouette is within normal limits. No acute fractures. RAD/Chest PA and Lateral IMPRESSION: Right lower lobe opacity likely atelectasis. No large focal consolidations. Reading Location: [id number]
[2025-05-17 14:23] LABS: Hematocrit 48.9 % (40-54); Hemoglobin 16.9 g/dL (13.0-16.5); Immature Granulocytes Count 0.020 X10^3/uL (0.0-0.0); Mean Corp Hgb Conc 34.6 g/dL (32-36); Mean Corpuscular Volume 90.7 fL (80-94); Mean Platelet Vol. 9.3 fl (6.2-12.0); NRBC Flagged by Analyzer 0 % (0-5); Platelet Count 207 K/mm3 (150-450); RBC Distribution Width CV 12.3 % (11.6-14.6); RBC Distribution Width SD 40.3 fl (35.1-43.9); Red Blood Count 5.39 M/mm3 (4.6-6.2); White Blood Count 7.3 K/mm3 (4.4-11.0)
== END | disposition home or self-care (01) ==
PROVIDERS: Referring Provider Nurse Practitioner Family; Visit Provider Nurse Practitioner Family
DX: R06.00 Dyspnea, unspecified (principal)
CPT/HCPCS: 36415; 71046; 85025; 87631

== ENCOUNTER → 2025-05-25 | Outpatient (CLI) | payer MEDICAID, SELFPAY ==
--- NOTE | 2025-05-25 06:48 | ECHOL_ITS ---
Reason For Study Reason For Study: SOB, EVALUATE FOR SHUNT Procedure This was a 2D Doppler, Color Flow transthoracic echocardiogram. Exam performed in department. Left Ventricle Normal size and thickness. The left ventricular ejection fraction is 65 %. Right Ventricle Normal right ventricle. Atria The left and right atria are normal. Bubble contrast study is negative for PFO/ASD. Mitral Valve The mitral valve is structurally normal. No prolapse or stenosis seen. Tricuspid Valve Trivial tricuspid valve insufficiency. Unable to estimate RV systolic pressure due to insufficient tricuspid regurgitant envelope. Aortic Valve Trisinus/trileaflet aortic valve. Pulmonic Valve The pulmonic valve is not well visualized. Great Vessels Normal sized aortic root. Pericardium/Pleural No pericardial effusion. Medication 20 gauge I.V. with prn adaptor inserted into left arm. Performed a rapid injection of agitated mix of 9 cc saline and 1cc air to assess for atrial septal defect. MMode/2D Measurements & Calculations LVIDd: 5.4 cm IVSd: 1.1 cm Ao root diam: 3.4 cm LVIDs: 3.3 cm LVPWd: 0.88 cm FS: 38.4 % LAV(MOD-bp): 63.7 ml LVAd ap4: 31.2 cm2 LVAd ap2: 23.1 cm2 LAV(MOD-bp) Indexed: 27.9 ml/m2 LVLd ap4: 8.4 cm LVLd ap2: 6.8 cm LAV(MOD-sp2): 61.6 ml EDV(MOD-sp4): 95.8 ml EDV(MOD-sp2): 64.3 ml LAV(MOD-sp4): 61.0 ml EDV(sp4-el): 98.8 ml EDV(sp2-el): 66.7 ml LVAs ap4: 14.2 cm2 LVAs ap2: 10.9 cm2 LVLs ap4: 6.4 cm LVLs ap2: 5.6 cm ESV(MOD-sp4): 28.4 ml ESV(MOD-sp2): 19.5 ml ESV(sp4-el): 26.8 ml ESV(sp2-el): 18.0 ml EF(MOD-sp4): 70.3 % EF(MOD-sp2): 69.7 % EF(sp4-el): 72.8 % SV(MOD-sp4): 67.4 ml SV(MOD-sp2): 44.8 ml EDV(MOD-bp): 83.8 ml SI(MOD-sp4): 29.5 ml/m2 SI(MOD-sp2): 19.6 ml/m2 ESV(MOD-bp): 24.9 ml EF(MOD-bp): 70.2 % SV(sp4-el): 72.0 ml LA A4 area: 20.9 cm2 LA dimension(2D): 4.1 cm RA A4 area: 16.6 cm2 Doppler Measurements & Calculations PA V2 max: 83.5 cm/sec ECHO/Echo, Limited Study Interpretation Summary The left ventricular ejection fraction is 65 %. Bubble contrast study is negative for PFO/ASD. Ordering Physician: Su Stewart Referring Physician: Su Stewart Performed By: Hyun Park, CECE, RVT
--- OUTSIDE RECORDS SUMMARY | 2025-05-25 06:50 | XMS RPT_ITS | CCD ---
Author Organization [facility] CliniSyut Care Team Providers Care Compressor Assembler Name Role Phone KODAK MIJARES Attending Unavailable IMCA Referring Unavailable BANOZIC, MENDY Primary Care Unavailable KODAK MIJARES Admitting Unavailable KODAK MIJARES Attending Unavailable BANOZIC, MENDY Primary Care Unavailable STEVE CLARK Attending Unavailable LIANET CHINO Referring Unavailable BANOZIC, MENDY Primary Care Unavailable SHIVAM OTT (DC) Attending Unavailable BANOZIC, MENDY Referring Unavailable BANOZIC, MENDY Primary Care Unavailable ABIGAIL NEELY Attending Unavailable BANOZIC, MENDY Referring Unavailable BANOZIC, MENDY Primary Care Unavailable SHIVAM OTT (DC) Attending Unavailable BANOZIC, MENDY Referring Unavailable BANOZIC, MENDY Primary Care Unavailable SHIVAM OTT (DC) Attending Unavailable BANOZIC, MENDY Referring Unavailable BANOZIC, MENDY Primary Care Unavailable SHIVAM OTT (DC) Attending Unavailable BANOZIC, MENDY Referring Unavailable BANOZIC, MENDY Primary Care Unavailable SHIVAM OTT (DC) Attending Unavailable SHIVAM OTT (DC) Referring Unavailable BANOZIC, MENDY Primary Care Unavailable SHIVAM OTT (DC) Attending Unavailable SHIVAM OTT (DC) Referring Unavailable BANOZIC, MENDY Primary Care Unavailable SHIVAM OTT (DC) Attending Unavailable SHIVAM OTT (DC) Referring Unavailable BANOZIC, MENDY Primary Care Unavailable ABIGAIL NEELY Attending Unavailable IMCA Referring Unavailable BANOZIC, MENDY Primary Care Unavailable SHIVAM OTT (DC) Attending Unavailable SHIVAM OTT (DC) Referring Unavailable BANOZIC, MENDY Primary Care Unavailable SHIVAM OTT (DC) Attending Unavailable SHIVAM OTT (DC) Referring Unavailable BANOZIC, MENDY Primary Care Unavailable SHIVAM OTT (DC) Attending Unavailable SHIVAM OTT (DC) Referring Unavailable BANOZIC, MENDY Primary Care Unavailable SHIVAM OTT (DC) Attending Unavailable SHIVAM OTT (DC) Referring Unavailable BANOZIC, MENDY Primary Care Unavailable STEVE CLARK Attending Unavailable SHIVAM OTT (DC) Referring Unavailable MENDY TREJO Primary Care Unavailable CHERRY MORALES, BROCK AVALOS Primary Care Physici an AZAM COX Referring Unavailable PROVIDER, UNKNOWN Attending Unavailable PROVIDER, UNKNOWN Admitting Unavailable BROCK CAREY Primary Care Unavailable CHERRY MORALES, BROCK AVALOS Primary Care Physici an Azam Cox Unavailable Cherry MORALES, Brock Avalos Primary Care Provide r CHERRY MORALES, BROCK AVALOS Primary Care Physici an Cherry MORALES, Brock Wong Primary Care Provider CHERRY MORALES, BROCK AVALOS Primary Care Unav dipesh JOVEL DO, CONCETTA Attending Unavailable CHERRY MORALES, BROCK AVALOS Attending Unav ailhermes CAREY MD, BROCK AVALOS Primary Care Emilyv dipesh Carey MD, Dr. Gutiérrez Primary Care Provider Cherry MORALES, Dr. Gutiérrez Referring Provider Terry WOODS SUPERINTENDENT-CSu Attending Provider Torie MORALES, Dr. Christensen Attending Provider [phone] Terry RIOS-CSu Referring Provider Dr. Meet Ford DO Attending Provider [phone] Terry RIOS-Su Gaspar Other Provider Torie MORALES, Dr. Christensen Referring Provider [phone] KELLI SALAZAR Attending Unavailable BROCK CAREY Primary Care Karen Carey MD, Dr. Gutiérrez Primary Care Provider Cherry MORALES, Dr. Gutiérrez Referring Provider [phone] Terry RIOS-CSu Attending Provider Brock Carey Primary Care Brock Dixon Referring Unavailable Su Stewart Attending Unavailable Fermin Vogt Attending Unavailable Brock Carey Primary Care Unavailable Meet Ford Attending Unavailable Brock Carey Primary Care Unavailable Su Stewart Referring Unavailable Meet Ford Attending Unavailable Carey, [place] Primary Care Unavailable Rufener, Su Hernandez Referring Unavailable Rufener, Su Hernandez Consulting Unavailable Rufener, Su Hernandez Attending Unavailable Carey, [place] Referring Unavailable Carey, [place] Primary Care Unavailable Torie, [place] Attending Unavailable Carey, [place] Primary Care Unavailable Carey, Brock Referring Unavailable Rufener, Su Hernandez Attending Unavailable Carey, [place] Primary Care Unavailable Rufener, Su Hernandez Referring Unavailable Carey, [place] Primary Care Unavailable Rufener, Su Hernandez Attending Unavailable Rufener, Su Hernandez Referring Unavailable Carey, [place] Primary Care Unavailable Rufener, Su Hernandez Referring Unavailable Rufener, Su Hernandez Attending Unavailable Carey, [facility] Care Unavailable Torie, [place] Attending Unavailable Torie, [place] Referring Unavailable CAREY BROCK MORALES [facility] Physici an BROCK CAREY MD Attending Unav ailable CAREY BROCK MORALES [facility] Unav ailable Allergies Allergy Classification Reported Allergen(s) Allergy Type Date of Onset Reaction(s) Facility (11 sources) Benzocaine; Translations: [BENZOCAINE] Drug Allergy 12-14-19 15 [facility] Repository (6 sources) Lidocaine; Translations: [LIDOCAINE] Drug Allergy 02-20-20 23 Unknown [facility] Repository (4 sources) Pollen; Translations: [POLLEN EXTRACTS] Propensity to adverse reactions (disorder) 03-01-20 13 Itching [facility] Repository (11 sources) Procaine; Translations: [PROCAINE] Drug Allergy 03-01-20 13 [facility] Repository (6 sources) Allantoin / Benzocaine / Camphor / Petrolatum; Translations: [benzocaine topical] Drug Allergy [facility] (6 sources) Benzocaine / Triclosan; Translations: [BENZOCAINE-TRICLOS AN] Drug Allergy 12-14-19 15 [facility] (6 sources) Pollen; Translations: [POLLEN EXTRACT] Propensity to adverse reactions to drug (disorder) 03-01-20 13 Itching [facility] Repository (3 sources) Grass pollen Propensity to adverse reactions to drug 10-18-19 Other: See Comments [facility] (8 sources) Sulfamethoxazole / Trimethoprim Drug Allergy 09-21-19 Unknown, Other [facility] Work Phone: (5 sources) EPINEPHrine Drug Allergy 11-15-19 [facility] (5 sources) Articaine Drug Allergy 09-15-19 [facility] (5 sources) EPINEPHrine Drug Allergy 09-15-19 [facility] (5 sources) Ipratropium Drug Allergy 09-15-19 Laryngospasms [facility] (5 sources) Sulfamethoxazole Drug Allergy 09-15-19 PT UNSURE OF REACTION [facility] (5 sources) Trimethoprim Drug Allergy 09-15-19 PT UNSURE OF REACTION [facility] (1 source) Articaine Drug Allergy 12-01-19 [facility] Repository (1 source) EPINEPHrine Drug Allergy 12-01-19 [facility] Repository (1 source) Ipratropium Drug Allergy 12-01-19 [facility] Repository (1 source) Sulfamethoxazole Drug Allergy 12-01-19 [facility] Repository (1 source) Trimethoprim Drug Allergy 12-01-19 [facility] Repository Medications Current Medications Medication Drug Class(es) Dates Sig (Normalized) Sig (Original) Albuterol (20 sources) beta2-Adrenergic Agonist Start: 11-18-2021 Ventolin HFA MDI (90 mcg/inh) inhalation aerosol 0 Refill(s) Start Date: 11/18/21 Status: Ordered Medication Dispense Status: Completed Total Allowed Fills: 1 Fills Dispensed: 0 Start: 11-18-2021 Ventolin HFA M DI (90 mcg/inh) inhalation aerosol 0 Refill(s) Start Date: 11/18/21 Status: Ordered Start: 12-31-2020 Albuterol Sulf ate (Ventolin Hfa) 90 mcg/actuation HFA aerosol inhaler Active 2 NMA INHALATION Q4H as needed for shortness of breath or wheezing 8.5 6 December 31, 2020 12:00am Start: 11-28-2020 End: 12-05-2020 Albuterol Sulfate 90 mcg/act uation HFA aerosol inhaler Discontinued 2 NMA INHALATION Q4H as needed for shortness of breath or wheezing 8.5 6 November 28, 2020 12:00am December 05, 2020 3:33pm administer with spacer Start: 11-28-2020 End: 05-22-2021 Albuterol Sulfate (Ventolin Hfa) 90 mcg/actuation HFA aerosol inhaler Discontinued 2 NMA INHALATION EVERY 6 HOURS as needed November 28, 2020 12:00am May 22, 2021 10:57am Start: 02-08-2020 albuterol (Landen tolin HFA) 108 (90 Base) MCG/ACT inhaler 0 Refill(s) 11/18/2021 Active Comment on above: Inhale 2 Puffs as in structed every 4 hours as needed. amLODIPine 10 mg oral tablet (20 sources) Dihydropyridine Calcium Channel Reinier Start: 04-07-20 End: 02-18-20 amLODIPine 10 mg oral tablet Dose : 10 mg = 1 tab(s), Oral, qDay, # 30 tab(s), 0 Refill(s) Start Date: 10/13/18 Status: Ordered Medication Dispense Status: Completed Quantity: 30.0 Unit: tab(s) Total Allowed Fills: 1 Fills Dispensed: 0 Comment on above: Take 1 tablet by jacquie th once daily. amoxicillin 875 mg / clavulanate 125 mg oral tablet (1 source) Penicillin-class Antibacterial Start: 07-31-19 End: 08-08-19 take 1 tablet by mouth every twelve hours amoxicillin-clavulan ate 875 mg-125 mg oral tablet 1 tab(s), Oral, q12h, X 7 day(s), # 14 tab(s), 0 Refill(s), 08/07/22 22:01:00 EST, 106.8 Start Date: 07/31/22 Stop Date: 08/07/22 Status: Ordered atorvastatin 40 mg oral tablet (20 sources) HMG-CoA Reductase Inhibitor Start: 10-14-19 atorvastatin 40 mg oral tablet Dose : 40 mg = 1 tab(s), Oral, Daily, 0 Refill(s) Start Date: 10/13/18 Status: Ordered Medication Dispense Status: Completed Total Allowed Fills: 1 Fills Dispensed: 0 Start: 04-04-2018 End: 05-12-2018 take 1 tablet by mouth at bedtime Atorvastatin 40 mg tablet Active 40 mg PO AT BEDTIME 90 May 12, 2018 3:33pm Comment on above: Take 1 tablet by jacquie th once daily. azelastine hydrochloride 0.137 mg/actuat metered dose nasal spray (5 sources) Histamine-1 Receptor Antagonist Start: 09-10-2023 Azelastine 137 mcg (0.1 %) aerosol,spray Active INTRANASAL September 10, 2023 12:00am 60 actuat budesonide 0.16 mg/actuat / formoterol fumarate 0.0045 mg/actuat metered dose inhaler (20 sources) Corticosteroid, beta2-Adrenergic Agonist Start: 11-18-2021 budesonide-formoterol (Symbicort) 160-4.5 MCG/ACT inhaler Inhale. 11/18/2021 Active Start: 07-10-2021 End: 09-10-2023 Budesonide-Formoterol (Symbi eric) 160-4.5 mcg/actuation HFA aerosol inhaler Discontinued 2 NMA INHALATION TWICE A DAY 10.2 11 July 10, 2021 1:00am September 10, 2023 10:52am Start: 05-29-2021 End: 07-10-2021 Budesonide-Formoterol (Symbi eric) 160-4.5 mcg/actuation HFA aerosol inhaler Discontinued 2 NMA INHALATION TWICE A DAY 1 May 29, 2021 1:07pm July 10, 2021 6:40am administer with spacer, rinse mouth after each use Start: 05-29-2021 End: 07-10-2021 Budesonide-Formoterol (Symbi eric) 160-4.5 mcg/actuation HFA aerosol inhaler Discontinued 2 NMA INHALATION TWICE A DAY 1 May 29, 2021 1:07pm July 10, 2021 6:40am administer with spacer, rinse mouth after each use Start: 12-31-2020 End: 05-29-2021 Budesonide-Formoterol (Symbi eric) 160-4.5 mcg/actuation HFA aerosol inhaler Discontinued 2 NMA INHALATION TWICE A DAY 06 13December 31, 2020 11:22am May 29, 2021 1:07pm administer with spacer, rinse mouth after each use Start: 12-31-2020 End: 05-29-2021 Budesonide-Formoterol (Symbi eric) 160-4.5 mcg/actuation HFA aerosol inhaler Discontinued 2 NMA INHALATION TWICE A DAY 1 December 31, 2020 11:22am May 29, 2021 1:07pm administer with spacer, rinse mouth after each use Start: 11-29-2020 End: 12-31-2020 Budesonide-Formoterol (Symbi eric) 160-4.5 mcg/actuation HFA aerosol inhaler Discontinued 2 NMA INHALATION TWICE A DAY 1 3 November 29, 2020 12:00am December 31, 2020 11:23am administer with spacer, rinse mouth after each use Start: 11-29-2020 End: 12-31-2020 Budesonide-Formoterol (Symbi eric) 160-4.5 mcg/actuation HFA aerosol inhaler Discontinued 2 NMA INHALATION TWICE A DAY 1 November 29, 2020 12:00am December 31, 2020 11:23am administer with spacer, rinse mouth after each use busPIRone hydrochloride 15 mg oral tablet (5 sources) Start: 02-18-2024 take 1 tablet by mouth once daily Buspirone 15 mg tablet Active 15 mg PO DAILY February 18, 2024 12:00am cetirizine hydrochloride 10 mg oral tablet (5 sources) Histamine-1 Receptor Antagonist Start: 09-10-2023 take 1 tablet by mouth once daily Cetirizine 10 mg tablet Active 10 mg PO daily September 10, 2023 12:00am diclofenac sodium 0.01 mg/mg topical gel (2 sources) Nonsteroidal Anti-inflammatory Drug Start: 10-13-2018 diclofenac 1% topical gel 4 = gram(s), Topical, QID, PRN as needed for pain, # 1 EA, 0 Refill(s), Gel Start Date: 10/13/18 Status: Ordered Start: 10-13-2018 diclofenac 1% topical gel 4 = gram(s), Topical, QID, PRN as needed for pain, # 1 EA, 0 Refill(s), Gel Start Date: 10/13/18 Status: Ordered dicyclomine hydrochloride 20 mg oral tablet (19 sources) Anticholinergic Start: 09-08-2022 take 1 tablet by mouth three times daily dicyclomine (Bentyl) 20 MG tablet Take 20 mg by mouth 3 times daily. 09/08/2022 Active Start: 03-26-2022 End: 04-05-2022 dicyclomine 10 mg oral capsu le Dose : 10 mg = 1 cap(s), Oral, QID, PRN abdominal pain/diarrhea, 0 Refill(s) Start Date: 03/26/22 Stop Date: 04/05/22 Status: Ordered Medication Dispense Status: Completed Total Allowed Fills: 1 Fills Dispensed: 0 Start: 08-19-2020 End: 12-05-2020 take 2 capsules by mouth three times daily before mealtime as needed Dicyclomine 10 mg capsule Active 20 mg PO THREE TIMES DAILY BEFORE MEALS as needed December 05, 2020 3:34pm fluorouracil 50 mg/ml topical cream (1 source) Nucleoside Metabolic Inhibitor Start: 11-29-2024 fluorouracil (Efudex) 5 % cream Indications: Actinic keratosis Apply a very thin layer to face, bilateral forearms and dorsal hands twice daily x 2 weeks. 40 g 1 11/29/2024 Active FLUoxetine 20 mg oral capsule (20 sources) Serotonin Reuptake Inhibitor Start: 02-18-2024 take 1 capsule by mouth once daily Fluoxetine 20 mg capsule Active 20 mg PO DAILY February 18, 2024 8:39am Start: 10-13-2018 FLUoxetine 40 mg oral capsule Dose : 40 mg = 1 cap(s), Oral, qDay, # 30 cap(s), 0 Refill(s) Start Date: 10/13/18 Status: Ordered Medication Dispense Status: Completed Quantity: 30.0 Unit: cap(s) Total Allowed Fills: 1 Fills Dispensed: 0 Start: 04-04-2018 End: 02-18-2024 take 2 capsules by mouth once daily Fluoxetine 20 MG capsule Discontinued 40 mg PO DAILY April 04, 2018 12:00am February 18, 2024 8:44am Comment on above: Take 1 capsule by [facility] once daily. fluticasone propionate 0.05 mg/actuat metered dose nasal spray (20 sources) Corticosteroid Start: 02-14-2023 fluticasone (Flonase) 50 MCG/ACT nasal spray 02/14/2023 Active Start: 12-05-2020 End: 09-10-2023 Fluticasone Propionate 50 mc g/actuation spray,suspension Discontinued 1 NMA INTRANASAL DAILY December 05, 2020 3:34pm September 10, 2023 10:53am Start: 02-08-2020 take 2 spray(s) nasa l route once daily fluticasone (FLONASE) 50 mcg/actuation nasal spray Indications: Non-seasonal allergic rhinitis due to pollen Use 2 Sprays in each nostril once daily. 3 Bottle 0 02/08/2020 Active Start: 12-06-2019 End: 12-05-2020 Fluticasone Propionate 50 mc g/actuation spray,suspension Discontinued 5 g INTRANASAL DAILY December 06, 2019 12:00am December 05, 2020 3:36pm fluticasone (Leoncio nase) 50 MCG/ACT nasal spray Every 24 hours. Active Comment on above: Use 2 Sprays in each nostril once daily. gabapentin 300 mg oral capsule (15 sources) Anti-epileptic Agent Start: 02-18-2024 take 1 capsule by mouth twice daily Gabapentin 300 mg capsule Active 300 mg PO TWICE A DAY February 18, 2024 8:42am Start: 01-15-2023 take 1 capsule by mo [facility] three times daily gabapentin (Neurontin) 300 MG capsule TAKE 1 CAPSULE BY MOUTH THREE TIMES A DAY DIRECTED 01/15/2023 Active Start: 11-24-2022 End: 02-18-2024 take 1 capsule by mouth once daily Gabapentin 300 mg capsule Discontinued 300 mg PO DAILY November 24, 2022 12:00am February 18, 2024 8:44am hydroCHLOROthiazide 25 mg oral tablet (20 sources) Thiazide Diuretic Start: 04-07-2018 End: 09-10-2023 take 1 tablet by mouth once daily in the morning Hydrochlorothiazide 25 mg tablet Active 25 mg PO EVERY MORNING February 18, 2024 12:00am Comment on above: Take 1 tablet by [facility] once daily. loratadine 10 mg oral tablet (20 sources) Start: 10-13-2018 loratadine 10 mg oral tablet Dose : 10 mg = 1 tab(s), Oral, qDay, # 30 tab(s), 0 Refill(s) Start Date: 10/13/18 Status: Ordered Medication Dispense Status: Completed Quantity: 30.0 Unit: tab(s) Total Allowed Fills: 1 Fills Dispensed: 0 Start: 04-04-2018 End: 09-10-2023 take 1 capsule by mouth once daily as needed Loratadine 10 mg capsule Discontinued 10 mg PO DAILY as needed for Allergies December 06, 2019 2:52pm September 10, 2023 10:55am Comment on above: Take 1 tablet by jacquie th once daily. Ativan (20 sources) Benzodiazepine Start: 02-17-2022 Ativan 0 Refill(s), 105.4 Start Date: 02/17/22 Status: Ordered Medication Dispense Status: Completed Total Allowed Fills: 1 Fills Dispensed: 0 Start: 02-17-2022 Ativan 0 Refil l(s), 105.4 Start Date: 02/17/22 Status: Ordered Start: 04-04-2018 End: 02-18-2024 take 1 tablet by mouth twice daily as needed Lorazepam 1 mg tablet Discontinued 1 mg PO TWICE A DAY as needed December 03, 2018 2:09pm February 18, 2024 8:44am Comment on above: Take 1 tablet by jacquie th twice daily for 30 days. Losartan (20 sources) Angiotensin 2 Receptor Reinier Start: 02-17-2022 take 1 dose by mouth once daily losartan Oral, qDay, 0 Refill(s) Start Date: 02/17/22 Status: Ordered Medication Dispense Status: Completed Total Allowed Fills: 1 Fills Dispensed: 0 Start: 02-17-2022 losartan Oral, qDay, 0 Refill(s) Start Date: 02/17/22 Status: Ordered Start: 04-04-2018 End: 12-03-2018 take 1 tablet by mouth at bedtime Losartan 100 mg tablet Discontinued 100 mg PO AT BEDTIME 90 3 May 12, 2018 3:34pm December 03, 2018 2:30pm Comment on above: Take 1 tablet by jacquie th once daily. meloxicam 15 mg oral tablet (20 sources) Nonsteroidal Anti-inflammatory Drug Start: 12-07-2021 meloxicam 15 mg oral tablet Dose : 15 mg = 1 tab(s), 0 Refill(s) Start Date: 02/17/22 Status: Ordered Medication Dispense Status: Completed Total Allowed Fills: 1 Fills Dispensed: 0 Start: 04-04-2018 End: 12-03-2018 take 1 tablet by mouth once daily Meloxicam 7.5 tablet Discontinued 7.5 mg PO DAILY April 04, 2018 12:00am December 03, 2018 2:10pm take 1 tablet by jacquie th once daily meloxicam (MOBIC) 15 mg tablet Take 15 mg by mouth once daily. 0 Active Comment on above: Take 15 mg by mouth once daily. 24 hr metoprolol succinate 50 mg extended release oral tablet (20 sources) beta-Adrenergic Reinier Start: 12-18-2022 take 1 tablet by mouth every twenty-four hours metoprolol succinate XL (Toprol-XL) 50 MG 24 hr tablet Take 50 mg by mouth. 12/18/2022 Active Start: 04-04-2018 End: 12-03-2018 take 1 tablet by mouth once daily Metoprolol Succinate 50 mg tablet extended release 24 hr Discontinued 50 mg PO DAILY 90 3 May 12, 2018 3:34pm December 03, 2018 2:30pm Comment on above: Take 1 tablet by jacquie th once daily. Mometasone Furo-Formoterol Fum (DULERA IN) (1 source) Mometasone Furo-Formoterol Fum (DULERA IN) Inhale. Active Mometasone-Formoterol (Dulera) 200-5 mcg/actuation HFA aerosol inhaler (5 sources) Start: 5 Mometasone-Formotero l (Dulera) 200-5 mcg/actuation HFA aerosol inhaler Active 2 NMA INHALATION TWICE A DAY September 14, 2024 12:00am montelukast 10 mg oral tablet (13 sources) Leukotriene Receptor Antagonist Start: 8 take 1 tablet by mouth once daily Montelukast 10 tablet Active 10 mg PO DAILY April 04, 2018 12:00am Comment on above: Take 1 tablet by jacquie th daily at bedtime. Multivitamin tablet (5 sources) Start: 4 Multivitamin tablet Active 1 {tbl} PO EVERY MORNING February 18, 2024 12:00am pantoprazole 20 mg delayed release oral tablet (20 sources) Proton Pump Inhibitor Start: 2 pantoprazole 20 mg oral enteric coated tablet Dose : 20 mg = 1 tab(s), Oral, qDayAC, 0 Refill(s) Start Date: 03/26/22 Status: Ordered Medication Dispense Status: Completed Total Allowed Fills: 1 Fills Dispensed: 0 Start: 04-04-2018 End: 09-14-2024 take 1 tablet by mouth once daily Pantoprazole 40 mg tablet,delayed release (DR/EC) Discontinued 40 mg PO DAILY February 18, 2024 8:40am September 14, 2024 11:03am Indigestion Comment on above: Take 1 tablet by jacquie th once daily. Symbicort 160 mcg-4.5 mcg/inh Inhaler (4 sources) Start: 11-18-2021 Symbicort 160 mcg-4.5 mcg/inh Inhaler 0 Refill(s) Start Date: 11/18/21 Status: Ordered Medication Dispense Status: Completed Total Allowed Fills: 1 Fills Dispensed: 0 Start: 11-18-2021 Symbicort 160 mcg-4.5 mcg/inh Inhaler 0 Refill(s) Start Date: 11/18/21 Status: Ordered 10 actuat tiotropium 0.0025 mg/actuat inhalation spray (14 sources) Anticholinergic Start: 11-19-2022 take 2 puff(s) by inhalation once daily Spiriva Respimat 2.5 MCG/ACT inhaler INHALE 2 PUFFS INTO THE LUNGS EVERY DAY FOR 90 DAYS 11/19/2022 Active Start: 11-18-2021 Spiriva Respim at 60 ACT 2.5 mcg/inh inhalation aerosol 0 Refill(s) Start Date: 11/18/21 Status: Ordered Medication Dispense Status: Completed Total Allowed Fills: 1 Fills Dispensed: 0 Start: 05-22-2021 End: 09-10-2023 Tiotropium [place] (Spiriva Respimat) 2.5 mcg/actuation mist Discontinued NMA INHALATION May 22, 2021 1:00am September 10, 2023 10:52am tiZANidine 4 mg oral tablet (17 sources) Central alpha-2 Adrenergic Agonist Start: 02-17-2022 tiZANidine 4 mg oral tablet 0 Refill(s) Start Date: 02/17/22 Status: Ordered Medication Dispense Status: Completed Total Allowed Fills: 1 Fills Dispensed: 0 Start: 02-08-2020 take 1 tablet by jacquie th every eight hours as needed tiZANidine (ZANAFLEX) 4 mg tablet Take 1 tablet by mouth three times daily as needed (muscle pain). 180 tablet 0 02/08/2020 Active Start: 12-06-2019 End: 08-31-2024 take 1 capsule by mouth twice daily as needed for muscle spasms Tizanidine 4 mg capsule Discontinued 4 mg PO TWICE A DAY as needed for Muscle Spasm December 06, 2019 2:53pm August 31, 2024 12:58pm Start: 04-07-2018 End: 12-06-2019 take 1 capsule by mouth three times daily as needed Tizanidine 4 mg capsule Discontinued 4 mg PO THREE TIMES A DAY as needed April 07, 2018 12:00am December 06, 2019 2:53pm Comment on above: Take 1 tablet by jacquie th three times daily as needed (muscle pain). Completed/Discontinued Medications Medication Drug Class(es) Dates Sig (Normalized) Sig (Original) acetaminophen 325 mg / butalbital 50 mg / caffeine 40 mg / codeine phosphate 30 mg oral capsule (15 sources) Opioid Agonist, Barbiturate, Central Nervous System Stimulant, Methylxanthine Start: 04-04-2018 End: 09-14-2024 Butalbital-Acetami nop-Caf-Cod 15-149-41-30 mg capsule Discontinued 1 NMA PO DAILY February 18, 2024 8:39am September 14, 2024 11:03am migraines albuterol 0.833 mg/ml / ipratropium bromide 0.167 mg/ml inhalation solution (15 sources) Anticholinergic, beta2-Adrenergic Agonist Start: 01-21-2022 ipratropium-albute rol (Duo-Neb) 0.5-2.5 mg/3 mL nebulizer solution USE 3 ML VIA NEBULIZER EVERY 4 HOURS NEEDED NEEDED FOR SHORTNESS OF BREATH &/OR WHEEZING 01/21/2022 Active Start: 11-22-2021 End: 08-31-2024 take 1 mL by inhalation every four hours as needed for wheezing Ipratropium-Albuterol 0.5 mg-3 mg(2.5 mg base)/3 mL solution for nebulization Discontinued 3 mL INHALATION EVERY 4 HOURS NEEDED as needed for SOB &/OR WHEEZING 180 June 24, 2022 8:47am August 31, 2024 12:58pm biotin 10 mg oral tablet (3 sources) take 5 mg by mouth once daily Biotin 10 mg tab Take 5 mg by mouth once daily. 0 Active Comment on above: Take 5 mg by mouth o nce daily. fluconazole 100 mg oral tablet (5 sources) Azole Antifungal Start: 3 End: 4 take 1 tablet by mouth once daily Fluconazole 100 mg tablet Discontinued 100 mg PO daily 3 0 May 26, 2023 1:00am September 10, 2023 10:54am Asthma Moderate persistent asthma, uncomplicated Fluticasone Furoate-Vilanterol (5 sources) Corticosteroid, beta2-Adrenergic Agonist Start: 1 End: Fluticasone Furoate-Vilanterol (Breo Ellipta) 200-25 mcg/dose blister with device Discontinued 1 NMA INHALATION DAILY 60 3 November 28, 2020 12:00am November 29, 2020 8:07am Start: 11-28-2020 End: 11-29-2020 Fluticasone Furoate-Vilanter ol (Breo Ellipta) 200-25 mcg/dose blister with device Discontinued 1 NMA INHALATION DAILY 60 November 28, 2020 12:00am November 29, 2020 8:07am Gguyrfeqozy-Ebpzhuake-Gixipa er (5 sources) Start: 09-10-2023 End: 09-14-2024 Szsmveuefep-Elyoaxmvn-Tawpsn er (Trelegy Ellipta) 200-62.5-25 mcg blister with device Discontinued 1 NMA INHALATION DAILY September 10, 2023 12:00am September 14, 2024 11:02am ibuprofen 800 mg oral tablet (5 sources) Nonste roidal Anti-i nflamm atory Drug Start: 10-13-2018 take 1 tablet by mouth every eight hours as needed ibuprofen (MOTRIN) 800 mg tablet Take 1 tablet by mouth every 8 hours as needed. 270 tablet 0 02/08/2020 Active Comment on above: Take 1 tablet by jacquie every 8 hours as needed. levoFLOXacin 500 mg oral tab let (5 sources) Quinol one Antimi crobia l Start: 11-22-2021 End: 01-28-2022 take 1 tablet by mouth once daily Levofloxacin 500 mg tablet Discontinued 500 mg PO DAILY November 22, 2021 12:00am January 28, 2022 1:41pm [place] 2-Kee-Aeg-Fish Oil 500 MG capsule,delayed release(DR/EC) (5 sources) Start: 04-04-2018 End: 12-06-2019 take 1 capsul e by mouth once daily [place] 4-Ewa-Yls-Fish Oil 500 MG capsule,delayed release(DR/EC) Discontinued 500 mg PO DAILY April 04, 2018 12:00am December 06, 2019 2:53pm predniSONE 20 mg oral tablet (5 sources) Start: 05-26-2023 End: 09-10-2023 take 3 tablet s by mouth once daily at [place] Prednisone 20 mg tablet Discontinued 60 mg PO daily 15 0 May 26, 2023 1:00am September 10, 2023 10:56am Asthma Moderate persistent asthma, uncomplicated administer with food or milk 1 ml testosterone cypionate 200 mg/ml injection (17 sources) Androg en Start: 11-18-2022 End: 02-18-2024 Testosterone Cypionate 200 mg/mL oil Discontinued mg IM September 10, 2023 12:00am February 18, 2024 8:44am Start: 03-05-2020 inject 1 mL by intra muscular injection every month testosterone cypionate (DEPO-TESTOSTERONE) 200 mg/mL injection Indications: Male hypogonadism INJECT 1 ML INTRAMUSCULARLY ONCE EVERY MONTH 1 mL 2 03/05/2020 Active Comment on above: INJECT 1 ML INTRAMUS CULARLY ONCE EVERY MONTH traZODone hydrochloride 50 mg oral tablet (20 sources) Serotonin Reuptake Inhibitor Start: 02-20-20 End: 09-15-19 take 1 tablet by mouth at bedtime Trazodone 50 mg tablet Discontinued 50 mg PO AT BEDTIME February 18, 2024 8:41am September 14, 2024 11:03am Start: 10-13-2018 take 1 tablet by jacquie th once daily at bedtime traZODone (DESYREL) 50 mg tablet Indications: Generalized anxiety disorder Take 1 tablet by mouth daily at bedtime. 90 tablet 0 02/08/2020 Active Comment on above: Take 1 tablet by jacquie th daily at bedtime. Problems Active Problems Problem Classification Problem Date Documented Date Episodic/Chronic Abdominal pain (4 sources) Epigastric pain 03-26-2022 Episodic Anxiety disorders (8 sources) Generalized anxiety disorder; Translations: [Generalized anxiety disorder] Onset: 0 02-07-2020 Chronic Asthma (17 sources) Uncomplicated moderate persistent asthma; Translations: [Moderate persistent asthma, uncomplicated] Onset: 0 02-07-2020 Chronic Disorders of lipid metabolism (14 sources) Mixed hyperlipidemia; Translations: [Mixed hyperlipidemia] Onset: 7 02-07-2020 Chronic Esophageal disorders (12 sources) Gastroesophageal reflux disease without esophagitis; Translations: [Gastro-esophageal reflux disease without esophagitis] Onset: 0 02-07-2020 Chronic Essential hypertension (19 sources) Benign essential hypertension; Translations: [Essential (primary) hypertension] Onset: 7 02-07-2020 Chronic Headache; including migraine (8 sources) Migraine without aura, not refractory ; Translations: [Migraine without aura, not intractable, without status migrainosus] Onset: 0 02-07-2020 Chronic Heart valve disorders (5 sources) Mitral valve prolapse; Translations: [Nonrheumatic mitral (valve) prolapse] 12-05-2019 Chronic Immunizations and screening for infectious disease (2 sources) Rheumatoid factor positive; Translations: [Other specified abnormal immunological findings in serum] Episodic Neoplasms of unspecified nature or uncertain behavior (5 sources) Neoplasm of uncertain behavior of skin; Translations: [Neoplasm of uncertain behavior of skin] Onset: 5 02-19-2023 Episodic Noninfectious gastroenteritis (5 sources) Gastroenteritis; Translations: [Noninfective gastroenteritis and colitis, unspecified] 08-20-2020 Episodic Osteoarthritis (2 sources) Degenerative joint disease involving multiple joints; Translations: [Polyosteoarthritis, unspecified] Chronic Other and unspecified benign neoplasm (2 sources) Multiple benign melanocytic nevi ; Translations: [Melanocytic nevi, unspecified] 02-19-2023 Episodic Other and unspecified benign neoplasm (1 source) Senile angioma; Translations: [Hemangioma of skin and subcutaneous tissue] 11-29-2024 Episodic Other and unspecified benign neoplasm (2 sources) Melanocytic nevi of right upper limb, including shoulder; Translations: [Melanocytic nevi of right upper limb, including shoulder] Onset: 5 Episodic Other and unspecified benign neoplasm (2 sources) Melanocytic nevi of trunk; Translations: [Melanocytic nevi of trunk] Onset: 5 Episodic Other and unspecified benign neoplasm (2 sources) Melanocytic nevi of left upper limb, including shoulder; Translations: [Melanocytic nevi of left upper limb, including shoulder] Onset: 5 Episodic Other and unspecified benign neoplasm (2 sources) Melanocytic nevi of right lower limb, including hip; Translations: [Melanocytic nevi of right lower limb, including hip] Onset: 5 Episodic Other and unspecified benign neoplasm (2 sources) Melanocytic nevi of left lower limb, including hip; Translations: [Melanocytic nevi of left lower limb, including hip] Onset: 5 Episodic Other and unspecified benign neoplasm (2 sources) Hemangioma of skin and subcutaneous tissue; Translations: [Hemangioma of skin and subcutaneous tissue] Onset: 5 Episodic Other endocrine disorders (3 sources) Male hypogonadism; Translations: [Testicular hypofunction] Onset: 0 02-02-2020 Chronic Other endocrine disorders (5 sources) Testicular hypofunction; Translations: [Testicular hypofunction] 02-18-2024 Chronic Other lower respiratory disease (5 sources) Dyspnea on exertion; Translations: [Other forms of dyspnea] 02-18-2024 Episodic Other lower respiratory disease (12 sources) Hypoxemia; Translations: [Hypoxemia] 11-28-2020 Episodic Other non-epithelial cancer of skin (1 source) History of malignant neoplasm of skin excluding melanoma; Translations: [Personal history of other malignant neoplasm of skin] 02-19-2023 Episodic Other non-traumatic joint disorders (3 sources) Multiple joint pain; Translations: [Pain in unspecified joint] Episodic Other screening for suspected conditions (not mental disorders or infectious disease) (1 source) Abnormal electrocardiogram [ECG] [EKG]; Translations: [Abnormal electrocardiogram [ECG] [EKG]] Onset: 5 Episodic Other skin disorders (3 sources) Actinic keratosis; Translations: [Actinic keratosis] Onset: 5 02-19-2023 Episodic Other skin disorders (2 sources) Seborrheic keratosis; Translations: [Other seborrheic keratosis] 02-19-2023 Episodic Other skin disorders (1 source) Multiple actinic keratoses; Translations: [Actinic keratosis] 02-19-2023 Episodic Other skin disorders (2 sources) Solar lentigo; Translations: [Other melanin hyperpigmentation] 02-19-2023 Episodic Other skin disorders (1 source) Actinic keratosis; Translations: [Actinic keratosis] Onset: 5 Episodic Other skin disorders (2 sources) Other seborrheic keratosis; Translations: [Other seborrheic keratosis] Onset: 5 Episodic Other skin disorders (2 sources) Other melanin hyperpigmentation; Translations: [Other melanin hyperpigmentation] Onset: 5 Episodic Other upper respiratory disease (3 sources) Allergic rhinitis due to pollen; Translations: [Allergic rhinitis due to pollen] Onset: 0 02-02-2020 Chronic Residual codes; unclassified (5 sources) Daytime hypersomnia; Translations: [Hypersomnia, unspecified] 11-30-2024 Chronic Comment on above: Stop bang = 6 Residual codes; unclassified (1 source) Obstructive sleep apnea syndrome; Translations: [Obstructive sleep apnea (adult) (pediatric)] 12-30-2024 Chronic Residual codes; unclassified (1 source) Hypoxia; Translations: [Idiopathic sleep related nonobstructive alveolar hypoventilation] 12-30-2024 Chronic Residual codes; unclassified (1 source) Hypersomnia, unspecified; Translations: [Hypersomnia, unspecified] Onset: 5 Chronic Spondylosis; intervertebral disc disorders; other back problems (16 sources) Postlaminectomy syndrome, not elsewhere classified; Translations: [Cervical spondylosis without myelopathy] Onset: 8 04-06-2018 Chronic Spondylosis; intervertebral disc disorders; other back problems (1 source) Low back pain; Translations: [Low back pain, unspecified back pain laterality, unspecified chronicity, unspecified whether sciatica present] Episodic Unclassified (4 sources) Drug therapy finding 03-26-2022 Unclassified (4 sources) Patient encounter status 03-26-2022 Past or Other Problems Problem Classification Problem Date Documented Da te Episodic/Chronic Diabetes mellitus without complication (3 sources) Impaired fasting glycemia; Translations: [Impaired fasting glucose] Onset: 02-07-2020 02-07-2020 Episodic E Codes: Adverse effects of medical drugs (3 sources) Benzocaine adverse reaction; Translations: [Adverse effect of local anesthetics, initial encounter] Onset: 10-22-2017 10-22-2017 Episodic Nonspecific chest pain (11 sources) Chest pain; Translations: [Chest pain, unspecified] Onset: 09-14-2024 02-18-2024 Episodic Other lower respiratory disease (1 source) Dyspnea, unspecified; Translations: [Dyspnea, unspecified] Onset: 09-14-2024 Episodic Results Test Name Value Interpretation Reference Range Facility .Auto Diffon 04-06-2025 Basophil, Absolute 0.0 10 3/mcL Normal 0.0-0.3 [facility] Comment on above: Performed By: #### T ESTO #### [place] [address] #### GFR, LIPID, CMP, PSA, ANEU, CBC, ADIFF, TSHR, A1C #### [address] [address] Basophils/100 WBC (Bld) 0.7 % Normal 0.0-2.5 [facility] Comment on above: Performed By: #### T ESTO #### [place] [address] #### GFR, LIPID, CMP, PSA, ANEU, CBC, ADIFF, TSHR, A1C #### [address] [address] Eosinophil, Absolute 0.1 10 3/mcL Normal 0.0-0.7 [facility] Comment on above: Performed By: #### T ESTO #### [place] [address] #### GFR, LIPID, CMP, PSA, ANEU, CBC, ADIFF, TSHR, A1C #### [address] [address] Eosinophils/100 WBC (Bld) 2.3 % Normal 0.0-6.0 [facility] Comment on above: Performed By: #### T ESTO #### [place] [address] #### GFR, LIPID, CMP, PSA, ANEU, CBC, ADIFF, TSHR, A1C #### [address] [address] Lymphocyte, Absolute 2.1 10 3/mcL Normal 0.9-4.3 [facility] Comment on above: Performed By: #### T ESTO #### [place] [address] #### GFR, LIPID, CMP, PSA, ANEU, CBC, ADIFF, TSHR, A1C #### [address] [address] Lymphocytes/100 WBC (Bld) 36.2 % Normal 20.0-40.0 [facility] Comment on above: Performed By: #### T ESTO #### [place] [address] #### GFR, LIPID, CMP, PSA, ANEU, CBC, ADIFF, TSHR, A1C #### [address] [address] Monocyte, Absolute 0.5 10 3/mcL Normal 0.1-1.4 [facility] Comment on above: Performed By: #### T ESTO #### [place] [address] #### GFR, LIPID, CMP, PSA, ANEU, CBC, ADIFF, TSHR, A1C #### [address] [address] Monocytes/100 WBC (Bld) 7.8 % Normal 2.0-13.0 [facility] Comment on above: Performed By: #### T ESTO #### [place] [address] #### GFR, LIPID, CMP, PSA, ANEU, CBC, ADIFF, TSHR, A1C #### [address] [address] Neutrophils/100 WBC (Bld) 53.0 % Normal 50.0-75.0 [facility] Comment on above: Performed By: #### T ESTO #### [place] [address] #### GFR, LIPID, CMP, PSA, ANEU, CBC, ADIFF, TSHR, A1C #### [address] [address] .GFRon 04-06-2025 Estimated Glomerular Filtration Rate 78 ml/min/1.73sqm Normal [facility] Comment on above: Result Comment: Stages of Chronic Kidney Disease (CKD) Stage Description eGFR(ml/min/1.73 sq.m.) CKD 1 Normal kidney function or >=90 normal kindney function with possible kidney damage (ex. Proteinuria) CKD 2 Kidney damage with mild loss 60-89 of kidney function CKD 3a Mild to moderate loss of kidney 45-59 function CKD 3b Moderate to severe loss of 30-44 of kindey function CKD 4 Severe loss of kidney function 15-29 CKD 5 Kidney failure <15 Note: (go live 2024) the eGFR calculation was updated to the 2020 CKD-EPI creatinine equation without a race factor to calculate the eGFR results. Performed By: #### T ESTO #### [place] [address] #### GFR, LIPID, CMP, PSA, ANEU, CBC, ADIFF, TSHR, A1C #### [address] [address] .NEUABSon 04-06-2025 Neutrophil, Absolute 3.1 10 3/mcL Normal 2.3-8.1 [facility] Comment on above: Performed By: #### T ESTO #### [place] [address] #### GFR, LIPID, CMP, PSA, ANEU, CBC, ADIFF, TSHR, A1C #### [address] [address] A1Con 04-06-2025 Glucose [Mass/Vol] 117 mg/dL Normal [facility] Comment on above: Result Comment: Tamara mated Average Glucose calculated by equation ((28.7xA1C)-46.7) Estimated average glucose (eAG) is a calculated value from Hemoglobin A1C and is community service representative of the average blood glucose level in the last 2-3 month period. Normal range: less than 114 mg/dL Performed By: #### T ESTO #### [place] [address] #### GFR, LIPID, CMP, PSA, ANEU, CBC, ADIFF, TSHR, A1C #### [address] [address] HbA1c (Bld) [Mass fraction] 5.7 % Normal 4.3-6.4 [facility] Comment on above: Performed By: #### T ESTO #### [place] [address] #### GFR, LIPID, CMP, PSA, ANEU, CBC, ADIFF, TSHR, A1C #### [address] [address] CBCon 04-06-2025 Erythrocyte distribution width (RBC) [Ratio] 13.3 % Normal 11.5-15.5 [facility] Comment on above: Performed By: #### T ESTO #### [place] [address] #### GFR, LIPID, CMP, PSA, ANEU, CBC, ADIFF, TSHR, A1C #### [address] [address] Hematocrit (Bld) [Volume fraction] 44.1 % Normal 40.0-52.0 [facility] Comment on above: Performed By: #### T ESTO #### [place] [address] #### GFR, LIPID, CMP, PSA, ANEU, CBC, ADIFF, TSHR, A1C #### [address] [address] Hgb 15.4 G/dL Normal 13.0-17.5 [facility] Comment on above: Performed By: #### T ESTO #### [place] [address] #### GFR, LIPID, CMP, PSA, ANEU, CBC, ADIFF, TSHR, A1C #### [address] [address] MCH (RBC) [Entitic mass] 31.9 pg Normal 27.0-33.0 [facility] Comment on above: Performed By: #### T ESTO #### [place] [address] #### GFR, LIPID, CMP, PSA, ANEU, CBC, ADIFF, TSHR, A1C #### [address] [address] MCHC 34.9 G/dL Normal 32.0-36.0 [facility] Comment on above: Performed By: #### T ESTO #### [place] [address] #### GFR, LIPID, CMP, PSA, ANEU, CBC, ADIFF, TSHR, A1C #### [address] [address] MCV (RBC) [Entitic vol] 91.3 fL Normal 81.0-100.0 [facility] Comment on above: Performed By: #### T ESTO #### [place] [address] #### GFR, LIPID, CMP, PSA, ANEU, CBC, ADIFF, TSHR, A1C #### [address] [address] Platelet 220 10 3/mcL Normal 150-450 [facility] Comment on above: Performed By: #### T ESTO #### [place] [address] #### GFR, LIPID, CMP, PSA, ANEU, CBC, ADIFF, TSHR, A1C #### [address] [address] Platelet mean volume (Bld) [Entitic vol] 8.2 fL Normal 6.4-10.5 [facility] Comment on above: Performed By: #### T ESTO #### [place] [address] #### GFR, LIPID, CMP, PSA, ANEU, CBC, ADIFF, TSHR, A1C #### [address] [address] RBC 4.83 10 6/mcL Normal 4.50-6.00 [facility] Comment on above: Performed By: #### T ESTO #### [place] [address] #### GFR, LIPID, CMP, PSA, ANEU, CBC, ADIFF, TSHR, A1C #### [address] [address] WBC 5.9 10 3/mcL Normal 4.5-10.8 [facility] Comment on above: Performed By: #### T ESTO #### [place] [address] #### GFR, LIPID, CMP, PSA, ANEU, CBC, ADIFF, TSHR, A1C #### [address] [address] CMPon 04-06-2025 Albumin Level 3.8 G/dL Normal 3.4-4.8 [facility] Comment on above: Performed By: #### T ESTO #### [place] [address] #### GFR, LIPID, CMP, PSA, ANEU, CBC, ADIFF, TSHR, A1C #### [address] [address] Albumin/Globulin [Mass ratio] 1.3 {ratio} Normal 1.1-2.5 [facility] Comment on above: Performed By: #### T ESTO #### [place] [address] #### GFR, LIPID, CMP, PSA, ANEU, CBC, ADIFF, TSHR, A1C #### [address] [address] ALP [Catalytic activity/Vol] 87 U/L Normal 40-135 [facility] Comment on above: Performed By: #### T ESTO #### [place] [address] #### GFR, LIPID, CMP, PSA, ANEU, CBC, ADIFF, TSHR, A1C #### [address] [address] ALT [Catalytic activity/Vol] 30 U/L Normal 16-63 [facility] Comment on above: Performed By: #### T ESTO #### [place] [address] #### GFR, LIPID, CMP, PSA, ANEU, CBC, ADIFF, TSHR, A1C #### [address] [address] AST [Catalytic activity/Vol] 25 U/L Normal 10-40 [facility] Comment on above: Performed By: #### T ESTO #### [place] [address] #### GFR, LIPID, CMP, PSA, ANEU, CBC, ADIFF, TSHR, A1C #### [address] [address] Bili Total 0.7 mg/dL Normal 0.2-1.0 [facility] Comment on above: Result Comment: Use of this assay is not recommended for patients undergoing treatment with eltrombopag due to the potential for falsely elevated results. Performed By: #### T ESTO #### [place] [address] #### GFR, LIPID, CMP, PSA, ANEU, CBC, ADIFF, TSHR, A1C #### [address] [address] BUN/Creatinine Ratio 15 ratio Normal 7-27 [facility] Comment on above: Performed By: #### T ESTO #### [place] [address] #### GFR, LIPID, CMP, PSA, ANEU, CBC, ADIFF, TSHR, A1C #### [address] [address] Calcium [Mass/Vol] 9.2 mg/dL Normal 8.4-10.2 [facility] Comment on above: Performed By: #### T ESTO #### [place] [address] #### GFR, LIPID, CMP, PSA, ANEU, CBC, ADIFF, TSHR, A1C #### [address] [address] Chloride [Moles/Vol] 102 mmol/L Normal 98-107 [facility] Comment on above: Performed By: #### T ESTO #### [place] [address] #### GFR, LIPID, CMP, PSA, ANEU, CBC, ADIFF, TSHR, A1C #### [address] [address] CO2 [Moles/Vol] 31 mmol/L Normal 23-31 [facility] Comment on above: Performed By: #### T ESTO #### [place] [address] #### GFR, LIPID, CMP, PSA, ANEU, CBC, ADIFF, TSHR, A1C #### [place] [address] Creatinine [Mass/Vol] 1.07 mg/dL Normal 0.67-1.17 [facility] Comment on above: Performed By: #### T ESTO #### [place] [address] #### GFR, LIPID, CMP, PSA, ANEU, CBC, ADIFF, TSHR, A1C #### [place] [id number] Electrolyte Balance 8.0 mEq/L Normal 4.0-15.[address] [facility] Comment on above: Performed By: #### T ESTO #### [place] [address] #### GFR, LIPID, CMP, PSA, ANEU, CBC, ADIFF, TSHR, A1C #### [address] [address] Globulin 3.0 G/dL Normal 2.7-4.4 [facility] Comment on above: Performed By: #### T ESTO #### [place] [address] #### GFR, LIPID, CMP, PSA, ANEU, CBC, ADIFF, TSHR, A1C #### [place] [id number] Glucose [Mass/Vol] 156 mg/dL High 80-115 [facility] Comment on above: Performed By: #### T ESTO #### [address] [address] #### GFR, LIPID, CMP, PSA, ANEU, CBC, ADIFF, TSHR, A1C #### [address] [address] Potassium [Moles/Vol] 3.5 mmol/L Normal 3.5-5.1 [facility] Comment on above: Performed By: #### T ESTO #### [place] [address] #### GFR, LIPID, CMP, PSA, ANEU, CBC, ADIFF, TSHR, A1C #### [address] [address] Sodium [Moles/Vol] 141 mmol/L Normal 136-145 [facility] Comment on above: Performed By: #### T ESTO #### [place] [address] #### GFR, LIPID, CMP, PSA, ANEU, CBC, ADIFF, TSHR, A1C #### [address] [address] Total Protein 6.8 G/dL Normal 6.4-8.2 [facility] Comment on above: Performed By: #### T ESTO #### [place] [address] #### GFR, LIPID, CMP, PSA, ANEU, CBC, ADIFF, TSHR, A1C #### [address] [address] Urea nitrogen [Mass/Vol] 16 mg/dL Normal 7-18 [facility] Comment on above: Performed By: #### T ESTO #### [place] [address] #### GFR, LIPID, CMP, PSA, ANEU, CBC, ADIFF, TSHR, A1C #### [address] [address] LABORATORYOrdered By: SYSTEM SYSTEM on 04-06-2025 Albumin BCP dye [Mass/Vol] 3.8 G/dL Normal 3.4 - 4.8 G/dL AO ADM SS Albumin/Globulin [Mass ratio] 1.3 {ratio} Normal 1.1 - 2.5 ratio AO ADM SS ALP [Catalytic activity/Vol] 87 U/L Normal 40 - 135 U/L AO ADM SS ALT With P-5'-P [Catalytic activity/Vol] 30 U/L Normal 16 - 63 U/L AO ADM SS AST With P-5'-P [Catalytic activity/Vol] 25 U/L Normal 10 - 40 U/L AO ADM SS Basophils (Bld) [#/Vol] 0.0 103/mcL Normal 0.0 - 0.3 10^3/mcL AO Workflow SS Basophils/100 WBC (Bld) 0.7 % Normal 0.0 - 2.5 % AO Workflow SS Bilirubin [Mass/Vol] 0.7 mg/dL Normal 0.2 - 1 .0 mg/dL AO ADM SS Comment on above: Interpretive Data: U se of this assay is not recommended for patients undergoing treatment with eltrombopag due to the potential for falsely elevated results. Calcium [Mass/Vol] 9.2 mg/dL Normal 8.4 - 10. 2 mg/dL AO ADM SS Chloride [Moles/Vol] 102 mmol/L Normal 98 - 10 7 mmol/L AO ADM SS CO2 [Moles/Vol] 31 mmol/L Normal 23 - 31 mmol/L AO ADM SS Creatinine [Mass/Vol] 1.07 mg/dL Normal 0.67 - 1.17 mg/dL AO ADM SS Electrolyte Balance 8.0 mEq/L Normal 4.0 - 15 .0 mEq/L AO ADM SS Eosinophil, Absolute 0.1 103/mcL Normal 0.0 - 0 .7 10^3/mcL AO Workflow SS Eosinophils/100 WBC (Bld) 2.3 % Normal 0.0 - 6.0 % AO Workflow SS Erythrocyte distribution width (RBC) [Ratio] 13.3 % Normal 11.5 - 15.5 % AO Workflow SS Globulin 3.0 G/dL Normal 2.7 - 4.4 G/dL AO ADM SS GLOMERULAR FILTRATION RATE/1.73 SQ M.PREDICTED:ARVRAT:P T:SER/PLAS/BLD:QN:CR EATININE-BASED FORMULA (CKD-EPI 2020) 78 ml/min/1.73sqm Invalid Interpretation Code AO Chemistry S Comment on above: Interpretive Data: Stages of Chronic Kidney Disease (CKD) Stage Description eGFR(ml/min/1.73 sq.m.) CKD 1 Normal kidney function or >=90 normal kindney function with possible kidney damage (ex. Proteinuria) CKD 2 Kidney damage with mild loss 60-89 of kidney function CKD 3a Mild to moderate loss of kidney 45-59 function CKD 3b Moderate to severe loss of 30-44 of kindey function CKD 4 Severe loss of kidney function 15-29 CKD 5 Kidney failure <15 Note: (go live 2024) the eGFR calculation was updated to the 2020 CKD-EPI creatinine equation without a race factor to calculate the eGFR results. Glucose [Mass/Vol] 156 mg/dL High 80 - 115 mg/dL AO ADM SS Glucose [Mass/Vol] 117 mg/dL Invalid Interpretation Code AO Chemistry S Comment on above: Interpretive Data: E stimated average glucose (eAG) is a calculated value from Hemoglobin A1C and is community service representative of the average blood glucose level in the last 2-3 month period. Normal range: less than 114 mg/dL HbA1c (Bld) [Mass fraction] 5.7 % Normal 4.3 - 6.4 % AO ADM SS Hematocrit (Bld) [Volume fraction] 44.1 % Normal 40.0 - 52.0 % AO Workflow SS Hemoglobin (Bld) [Mass/Vol] 15.4 G/dL Normal 13.0 - 17.5 G/dL AO Workflow SS Lymphocytes (Bld) [#/Vol] 2.1 103/mcL Normal 0.9 - 4.3 10^3/mcL AO Workflow SS Lymphocytes/100 WBC (Bld) 36.2 % Normal 20.0 - 40.0 % AO Workflow SS MCH (RBC) [Entitic mass] 31.9 pg Normal 27.0 - 33.0 pg AO Workflow SS MCHC 34.9 G/dL Normal 32.0 - 36.0 G/dL AO Workflow SS MCV (RBC) [Entitic vol] 91.3 fL Normal 81.0 - 100.0 fL AO Workflow SS Monocytes (Bld) [#/Vol] 0.5 103/mcL Normal 0.1 - 1.4 10^3/mcL AO Workflow SS Monocytes/100 WBC (Bld) 7.8 % Normal 2.0 - 13.0 % AO Workflow SS Neutrophils (Bld) [#/Vol] 3.1 103/mcL Normal 2.3 - 8.1 10^3/mcL AO Workflow SS Neutrophils/100 WBC (Bld) 53.0 % Normal 50.0 - 75.0 % AO Workflow SS Platelet mean volume (Bld) [Entitic vol] 8.2 fL Normal 6.4 - 10.5 fL AO Workflow SS Platelets (Bld) [#/Vol] 220 103/mcL Normal 150 - 450 10^3/mcL AO Workflow SS Potassium [Moles/Vol] 3.5 mmol/L Normal 3.5 - 5.1 mmol/L AO ADM SS Prostate specific Ag [Mass/Vol] 0.73 ng/mL Normal 0.00 - 4.00 ng/mL AO ADM SS Protein [Mass/Vol] 6.8 G/dL Normal 6.4 - 8.2 G/dL AO ADM SS RBC (Bld) [#/Vol] 4.83 106/mcL Normal 4.50 - 6.0 0 10^6/mcL AO Workflow SS Sodium [Moles/Vol] 141 mmol/L Normal 136 - 145 mmol/L AO ADM SS Testosterone [Mass/Vol] 153.76 ng/dL Normal 86.98 - 780.10 ng/dL AH ADM SS Comment on above: Interpretive Data: N ormal Reference Ranges for Females: Female Premenopause Zst64-431.01-47.94 ng/dL Female Postmenopause Yuj31-19<7.00-45.62 ng/dL TSH Qn 1.03 m[IU]/L Normal 0.36 - 3.74 mcIU/mL AO ADM SS Urea nitrogen [Mass/Vol] 16 mg/dL Normal 7 - 18 mg/dL AO ADM SS Urea nitrogen/Creatinine [Mass ratio] 15 ratio Normal 7 - 27 ratio AO ADM SS WBC (Bld) [#/Vol] 5.9 103/mcL Normal 4.5 - 10.8 10^3/mcL AO Workflow SS LABORATORYOrdered By: Funmilayo Love on 04-06-2025 Cholesterol [Mass/Vol] 153 mg/dL Normal 0 - 200 mg/dL AO ADM SS Comment on above: Interpretive Data: C holesterol Reference Interval: Less than 200 Desirable 200-239 Borderline high risk 240 and above High risk Cholesterol in HDL [Mass/Vol] 36 mg/dL Low 40 - 60 mg/dL AO ADM SS Cholesterol in LDL [Mass/Vol] 98 mg/dL Normal 0 - 130 mg/dL AO ADM SS Triglyceride [Mass/Vol] 97 mg/dL Normal 0 - 150 mg/dL AO ADM SS Comment on above: Interpretive Data: T riglyceride Reference Interval: Less than 150 Normal 150-199 Borderline high risk 200-499 High risk 500 or higher Very high risk LIPIDon 04-06-2025 Cholesterol [Mass/Vol] 153 mg/dL Normal 0-200 [facility] Comment on above: Result Comment: Chol esterol Reference Interval: Less than 200 Desirable 200-239 Borderline high risk 240 and above High risk Performed By: #### T ESTO #### [place] [address] #### GFR, LIPID, CMP, PSA, ANEU, CBC, ADIFF, TSHR, A1C #### [address] [address] Cholesterol in HDL [Mass/Vol] 36 mg/dL Low 40-60 [facility] Comment on above: Performed By: #### T ESTO #### [place] [address] #### GFR, LIPID, CMP, PSA, ANEU, CBC, ADIFF, TSHR, A1C #### [address] [address] Cholesterol in LDL [Mass/Vol] 98 mg/dL Normal 0-130 [facility] Comment on above: Performed By: #### T ESTO #### [place] [address] #### GFR, LIPID, CMP, PSA, ANEU, CBC, ADIFF, TSHR, A1C #### [address] [address] Triglyceride [Mass/Vol] 97 mg/dL Normal 0-150 [facility] Comment on above: Result Comment: Trig lyceride Reference Interval: Less than 150 Normal 150-199 Borderline high risk 200-499 High risk 500 or higher Very high risk Performed By: #### T ESTO #### [place] [address] #### GFR, LIPID, CMP, PSA, ANEU, CBC, ADIFF, TSHR, A1C #### [address] [address] PSAon 04-06-2025 Prostate Specific Antigen 0.73 ng/mL Normal 0.00-4.00 [facility] Comment on above: Performed By: #### T ESTO #### [place] [address] #### GFR, LIPID, CMP, PSA, ANEU, CBC, ADIFF, TSHR, A1C #### [address] [address] TESTOon 04-06-2025 Testosterone Lvl 153.76 ng/dL Normal 86.98-780.10 [facility] Comment on above: Result Comment: Norm al Reference Ranges for Females: Female Premenopause Age 21-60 9.01-47.94 ng/dL Female Postmenopause Age 45-89 <7.00-45.62 ng/dL Performed By: #### T ESTO #### [place] [address] #### GFR, LIPID, CMP, PSA, ANEU, CBC, ADIFF, TSHR, A1C #### [address] [address] TSHRon 04-06-2025 TSH Qn 1.03 m[IU]/L Normal 0.36-3.74 [facility] Comment on above: Performed By: #### T ESTO #### [place] [address] #### GFR, LIPID, CMP, PSA, ANEU, CBC, ADIFF, TSHR, A1C #### [address] [address] 36on 12-07-2024 36 Spoke with patient - aware, Normal [facility] 36 ----- Message from Ramakrishna Tang LPN sent at 12/01/2024 4:46 PM EDT ----- ----- Message ----- From: Kelli Salazar PA-C Sent: 12/01/2024 3:02 PM EDT To: Kip Tnag LPN; Barbara Spence LPN Please call patient with biopsy results: A. Skin, left flank: Actinic keratosis B. Skin, right laguerre: Actinic keratosis The spot biopsied came back as a pre-cancer. I would like the patient to treat this area with Fluorouracil. Please send in rx. Please review side effects of Fluorouracil with patient. Start: Efudex (fluorouracil) cream: Apply a very thin layer to the left flank and right laguerre twice daily x 2 weeks. Patient thoroughly educated about treatment with Efudex, including risks and benefits and detailed application instructions. The severity of your reaction to this medication cannot be predicted. It is normal to have some redness/ irritation and crusting, but to stop treatment if patient develops any open sores, weeping, oozing, ulceration. If any issues with treatment, stop for a few days and then restart until completing 2 week treatment course. The skin must be protected from sun exposure; use clothing, sunscreen, hats, etc. Apply 15-20 minutes before any other creams or makeup. Do not get into eyes. Please see if patient is able to come in for a recheck before the end of the year. If not, please schedule him as soon as he is back in town. Remind patient to return for any additional follow up as scheduled, or call for sooner appointment if issues or concerns arise. ----- Message ----- From: Cara Simms Sent: 12/01/2024 10:23 AM EDT To: Kelli Salazar PA-C [facility] 36on 12-01-2024 36 [facility] 36 ----- Message from Kelli Salazar PA-C sent at 12/01/2024 3:02 PM EDT ----- Please call patient with biopsy results: A. Skin, left flank: Actinic keratosis B. Skin, right laguerre: Actinic keratosis The spot biopsied came back as a pre-cancer. I would like the patient to treat this area with Fluorouracil. Please send in rx. Please review side effects of Fluorouracil with patient. Start: Efudex (fluorouracil) cream: Apply a very thin layer to the left flank and right laguerre twice daily x 2 weeks. Patient thoroughly educated about treatment with Efudex, including risks and benefits and detailed application instructions. The severity of your reaction to this medication cannot be predicted. It is normal to have some redness/ irritation and crusting, but to stop treatment if patient develops any open sores, weeping, oozing, ulceration. If any issues with treatment, stop for a few days and then restart until completing 2 week treatment course. The skin must be protected from sun exposure; use clothing, sunscreen, hats, etc. Apply 15-20 minutes before any other creams or makeup. Do not get into eyes. Please see if patient is able to come in for a recheck before the end of the year. If not, please schedule him as soon as he is back in town. Remind patient to return for any additional follow up as scheduled, or call for sooner appointment if issues or concerns arise. ----- Message ----- From: Asteres User Cara Sent: 12/01/2024 10:23 AM EDT To: Kelli Salazar PA-C [facility] Pulmonary Visit Reporton Pulmonary Visit Report [facility] [place] [address] [address] [facility] [place] [address] OFFICE VISIT Date of Service: 11/30/24 MR#: [id number] Acct: [id number] Name: COOPERKODAK BATEMAN Rep #: [id number] : 1960 Provider: Su Stewart NP Age/Sex: 64/M [place] [facility] [place] [facility] [place] Status: Signed Assessment and Plan Assessment and Plan (1) Daytime hypersomnia: Status: Acute Comment: Stop bang = 6 Plan: The patient is at high risk for sleep disordered breathing. I believe that this is the source for the nocturnal hypoxemia that is present on recent nocturnal oximetry. I am suspecting MARGOT versus CSA. The patient does have a history of concussion so CSA may be present. I have recommended that the patient undergo a in lab PSG due to the hypoxemia that has been identified. If possible attempt the study on room air versus 2 L/min of supplemental oxygen. The patient understands that if his PSG is positive he will likely need a second study in the lab to determine the optimal treatment for sleep apnea. He is in agreement to this plan. If the PSG is negative then I will be looking for other etiologies for nocturnal hypoxemia. The pathophysiology and treatment for sleep apnea was reviewed extensively with patient today. (2) Asthma: Qualifiers: Asthma severity: moderate Asthma persistence: persistent Asthma complication type: uncomplicated Qualified Code(s): J45.40 - Moderate persistent asthma, uncomplicated Plan: Asthma is currently controlled. Continue with ICS/LABA inhaler, Dulera, in a consistent manner. Use albuterol on an as-needed basis. Notify this practice if there is worsening respiratory symptoms. (3) Hypoxemia: Status: Acute Plan: Nocturnal hypoxemia is identified. Believe that this is due to sleep disordered breathing and at this time sleep testing is warranted. Daytime supplemental oxygen is not needed at this time but the patient understands that his roc is now within normal limits. This could be due to suboptimal control of nocturnal oxygenation. Orders: Orders Polysomnography Today G47.10 - Hypersomnia, unspecified Plan Details Follow Up: 3 Months (LMR) HPI HPI Comments Details: Patient is a 64-year-old male who presents to the office today for follow-up. He is ambulatory and currently on room air. Since last follow-up he has not had respiratory illness requiring antibiotics or prednisone. He reports that he has not been to the urgent care since July. If you recall, the patient was initially referred to our office for the evaluation of asthma. The patient was relatively asymptomatic until June 2020 when he was diagnosed with coronavirus. He is a lifelong non-smoker, but did report secondhand smoke exposure from his parents growing up. 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 He is now in semiretirement. He does currently keep 1 dog and 3 cats as pets in his home environment. The patient denied a history of venous thromboembolic disease. 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 There was no significant bronchodilator response. He is using Dulera 200 with good benefit. He has not had side effects of this inhaler such as sore throat or hoarseness. He reports infrequent use of his rescue inhaler. He no longer receives weekly immunotherapy injections from [facility]. He does continue with use of Zyrtec and montelukast. Overall he denies shortness of breath. He denies wheezing and cough. He denies chest pain and chest tightness. He he does feel tired through the day. He has noted that he has gasp at night for air. His family has told him that he snores. He does not nap. No nocturia is occurring. He sleeps on his left side. He uses his portable tank when he travels for short trips. He has noticed that his portable tank beeps at night and this only occurs when he stops breathing. He has a niece who has sleep apnea. In 2001 he was on a cruise and had a concussion. His headaches had worsened. He was evaluated for concussion in ER and diagnosed with subdural hemorrhage. He is still using supplemental oxygen at night because his levels drop to 86/87% and he will use 2L/min. He recently increased his supplemental oxygen to 4 L/min due to the results of the nocturnal oximetry. He believes that the results of the nocturnal oximetry were not accurate. He does move around at night. He is asking to repeated at this time. Documentation reviewed with patient today includes: PFT from November 17, 2024 shows grossly normal pulmonary function study. 6-minute walk test from November 22, 2024 shows no significant exertional oxygen desaturation. There is no indication for the use of supplemental oxygen at this time. Nocturnal oximetry from September (more content not included)... Normal [facility] 37on 11-29-2024 37 Start: - Efudex (fluorouracil) cream: Apply a very thin layer to face, bilateral forearms and dorsal hands twice daily x 2 weeks. Helioc[employer] Vitamins on [employer] to help heal skin from inside out BIOPSY / SURGICAL AFTERCARE 1. If a dressing is in place, please leave it for 24 hours unless given other instructions. 2. After that time, remove the initial bandage, and cleanse the area with a mild, fragrance free soap such as Dove, Cetaphil, or CeraVe. 3. Apply Vaseline to the area and cover with a new bandage. Please do not use Neosporin, Polysporin, or Bacitracin, as these may cause unwanted allergic reactions in some patients, and are not necessary for good healing. 4. Repeat the above steps every day for 7 days unless otherwise directed by physician or nurse. 5. If any bleeding occurs, use a clean cotton or gauze, apply firm, direct pressure to the area for 10 to 15 minutes. If the bleeding does not stop, call our office at [phone]. 6. The wound should improve daily. If you notice any increased redness, swelling, drainage, warmth, or pain in the area, please notify our office. Please be advised that it can take up to 2 weeks for these sites to heal. In some patients it may take even longer depending on location (lower legs / feet) and / or if the patient has history of diabetes. Our office will notify you of the results in about 2 weeks. Normal [facility] Office Visiton 11-29-2024 Follow-up visit [id number] Oneil Gamboa 1960 Date Provider Department Center 11/29/2024 [id number] SALAZAR [facility] None Family History Problem Relation Age of Onset Heart disease Father Family Status - Relation Status Age at Father Mother Alive Level of Service:19996 [facility] OFFICE/OUTPATIENT ESTABLISHED MOD MDM 30 MIN (25) Reason for Visit and Comments: Annual Exam [83] - Enio 08/04/2023 [facility] Progress Noteon 11-29-2024 Progress Note DATE OF SERVICE: 11/29/2024 PATIENT NAME: Kodak Gamboa : 1960 AGE: 64 y.o. CLINIC NUMBER: [id number] Visit type: Established patient Chief Complaint Patient presents with Annual Exam Enio 08/04/2023 Subjective HISTORY OF PRESENT ILLNESS: Kodak Gamboa is a 64 y.o. who presents to the office for a check up. Patient's last FSE was done on 08/04/2023. Denies any skin lesions changing in size, shape or color. Denies any skin lesions itching, bleeding or becoming tender. Patient does have a history of actinic keratosis - patient states that he has used efudex cream to his chest, cheeks, temples and nose that was his girlfriends and he did get a reaction so he is wondering if this is something he should do Patient states that he mainly lives in [place] - however comes to [place] every 3 months for his doctor appointments. 08/04/2023 Pathology Report: Skin, left lower back: Inflamed seborrheic keratosis Patient has no h/o of ATN. Patient has h/o of Aks- Cryotherapy. Patient has personal h/o skin cancer: sBCC Mid upper back s/p ED&C w/Suad Tate [facility] 11/16/19. Patient has no family h/o melanoma. History of pacemaker/ defibrillator? No. History of HIV/ Hep C? No. Allergies to Lidocaine, Epinephrine, Latex or Adhesive? No- patient has allergies to benzocaine and procaine but states he has had testing done and is ok with lidocaine. Social History: Born/raised in [place]. Pets in the home: Yes. H/o excessive sun exposure. Never used tanning beds. Patient does currently spend frequent time outdoors-Spends a lot of time in [place]. Patient does wear SPF. Patient does use additional sun protection measures. Review of Systems Dermatology: as per HPI, otherwise negative Vitals: 11/29/24 1306 BP: 126/86 Pulse: 64 PHYSICAL EXAM: GENERAL APPEARANCE:?alert and oriented x3, well developed and well nourished. PSYCH: appropriate mood and affect DERMATOLOGY: Skin Exam 1. NEOPLASM OF UNCERTAIN BEHAVIOR OF SKIN (2) Left Flank 6 mm well circumscribed erythematous pink macule Skin Biopsy Type of biopsy: tangential Informed consent: discussed and consent obtained Timeout: patient name, date of , surgical site, and procedure verified Anesthesia: the lesion was anesthetized in a standard fashion Anesthetic: 1% lidocaine w/ epinephrine 1-100,000 buffered w/ 8.4% NaHCO3 Instrument used: DermaBlade Hemostasis achieved with: electrodesiccation Outcome: patient tolerated procedure well Post-procedure details: wound care instructions given Specimen A - Tissue exam Differential Diagnosis: sBCC vs other Check Margins: No Right Laguerre 6 mm well circumscribed erythematous pink macule Skin Biopsy Type of biopsy: tangential Informed consent: discussed and consent obtained Timeout: patient name, date of , surgical site, and procedure verified Anesthesia: the lesion was anesthetized in a standard fashion Anesthetic: 1% lidocaine w/ epinephrine 1-100,000 buffered w/ 8.4% NaHCO3 Instrument used: DermaBlade Hemostasis achieved with: electrodesiccation Outcome: patient tolerated procedure well Post-procedure details: wound care instructions given Specimen B - Tissue exam Differential Diagnosis: sBCC vs other Check Margins: No Biopsy recommended. Patient expresses understanding and is in agreement with the plan. Biopsy (x 2) obtained today. Patient educated that we will call with the biopsy results within 2 weeks. Care instructions reviewed and written instructions provided to patient. 2. ACTINIC KERATOSIS (6) Head - Anterior (Face), Left Forearm - Posterior (2), Left Hand - Posterior, Right Forearm - Posterior, Right Hand - Posterior [place] scaly macules [x]Chronic []Acute []Stable [x]Flaring/Exacerbation - Educated and reassured. Treatment options, risks, benefits, and expectations reviewed. - Patient educated on actinic keratosis and the possibility of transformation into SCC. Treatment options are discussed with risks and benefits reviewed. Patient is agreeable to start treatment with Efudex (fluorouracil) . 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 Start: - Efudex (fluorouracil) cream: Apply a very thin layer to face, bilateral forearms and dorsal hands twice daily x 2 weeks. Patient thoroughly educated about treatment with Efudex, including risks and benefits and detailed application instructions. The severity of your reaction to this medication cannot be predicted. It is normal to have some redness/ irritation and crusting, but to stop treatment if patient develops any open sores, weeping, oozing, ulceration. If any issues with treatment, stop for a few days and then restart until completing 2 week treatment course. The skin must be protected from sun exposure; use clothing, sunscreen, hats, etc. Apply 15-20 minutes before any other creams or makeup. Do not get into eyes. Patient recommended to [facility] (more content not included)... [facility] Skin Biopsyon 11-29-2024 Type of biopsy: tangential Informed consent: discussed and consent obtained Timeout: patient name, date of , surgical site, and procedure verified Anesthesia: the lesion was anesthetized in a standard fashion Anesthetic: 1% lidocaine w/ epinephrine 1-100,000 buffered w/ 8.4% NaHCO3 Instrument used: DermaBlade Hemostasis achieved with: electrodesiccation Outcome: patient tolerated procedure well Post-procedure details: wound care instructions given [facility] Type of biopsy: tangential Informed consent: discussed and consent obtained Timeout: patient name, date of , surgical site, and procedure verified Anesthesia: the lesion was anesthetized in a standard fashion Anesthetic: 1% lidocaine w/ epinephrine 1-100,000 buffered w/ 8.4% NaHCO3 Instrument used: DermaBlade Hemostasis achieved with: electrodesiccation Outcome: patient tolerated procedure well Post-procedure details: wound care instructions given [facility] Echocardiogram study reportO rdered By: Fermin Vogt on 11-28-2024 Study report [facility] Services [address] [place] [address] Echo Complete 11/25/24 1300 MR#: [id number] Acct: [id number] Name: KODAK GAMBOA Rep #:[id number] : 1960 64 From: Fermin Durbin Attending Dr: Dr. Fermin Vogt MD S tatus: REG CLI Ordering Dr: Fermin Vogt MD Date: Location: CVS Sex: M C Admitted: Reason For Study Reason For Study: ASSESS LV W/ HTN Procedure This was a 2D Doppler, Color Flow transthoracic echocardiogram. Exam performed in department. Left Ventricle Normal LV size. The left ventricular ejection fraction is 65 %. No regional wallmotion abnormalities noted. Right Ventricle Normal RV size. Normal systolic function. Atria Normal left atrium. Normal right atrium. Mitral Valve Normal mitral valve. Tricuspid Valve Normal tricuspid valve. Aortic Valve Trisinus/trileaflet aortic valve. Great Vessels Normal aortic root. The pulmonary artery is normal size. Pericardium/Pleural No pericardial effusion. MMode/2D Measurements & Calculations LVIDd: 4.7 cm IVSd: 1.1 cm LVOT diam: 2.0 cm LVIDs: 3.0 cm LVPWd: 1.1 cm LVOT area: 3.1 cm2 FS: 37.6 % Ao root diam: 3.1 cm LAV(MOD-bp): 38.3 ml LVAd ap4: 29.5 cm2 LAV(MOD-bp) Indexed: 16.8 ml/m2 LVLd ap4: 8.7 cm LAV(MOD-sp2): 37.1 ml EDV(MOD-sp4): 85.0 ml LAV(MOD-sp4): 30.8 ml EDV(sp4-el): 84.8 ml LVAs ap4: 14.3 cm2 LVLs ap4: 6.3 cm ESV(MOD-sp4): 27.3 ml ESV(sp4-el): 27.2 ml EF(MOD-sp4): 67.9 % EF(sp4-el): 67.9 % SV(MOD-sp4): 57.7 ml SV(sp4-el): 57.5 ml LA A4 area: 14.7 cm2 SI(MOD-sp4): 25.3 ml/m2 LA dimension(2D): 4.2 cm RA A4 area: 15.6 cm2 Time Measurements MV dec time: 0.30 sec Doppler Measurements & Calculations MV E max jett: 74.9 cm/sec Lat Peak E' Jett: 15.7 cm/sec Med Peak E' Jett: 12.7 cm/sec MV A max jett: 66.4 cm/sec E/E' lat: 4.8 E/E' med: 5.9 MV E/A: 1.1 MV V2 max: 72.4 cm/sec Ao V2 max: 140.4 cm/sec MV max P.1 mmHg MV dec slope: 251.3 cm/sec2 Ao max P.9 mmHg MV V2 mean: 45.5 cm/sec Ao V2 mean: 93.1 cm/sec MV mean P.93 mmHg Ao mean P.2 mmHg MV V2 VTI: 31.3 cm Ao V2 VTI: 31.1 cm AV (velocity ratio): 0.97 MVA(VTI): 3.0 cm2 SERGIO(I,D): 3.0 cm2 SERGIO(V,D): 3.0 cm2 LV V1 max: 136.8 cm/sec SV(LVOT): 93.8 ml PA V2 max: 94.8 cm/sec LV V1 max P.5 mmHg PA V2 mean: 70.1 cm/sec LV V1 mean P.2 mmHg LV V1 mean: 94.6 cm/sec LV V1 VTI: 30.2 cm ECHO/Echo Complete Interpretation Summary The left ventricular ejection fraction is 65 %. Normal LV size. No regional wall motion abnormalities noted. Ordering Physician: Fermin Vogt Referring Physician: Fermin Vogt Performed By: Angela Colvin RCS 11/28/24 0743 Date _ Fermin Vogt MD CC: Dr. Brock Carey MD; Dr. Fermin Vogt MD ~ Date Dictated: 11/25/24 1300 Date Transcribed: 11/28/24742 [employer]: Signed [facility] Work Phone: 6 Minute Walk Teston 025 6 Minute Walk Test [facility] Pulmonary Services/Neurology [address] [place] [address] MR#: [id number] Acct: [id number] Name: KODAK GAMBOA Rep #: [id number] : 1960 64 From: Meet Ford DO Referring Dr: Su Stewart WOODS SUPERINTENDENT-C Status: REG CLI Location: [facility] Date: Sex: M C PSN 6 Minute Walk Test 6 Minute Walk Test 6 Minute Walk Test: 6 Minute Walk Test PSN:6-Minute Walk Test Start: 11/22/24 12:26 Freq: Status: Active Protocol: RESP.6MINW Document 11/22/24 11:13 [facility] (Rec: 11/22/24 12:31 [facility]B [id number]) 6 Minute Walk Test Date Performed 11/22/24 Time Performed 11:13 Height 27.95 in Weight: 230 lb Weight in Pounds 230.[address]: Su Stewart Assistive device None used: Pre-test Oxygen Delivery Room Air Method Pulse Ox (%) 95 Pulse Rate (60-100 58 L beats/min) Dyspnea Hazel Scale ( 3 0-10) Exertion Hazel Scale 7 (6-20) 1st minute Oxygen Delivery Room Air Method Pulse Ox (%) 93 Pulse Rate (60-100 76 beats/min) 2nd minute Oxygen Delivery Room Air Method Pulse Ox (%) 91 Pulse Rate (60-100 81 beats/min) 3rd minute Oxygen Delivery Room Air Method Pulse Ox (%) 93 Pulse Rate (60-100 82 beats/min) 4th minute Oxygen Delivery Room Air Method Pulse Ox (%) 92 Pulse Rate (60-100 81 beats/min) 5th minute Oxygen Delivery Room Air Method Pulse Ox (%) 92 Pulse Rate (60-100 83 beats/min) 6th minute Oxygen Delivery Room Air Method Pulse Ox (%) 93 Pulse Rate (60-100 82 beats/min) Dyspnea Hazel Scale ( 4 0-10) Exertion Hazel Scale 8 (6-20) Post-test Oxygen Delivery Room Air Method Pulse Ox (%) 97 Pulse Rate (60-100 59 L beats/min) Full Laps Walked 22 Partial Lap, Number 0 of Tiles Walked Total Distance 1298 Walked (ft) Interpretation Interpretation: The patient ambulated 1298 feet over the course of 6 minutes beginning on room air without assistive devices. Pretesting oxygen saturation was noted to be 95% on room air. With ambulation, the roc oxygen saturation was 91%. There was no significant exertional oxygen desaturation. Recommendations Recommendations: There is no indication for the use of supplemental oxygen at this time. 11/25/24 1046 Date Meet Ford DO CC: Date Dictated: 11/25/24 1046 Date Transcribed: 11/25/241045 [employer]: Dr. Meet Ford DO Signed Normal [facility] Echo Completeon 11-25-2024 Echo [facility] [address] [place] [address] Echo Complete 11/25/24 1300 MR#: [id number] Acct: [id number] Name: KODAK GAMBOA Rep #: [id number] : 1960 64 From: Fermin Vogt MD Attending Dr: Dr. Fermin Vogt MD Status: [facility] Ordering Dr: Fermin Vogt MD Date: 11/25/24 Location: [facility] Sex: M C Admitted: Reason For Study Reason For Study: ASSESS LV W/ HTN Procedure This was a 2D Doppler, Color Flow transthoracic echocardiogram. Exam performed in department. Left Ventricle Normal LV size. The left ventricular ejection fraction is 65 %. No regional wall motion abnormalities noted. Right Ventricle Normal RV size. Normal systolic function. Atria Normal left atrium. Normal right atrium. Mitral Valve Normal mitral valve. Tricuspid Valve Normal tricuspid valve. Aortic Valve Trisinus/trileaflet aortic valve. Great Vessels Normal aortic root. The pulmonary artery is normal size. Pericardium/Pleural No pericardial effusion. MMode/2D Measurements Calculations LVIDd: 4.7 cm IVSd: 1.1 cm LVOT diam: 2.0 cm LVIDs: 3.0 cm LVPWd: 1.1 cm LVOT area: 3.1 cm2 FS: 37.6 % Ao root diam: 3.1 cm LAV(MOD-bp): 38.3 ml LVAd ap4: 29.5 cm2 LAV(MOD-bp) Indexed: 16.8 ml/m2 LVLd ap4: 8.7 cm LAV(MOD-sp2): 37.1 ml EDV(MOD-sp4): 85.0 ml LAV(MOD-sp4): 30.8 ml EDV(sp4-el): 84.8 ml LVAs ap4: 14.3 cm2 LVLs ap4: 6.3 cm ESV(MOD-sp4): 27.3 ml ESV(sp4-el): 27.2 ml EF(MOD-sp4): 67.9 % EF(sp4-el): 67.9 % SV(MOD-sp4): 57.7 ml SV(sp4-el): 57.5 ml LA A4 area: 14.7 cm2 SI(MOD-sp4): 25.3 ml/m2 LA dimension(2D): 4.2 cm RA A4 area: 15.6 cm2 Time Measurements MV dec time: 0.30 sec Doppler Measurements Calculations MV E max jett: 74.9 cm/sec Lat Peak E' Jett: 15.7 cm/sec Med Peak E' Jett: 12.7 cm/sec MV A max jett: 66.4 cm/sec E/E' lat: 4.8 E/E' med: 5.9 MV E/A: 1.1 MV V2 max: 72.4 cm/sec Ao V2 max: 140.4 cm/sec MV max P.1 mmHg MV dec slope: 251.3 cm/sec2 Ao max P.9 mmHg MV V2 mean: 45.5 cm/sec Ao V2 mean: 93.1 cm/sec MV mean P.93 mmHg Ao mean P.2 mmHg MV V2 VTI: 31.3 cm Ao V2 VTI: 31.1 cm AV (velocity ratio): 0.97 MVA(VTI): 3.0 cm2 SERGIO(I,D): 3.0 cm2 SERGIO(V,D): 3.0 cm2 LV V1 max: 136.8 cm/sec SV(LVOT): 93.8 ml PA V2 max: 94.8 cm/sec LV V1 max P.5 mmHg PA V2 mean: 70.1 cm/sec LV V1 mean P.2 mmHg LV V1 mean: 94.6 cm/sec LV V1 VTI: 30.2 cm ECHO/Echo Complete Interpretation Summary The left ventricular ejection fraction is 65 %. Normal LV size. No regional wall motion abnormalities noted. Ordering Physician: Fermin Vogt Referring Physician: Fermin Vogt Performed By: Angela Colvin RCS 11/28/24 0743 Date Fermin Vogt MD CC: Dr. Brock Carey MD; Dr. Fermin Vogt MD Date Dictated: 11/25/24 1300 Date Transcribed: 11/28/24 0743 [employer]: Signed [facility] 12 Lead EKG performed [place] [facility] 09-14-2024 12 Lead EKG performed by [facility] [address] [place] [address] 12 Lead EKG performed by [facility] [place] 09/14/241055 MR#: [id number] Acct: [id number] Name: KODAK GAMBOA Rep #: [id number] : 1960 63 From: Fermin Vogt MD Attending Dr: Dr. Fermin Vogt MD Status: DEP A LIANET Ordering Dr: Fermin Vogt MD Date: 09/14/24 Location: [facility] Sex: M C Admitted: [facility] [place]12 Lead EKG performed [place] [facility] [place] ECG Report Interpretation ---Sinus Rhythm -RSR(V1) -nondiagnostic. PROBABLY NORMALElectronically signed on 09/14/2024 at 11:29 by Fermin Vogt [employer] Software Version [id number] 09/14/24 1135 Date Fermin Vogt MD CC: Dr. Brock Carey MD Date Dictated: 09/14/241055 Date Transcribed: 09/14/241055 [employer]: [place] Signed Normal [facility] Cardiology Visit Reporton Cardiology Visit Report [facility] [address] [place] [address] OFFICE VISIT Date of Service: 09/14/24 MR#: [id number] Acct: [id number] Name: KODAK GAMBOA Rep #: [id number] : 1960 Provider: Dr. Fermin Vogt MD Age/Sex: 63/M Location: [facility] Status: Signed HPI HPI History of Present Illness Details: 63-year-old man with a previous cardiac history of hypertension hyperlipidemia asthma who was recently admitted to the hospital with shortness of breath secondary to an exacerbation of respiratory syncytial virus. During the hospitalization it was noted that he had not followed up with cardiology for many years and so cardiology follow-up was sought. He has had no chest pain suggestive of angina no dizziness or diaphoresis no near-syncope or syncope. He has been compliant with his medications though. He tells me that he still has to use oxygen occasionally. He has not had any dizzy spells otherwise. His physical exam is unremarkable today his electrocardiogram demonstrates sinus rhythm with a rate of 63 bpm. 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: No Accompanied by: Self Is patient in pain?: No Allergies sulfamethoxazole (From Bactrim) Allergy (Intermediate, Verified 09/14/24 11:01) PT UNSURE OF REACTION trimethoprim (From Bactrim) Allergy (Intermediate, Verified 09/14/24 11:01) PT UNSURE OF REACTION articaine (From Septocaine) Allergy (Unknown, Verified 09/14/24 11:01) Hives epinephrine (From Septocaine) Allergy (Unknown, Verified 09/14/24 11:01) Hives procaine Allergy (Unknown, Verified 09/14/24 11:01) Hives ipratropium Allergy (Verified 09/14/24 11:01) Laryngospasms benzocaine Adverse Reaction (Verified 09/14/24 11:01) Hives Medications ???Medication ???Instructions ???Recorded ???Confirmed ???Type montelukast 10 mg tablet 10 mg PO DAILY 04/04/18 09/14/24 H istory atorvastatin 40 mg tablet 40 mg PO QHS #90 tabs 05/12/1803/02 Rx losartan 100 mg tablet 100 mg PO QHS #90 tabs 12/03/18 Rx metoprolol succinate 50 mg 50 mg PO DAILY #90 tabs 12/03/18 0 09/14/24 Rx tablet,extended release 24 hr dicyclomine 10 mg capsule 20 mg PO TIDAC PRN 12/05/20 History albuterol sulfate 90 mcg/actuation 2 puff inhalation Q4H PRN 09/14/24 Rx aerosol inhaler (Ventolin HFA) shortness of breath or wheezing #8.5 grams meloxicam 15 mg tablet 15 mg PO DAILY PRN 11/24/22 History azelastine 137 mcg (0.1 %) nasal intranasal 09/10/23 09/14/24 Histo ry spray cetirizine 10 mg tablet 10 mg PO QDAY 09/10/23 09/14/24 Hi story buspirone 15 mg tablet 15 mg PO DAILY 02/18/24 09/14/24 H istory fluoxetine 20 mg capsule 20 mg PO DAILY 02/18/24 09/14/24 H istory gabapentin 300 mg capsule 300 mg PO BID 02/18/24 09/14/24 Hi story hydrochlorothiazide 25 mg tablet 25 mg PO QAM 02/18/24 09/14/24 His tory lorazepam 1 mg tablet 1 mg PO BID 02/18/24 09/14/24 Hist ory multivitamin 1 tab PO QAM 02/18/24 09/14/24 His tory testosterone cypionate 200 mg/mL 200 mg IM QMONTH 02/18/24 09/14/24 History intramuscular oil butalbital 50 mg-acetaminophen 325 1 cap PO DAILY PRN migraines 03/0209/14/24 History mg-caffeine 40 mg-codeine 30 mg cap mometasone-formoterol HFA 200 2 puff inhalation BID 09/14/2403/02 History mcg-5 mcg/actuation aerosol inhaler (Dulera) pantoprazole 40 mg tablet,delayed 40 mg PO DAILY PRN Indigestion 09/14/24 History release trazodone 50 mg tablet 50 mg PO QHS PRN 09/14/24 09/14/24 History Have you fallen in the past year?: No PFSH Medical History Cervical disc disorder Testicular hypofunction ISAURA (generalized anxiety disorder) Migraine without aura and without status migrainosus, not intractable Dyspnea on exertion Chest pain Asthma Hyperlipidemia GERD (gastroesophageal reflux disease) Essential (primary) hypertension Surgical History Hx of craniotomy Hx of inguinal hernia repair History of elbow surgery H/O cervical spine surgery (08/2016) Family History Father CAD (coronary artery disease) Myocardial infarction age 42 from [place] Mother Hypertension CVA (cerebral vascular accident) Grandfather Heart disease Colon cancer Social History Smoking Status: Ne (more content not included)... Normal [facility] Pulmonary Visit Reporton Pulmonary Visit Report [facility] [place] [address] [place] [address] OFFICE VISIT Date of Service: 08/31/24 MR#: [id number] Acct: [id number] Name: KODAK GAMBOA Rep #: [id number] : 1960 Provider: Su Stewart NP Age/Sex: 63/M Location: [facility] Status: Signed Assessment and Plan Assessment and Plan (1) Asthma: Qualifiers: Asthma severity: severe Asthma persistence: persistent Asthma complication type: uncomplicated Qualified Code(s): J45.50 - Severe persistent asthma, uncomplicated Plan: NIOX is elevated today likely due to the patient being without ICS use. I have recommended that he return to using the ICS/LABA inhaler, Dulera, in a consistent manner. The patient could be expe riencing mucous plugging which would cause him to have hypoxemia. Hypoxemia is currently unexplained. I have recommended that he continue to utilize his supplemental oxygen but further oxygen testing is warranted. I have recommended a nocturnal oximetry from his local vendor on 2 L/min supplemental oxygen to be obtained. I have also recommended that he complete a 6-minute walk test and a PFT in 8 weeks to allow for him to have some time on the ICS/LABA inhaler. I have also recommended the use of warm salt water gargles. (2) Hypoxemia: Status: Acute Plan: The patient did experience hypoxemia with recent hospitalization. Obtain further testing and then follow-up to discuss. Orders: Orders NIOX Today J45.51 - Severe persistent asthma with (acute) exacerbation PFT Complete - DLCO, Spirometry b/a bronchodilators, lung volumes 09/13/24 J45.51 - Severe persistent asthma with (acute) exacerbation Simple Pulmonary Exercise Test 11/22/24 J45.51 - Severe persistent asthma with (acute) exacerbation Plan Details Follow Up: 3 Months (LMR) HPI HPI Comments Details: Patient is a 63-year-old male who presents to the clinic today for a routine scheduled follow-up office visit. He is here today for follow-up as he has recently returned from [place]. He believes that his respiratory symptoms started in April with URI due to paint exposure and only using paper mask. He was still sick in June and then was hospital for 5 days then 2 days later he presented back to the ER with pneumonia. Then discharged home on O2. He feels like he has had dramatic improvement. He was discharged home on prednisone and Augmentin. He indicates that he was hospitalized for RSV, pneumonia, throat ulcers, inner ear infection, and pinkeye. While hospitalized he experienced laryngeal spasm with use of ipratropium albuterol. In the past he has had no difficulty with albuterol but he reports that the ipratropium caused the laryngeal spasm. If you recall, the patient was initially referred to our office for the evaluation of asthma. The patient was relatively asymptomatic until June 2020 when he was diagnosed with coronavirus. He is a lifelong non-smoker, but did report secondhand smoke exposure from his parents growing up. 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 He is now in semiretirement. He does currently keep 1 dog and 3 cats as pets in his home environment. The patient denied a history of venous thromboembolic disease. 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 There was no significant bronchodilator response. He was using Trelegy Ellipta 200 mcg dosing from his [employer]. He was recently transitioned to Dulera 200 from [employer] since he experienced laryngeal spasm with using ipratropium albuterol while hospitalized in [place]. The patient indicates that he has not yet picked up this inhaler. He is still experiencing some ulcers on my uvula . He reports infrequent use of his rescue inhaler. He no longer receives weekly immunotherapy injections from [employer]. He does continue with use of Zyrtec and montelukast. Since recent illness he continues to have cough which is productive at times with green sputum. He also has shortness of breath with activity. He reports the chest congestion is present. He denies chest pain chest tightness and chest palpitations. He denies any fevers, chills or night sweats. He is still using supplemental oxygen at night because his levels drop to 86/87% and he will use 2L/min. 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 [facility] 36on 08-03-2024 36 Patient requesting c all back to reschedule FSE with Cecilia. Thank you. [facility] Skin Biopsyon 08-04-2023 Type of biopsy: tangential Informed consent: discussed and consent obtained Timeout: patient name, date of , surgical site, and procedure verified Procedure prep: Patient was prepped and draped in usual sterile fashion Prep type: Isopropyl alcohol Anesthesia: the lesion was anesthetized in a standard fashion Anesthetic: 1% lidocaine w/ epinephrine 1-100,000 buffered w/ 8.4% NaHCO3 Instrument used: DermaBlade Hemostasis achieved with: electrodesiccation Outcome: patient tolerated procedure well Post-procedure details: sterile dressing applied and wound care instructions given Dressing type: petrolatum and bandage [facility] .Auto Diffon 06-29-2023 Basophil, Absolute 0.1 10 3/mcL Normal 0.0-0.2 [facility] ([place]) Comment on above: Performed By: #### T ESTO #### [place] [address] #### ANEU, GFR, MORPH, PSA, LIPID, CMP, ADIFF, CBC, A1C #### [address] [address] Basophils/100 WBC (Bld) 0.8 % Normal 0.0-2.5 [facility] ([place]) Comment on above: Performed By: #### T ESTO #### [place] [address] #### ANEU, GFR, MORPH, PSA, LIPID, CMP, ADIFF, CBC, A1C #### [address] [address] Eosinophil, Absolute 0.1 10 3/mcL Normal 0.0-0.4 [facility] ([place]) Comment on above: Performed By: #### T ESTO #### [place] [address] #### ANEU, GFR, MORPH, PSA, LIPID, CMP, ADIFF, CBC, A1C #### [address] [address] Eosinophils/100 WBC (Bld) 1.7 % Normal 0.0-7.0 [facility] ([place]) Comment on above: Performed By: #### T ESTO #### [place] [address] #### ANEU, GFR, MORPH, PSA, LIPID, CMP, ADIFF, CBC, A1C #### [address] [address] Lymphocyte, Absolute 2.5 10 3/mcL Normal 0.8-3.9 [facility] ([place]) Comment on above: Performed By: #### T ESTO #### [place] [address] #### ANEU, GFR, MORPH, PSA, LIPID, CMP, ADIFF, CBC, A1C #### [address] [address] Lymphocytes/100 WBC (Bld) 35.0 % Normal 10.0-50.0 [facility] ([place]) Comment on above: Performed By: #### T ESTO #### [place] [address] #### ANEU, GFR, MORPH, PSA, LIPID, CMP, ADIFF, CBC, A1C #### [address] [address] Monocyte, Absolute 0.8 10 3/mcL Normal 0.2-1.0 [facility] ([place]) Comment on above: Performed By: #### T ESTO #### [address] [address] #### ANEU, GFR, MORPH, PSA, LIPID, CMP, ADIFF, CBC, A1C #### [address] [address] Monocytes/100 WBC (Bld) 10.8 % Normal 1.7-13.0 [facility] ([place]) Comment on above: Performed By: #### T ESTO #### [address] [address] #### ANEU, GFR, MORPH, PSA, LIPID, CMP, ADIFF, CBC, A1C #### [address] [address] Neutrophils/100 WBC (Bld) 51.7 % Normal 37.0-80.0 [facility] ([place]) Comment on above: Performed By: #### T ESTO #### [address] [address] #### ANEU, GFR, MORPH, PSA, LIPID, CMP, ADIFF, CBC, A1C #### [address] [address] .GFRon 06-29-2023 GFR 76 ml/min/1.73sqm Normal [facility] ([place]) Comment on above: Result Comment: GFR Population mean for , Non- Americans Ages 20-29 = 116 mL/min/1.73 sq.m. Ages 30-39 = 107 mL/min/1.73 sq.m. Ages 40-49 = 99 mL/min/1.73 sq.m. Ages 50-59 = 93 mL/min/1.73 sq.m. Ages 60-69 = 85 mL/min/1.73 sq.m. Ages 70+ = 75 mL/min/1.73 sq.m. Chronic Kidney Disease: Less than 60 mL/min/1.73 square meters End Stage Renal Disease: Less than 15 mL/min/1.73 square meters Performed By: #### T ESTO #### [place] [address] #### ANEU, GFR, MORPH, PSA, LIPID, CMP, ADIFF, CBC, A1C #### [address] [address] GFR Non- 62 ml/min/1.73sqm Normal [facility] ([place]) Comment on above: Result Comment: GFR Population mean for , Non- Americans Ages 20-29 = 116 mL/min/1.73 sq.m. Ages 30-39 = 107 mL/min/1.73 sq.m. Ages 40-49 = 99 mL/min/1.73 sq.m. Ages 50-59 = 93 mL/min/1.73 sq.m. Ages 60-69 = 85 mL/min/1.73 sq.m. Ages 70+ = 75 mL/min/1.73 sq.m. Chronic Kidney Disease: Less than 60 mL/min/1.73 square meters End Stage Renal Disease: Less than 15 mL/min/1.73 square meters Performed By: #### T ESTO #### [place] [address] #### ANEU, GFR, MORPH, PSA, LIPID, CMP, ADIFF, CBC, A1C #### [address] [address] .Morphon 06-29-2023 Platelet Estimate Normal Normal [facility] ([place]) Comment on above: Performed By: #### T ESTO #### [place] [address] #### ANEU, GFR, MORPH, PSA, LIPID, CMP, ADIFF, CBC, A1C #### [address] [address] .NEUABSon 06-29-2023 Neutrophil, Absolute 3.7 10 3/mcL Normal 2.9-6.2 [facility] ([place]) Comment on above: Performed By: #### T ESTO #### [place] [address] #### ANEU, GFR, MORPH, PSA, LIPID, CMP, ADIFF, CBC, A1C #### [address] [address] A1Con 06-29-2023 HbA1c (Bld) [Mass fraction] 5.7 % Normal 4.3-6.4 [facility] ([place]) Comment on above: Performed By: #### T ESTO #### [place] [address] #### ANEU, GFR, MORPH, PSA, LIPID, CMP, ADIFF, CBC, A1C #### [address] [address] CBCon 06-29-2023 Erythrocyte distribution width (RBC) [Ratio] 13.3 % Normal 11.5-14.5 [facility] ([place]) Comment on above: Performed By: #### T ESTO #### [place] [address] #### ANEU, GFR, MORPH, PSA, LIPID, CMP, ADIFF, CBC, A1C #### [address] [address] Hematocrit (Bld) [Volume fraction] 48.2 % Normal 42.0-52.0 [facility] ([place]) Comment on above: Performed By: #### T ESTO #### [place] [address] #### ANEU, GFR, MORPH, PSA, LIPID, CMP, ADIFF, CBC, A1C #### [address] [address] Hgb 16.6 G/dL Normal 14.0-18.0 [facility] ([place]) Comment on above: Performed By: #### T ESTO #### [place] [address] #### ANEU, GFR, MORPH, PSA, LIPID, CMP, ADIFF, CBC, A1C #### [address] [address] MCH (RBC) [Entitic mass] 31.1 pg Normal 27.0-31.2 [facility] ([place]) Comment on above: Performed By: #### T ESTO #### [place] [address] #### ANEU, GFR, MORPH, PSA, LIPID, CMP, ADIFF, CBC, A1C #### [address] [address] MCHC 34.5 G/dL Normal 31.8-35.4 [facility] ([place]) Comment on above: Performed By: #### T ESTO #### [place] [address] #### ANEU, GFR, MORPH, PSA, LIPID, CMP, ADIFF, CBC, A1C #### [address] [address] MCV (RBC) [Entitic vol] 90.3 fL Normal 80.0-94.0 [facility] ([place]) Comment on above: Performed By: #### T ESTO #### [place] [address] #### ANEU, GFR, MORPH, PSA, LIPID, CMP, ADIFF, CBC, A1C #### [address] [address] Platelet 248 10 3/mcL Normal 130-400 [facility] ([place]) Comment on above: Performed By: #### T ESTO #### [place] [address] #### ANEU, GFR, MORPH, PSA, LIPID, CMP, ADIFF, CBC, A1C #### [address] [address] Platelet mean volume (Bld) [Entitic vol] 7.9 fL Normal 7.4-10.4 [facility] ([place]) Comment on above: Performed By: #### T ESTO #### [place] [address] #### ANEU, GFR, MORPH, PSA, LIPID, CMP, ADIFF, CBC, A1C #### [address] [address] RBC 5.34 10 6/mcL Normal 4.04-6.13 [facility] ([place]) Comment on above: Performed By: #### T ESTO #### [place] [address] #### ANEU, GFR, MORPH, PSA, LIPID, CMP, ADIFF, CBC, A1C #### [address] [address] WBC 7.2 10 3/mcL Normal 4.6-10.8 [facility] ([place]) Comment on above: Performed By: #### T ESTO #### [place] [address] #### ANEU, GFR, MORPH, PSA, LIPID, CMP, ADIFF, CBC, A1C #### [address] [address] CMPon 06-29-2023 Albumin Level 3.6 G/dL Normal 3.4-4.8 [facility] ([place]) Comment on above: Performed By: #### T ESTO #### [place] [address] #### ANEU, GFR, MORPH, PSA, LIPID, CMP, ADIFF, CBC, A1C #### [address] [address] Albumin/Globulin [Mass ratio] 1.3 {ratio} Normal 1.1-2.5 [facility] ([place]) Comment on above: Performed By: #### T ESTO #### [place] [address] #### ANEU, GFR, MORPH, PSA, LIPID, CMP, ADIFF, CBC, A1C #### [address] [address] ALP [Catalytic activity/Vol] 86 U/L Normal 40-135 [facility] ([place]) Comment on above: Performed By: #### T ESTO #### [place] [address] #### ANEU, GFR, MORPH, PSA, LIPID, CMP, ADIFF, CBC, A1C #### [address] [address] ALT [Catalytic activity/Vol] 52 U/L Normal 16-63 [facility] ([place]) Comment on above: Performed By: #### T ESTO #### [place] [address] #### ANEU, GFR, MORPH, PSA, LIPID, CMP, ADIFF, CBC, A1C #### [address] [address] AST [Catalytic activity/Vol] 23 U/L Normal 10-40 [facility] ([place]) Comment on above: Performed By: #### T ESTO #### [place] [address] #### ANEU, GFR, MORPH, PSA, LIPID, CMP, ADIFF, CBC, A1C #### [address] [address] Bili Total 0.7 mg/dL Normal 0.2-1.0 [facility] ([place]) Comment on above: Result Comment: Use of this assay is not recommended for patients undergoing treatment with eltrombopag due to the potential for falsely elevated results. Performed By: #### T ESTO #### [place] [address] #### ANEU, GFR, MORPH, PSA, LIPID, CMP, ADIFF, CBC, A1C #### [address] [address] BUN/Creatinine Ratio 15 ratio Normal 7-27 [facility] ([place]) Comment on above: Performed By: #### T ESTO #### [place] [address] #### ANEU, GFR, MORPH, PSA, LIPID, CMP, ADIFF, CBC, A1C #### [address] [address] Calcium [Mass/Vol] 9.1 mg/dL Normal 8.4-10.2 [facility] ([place]) Comment on above: Performed By: #### T ESTO #### [place] [address] #### ANEU, GFR, MORPH, PSA, LIPID, CMP, ADIFF, CBC, A1C #### [address] [address] Chloride [Moles/Vol] 105 mmol/L Normal 98-107 [facility] ([place]) Comment on above: Performed By: #### T ESTO #### [place] [address] #### ANEU, GFR, MORPH, PSA, LIPID, CMP, ADIFF, CBC, A1C #### [address] [address] CO2 [Moles/Vol] 31 mmol/L Normal 23-31 [facility] ([place]) Comment on above: Performed By: #### T ESTO #### [place] [address] #### ANEU, GFR, MORPH, PSA, LIPID, CMP, ADIFF, CBC, A1C #### [address] [address] Creatinine [Mass/Vol] 1.19 mg/dL Normal 0.70-1.30 [facility] ([place]) Comment on above: Performed By: #### T ESTO #### [place] [address] #### ANEU, GFR, MORPH, PSA, LIPID, CMP, ADIFF, CBC, A1C #### [address] [address] Electrolyte Balance 8.0 mEq/L Normal 4.0-15.0 [facility] ([place]) Comment on above: Performed By: #### T ESTO #### [place] [address] #### ANEU, GFR, MORPH, PSA, LIPID, CMP, ADIFF, CBC, A1C #### [address] [address] Globulin 2.8 G/dL Normal [facility] ([place]) Comment on above: Performed By: #### T ESTO #### [place] [address] #### ANEU, GFR, MORPH, PSA, LIPID, CMP, ADIFF, CBC, A1C #### [address] [address] Glucose [Mass/Vol] 106 mg/dL Normal 80-115 [facility] ([place]) Comment on above: Performed By: #### T ESTO #### [place] [address] #### ANEU, GFR, MORPH, PSA, LIPID, CMP, ADIFF, CBC, A1C #### [address] [address] Potassium [Moles/Vol] 4.5 mmol/L Normal 3.5-5.1 [facility] ([place]) Comment on above: Performed By: #### T ESTO #### [place] [address] #### ANEU, GFR, MORPH, PSA, LIPID, CMP, ADIFF, CBC, A1C #### [address] [address] Sodium [Moles/Vol] 144 mmol/L Normal 136-145 [facility] ([place]) Comment on above: Performed By: #### T ESTO #### [place] [address] #### ANEU, GFR, MORPH, PSA, LIPID, CMP, ADIFF, CBC, A1C #### [address] [address] Total Protein 6.4 G/dL Normal 6.4-8.2 [facility] [place] Comment on above: Performed By: #### T ESTO #### [place] [address] #### ANEU, GFR, MORPH, PSA, LIPID, CMP, ADIFF, CBC, A1C #### [address] [address] Urea nitrogen [Mass/Vol] 18 mg/dL Normal 7-18 [facility] [place] Comment on above: Performed By: #### T ESTO #### [place] [address] #### ANEU, GFR, MORPH, PSA, LIPID, CMP, ADIFF, CBC, A1C #### [place] [address] LABORATORYOrdered By: SYSTEM SYSTEM on 06-29-2023 Albumin BCP dye [Mass/Vol] 3.6 G/dL Normal 3.4 - 4.8 G/dL AO ADM SS Albumin/Globulin [Mass ratio] 1.3 {ratio} Normal 1.1 - 2.5 ratio AO ADM SS ALP [Catalytic activity/Vol] 86 U/L Normal 40 - 135 U/L AO ADM SS ALT With P-5'-P [Catalytic activity/Vol] 52 U/L Normal 16 - 63 U/L AO ADM SS AST With P-5'-P [Catalytic activity/Vol] 23 U/L Normal 10 - 40 U/L AO ADM SS Basophil, Absolute 0.1 103/mcL Normal 0.0 - 0.2 10^3/mcL AO Workflow SS Basophils/100 WBC (Bld) 0.8 % Normal 0.0 - 2.5 % AO Workflow SS Bilirubin [Mass/Vol] 0.7 mg/dL Normal 0.2 - 1 .0 mg/dL AO ADM SS Comment on above: Interpretive Data: U se of this assay is not recommended for patients undergoing treatment with eltrombopag due to the potential for falsely elevated results. Calcium [Mass/Vol] 9.1 mg/dL Normal 8.4 - 10. 2 mg/dL AO ADM SS Chloride [Moles/Vol] 105 mmol/L Normal 98 - 10 7 mmol/L AO ADM SS CO2 [Moles/Vol] 31 mmol/L Normal 23 - 31 mmol/L AO ADM SS Creatinine [Mass/Vol] 1.19 mg/dL Normal 0.70 - 1.30 mg/dL AO ADM SS Electrolyte Balance 8.0 mEq/L Normal 4.0 - 15 .0 mEq/L AO ADM SS Eosinophil, Absolute 0.1 103/mcL Normal 0.0 - 0 .4 10^3/mcL AO Workflow SS Eosinophils/100 WBC (Bld) 1.7 % Normal 0.0 - 7.0 % AO Workflow SS Erythrocyte distribution width (RBC) [Ratio] 13.3 % Normal 11.5 - 14.5 % AO Workflow SS GFR/1.73 sq M.predicted among blacks MDRD (S/P/Bld) [Vol rate/Area] 76 ml/min/1.73sqm Invalid Interpretation Code AO Chemistry S Comment on above: Interpretive Data: GFR Population mean for , Non- Americans Ages 20-29 = 116 mL/min/1.73 sq.m. Ages 30-39 = 107 mL/min/1.73 sq.m. Ages 40-49 = 99 mL/min/1.73 sq.m. Ages 50-59 = 93 mL/min/1.73 sq.m. Ages 60-69 = 85 mL/min/1.73 sq.m. Ages 70+ = 75 mL/min/1.73 sq.m. Chronic Kidney Disease: Less than 60 mL/min/1.73 square meters End Stage Renal Disease: Less than 15 mL/min/1.73 square meters GFR/1.73 sq M.predicted among non-blacks MDRD (S/P/Bld) [Vol rate/Area] 62 ml/min/1.73sqm Invalid Interpretation Code AO Chemistry S Comment on above: Interpretive Data: GFR Population mean for , Non- Americans Ages 20-29 = 116 mL/min/1.73 sq.m. Ages 30-39 = 107 mL/min/1.73 sq.m. Ages 40-49 = 99 mL/min/1.73 sq.m. Ages 50-59 = 93 mL/min/1.73 sq.m. Ages 60-69 = 85 mL/min/1.73 sq.m. Ages 70+ = 75 mL/min/1.73 sq.m. Chronic Kidney Disease: Less than 60 mL/min/1.73 square meters End Stage Renal Disease: Less than 15 mL/min/1.73 square meters Globulin 2.8 G/dL Invalid Interpretation Code AO ADM SS Glucose [Mass/Vol] 106 mg/dL Normal 80 - 115 mg/dL AO ADM SS HbA1c (Bld) [Mass fraction] 5.7 % Normal 4.3 - 6.4 % AO ADM SS Hematocrit (Bld) [Volume fraction] 48.2 % Normal 42.0 - 52.0 % AO Workflow SS Hemoglobin (Bld) [Mass/Vol] 16.6 G/dL Normal 14.0 - 18.0 G/dL AO Workflow SS Lymphocyte, Absolute 2.5 103/mcL Normal 0.8 - 3 .9 10^3/mcL AO Workflow SS Lymphocytes/100 WBC (Bld) 35.0 % Normal 10.0 - 50.0 % AO Workflow SS MCH (RBC) [Entitic mass] 31.1 pg Normal 27.0 - 31.2 pg AO Workflow SS MCHC 34.5 G/dL Normal 31.8 - 35.4 G/dL AO Workflow SS MCV (RBC) [Entitic vol] 90.3 fL Normal 80.0 - 94.0 fL AO Workflow SS Monocyte, Absolute 0.8 103/mcL Normal 0.2 - 1.0 10^3/mcL AO Workflow SS Monocytes/100 WBC (Bld) 10.8 % Normal 1.7 - 13.0 % AO Workflow SS Neutrophil, Absolute 3.7 103/mcL Normal 2.9 - 6 .2 10^3/mcL AO Workflow SS Neutrophils/100 WBC (Bld) 51.7 % Normal 37.0 - 80.0 % AO Workflow SS Platelet mean volume (Bld) [Entitic vol] 7.9 fL Normal 7.4 - 10.4 fL AO Workflow SS Platelets (Bld) [#/Vol] 248 103/mcL Normal 130 - 400 10^3/mcL AO Workflow SS Potassium [Moles/Vol] 4.5 mmol/L Normal 3.5 - 5.1 mmol/L AO ADM SS Prostate specific Ag [Mass/Vol] 0.86 ng/mL Normal 0.00 - 4.00 ng/mL AO ADM SS Protein [Mass/Vol] 6.4 G/dL Normal 6.4 - 8.2 G/dL AO ADM SS RBC (Bld) [#/Vol] 5.34 106/mcL Normal 4.04 - 6.1 3 10^6/mcL AO Workflow SS Sodium [Moles/Vol] 144 mmol/L Normal 136 - 145 mmol/L AO ADM SS Testosterone [Mass/Vol] 307.92 ng/dL Normal 86.98 - 780.10 ng/dL AH ADM SS Comment on above: Interpretive Data: N ormal Reference Ranges for Females: Female Premenopause Hxu09-788.01-47.94 ng/dL Female Postmenopause Fix40-90<7.00-45.62 ng/dL Urea nitrogen [Mass/Vol] 18 mg/dL Normal 7 - 18 mg/dL AO ADM SS Urea nitrogen/Creatinine [Mass ratio] 15 ratio Normal 7 - 27 ratio AO ADM SS WBC (Bld) [#/Vol] 7.2 103/mcL Normal 4.6 - 10.8 10^3/mcL AO Workflow SS LABORATORYOrdered By: Chiquita Coronado on 06-29-2023 Cholesterol [Mass/Vol] 161 mg/dL Normal 0 - 200 mg/dL AO ADM SS Comment on above: Interpretive Data: C holesterol Reference Interval: Less than 200 Desirable 200-239 Borderline high risk 240 and above High risk Cholesterol in HDL [Mass/Vol] 38 mg/dL Low 40 - 60 mg/dL AO ADM SS Cholesterol in LDL [Mass/Vol] 98 mg/dL Normal 0 - 130 mg/dL AO ADM SS Triglyceride [Mass/Vol] 126 mg/dL Normal 0 - 150 mg/dL AO ADM SS Comment on above: Interpretive Data: T riglyceride Reference Interval: Less than 150 Normal 150-199 Borderline high risk 200-499 High risk 500 or higher Very high risk LABORATORYOrdered By: Mamadou Rubi on 06-29-2023 Platelet Estimate Normal (06/29/23 10:58 AM) Normal AO Hematology S LIPIDon 06-29-2023 Cholesterol [Mass/Vol] 161 mg/dL Normal 0-200 [facility] [place]) Comment on above: Result Comment: Chol esterol Reference Interval: Less than 200 Desirable 200-239 Borderline high risk 240 and above High risk Performed By: #### T ESTO #### [address] [address] #### ANEU, GFR, MORPH, PSA, LIPID, CMP, ADIFF, CBC, A1C #### [address] [address] Cholesterol in HDL [Mass/Vol] 38 mg/dL Low 40-60 [facility] [place] Comment on above: Performed By: #### T ESTO #### [address] [address] #### ANEU, GFR, MORPH, PSA, LIPID, CMP, ADIFF, CBC, A1C #### [address] [address] Cholesterol in LDL [Mass/Vol] 98 mg/dL Normal 0-130 [facility] [place] Comment on above: Performed By: #### T ESTO #### [address] [address] #### ANEU, GFR, MORPH, PSA, LIPID, CMP, ADIFF, CBC, A1C #### [address] [address] Triglyceride [Mass/Vol] 126 mg/dL Normal 0-150 [facility] [place] Comment on above: Result Comment: Trig lyceride Reference Interval: Less than 150 Normal 150-199 Borderline high risk 200-499 High risk 500 or higher Very high risk Performed By: #### T ESTO #### [place] [address] #### ANEU, GFR, MORPH, PSA, LIPID, CMP, ADIFF, CBC, A1C #### [address] [address] PSAon 06-29-2023 Prostate Specific Antigen 0.86 ng/mL Normal 0.00-4.00 [facility] [place] Comment on above: Performed By: #### T ESTO #### [place] [address] #### ANEU, GFR, MORPH, PSA, LIPID, CMP, ADIFF, CBC, A1C #### [address] [address] TESTOon 06-29-2023 Testosterone Lvl 307.92 ng/dL Normal 86.98-780.10 [facility] ([place]) Comment on above: Result Comment: Norm al Reference Ranges for Females: Female Premenopause Age 21-60 9.01-47.94 ng/dL Female Postmenopause Age 45-89 <7.00-45.62 ng/dL Performed By: #### T ESTO #### [place] [address] #### ANEU, GFR, MORPH, PSA, LIPID, CMP, ADIFF, CBC, A1C #### [address] [address] Cryotherapy, skin lesionon 0 02-19-2023 [facility] Skin Biopsyon 02-19-2023 Type of biopsy: tangential Informed consent: discussed and consent obtained Timeout: patient name, date of , surgical site, and procedure verified Procedure prep: Patient was prepped and draped in usual sterile fashion Prep type: Isopropyl alcohol Anesthesia: the lesion was anesthetized in a standard fashion Anesthetic: 1% lidocaine w/ epinephrine 1-100,000 buffered w/ 8.4% NaHCO3 Instrument used: DermaBlade Hemostasis achieved with: electrodesiccation Outcome: patient tolerated procedure well Post-procedure details: sterile dressing applied and wound care instructions given Dressing type: bandage and pressure dressing [facility] VITAMIN D 25 HYDROXYon 10-18 25-hydroxyvitamin D3 [Mass/Vol] 41.7 ng/mL 30.0 - 100.0 ng/mL [facility] CNOVon 10-17-2021 CNOV Office Visit (RHBATH ) KODAK GAMBOA ([id number]) 1960 [facility] Date Time Provider Department 10/17/21 1:20 PM MIRTHA RODRIGUEZ RHBBAIRON During your visit today, we recorded the following information about you: Temperature Pulse Blood pressure Weight 64.2 degrees 52/minute 128/80 107 kg Height 0.152 m Mirtha Rodriguez MD 10/18/2021 9:00 AM Signed RHEUMATOLOGY NEW PATIENT NOTE REFERRING PHYSICIAN: Self CHIEF COMPLAINT: Patient presents with: Joint Pain Back Pain New Patient HPI: Kodak Gamboa is a 60 year old male who presents with back pain He saw ortho for back pain. Had injections which did not help. Recent MRI shows disc bulging. Sciatica, numbness and tingling in feet. RF was slightly high so was referred here. There might be some procedures scheduled. Not on Ibuprofen, on mobic with careful monitoring of kidney functions. Tylenol did not help. 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 No swelling. Shooting pain in knees sometimes. Pain in mornings and evenings. AM stiffness lasting for 30 min. Family history of autoimmune disease: sister with RA, severe and psoriasis. Great aunt in wheelchair with RA. Niece with crohn's disease. Smoking status: Tobacco Use: Never Rheumatology REVIEW OF SYSTEMS: Constitutional: Recent Weight Change: No Fatigue: YES covid jun 2020 - since then Fever: No Night sweats: No Heent: Alopecia: No H/o Inflammatory eye disease (iritis/scleritis): No Hearing loss: No Frequent sinusitis: No Oral ulcers: No Sicca: YES due to meds Parotid swelling: No Hoarseness: No Dysphagia: No Heme/lymph: Lymphadenopathy: No Hematological abnormalities (anemia, thrombocytopenia, leukopenia): No Abnormal bleeding: No Skin: Malar or discoid lesions: No Photosensitivity: No Other rashes: No Raynaud's phenomenon: No Hives: No Tightness: No Nodules/bumps: No Easy Bruising: No Nail changes: No H/o psoriasis: No Gastroenterology: Nausea: {No Vomiting: No Change in bowel movements: YES from ibuprofen Heartburn: No Respiratory: Dry cough/SOB: No Asthma got worse since covid Cardiovascular: Pain in chest: No Musculoskeletal: Per HPI Joint pain or swelling: No Prolonged morning stiffness: No Back pain or neck pain: No Muscle weakness: No Genitourinary: Vaginal dryness: No Rash/ulcers: No Neurological: Headaches: YES migraines Sensitivity or pain of hands and/or feet: YES L>R Psychiatry: Anxiety: YES takes ativan Depression: YES on Prozac - helps with anxiety Poor sleep: YES better with meds. OTC sleep aids, muscle relaxer H/o loss: No H/o thrombosis: No Increased susceptibility to infection: No PAST MEDICAL HISTORY Diagnosis Date - Anxiety Celexa, Lexapro, Buspar - Asthma - High cholesterol - Hypertension - Migraines Topamax - Noncompliance with treatment 06/29/2018 Declined Narcan - Subdural hematoma caused by concussion (HCC) 2001 PAST SURGICAL HISTORY Procedure Laterality Date - ADDTL NECK SPINE FUSION - COLONOSCOPY 2010 Repeat 2016 - COLONOSCOPY 09/2017 No polyps - ELBOW SURGERY HX Right - HERNIA REPAIR HX Right - PRK ENHANCEMENT - SHX CRANIOTOMY 2001 Subdural hematoma - TONSILLECTOMY PRIMARY/SECONDARY Current Outpatient Medications Medication Sig - meloxicam (MOBIC) 15 mg tablet Take 15 mg by mouth once daily. - traZODone (DESYREL) 50 mg tablet Take 1 tablet by mouth daily at bedtime. - tiZANidine (ZANAFLEX) 4 mg tablet Take 1 tablet by mouth three times daily as needed (muscle pain). - pantoprazole DR (PROTONIX) 40 mg tablet Take 1 tablet by mouth once daily. - montelukast (SINGULAIR) 10 mg tablet Take 1 tablet by mouth daily at bedtime. - metoprolol succinate ER (TOPROL XL) 50 mg 24 hr tablet Take 1 tablet by mouth once daily. - losartan (COZAAR) 100 mg tablet Take 1 tablet by mouth once daily. - loratadine (CLARITIN) 10 mg tablet Take 1 tablet by mouth once daily. - hydroCHLOROthiazide (HYDRODIURIL, ESIDRIX) 25 mg tablet Take 1 tablet by mouth once daily. - fluticasone (FLONASE) 50 mcg/actuation nasal spray Use 2 Sprays in each nostril once daily. - FLUoxetine HCl (PROZAC) 40 mg capsule Take 1 capsule by mouth once daily. - atorvastatin (LIPITOR) 40 mg tablet Take 1 tablet by mouth once daily. - amLODIPine (NORVASC) 10 mg tablet Take 1 tablet by mouth once daily. - albuterol HFA (VENTOLIN HFA) 90 mcg/actuation inhaler Inhale 2 Puffs as instructed every 4 hours as needed. - Biotin 10 mg tab Take 5 mg by mouth once daily. - testosterone cypionate (DEPO-TESTOSTERONE) 200 mg/mL injection INJECT 1 ML INTRAMUSCULARLY ONCE EVERY MONTH - LORazepam (ATIVAN) 1 mg tablet Take 1 tablet by mouth twice daily for 30 days. - ibuprofen (MOTRIN) 800 mg tablet Take 1 tablet by mo (more content not included)... Normal [facility] Cyclic citrullinated peptide IgG Qnon 10-17-2021 CCP ANTIBODY IGG QUALITATIVE Negative Normal Negative [facility] Comment on above: Order Comment: Speci men Type: BLOOD SPECIMEN Ordering Facility: [facility] Address: [address] [place] [id number] Performed By: #### 3 3935-8 #### [facility] CLIA [id number] [address] [place] [address], [place] [address] [facility] VITAMIN D 25 HYDROXYon 10-17 25-hydroxyvitamin D3 [Mass/Vol] 41.7 ng/mL Normal 30.0-100.0 [facility] Comment on above: Order Comment: Speci men Type: BLOOD SPECIMEN Ordering Facility: [facility] Address: [address] [place], [place] [id number] Result Comment: Clas sification of 25 [place] Vitamin D status: Deficiency: <= 20.0 ng/ml. Insufficientcy: 21.0-29.0 ng/ml. Sufficiency: >= 30.0 ng/ml. Performed By: #### V ITD #### [facility] CLIA [id number] [address] [place], [place] [id number] [place] [address] OF [facility] XR KNEE SURVEY 1V AP BILon 0 10-17-2021 XR KNEE SURVEY 1V AP TERE * * *Final Report* * * DATE OF EXAM: Oct 17 2021 2:47PM [id number] - XR KNEE SURVEY 1V AP TERE / PROCEDURE REASON: Pain in joint, multiple sites * * * * Physician Interpretation * * * * HISTORY: 60-YEAR-OLD MALE WITH Pain in joint, multiple sites . pt states chroning right shoulder, low back and knee pain, history of prior neck surgery TECHNIQUE: XR KNEE SURVEY 1V AP TERE Laterality: BILATERAL Number of different views (projections): 1 COMPARISON: None RESULT: Knee joint is maintained bilaterally. No erosions. No fractures. IMPRESSION: NORMAL SINGLE VIEW OF THE KNEES. [employer]: PSCB Transcribe Date/Time: Oct 18 2021 3:38P Dictated by : YONATAN MORSE MD This examination was interpreted and the report reviewed and electronically signed by: YONATAN MORSE MD on Oct 18 2021 3:38PM EST [id number] Normal [facility] XR SHLDR >/=3V AP/DILIA AP/OTH R RTon 10-17-2021 XR SHLDR >/=3V AP/DILIA AP/OTHR RT * * *Final Report* * * DATE OF EXAM: Oct 17 2021 2:47PM [id number] - XR SHLDR >/=3V AP/DILIA AP/OTHR RT / PROCEDURE REASON: Pain in joint, multiple sites * * * * Physician Interpretation * * * * HISTORY: 60-YEAR-OLD MALE WITH Pain in joint, multiple sites . pt states chroning right shoulder, low back and knee pain, history of prior neck surgery TECHNIQUE: XR SHLDR >/=3V AP/DILIA AP/OTHR RT Laterality: RIGHT Number of different views (projections): 3 COMPARISON: None RESULT: Glenoid humeral joint space is maintained. Acromiohumeral interval is maintained. Acromioclavicular joint is intact. there is is mild deformity of the distal clavicle has appearance of the remote healed fracture with a small nonunited fragment at the bursal side of the distal clavicle.. IMPRESSION: FINDINGS CONSISTENT WITH REMOTE DISTAL CLAVICLE FRACTURE AND SMALL NONUNITED BURSAL SIDED FRAGMENT OTHERWISE NORMAL SHOULDER. [employer]: [place] Transcribe Date/Time: Oct 18 2021 3:38P Dictated by : YONATAN MORSE MD This examination was interpreted and the report reviewed and electronically signed by: YONATAN MORSE MD on Oct 18 2021 3:41PM EST [id number] Normal [facility] XR SI JTS 2V AP PELV/FERGUSO Non 10-17-2021 XR SI JTS 2V AP PELV/PEREZ * * *Final Report* * * DATE OF EXAM: Oct 17 2021 2:47PM [id number] - XR SI JTS 2V AP PELV/PEREZ / PROCEDURE REASON: Pain in joint, multiple sites * * * * Physician Interpretation * * * * HISTORY: 60-YEAR-OLD MALE WITH Pain in joint, multiple sites . pt states chroning right shoulder, low back and knee pain, history of prior neck surgery TECHNIQUE: XR SI JTS 2V AP PELV/PEREZ Laterality: NOT APPLICABLE Number of different views (projections): 2 COMPARISON: None RESULT: Sacroiliac joints are normal. No erosive changes. Narrowing and osteophytes. IMPRESSION: NORMAL SACROILIAC JOINTS. [employer]: VOSS Transcribe Date/Time: Oct 18 2021 3:35P Dictated by : YONATAN MORSE MD This examination was interpreted and the report reviewed and electronically signed by: YONATAN MORSE MD on Oct 18 2021 3:36PM EST [id number] Normal [facility] cCP IgG SerPl-aCncon 022 Cyclic citrullinated peptide IgG Qn <15 Normal <20 [facility] Comment on above: Order Comment: Speci men Type: BLOOD SPECIMEN Ordering Facility: [facility] Address: [address] [place] [address] Performed By: #### 3 3935-8 #### [facility] CLIA [id number] [address] [place] [address] LABORATORYOrdered By: Tatiana Che on 10-08-2021 Albumin BCP dye [Mass/Vol] 3.8 G/dL Invalid Interpretation Code 3.5 - 5.0 G/dL AO ADM SS Albumin/Globulin [Mass ratio] 1.3 {ratio} Invalid Interpretation Code 1.1 - 2.5 ratio AO ADM SS ALP [Catalytic activity/Vol] 100 U/L Invalid Interpretation Code 40 - 135 U/L AO ADM SS ALT With P-5'-P [Catalytic activity/Vol] 48 U/L Invalid Interpretation Code 16 - 63 U/L AO ADM SS AST With P-5'-P [Catalytic activity/Vol] 29 U/L Invalid Interpretation Code 10 - 40 U/L AO ADM SS Bilirubin [Mass/Vol] 0.6 mg/dL Invalid Interpretation Code 0.2 - 1.0 mg/dL AO ADM SS Calcium [Mass/Vol] 9.3 mg/dL Invalid Interpretation Code 8.4 - 10.2 mg/dL AO ADM SS Chloride [Moles/Vol] 101 mmol/L Invalid Interpretation Code 98 - 107 mmol/L AO ADM SS Cholesterol [Mass/Vol] 157 mg/dL Invalid Interpretation Code 0 - 200 mg/dL AO ADM SS Cholesterol in HDL [Mass/Vol] 35 mg/dL Invalid Interpretation Code 40 - 60 mg/dL AO ADM SS Cholesterol in LDL [Mass/Vol] 83 mg/dL Invalid Interpretation Code 0 - 130 mg/dL AO ADM SS CO2 [Moles/Vol] 32 mmol/L Invalid Interpretation Code 22 - 29 mmol/L AO ADM SS Creatinine [Mass/Vol] 1.26 mg/dL Invalid Interpretation Code 0.70 - 1.30 mg/dL AO ADM SS Electrolyte Balance 8.0 mEq/L Invalid Interpretation Code 4.0 - 15.0 mEq/L AO ADM SS Globulin 3.0 G/dL Invalid Interpretation Code AO ADM SS Glucose [Mass/Vol] 109 mg/dL Invalid Interpretation Code 70 - 105 mg/dL AO ADM SS HbA1c (Bld) [Mass fraction] 5.8 % Invalid Interpretation Code 4.3 - 6.4 % AO ADM SS Potassium [Moles/Vol] 4.7 mmol/L Invalid Interpretation Code 3.5 - 5.1 mmol/L AO ADM SS Protein [Mass/Vol] 6.8 G/dL Invalid Interpretation Code 6.4 - 8.2 G/dL AO ADM SS Sodium [Moles/Vol] 141 mmol/L Invalid Interpretation Code 136 - 145 mmol/L AO ADM SS Triglyceride [Mass/Vol] 197 mg/dL Invalid Interpretation Code 0 - 150 mg/dL AO ADM SS TSH Qn 0.90 m[IU]/L Invalid Interpretation Code 0.36 - 3.74 mcIU/mL AO ADM SS Urea nitrogen [Mass/Vol] 14 mg/dL Invalid Interpretation Code 7 - 18 mg/dL AO ADM SS Urea nitrogen/Creatinine [Mass ratio] 11 ratio Invalid Interpretation Code 7 - 27 ratio AO ADM SS LABORATORYOrdered By: [email or web address] on 10-08-2021 Cobalamin (Vitamin B12) [Mass/Vol] 492 pg/mL Invalid Interpretation Code 211 - 911 pg/mL ADM SS GFR 71 ml/min/1.73sqm Invalid Interpretation Code AO Chemistry S GFR Non- 59 ml/min/1.73sqm Invalid Interpretation Code AO Chemistry S Testosterone [Mass/Vol] 285.30 ng/dL Invalid Interpretation Code 86.98 - 780.10 ng/dL ADM SS LABORATORYOrdered By: Adriana Owen on 05-30-2021 Basophil, Absolute 0.10 103/mcL Invalid Interpretation Code 0.00 - 0.19 10^3/mcL AO Auto Heme SS Basophils/100 WBC (Bld) 0.9 % Invalid Interpretation Code 0.0 - 2.5 % AO Auto Heme SS Eosinophil, Absolute 0.10 103/mcL Invalid Interpretation Code 0.00 - 0.40 10^3/mcL AO Auto Heme SS Eosinophils/100 WBC (Bld) 1.5 % Invalid Interpretation Code 0.0 - 7.0 % AO Auto Heme SS Erythrocyte distribution width (RBC) [Ratio] 13.5 % Invalid Interpretation Code 11.5 - 14.5 % AO Auto Heme SS ESR 15 minute reading (Bld) [Velocity] 2 mm/hr Invalid Interpretation Code 0 - 20 mm/hr AO Man Heme SS Hematocrit (Bld) [Volume fraction] 49.0 % Invalid Interpretation Code 42.0 - 52.0 % AO Auto Heme SS Hemoglobin (Bld) [Mass/Vol] 17.0 G/dL Invalid Interpretation Code 14.0 - 18.0 G/dL AO Auto Heme SS Lymphocyte, Absolute 2.30 103/mcL Invalid Interpretation Code 0.77 - 3.85 10^3/mcL AO Auto Heme SS Lymphocytes/100 WBC (Bld) 32.1 % Invalid Interpretation Code 10.0 - 50.0 % AO Auto Heme SS MCH (RBC) [Entitic mass] 31.5 pg Invalid Interpretation Code 27.0 - 31.2 pg AO Auto Heme SS MCHC (RBC) [Mass/Vol] 34.7 G/dL Invalid Interpretation Code 31.8 - 35.4 G/dL AO Auto Heme SS MCV (RBC) [Entitic vol] 90.8 fL Invalid Interpretation Code 80.0 - 94.0 fL AO Auto Heme SS Monocyte, Absolute 0.70 103/mcL Invalid Interpretation Code 0.15 - 1.00 10^3/mcL AO Auto Heme SS Monocytes/100 WBC (Bld) 10.5 % Invalid Interpretation Code 1.7 - 13.0 % AO Auto Heme SS Neutrophil, Absolute 3.90 103/mcL Invalid Interpretation Code 2.85 - 6.16 10^3/mcL AO Auto Heme SS Neutrophils/100 WBC (Bld) 55.0 % Invalid Interpretation Code 37.0 - 80.0 % AO Auto Heme SS Platelet mean volume (Bld) [Entitic vol] 8.2 fL Invalid Interpretation Code 7.4 - 10.4 fL AO Auto Heme SS Platelets (Bld) [#/Vol] 267 103/mcL Invalid Interpretation Code 130 - 400 10^3/mcL AO Auto Heme SS RBC (Bld) [#/Vol] 5.40 106/mcL Invalid Interpretation Code 4.04 - 6.13 10^6/mcL AO Auto Heme SS WBC (Bld) [#/Vol] 7.10 103/mcL Invalid Interpretation Code 4.60 - 10.80 10^3/mcL AO Auto Heme SS LABORATORYOrdered By: Juan Jose Madsen on 05-30-2021 CRP [Mass/Vol] 0.7 mg/dL Invalid Interpretation Code 0.0 - 0.9 mg/dL AO ADM SS LABORATORYOrdered By: SYSTEM SYSTEM on 05-30-2021 CRP High sensitivity method [Mass/Vol] 8.81 mg/L Invalid Interpretation Code 0.20 - 3.00 mg/L AH ADM SS LABORATORYOrdered By: Winsome Sarabia on 05-30-2021 Protein [Mass/Vol] 6.4 G/dL Invalid Interpretation Code 5.7 - 8.2 G/dL AH ADM SS CNPNon 02-15-2021 CNPN Telephone (AGSPINE1) KODAK AGMBOA ([id number]) 1960 [facility] Date Time Provider Department 02/15/21 SHERLEY HUTTONPINE1 During your visit today, we recorded the following information about you: Suad Singletoneugenio 02/15/2021 11:43 AM Signed Patient states that for his conservative care required for his epidural approval, he has decided to do a HEP. Please review and advise how he would be able to get started on this. Suad Bernadette Allergies As of Date: 02/15/2021 Noted Allergy Reaction BACTRIM (SULFAMETHOXAZOLE-TRIME TH*02/07/2020 16 - Unknown BENZOCAINE 04/01/2016 4 - Hives POLLEN EXTRACTS 03/01/2013 9 - Itching PROCAINE 03/01/2013 4 - Hives Date Reviewed: 12/11/2020 Reviewed by: Sherley Hutton APRN.VETERINARY NURSE - Fully Assessed Reason for Visit: Patient Question [3419] Prescriptions as of 02/15/2021 - testosterone cypionate (DEPO-TESTOSTERONE) 200 mg/mL injection INJECT 1 ML INTRAMUSCULARLY ONCE EVERY MONTH - traZODone (DESYREL) 50 mg tablet Take 1 tablet by mouth daily at bedtime. - tiZANidine (ZANAFLEX) 4 mg tablet Take 1 tablet by mouth three times daily as needed (muscle pain). - pantoprazole DR (PROTONIX) 40 mg tablet Take 1 tablet by mouth once daily. - montelukast (SINGULAIR) 10 mg tablet Take 1 tablet by mouth daily at bedtime. - metoprolol succinate ER (TOPROL XL) 50 mg 24 hr tablet Take 1 tablet by mouth once daily. - losartan (COZAAR) 100 mg tablet Take 1 tablet by mouth once daily. - LORazepam (ATIVAN) 1 mg tablet Take 1 tablet by mouth twice daily for 30 days. - loratadine (CLARITIN) 10 mg tablet Take 1 tablet by mouth once daily. - ibuprofen (MOTRIN) 800 mg tablet Take 1 tablet by mouth every 8 hours as needed. - hydroCHLOROthiazide (HYDRODIURIL, ESIDRIX) 25 mg tablet Take 1 tablet by mouth once daily. - fluticasone (FLONASE) 50 mcg/actuation nasal spray Use 2 Sprays in each nostril once daily. - FLUoxetine HCl (PROZAC) 40 mg capsule Take 1 capsule by mouth once daily. - atorvastatin (LIPITOR) 40 mg tablet Take 1 tablet by mouth once daily. - amLODIPine (NORVASC) 10 mg tablet Take 1 tablet by mouth once daily. - albuterol HFA (VENTOLIN HFA) 90 mcg/actuation inhaler Inhale 2 Puffs as instructed every 4 hours as needed. - Biotin 10 mg tab Take 5 mg by mouth once daily. Problem List As Of Date 02/15/2021 Noted Resolved Benzocaine adverse reaction, initial encounter *10/22/2017 Cervical spondylosis without myelopathy [M47.81*04/06/2018 DDD (degenerative disc disease), cervical [M50.*04/06/2018 Cervical post-laminectomy syndrome [M96.1] 05/07/2018 Non-seasonal allergic rhinitis due to pollen [J*02/02/2020 Male hypogonadism [E29.1] 02/02/2020 Migraine without aura and without status migrai*02/07/2020 Generalized anxiety disorder [F41.1] 02/07/2020 Moderate persistent asthma without complication*02/07/2020 Mixed hyperlipidemia [E78.2] 02/07/2020 Essential hypertension, benign [I10] 02/07/2020 Impaired fasting glucose [R73.01] 02/07/2020 Gastroesophageal reflux disease without esophag*02/07/2020 Encounter Status:Closed by SUAD DIAZ on 02/15/21 [facility] Jayla 01-16-2021 CNPN Telephone (AGSPINE1) KODAK GAMBOA ([id number]) 1960 [facility] Date Time Provider Department 01/16/21 SHERLEY HUTTON AGSPINE1 During your visit today, we recorded the following information about you: Suad Diaz 01/16/2021 9:01 AM Signed Called the patient to advise that insurance had denied procedures and that they want 6 weeks of chiro/PT care. Patient stated that he will check around the area he lives to see what is available to him there and let us know which he would prefer to do so that we can provide an order. Thank you, Suad Diaz Oil Speculator to Sherley Hutton and Valdemar Le Allergies As of Date: 01/16/2021 Noted Allergy Reaction BACTRIM (SULFAMETHOXAZOLE-TRIME TH*02/07/2020 16 - Unknown BENZOCAINE 04/01/2016 4 - Hives POLLEN EXTRACTS 03/01/2013 9 - Itching PROCAINE 03/01/2013 4 - Hives Date Reviewed: 12/11/2020 Reviewed by: Sherley Hutton, MAINTENANCE FOREMAN.VETERINARY NURSE - Fully Assessed Reason for Visit: Patient Update [1234] Prescriptions as of 01/16/2021 - testosterone cypionate (DEPO-TESTOSTERONE) 200 mg/mL injection INJECT 1 ML INTRAMUSCULARLY ONCE EVERY MONTH - traZODone (DESYREL) 50 mg tablet Take 1 tablet by mouth daily at bedtime. - tiZANidine (ZANAFLEX) 4 mg tablet Take 1 tablet by mouth three times daily as needed (muscle pain). - pantoprazole DR (PROTONIX) 40 mg tablet Take 1 tablet by mouth once daily. - montelukast (SINGULAIR) 10 mg tablet Take 1 tablet by mouth daily at bedtime. - metoprolol succinate ER (TOPROL XL) 50 mg 24 hr tablet Take 1 tablet by mouth once daily. - losartan (COZAAR) 100 mg tablet Take 1 tablet by mouth once daily. - LORazepam (ATIVAN) 1 mg tablet Take 1 tablet by mouth twice daily for 30 days. - loratadine (CLARITIN) 10 mg tablet Take 1 tablet by mouth once daily. - ibuprofen (MOTRIN) 800 mg tablet Take 1 tablet by mouth every 8 hours as needed. - hydroCHLOROthiazide (HYDRODIURIL, ESIDRIX) 25 mg tablet Take 1 tablet by mouth once daily. - fluticasone (FLONASE) 50 mcg/actuation nasal spray Use 2 Sprays in each nostril once daily. - FLUoxetine HCl (PROZAC) 40 mg capsule Take 1 capsule by mouth once daily. - atorvastatin (LIPITOR) 40 mg tablet Take 1 tablet by mouth once daily. - amLODIPine (NORVASC) 10 mg tablet Take 1 tablet by mouth once daily. - albuterol HFA (VENTOLIN HFA) 90 mcg/actuation inhaler Inhale 2 Puffs as instructed every 4 hours as needed. - Biotin 10 mg tab Take 5 mg by mouth once daily. Problem List As Of Date 01/16/2021 Noted Resolved Benzocaine adverse reaction, initial encounter *10/22/2017 Cervical spondylosis without myelopathy [M47.81*04/06/2018 DDD (degenerative disc disease), cervical [M50.*04/06/2018 Cervical post-laminectomy syndrome [M96.1] 05/07/2018 Non-seasonal allergic rhinitis due to pollen [J*02/02/2020 Male hypogonadism [E29.1] 02/02/2020 Migraine without aura and without status migrai*02/07/2020 Generalized anxiety disorder [F41.1] 02/07/2020 Moderate persistent asthma without complication*02/07/2020 Mixed hyperlipidemia [E78.2] 02/07/2020 Essential hypertension, benign [I10] 02/07/2020 Impaired fasting glucose [R73.01] 02/07/2020 Gastroesophageal reflux disease without esophag*02/07/2020 Encounter Status:Closed by SUAD DIAZ on 01/16/21 [facility] CNCOon 12-11-2020 CNCO Letter Text [facility] CNOVon 12-11-2020 CNOV Office Visit (AGSPIN E2) KODAK GAMBOA ([id number]) 1960 M [facility] Date Time Provider Department 12/11/20 11:15 AM SHERLEY HUTTON AGSPINE2 During your visit today, we recorded the following information about you: Temperature Weight Height [facility] CNPNon 12-11-2020 CNPN Telephone (AGSPINE2) KODAK GAMBOA ([id number]) 1960 [place] Date Time Provider Department 12/11/20 SHERLEY HUTTON AGSPINE2 During your visit today, we recorded the following information about you: Anu Taylor Specialist Registration 12/11/2020 12:04 PM Signed 1.Are you diabetic No 2. Are you on any blood thinners? No 3. Are you taking any aspirin? No 4. Have you had any recent imaging done on your body part that's being injected? No 5. Do you have any allergies to latex? No 6. Do you have any allergies to seafood? No 7. Do you have any allergies to shellfish? No 8. Do you have any allergies to x-ray dye? No 9. Are you taking Xanax for the procedure? No 10. Have you done physical therapy in the last year? No If yes, When and Where? (Medical Records Release needs to be signed.) 11. Were the pre-procedure instructions explained to the patient? Yes 12. Do you have a pacemaker? No 13. Do you have an internal stimulator of any kind? No If yes, please bring the remote with you to your procedure visit. 14. Have you received the COVID-19 Vaccine? Yes. If yes, date(s) received: Second Dose end of September 2020 (Patient should not receive a procedure including steroids 14 days prior to their first dose of the COVID vaccine. They should not receive any procedure containing steroids in the time frame between their 1st and 2nd doses of the COVID vaccine. They should not receive a procedure containing steroids 14 days after their 2nd dose of the COVID vaccine.) Anu Taylor Specialist Registration Allergies As of Date: 12/11/2020 Noted Allergy Reaction BACTRIM (SULFAMETHOXAZOLE-TRIME TH*02/07/2020 16 - Unknown BENZOCAINE 04/01/2016 4 - Hives POLLEN EXTRACTS 03/01/2013 9 - Itching PROCAINE 03/01/2013 4 - Hives Date Reviewed: 12/11/2020 Reviewed by: Sherley Hutton APRN.VETERINARY NURSE - Fully Assessed Reason for Visit: Injections [199] Prescriptions as of 12/11/2020 - testosterone cypionate (DEPO-TESTOSTERONE) 200 mg/mL injection INJECT 1 ML INTRAMUSCULARLY ONCE EVERY MONTH - traZODone (DESYREL) 50 mg tablet Take 1 tablet by mouth daily at bedtime. - tiZANidine (ZANAFLEX) 4 mg tablet Take 1 tablet by mouth three times daily as needed (muscle pain). - pantoprazole DR (PROTONIX) 40 mg tablet Take 1 tablet by mouth once daily. - montelukast (SINGULAIR) 10 mg tablet Take 1 tablet by mouth daily at bedtime. - metoprolol succinate ER (TOPROL XL) 50 mg 24 hr tablet Take 1 tablet by mouth once daily. - losartan (COZAAR) 100 mg tablet Take 1 tablet by mouth once daily. - LORazepam (ATIVAN) 1 mg tablet Take 1 tablet by mouth twice daily for 30 days. - loratadine (CLARITIN) 10 mg tablet Take 1 tablet by mouth once daily. - ibuprofen (MOTRIN) 800 mg tablet Take 1 tablet by mouth every 8 hours as needed. - hydroCHLOROthiazide (HYDRODIURIL, ESIDRIX) 25 mg tablet Take 1 tablet by mouth once daily. - fluticasone (FLONASE) 50 mcg/actuation nasal spray Use 2 Sprays in each nostril once daily. - FLUoxetine HCl (PROZAC) 40 mg capsule Take 1 capsule by mouth once daily. - atorvastatin (LIPITOR) 40 mg tablet Take 1 tablet by mouth once daily. - amLODIPine (NORVASC) 10 mg tablet Take 1 tablet by mouth once daily. - albuterol HFA (VENTOLIN HFA) 90 mcg/actuation inhaler Inhale 2 Puffs as instructed every 4 hours as needed. - Biotin 10 mg tab Take 5 mg by mouth once daily. Problem List As Of Date 12/11/2020 Noted Resolved Benzocaine adverse reaction, initial encounter *10/22/2017 Cervical spondylosis without myelopathy [M47.81*04/06/2018 DDD (degenerative disc disease), cervical [M50.*04/06/2018 Cervical post-laminectomy syndrome [M96.1] 05/07/2018 Non-seasonal allergic rhinitis due to pollen [J*02/02/2020 Male hypogonadism [E29.1] 02/02/2020 Migraine without aura and without status migrai*02/07/2020 Generalized anxiety disorder [F41.1] 02/07/2020 Moderate persistent asthma without complication*02/07/2020 Mixed hyperlipidemia [E78.2] 02/07/2020 Essential hypertension, benign [I10] 02/07/2020 Impaired fasting glucose [R73.01] 02/07/2020 Gastroesophageal reflux disease without esophag*02/07/2020 Encounter Status:Closed by CATHY SPECIALIST REGISTRATIONANU on 12/11/20 [facility] Provider Note - EDon 04-07- 018 Provider Note - ED TIME SEEN: ? Time [id number] 05:55 ED NOTES: ? ED Notes Patient [...] going to be driving back down to [place] this morning and will bean picker his medications there. He is taking [...] Alcohol Use Statuscurrent alcohol (1) ? Street Drug/Inhalant/Medicatio n Use Statusstreet drug/inhalants/medicati on never used (1) ? Exposure to Second [...] (beats/min) beats/minBP Systolic (mm Hg) Systolic 07-Apr-2018 05:[id number] 117 BP Diastolic (mm Hg) Diastolic (mm Hg)BP Mean (mm Hg) Mean (mm Hg) Respiration (breaths/min) Respiration (breaths/min)SpO2 (%) SpO2 (%)Height (ft) Height (ft) [id number] Height (remainder in inches) Height (in)Height (cm) Height (cm)Height Method Height MethodWeight MethodBSA (m2) 1185.2lqodpcxrbkpe1.29 BMI (kg/m2) BMI (kg/m2)Weight (lbs) Weight (lbs)Weight (kg) Weight (kg) Presence of PainLocation Location [id number] of pain/discomfortthroat Pain Rating 10/10 PHYSICAL EXAMINATION: [...] Strep ResultValueRange Rapid StrepNegative[Negative] DIAGNOSES/PROBLEM LIST: Problem ListTypeStatusICD-9ICD- 10 ? Elevated blood pressure readingED [id number] ? Sore throatED [id number] DISCHARGE DISPOSITION: ? Disposition: discharged ? Discharge [...] should be appropriate. 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 He will have repeat blood pressures done at that visit. Electronic Signatures: Cas Bradshaw () (Signed 07-Apr-2018 06:26) Entered: Time Seen/ED Notes, Chief Complaint/Reason for Visit via Triage Note, Patient History, History Attestation, ROS, Physical Exam, Lab Results Review, ED Disposition (REQUIRED), Attestation Authored: Time Seen/ED Notes, Chief Complaint/Reason for Visit via Triage Note, Patient History, History Attestation, ROS, Vital Signs, Physical Exam, Lab Results Review, ED Disposition (REQUIRED), Attestation Last Updated: 07-Apr-2018 06:26 by Cas Bradshaw () References: 1. Data Referenced From Triage Note, Emergency 04/07/2018 5:52 AM Normal [facility] [facility] 04[place]-2018 S. pyogenes Ag IA Ql (Unsp spec) Negative Normal Negative [facility] [place] Date Time Vital Sign Value Performing Clinician Facility 11-30-2024 10:21-0400 Diastolic blood pressure 98 mm[Hg] Dr. Brock Carey MD Work Phone: [facility] 11-30-2024 10:21-0400 Systolic blood pressure 132 mm[Hg] Dr. Brock Carey MD Work Phone: [facility] 11-30-2024 08:31-0400 Body height 185.[address] Brock Carey MD Work Phone: [facility] 11-30-2024 08:31-0400 Body mass index (BMI) [Ratio] 30.3 kg/m2 Dr. Brock Carey MD Work Phone: [facility] 11-30-2024 08:31-0400 Body temperature 97 [degF] Dr. Brock Carey MD Work Phone: [facility] 11-30-2024 08:31-0400 Body weight 104.[address] Brock Carey MD Work Phone: [facility] 11-30-2024 08:31-0400 Heart rate 49 /min Dr. Brock Carey MD Work Phone: [facility] 11-30-2024 08:31-0400 Respiratory rate 20 /min Dr. Brock Carey MD Work Phone: [facility] 11-30-2024 08:31-0400 SaO2% (BldA) [Mass fraction] 95 % Dr. Brock Carey MD Work Phone: [facility] 11-29-2024 13:06-0400 Diastolic blood pressure 86 mm[Hg] Kelli Buser PA-C Work Phone: [facility] 11-29-2024 13:06-0400 Heart rate 64 /min Kelli Buser PA-C Work Phone: [facility] 11-29-2024 13:06-0400 Systolic blood pressure 126 mm[Hg] Kelli Buser PA-C Work Phone: [facility] 11-22-2024 11:13-0400 Body height 70.[address] Brock Carey MD Work Phone: [facility] 11-22-2024 11:13-0400 Body weight 104.[address] Brock Carey MD Work Phone: [facility] 11-22-2024 11:13-0400 Heart rate 58 /min Dr. Brock Carey MD Work Phone: [facility] 11-22-2024 11:13-0400 SaO2% (BldA) [Mass fraction] 95 % Dr. Brock Carey MD Work Phone: [facility] 09-14-2024 10:56-0400 Body mass index (BMI) [Ratio] 31.4 kg/m2 Dr. Brock Carey MD Work Phone: [facility] 09-14-2024 10:56-0400 Body weight 107.[address] Brock Carey MD Work Phone: [facility] 09-14-2024 10:56-0400 Diastolic blood pressure 83 mm[Hg] Dr. Brock Carey MD Work Phone: [facility] 09-14-2024 10:56-0400 Heart rate 70 /min Dr. Brock Carey MD Work Phone: [facility] 09-14-2024 10:56-0400 Respiratory rate 16 /min Dr. Brock Carey MD Work Phone: [facility] 09-14-2024 10:56-0400 Systolic blood pressure 127 mm[Hg] Dr. Brock Carey MD Work Phone: [facility] 08-31-2024 12:59-0400 Body temperature 97.4 [degF] Dr. Brock Carey MD Work Phone: [facility] 08-31-2024 12:59-0400 Diastolic blood pressure 69 mm[Hg] Dr. Brock Carey MD Work Phone: [facility] 08-31-2024 12:59-0400 Heart rate 57 /min Dr. Brock Craey MD Work Phone: [facility] 08-31-2024 12:59-0400 Respiratory rate 18 /min Dr. Brock Carey MD Work Phone: [facility] 08-31-2024 12:59-0400 Systolic blood pressure 103 mm[Hg] Dr. Brock Carey MD Work Phone: [facility] 08-31-2024 12:49-0400 Body weight 104.[address] Brock Carey MD Work Phone: [facility] 07-31-2022 20:40-0500 Blood Pressure Location CONCETTA JOVEL DO [facility] 07-31-2022 20:40-0500 Blood Pressure Method CONCETTA Nogueira [facility] 07-31-2022 20:40-0500 Body height 185.4 cm CONCETTA JOVEL DO [facility] 07-31-2022 20:40-0500 Body temperature 98.24 [degF] CONCETTA JOVEL DO [facility] 07-31-2022 20:40-0500 Body weight 106.8 kg CONCETTA JOVEL DO [facility] 07-31-2022 20:40-0500 Diastolic Blood Pressure Non-Invasive 81 1 CONCETTA JOVEL DO [facility] 07-31-2022 20:40-0500 Heart rate 66 /min CONCETTA JOVEL [employer] [facility] 07-31-2022 20:40-0500 Respiratory rate 18 /min CONCETTA JOVEL DO [facility] 07-31-2022 20:40-0500 Systolic Blood Pressure Non-Invasive 124 1 CONCETTA JOVEL DO [facility] 04-07-2022 12:40-0400 Diastolic Blood Pressure NBP [address] MONTRELL WALTON MD [facility] 04-07-2022 12:40-0400 Heart rate 62 /min DR MONTRELL WALTON MD [facility] 04-07-2022 12:40-0400 Respiratory rate 15 /min DR MONTRELL WALTON MD [facility] 04-07-2022 12:40-0400 Systolic Blood Pressure NBP [address] MONTRELL WALTON MD [facility] 04-07-2022 12:35-0400 Diastolic Blood Pressure NBP [address] MONTRELL WALTON MD [facility] 04-07-2022 12:35-0400 Heart rate 60 /min DR MONTRELL WALTON MD [facility] 04-07-2022 12:35-0400 Respiratory rate 16 /min DR MONTRELL WALTON MD [facility] 04-07-2022 12:35-0400 Systolic Blood Pressure NBP [address] MONTRELL WALTON MD [facility] 04-07-2022 12:28-0400 Body temperature 96.8 [degF] DR MONTRELL WALTON MD [facility] 04-07-2022 12:28-0400 Diastolic Blood Pressure NBP [address] MONTRELL WALTON MD [facility] 04-07-2022 12:28-0400 Heart rate 57 /min DR MONTRELL WALTON MD [facility] 04-07-2022 12:28-0400 Respiratory rate 16 /min DR MONTRELL WALTON MD [facility] 04-07-2022 12:28-0400 Systolic Blood Pressure NBP [address] MONTRELL WALTON MD [facility] 04-07-2022 12:25-0400 Heart rate 63 /min DR MONTRELL WALTON MD [facility] 04-07-2022 11:32-0400 Body temperature 96.8 [degF] DR MONTRELL WALTON MD [facility] 04-07-2022 11:30-0400 Body height 185.[address] MONTRELL WALTON MD [facility] 04-07-2022 11:30-0400 Body temperature 96.8 [degF] DR MONTRELL WALTON MD [facility] 04-07-2022 11:30-0400 Body weight 106.[address] MONTRELL WALTON MD [facility] 04-07-2022 11:30-0400 Body weight 31.07 kg/m2 DR MONTRELL WALTON MD [facility] 04-07-2022 11:30-0400 Diastolic blood pressure 97 mm[Hg] DR MONTRELL WALTON MD [facility] 04-07-2022 11:30-0400 Heart rate 60 /min DR MONTRELL WALTON MD [facility] 04-07-2022 11:30-0400 Systolic blood pressure 150 mm[Hg] DR MONTRELL WALTON MD [facility] 10-17-2021 13:29-0400 Body height 15.2 cm Mirtha Rodriguez MD Work Phone: [facility] 10-17-2021 13:29-0400 Body temperature 64.2 [degF] Mirtha Rodriguez MD Work Phone: [facility] 10-17-2021 13:29-0400 Body weight 107.05 kg Mirtha Rodriguez MD Work Phone: [facility] 10-17-2021 13:29-0400 Diastolic blood pressure 80 mm[Hg] Mirtha Rodriguez MD Work Phone: [facility] 10-17-2021 13:29-0400 Heart rate 52 /min Mirtha Rodriguez MD Work Phone: [facility] 10-17-2021 13:29-0400 Systolic blood pressure 128 mm[Hg] Mirtha Rodriguez MD Work Phone: [facility] Encounters Encounter Date Encounter Type Care Provider Facility Start: 04-06-2025 End: 04-06-2025 ambulatory BROCK CAREY MD Facility:[facility] Start: 04-06-2025 End: 04-06-2025 Patient encounter procedure BROCK CAREY MD [facility] Start: 12-27-2024 End: 12-27-[address] Brock Carey MD Work Phone: -[facility] Lab Start: 12-27-2024 End: 12-27-2024 Patient encounter procedure WOODS SUPERINTENDENT Su Stewart -Sleep Lab Work Phone: Start: 12-27-2024 End: 12-27-2024 ambulatory Brock Carey Facility:[facility] Start: 11-30-2024 End: 11-30-2024 Patient encounter procedure WOODS SUPERINTENDENT Su Stewart -[facility] Work Phone: Start: 11-30-2024 End: 11-30-[address] Brock Carey MD Work Phone: [facility] Work Phone: Start: 11-29-2024 End: 11-29-2024 Office outpatient visit 25 minutes Kelli Salazar PA-C Work Phone: [facility] - Benjy Ponramakrishna Comment on above: Neoplasm of uncertai n behavior of skin (Primary Dx); Actinic keratosis; Multiple benign melanocytic nevi of both upper extremities, both lower extremities, and trunk; Seborrheic keratosis; Solar lentigo; Nguyen angioma Start: 11-29-2024 End: 11-29-2024 ambulatory KELLI SALAZAR [facility] Start: 11-25-2024 End: 11-25-[address] Brock Carey MD Work Phone: -Cardiovascular Services Start: 11-25-2024 End: 11-25-[address] Fermin Vogt MD -Cardiovascular Services Work Phone: Start: 11-25-2024 ambulatory Meet Ford Facility:[facility] Start: 11-25-2024 Non-patient / Non-visit Dr. Loren MORALES -[facility] Start: 11-25-2024 End: 11-25-2024 ambulatory Brock Madison Facility:[facility] Start: 11-22-2024 End: 11-22-[address] Brock Carey MD Work Phone: [facility] Work Phone: Start: 11-22-2024 End: 11-22-2024 Patient encounter procedure WOODS SUPERINTENDENT Su Stewart -Pulmonary Services/Neurology Work Phone: Start: 11-22-2024 End: 11-22-2024 ambulatory Su Stewart Facility:[facility] Start: 11-17-2024 Non-patient / Non-visit Dr. Meet guillaume DO -[facility] Start: 11-17-2024 End: 11-17-[address] Brock Carey MD Work Phone: [facility] Work Phone: Start: 11-17-2024 End: 11-17-2024 Patient encounter procedure [facility] Work Phone: Start: 11-17-2024 End: 11-17-2024 ambulatory Brock Madison Facility:[facility] Start: 09-14-2024 End: 09-14-[address] Fermin Vogt MD -[facility] Work Phone: Start: 09-14-2024 End: 09-14-2024 ambulatory Fermin Vogt Facility:[facility] Start: 08-31-2024 End: 08-31-2024 Patient encounter procedure BLANCA Stewart -[facility] Work Phone: Start: 08-31-2024 End: 08-31-2024 ambulatory Brock Carey Facility:[facility] Start: 08-03-2024 End: 08-03-2024 Telephone encounter Cecilia A Juan PA-C Work Phone: [facility] - Benjy Jamison Start: 08-11-2023 Telephone encounter Fifi Mapel PA-C Work Phone: [facility] Comment on above: Med Refill Start: 08-04-2023 End: 08-04-2023 Patient encounter procedure Fifi Mapel PA-C Work Phone: [facility] Comment on above: Neoplasm of uncertai n behavior of skin (Primary Dx) Start: 06-29-2023 End: 06-30-2023 ambulatory BROCK CAREY MD Facility:[facility] Start: 06-29-2023 End: 06-29-2023 Patient encounter procedure BROCK CAREY MD [facility] Start: 02-19-2023 End: 02-19-2023 Office outpatient visit 15 minutes Fifi Mapel PA-C Work Phone: [facility] Comment on above: Multiple benign nevi (Primary Dx); History of nonmelanoma skin cancer; Actinic keratosis; Seborrheic keratosis; Actinic keratoses; Solar lentigo; Neoplasm of uncertain behavior of skin Start: 07-31-2022 End: 08-01-2022 Emergency department patient visit BROCK CAREY MD Facility:[facility] Start: 07-31-2022 End: 07-31-2022 Emergency department patient visit CONCETTA ETHANSHEBA DERAS [facility] Start: 04-07-2022 End: 04-07-[address] MONTRELL WALTON MD [facility] Start: 11-27-2021 End: 06-22-2022 ambulatory Mirtha Rodriguez MD Work Phone: [facility] Comment on above: Elevated rheumatoid factor (Primary Dx); Pain in joint, multiple sites; Primary osteoarthritis involving multiple joints Start: 11-27-2021 End: 11-27-2021 Telemedicine consultation with patient Mirtha Rodriguez MD Work Phone: [facility] Start: 10-17-2021 End: 10-17-2021 Subsequent hospital visit by physician [facility] Comment on above: Pain in joint, multi ple sites [M25.50] Start: 10-17-2021 End: 10-17-2021 Patient encounter procedure Mirtha Rodriguez MD Work Phone: [facility] Comment on above: Pain in joint, multi ple sites (Primary Dx); Primary osteoarthritis involving multiple joints; Low back pain, unspecified back pain laterality, unspecified chronicity, unspecified whether sciatica present; Elevated rheumatoid factor Start: 10-08-2021 End: 10-08-2021 Patient encounter procedure BROCK CAREY MD [facility] Start: 05-30-2021 End: 05-30-2021 Patient encounter procedure LIANET CHINO DO [facility] Start: 08-25-2018 End: 08-25-2018 Patient encounter procedure STEVE CLARK Facility:[facility] Start: 07-26-2018 End: 07-26-2018 Patient encounter procedure SHIVAM (DUC) TRU Facility:[facility] Start: 07-12-2018 Patient encounter procedure SHIVAM (DUC) TRU Facility:[facility] Start: 07-05-2018 Patient encounter procedure SHIVAM (DUC) TRU Facility:[facility] Start: 06-28-2018 Patient encounter procedure SHIVAM (DUC) TRU Facility:[facility] Start: 06-09-2018 End: 06-09-2018 Patient encounter procedure SHIVAM (DUC) TRU Facility:[facility] Start: 05-26-2018 Patient encounter procedure SHIVAM (DC) TRU Facility:[facility] Start: 05-17-2018 End: 05-17-2018 Patient encounter procedure SHIVAM EspinoDCProsper TRU Facility:[facility] Start: 05-14-2018 Patient encounter procedure SHIVAM EspinoDC) TRU Facility:[facility] Start: 05-12-2018 Patient encounter procedure SHIVAM EspinoDC) TRU Facility:[facility] Start: 05-07-2018 End: 05-07-2018 Patient encounter procedure ABIGAIL NEELY Facility:[facility] Start: 04-26-2018 End: 04-26-2018 Patient encounter procedure SHIVAM (DC) TRU Facility:[facility] Start: 04-07-2018 Patient encounter procedure Facility:[id number] Start: 04-06-2018 End: 04-06-2018 Patient encounter procedure STEVE CLARK Facility:[facility] Start: 01-17-2018 Patient encounter procedure Facility:[id number] Start: 11-17-2017 Patient encounter procedure KODAK MIJARES Facility:[facility] Start: 10-22-2017 Patient encounter procedure Facility:[id number] Start: 10-16-2017 End: 10-16-2017 ambulatory [facility] Facility:[facility] Start: 10-14-2017 End: 10-14-2017 Evaluation and management of inpatient KODAK PELLETIER Facility:[facility] Procedures Date Procedure Procedure Detail Performing Clinician Start: 11-29-2024 End: 11-29-2024 SKIN BIOPSY Barbara Spence LPN Start: 09-14-2024 Evaluation of diagno stic study results Dr. Brock Carey MD Work Phone: Start: 08-04-2023 SKIN BIOPSY Fifi Mapel PA-C Work Phone: Start: 02-19-2023 SKIN BIOPSY Fifi Mapel PA-C Work Phone: Start: 02-19-2023 End: 02-19-2023 CRYOTHERAPY SKIN LESION Fifi Mapel PA-C Work Phone: Start: 10-17-2021 Radiologic exam both knees standing anteropost Mirtha Rodriguez MD Work Phone: Back structure, excl uding neck (body structure) SCOT CHINO DO Colonoscopy DR MONTRELL ANDERSEN MD Fused structure (morphologic abnormality) DR MONTRELL WALTON MD Comment on above: C5-[address] JUAN DAVID WALTON MD Comment on above: RIGHT Laser assisted in si tu keratomileusis DR MONTRELL WALTON MD Lateral epicondyliti s (disorder) DR MONTRELL WALTON MD Comment on above: RIGHT Tonsillectomy DR MONTRELL MOURA MD Plan of Treatment Date Care Activity Detail Author Start: 07-31-2032 DTaP/Tdap/Td Vaccine s (2 - Td or Tdap) DTaP/Tdap/Td Vaccines (2 - Td or Tdap) [facility] Start: 11-30-2025 End: 11-30-2025 Patient encounter procedure 11/30/2025 1:00 PM EDT Office Visit [facility] [place] [address] [facility] [address] [place] [address] Kelli Salazar PA-C [address] [facility] [address] [place] [address] [facility] [place] Start: 10-03-2025 End: 10-03-2025 Patient encounter procedure 10/03/2025 11:00 AM EDT Office Visit [facility] [place] [address] [facility] [address] [place] [phone] Kelli Salazar PA-C [address] [facility] [address] [place] [address] [facility] [place] Start: 02-06-2025 Influenza vaccination Influenz a Vaccine (Season Ended) [facility] Start: 12-27-2024 Polysomnography [facility] Start: 11-29-2024 End: 11-29-2024 Patient encounter procedure 11/29/2024 1:00 PM EDT Office Visit [facility] [place] [address] [facility] [address] [place] [phone] Kelli Salazar PA-C [address] [facility] [address] [place] [address] [facility] [place] Start: 02-22-2024 End: 02-22-2024 Patient encounter procedure 02/22/2024 11:00 AM EDT Office Visit [facility] [address] [facility] [address] [place] [address] Fifi Licea PA-C [address] [facility] [address] [place], [place] [id number] [facility] Start: 02-07-2024 COVID-19 Vaccine ( season) COVID-19 Vaccine ( season) [facility] Start: 02-07-2024 Influenza vaccination Influenza Vacc ine (#1) [facility] Start: 02-06-2023 COVID-19 Vaccine ( season) COVID-19 Vaccine ( season) [facility] Start: 02-06-2023 Influenza vaccination Influenza Vacc ine (#1) [facility] Start: 2022 RSV Immunization age d 60 or older (1 - 1-dose 60+ series) RSV Immunization aged 60 or older (1 - 1-dose 60+ series) [facility] Start: 2022 RSV Immunization for Adults (1 - Risk 60-74 years 1-dose series) RSV Immunization for Adults (1 - Risk 60-74 years 1-dose series) [facility] Start: 10-17-2021 End: 12-17-2021 Cyclic citrullinated peptide IgG Ab [Units/volume] in Serum or Plasma [facility] Work Phone: Comment on above: Expected: 10/17/2021 , Expires: 12/17/2021 Start: 08-18-2021 COVID-19 VACCINE (4 - Booster for Pfizer series) COVID-19 VACCINE (4 - Booster for Pfizer series) [facility] Start: 08-29-2019 DIABETES SCREEN DIABETES SCREEN [facility] Start: 04-29-2018 PNEUMOCOCCAL (2 - PCV) PNEUMOCOCCAL (2 - PCV) [facility] Start: 04-29-2018 Pneumococcal Vaccine : 50+ Years (2 of 2 - PCV) Pneumococcal Vaccine: 50+ Years (2 of 2 - PCV) [facility] Start: 2017 PROSTATE CANCER SCRE ENING DISCUSSION PROSTATE CANCER SCREENING DISCUSSION [facility] Start: 2012 SHINGRIX VACCINE (1 of 2) LAGUERRE GRIX VACCINE (1 of 2) [facility] Start: 10-28-2007 COLOGUARD (FIT-DNA) COLOGUARD (FIT-D NA) [facility] Start: 10-28-2007 Colonoscopy COLONOSCOPY [facility] Start: 10-28-2007 COLORECTAL CANCER SCREENING COLORECTAL CANCER SCREENING [facility] Start: 10-28-[address] COLONOGRAPHY [facility] Start: 10-28-2007 FECAL OCCULT BLOOD FECAL OCCULT BLOO D [facility] Start: 10-28-2007 SIGMOIDOSCOPY SIGMOIDOSCOPY [facility] Start: 1997 LIPID SCREEN LIPID SCREEN [facility] Start: 1981 ADULT PREVNAR ADULT PREVNAR [facility] Start: 1981 Urine microalbumin profile DTAP,TDAP,TD (1 - Tdap) [facility] Start: 1980 ANNUAL PCP 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 Start: 1980 HIV SCREENING HIV SCREENING [facility] Start: 1980 SPIROMETRY SPIROMETRY [facility] Start: 1974 Adult depression screening assessment DEPRESSION SCREENING [facility] Start: 10-28-1963 MMR Vaccines (1 of 1 - Standard series) MMR Vaccines (1 of 1 - Standard series) [facility] Start: 04-29-1963 Examination of skin Derm Melan gasper Skin Check [facility] Start: 1962 HIV screening HIV Screening [facility] Start: 1962 Lipid panel Lipid Panel [facility] Start: 1962 Screening for malign ant neoplasm of colon [facility] Polysomnography [facility] Radiologic examinati on sacroiliac jnts <3 views XR SACROILIAC JOINTS 2V AP PELVIS/FERGUESON Radiology Routine Pain in joint, multiple sites 10/17/2021 2:48 PM EDT [facility] Work Phone: Tissue exam Tissue exam Path ology and Cytology Timed Neoplasm of uncertain behavior of skin Release Upon Ordering for 1 Occurrences starting 02/19/2023 [facility] Work Phone: Comment on above: Release Upon Orderin g for 1 Occurrences starting 02/19/2023 Tissue exam Tissue exam Path ology and Cytology Timed Neoplasm of uncertain behavior of skin Release Upon Ordering for 1 Occurrences starting 08/04/2023 [facility] Work Phone: Comment on above: Release Upon Orderin g for 1 Occurrences starting 08/04/2023 Tissue exam Tissue exam Path ology and Cytology Timed Neoplasm of uncertain behavior of skin Release Upon Ordering for 1 Occurrences starting 11/29/2024 [facility] Work Phone: Comment on above: Release Upon Orderin g for 1 Occurrences starting 11/29/2024 XR KNEE SURVEY ARTHR ITIS 1V AP BILATERAL XR KNEE SURVEY ARTHRITIS 1V AP BILATERAL Radiology Routine Pain in joint, multiple sites 10/17/2021 2:48 PM EDT [facility] Work Phone: XR SHOULDER GENERAL 3V OR MORE AP/TRUE AP/OTHER RIGHT XR SHOULDER GENERAL 3V OR MORE AP/TRUE AP/OTHER RIGHT Radiology Routine Pain in joint, multiple sites 10/17/2021 2:48 PM EDT [facility] Work Phone: [facility] Immunizations Immunization Date Immunization Notes Care Provider Fa fior 07-31-2022 tetanus toxoid, redu ciarra diphtheria toxoid, and acellular pertussis vaccine, adsorbed CONCETTA JOVEL DO [facility] 02-23-2022 influenza virus vacc ine, unspecified formulation Fifi Mapel PA-C Work Phone: [facility] 09-14-2020 Pfizer SARS-CoV-2 Vaccination Fifi Mapel PA-C Work Phone: [facility] 08-24-2020 Pfizer SARS-CoV-2 Vaccination Fifi Mapel PA-C Work Phone: [facility] 03-29-2019 influenza, injectabl e, quadrivalent, preservative free Fifi Mapel PA-C Work Phone: [facility] 04-29-2017 influenza virus vacc ine, unspecified formulation Fifi Mapel PA-C Work Phone: [facility] 04-29-2017 influenza, injectabl e, quadrivalent, preservative free Xr 2 [facility] 04-29-2017 pneumococcal polysaccharide vaccine, 23 valent Xr 2 [facility] 04-03-2016 influenza virus vacc ine, unspecified formulation Fifi Mapel PA-C Work Phone: [facility] 04-03-2016 influenza, seasonal, injectable Xr 2 [facility] 04-03-2016 influenza, seasonal, injectable, preservative free Xr 2 [facility] 03-12-2015 influenza virus vacc ine, unspecified formulation Fifi Mapel PA-C Work Phone: [facility] 03-12-2015 influenza, seasonal, injectable Xr 2 [facility] 03-12-2015 influenza, seasonal, injectable, preservative free Xr 2 [facility] 05-24-2014 influenza virus vacc ine, unspecified formulation Fifi Mapel PA-C Work Phone: [facility] 05-24-2014 influenza, injectabl e, quadrivalent, preservative free Xr 2 [facility] Payers Date Payer Category Payer Self-pay 2022 Medicaid HMO [employer] [place] [id number] 2018 Medicaid [employer] [employer] [employer] [id number] 2018-Present [phone] [address] [place] [address] Medicaid [id number] 2018 Medicaid [id number]. [id number] 2017 Unknown [id number] 1960 Unknown [id number] 2.16.840.1.667713.3.579.2.356 1962 Unknown [id number] 2.16.840.1.420344.3.579.2.356 1962 Unknown [id number] 2.16.840.1.936228.3.579.2.356 1962 Unknown [id number] 2.16.840.1.138671.3.579.2.278 1962 Unknown [id number] 2.16.840.1.986574.3.579.2.278 1962 Unknown [id number] 2.16.840.1.835375.3.579.2.278 1962 Unknown [id number] 2.16.840.1.995971.3.579.2.278 1962 Unknown [id number] 2.16.840.1.657817.3.579.2.278 1962 Unknown [id number] 2.16.840.1.359465.3.579.2.278 1962 Unknown [id number] 2.16.840.1.746026.3.579.2.278 1962 Unknown [id number] 2.16.840.1.735563.3.579.2.278 1962 Unknown [id number] 2.16.840.1.807030.3.579.2.278 1962 Unknown [id number] 2.16.840.1.626785.3.579.2.278 1962 Unknown [id number] 2.16.840.1.713479.3.579.2.278 1962 Unknown [id number] 2.16.840.1.638772.3.579.2.278 1962 Unknown [id number] 2.16.840.1.343844.3.579.2.278 1962 Unknown [id number] 2.16.840.1.861699.3.579.2.278 1962 Unknown [id number] 2.16.840.1.983624.3.579.2.732 1962 Unknown [id number] 2.16.840.1.481403.3.579.2.627 1962 Unknown [id number] 2.16.840.1.699243.3.579.2.627 1962 Unknown [id number] 2.16.840.1.524971.3.579.2.627 Unknown [id number] 2.16.840.1.495117.3.579.2.462 Unknown [id number] 2.16.840.1.472508.3.579.2.462 Unknown [id number] 2.16.840.1.063481.3.579.2.462 Unknown [id number] 2.16.840.1.269937.3.579.2.462 Unknown [id number] 2.16.840.1.019689.3.579.2.462 Unknown [id number] 2.16.840.1.113586.3.579.2.462 Unknown [id number] 2.16.840.1.095455.3.579.2.462 Unknown [id number] 2.16.840.1.634566.3.579.2.462 Unknown [id number] 2.16.840.1.583131.3.579.2.462 Unknown [id number] 2.16.840.1.248400.3.579.2.462 Social History Date Type Detail Facility Never smoker [facility] Start: 1960 Sex Assigned At Male A [facility] Start: 08-20-2017 End: 11-18-2021 Tobacco smoking status NHIS Never smoked tobacco [facility] Start: 08-20-2017 Tobacco use and exposure Smokeless tobacco non-user [facility] Start: 10-17-2021 End: 08-04-2023 Alcohol intake Current drinker of alcohol (finding) [facility] Start: 08-20-2017 History SDOH Alcohol Comment Occasional [facility] Start: 10-07-2021 End: 02-19-2023 Exposure to SARS-CoV-2 (event) Not sure [facility] Start: 11-17-2021 End: 11-27-2021 Exposure to SARS-CoV-2 (event) Unable to assess [facility] Start: 02-06-2022 End: 08-04-2023 History of Social function [facility] Start: 02-06-2022 End: 08-04-2023 Tobacco use panel [facility] Start: 02-18-2023 Gender identity Identifies as male gender (finding) [facility] Start: 02-18-2023 Sexual orientation Heterosexual (fin ding) [facility] Start: 10-13-2018 End: 01-06-2022 Sex Male (finding) [facility] Start: 08-19-2020 Alcohol Alcohol [facility] Start: 08-19-2020 Lives Lives [facility] Sexual O[facility] Goals Date Patient Goal Desired Activity /State Functional Status Date Assessment Result Facility 07-31-2022 Functional Status Assistive Device None A [facility] 04-07-2022 Functional Status Awake, Resting [facility] 04-07-2022 Functional Status Maintained [facility] Mental Status Date Assessment Result Facility 04-07-2022 Mental Status Oriented x 4 [facility] 04-07-2022 Mental Status [facility] Clinical Notes 12-11-2020 to 11-29-2024 Kelli Salazar PA-C - 11/29/2024 1:00 PM EDTPatient Instructions Note Date & Type Note Facility 11-29-2024 History of Presen t illness Narrative Images from the original note were not included. DATE OF SERVICE: 11/29/2024 PATIENT NAME: Kodak Gamboa : 1960 AGE: 64 y.o. CLINIC NUMBER: [id number] Visit type: Established patient Chief Complaint Patient presents with Annual Exam Enio 08/04/2023 Subjective HISTORY OF PRESENT ILLNESS: Kodak Gamboa is a 64 y.o. who presents to the office for a check up. Patient's last FSE was done on 08/04/2023. Denies any skin lesions changing in size, shape or color. Denies any skin lesions itching, bleeding or becoming tender. Patient does have a history of actinic keratosis - patient states that he has used efudex cream to his chest, cheeks, temples and nose that was his girlfriends and he did get a reaction so he is wondering if this is something he should do Patient states that he mainly lives in [place] - however comes to [place] every 3 months for his doctor appointments. 08/04/2023 Pathology Report: Skin, left lower back: Inflamed seborrheic keratosis Patient has no h/o of ATN. Patient has h/o of Aks- Cryotherapy. Patient has personal h/o skin cancer: sBCC Mid upper back s/p ED&C w/Suad Bebeto VETERINARY NURSE 11/16/19. Patient has no family h/o melanoma. History of pacemaker/ defibrillator? No. History of HIV/ Hep C? No. Allergies to Lidocaine, Epinephrine, Latex or Adhesive? No- patient has allergies to benzocaine and procaine but states he has had testing done and is ok with lidocaine. Social History: Born/raised in [place]. Pets in the home: Yes. H/o excessive sun exposure. Never used tanning beds. Patient does currently spend frequent time outdoors-Spends a lot of time in [place]. Patient does wear SPF. Patient does use additional sun protection measures. Review of Systems Dermatology: as per HPI, otherwise negative Vitals: 11/29/24 1306 BP: 126/86 Pulse: 64 PHYSICAL EXAM: GENERAL APPEARANCE:?alert and oriented x3, well developed and well nourished. PSYCH: appropriate mood and affect DERMATOLOGY: Skin Exam 1. NEOPLASM OF UNCERTAIN BEHAVIOR OF SKIN (2) Left Flank 6 mm well circumscribed erythematous pink macule Skin Biopsy Type of biopsy: tangential Informed consent: discussed and consent obtained Timeout: patient name, date of , surgical site, and procedure verified Anesthesia: the lesion was anesthetized in a standard fashion Anesthetic: 1% lidocaine w/ epinephrine 1-100,000 buffered w/ 8.4% NaHCO3 Instrument used: DermaBlade Hemostasis achieved with: electrodesiccation Outcome: patient tolerated procedure well Post-procedure details: wound care instructions given Specimen A - Tissue exam Differential Diagnosis: sBCC vs other Check Margins: No Right Algu[place] 6 mm well circumscribed erythematous pink macule Skin Biopsy Type of biopsy: tangential Informed consent: discussed and consent obtained Timeout: patient name, date of , surgical site, and procedure verified Anesthesia: the lesion was anesthetized in a standard fashion Anesthetic: 1% lidocaine w/ epinephrine 1-100,000 buffered w/ 8.4% NaHCO3 Instrument used: DermaBlade Hemostasis achieved with: electrodesiccation Outcome: patient tolerated procedure well Post-procedure details: wound care instructions given Specimen B - Tissue exam Differential Diagnosis: sBCC vs other Check Margins: No Biopsy recommended. Patient expresses understanding and is in agreement with the plan. Biopsy (x 2) obtained today. Patient educated that we will call with the biopsy results within 2 weeks. Care instructions reviewed and written instructions provided to patient. 2. ACTINIC KERATOSIS (6) Head - Anterior (Face), Left Forearm - Posterior (2), Left Hand - Posterior, Right Forearm - Posterior, Right Hand - Posterior [place] scaly macules [x]Chronic []Acute []Stable [x]Flaring/Exacerbation - Educated and reassured. Treatment options, risks, benefits, and expectations reviewed. - Patient educated on actinic keratosis and the possibility of transformation into SCC. Treatment options are discussed with risks and benefits reviewed. Patient is agreeable to start treatment with Efudex (fluorouracil) . 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 Start: - Efudex (fluorouracil) cream: Apply a very thin layer to face, bilateral forearms and dorsal hands twice daily x 2 weeks. Patient thoroughly educated about treatment with Efudex, including risks and benefits and detailed application instructions. The severity of your reaction to this medication cannot be predicted. It is normal to have some redness/ irritation and crusting, but to stop treatment if patient develops any open sores, weeping, oozing, ulceration. If any issues with treatment, stop for a few days and then restart until completing 2 week treatment course. The skin must be protected from sun exposure; use clothing, sunscreen, hats, etc. Apply 15-20 minutes before any other creams or makeup. Do not get into eyes. Patient recommended to start Heliocare vitamins to help reduce skin sun damage from the inside out Related Medications fluorouracil (Efudex) 5 % cream Apply a very thin layer to face, bilateral forearms and dorsal hands twice daily x 2 weeks. 3. MULTIPLE BENIGN MELANOCYTIC NEVI OF BOTH UPPER EXTREMITIES, BOTH LOWER EXTREMITIES, AND TRUNK Generalized Multiple uniformly pigmented brown macules with regular network pattern on dermoscopy Reassured that this is a benign lesion and does not require any treatment. Educated that if the lesion changes color, becomes larger, bleeds, becomes bothersome or painful then it should be reevaluated. Patient expresses understanding and is agreeable to plan. Patient advised to perform monthly skin exams; checking the skin for any new or changing lesions. Any lesions that are new, elevated, firm and/or growing should be evaluated in our office. Also look for ABCDEs of Melanoma (warning signs): Asymmetry- the appearance of one side of the mole doesn't look like the other side. Borders- the borders of the mole are jagged, notched or smeared. Color- there are multiple colors in the mole, or it has changed colors. It can become darker, red or even lose pigment. Diameter- diameter greater than 6mm or the size of a pencil eraser. Evolution- Any change or evolving in size, shape or color of a mole. Also, any new symptom like bleeding, pain or itching may be a warning sign. Sunscreen Use & Sun Safety It is recommended a water-resistant, broad-spectrum sunscreen with SPF of at least 15 to 30. Apply sunscreen to all exposed skin 30 minutes before sun exposure, and then every 2 hours. Apply sooner if sweating or coming out of pool/water. Using the proper amount of sunscreen in important. An adult should use about 1-1.5 oz of sunscreen to the entire body, about 2-3 tablespoons per application. Use a lip balm with SPF 30 or higher to protect the lips from sun damage. Limit time in the sun, especially between 10 AM and 2 PM when the sun s rays are the strongest. Clothing labeled with a UPF (ultra-jono protection factor) rating indicates that it s protective against UV rays. Also, wear wide-brimmed hats, and sunglasses for sun protection. 4. SEBORRHEIC KERATOSIS (2) Generalized, Right Neck [place]-brown waxy papules and plaques Reassured that this is a benign lesion and does not require any treatment. Educated that if the lesion changes color, becomes larger, bleeds, becomes bothersome or painful then it should be reevaluated. Patient expresses understanding and is agreeable to plan. 5. SOLAR LENTIGO Generalized Light brown well-circumscribed macules Educated and reassured, benign finding secondary to sun exposure. Patient educated on the proper use of sunscreen, SPF, and how often to reapply. Recommend use of OTC mineral sun block, like Neutrogena or [place]. Patient advised to look for zinc or titanium as the active ingredient(s). Try to limit sun exposure to underwriting manager or late evening hours. Patient advised to perform self-skin checks and call for follow up appointment if any new or concerning lesions detected. 6. NGUYEN ANGIOMA Generalized Bright red vascular papules Reassured and educated, benign finding. Orders Placed This Encounter Medications fluorouracil (Efudex) 5 % cream Sig: Apply a very thin layer to face, bilateral forearms and dorsal hands twice daily x 2 weeks. Dispense: 40 g Refill: 1 Follow up for Late August [place] Follow Up / 1 year FSE. Kelli Salazar PA-C 11/29/24 2:29 PM REFERRING MD: No referring provider defined for this encounter. documented in this encounter [facility] 11-29-2024 Instructions Barbara Spence LPN - 11/29/2024 1:00 PM EDT Start: - Efudex (fluorouracil) cream: Apply a very thin layer to face, bilateral forearms and dorsal hands twice daily x 2 weeks. Heliocare Vitamins on amazon to help heal skin from inside out BIOPSY / SURGICAL AFTERCARE 1. If a dressing is in place, please leave it for 24 hours unless given other instructions. 2. After that time, remove the initial bandage, and cleanse the area with a mild, fragrance free soap such as Dove, Cetaphil, or CeraVe. 3. Apply Vaseline to the area and cover with a new bandage. Please do not use Neosporin, Polysporin, or Bacitracin, as these may cause unwanted allergic reactions in some patients, and are not necessary for good healing. 4. Repeat the above steps every day for 7 days unless otherwise directed by physician or nurse. 5. If any bleeding occurs, use a clean cotton or gauze, apply firm, direct pressure to the area for 10 to 15 minutes. If the bleeding does not stop, call our office at [phone]. 6. The wound should improve daily. If you notice any increased redness, swelling, drainage, warmth, or pain in the area, please notify our office. Please be advised that it can take up to 2 weeks for these sites to heal. In some patients it may take even longer depending on location (lower legs / feet) and / or if the patient has history of diabetes. Our office will notify you of the results in about 2 weeks. documented in this encounter [facility] 11-25-2024 Procedure note [facility] 09-14-2024 Evaluation note Diagnosis Onset Date Resolution Essential (primary) hypertension chronic September 14, 2024 10:53am Daytime hypersomnia acute November 30, 2024 10:09am Hypoxemia acute November 30 10:09am Asthma noneactive November 30 10:09am [facility] Work Phone: 1(250) 762-564703-26-2025 Evaluation note* Diagnosis Onset Date Resolution Status Admit Date Hypoxemia acute August 31 12:42pm Asthma noneactive August 31 12:42pm Essential (primary) hypertension chronic September 14, 2024 10:53am [facility] Work Phone: 1(134) 710-666303-26-2025 Evaluation note* Diagnosis Onset Date Resolution Status Admit Date Hypoxemia acute August 31 12:42pm Asthma noneactive August 31 12:42pm Essential (primary) hypertension chronic September 14, 2024 10:53am Hypoxemia acute November 30 10:09am Asthma noneactive November 30 10:09am [facility] Work Phone: 1(795) 849-414903-26-2025 Evaluation note* Diagnosis Onset Date Resolution Status Admit Date Hypoxemia acute August 31 12:42pm Asthma noneactive August 31 12:42pm Essential (primary) hypertension chronic September 14, 2024 10:53am Daytime hypersomnia acute November 30, 2024 10:09am Hypoxemia acute November 30 10:09am Asthma noneactive November 30 10:09am [facility] Work Phone: 1(267) 887-320802-26-2025 Telephone encounter Note* Telephone Encounter - Keely Ramos - 08/03/2024 11:18 AM EST Patient requesting call back to reschedule FSE with Cecilia. [facility] you. [id number] Miscellaneous Notes* Telephone Encounter - Keely Ramos - 08/03/2024 11:18 AM EST Patient requesting call back to reschedule FSE with Cecilia. Thank you. documented in this [facility]03-06-2024 Telephone encounter Note* Telephone Encounter - Dodie Nova LPN - 08/12/2023 4:07 PM EST Spoke with patient, he stated Dr. Strickland prescribed it years ago and he has just used it intermittently for spots on his neck but noticed it was . I re- educated and advised him that he didn't have any spots that needed that treatment currently and if he had any new spots come up to call and make an appointment. He has no further questions at this time. [id number] Miscellaneous Notes* Telephone Encounter - Dodie Nova LPN - 08/12/2023 4:07 PM EST Spoke with patient, he stated Dr. Strickland prescribed it years ago and he has just used it intermittently for spots on his neck but noticed it was . I re- educated and advised him that he didn't have any spots that needed that treatment currently and if he had any new spots come up to call and make an appointment. He has no further questions at this time. * Telephone Encounter - Asia Murillo - 08/11/2023 3:16 PM EST Pt requesting refill of Flouricil 5% cream. Pt wants sent to [facility] in [facility] Dr Marco A Morse wrote the script years ago and he is out. Please advise. documented in this [facility]03-05-2024 Telephone encounter Note* Telephone Encounter - Asia Murillo - 08/11/2023 3:16 PM EST Pt requesting refill of Flouricil 5% cream. Pt wants sent to [facility] in [facility] Dr Marco A Morse wrote the script years ago and he is out. Please advise. [id number] History of Present illness Narrative* Fifi Licea PA-C - 08/04/2023 1:20 PM EST Images from the original note were not included. DATE OF SERVICE: 08/04/2023 PATIENT NAME: Kodak Gamboa : 1960 AGE: 62 y.o. CLINIC NUMBER: [id number] Visit type: Established patient Chief Complaint Patient presents with Skin Lesion (PKN) Subjective HISTORY OF PRESENT ILLNESS: This is a 62 y.o. male who presents for evaluation of a skin lesion; last seen 02/19/2023. F/u- actinic keratoses located on the face, left forearm, and left upper arm; At this visit patient was treated with cryotherapy. Denies redness, roughness, flaking, itching, bleeding, and tenderness. Patient does believe that the areas have resolved. Pt states there may be a few new spots that are rough on the face. C/o-skin lesion located on the mid back x years. Patient states the lesion is raised, flaky. Admits itching, bleeding, pain. Admits changes in size, shape, color. Denies previous treatment. Patient has no h/o of ATN. Patient has h/o of Aks- Cryotherapy. Patient has personal h/o skin cancer: - sBCC Mid upper back s/p ED&C w/Suad Tate VETERINARY NURSE 11/16/19 Patient has no family h/o melanoma. History of pacemaker/ defibrillator? no History of HIV/ Hep C? no Allergies to Lidocaine, Epinephrine, Latex or Adhesive? No- patient has allergies to benzocaine andprocaine but states he has had testing done and is ok with lidocaine. Social History: [place]. Pets in the home: Yes. H/o excessive sun exposure. Never used tanning beds. Patient does currently spend frequent time outdoors-Spends a lot of time in [place]. Patient does wear SPF. Patient does use additional sun protection measures. Review of Systems There were no vitals filed for this visit. PHYSICAL EXAM GENERAL APPEARANCE: Alert & oriented x3, pleasant. Well developed, well nourished. PSYCH: appropriate mood and affect DERMATOLOGY: (all measurements are in cm, unless otherwise noted) 1. Neoplasm of uncertain behavior of skin Left Lower Back 1.2 x 1.1 cm scaly plaque Skin Biopsy Type of biopsy: tangential Informed consent: discussed and consent obtained Timeout: patient name, date of , surgical site, and procedure verified Procedure prep: Patient was prepped and draped in usual sterile fashion Prep type: Isopropyl alcohol Anesthesia: the lesion was anesthetized in a standard fashion Anesthetic: 1% lidocaine w/ epinephrine 1-100,000 buffered w/ 8.4% NaHCO3 Instrument used: DermaBlade Hemostasis achieved with: electrodesiccation Outcome: patient tolerated procedure well Post-procedure details: sterile dressing applied and wound care instructions given Dressing type: petrolatum and bandage Specimen A - Tissue exam Differential Diagnosis: Left mid back R/O inflamed SK Check Margins: No Biopsy recommended. Patient expresses understanding and is in agreement with the plan. Biopsy (x1) obtained today. Patient educated that we will call with the biopsy results within 2 weeks. Care instructions reviewed and written instructions provided to patient. Follow up if symptoms worsen or fail to improve, for FSE, As scheduled. Fifi Licea PA-C 08/04/23 2:58 PM REFERRING MD: documented in this [facility]02-27-2024 Instructions* Patient Instructions* Aide Rhodes RN - 08/04/2023 1:20 PM EST BIOPSY / SURGICAL AFTERCARE 1. If a dressing is in place, please leave it for 24 hours unless given other instructions. 2. After that time, remove the initial bandage, and cleanse the area with a mild, fragrance free soap such as Dove, Cetaphil, or CeraVe. 3. Apply Vaseline to the area and cover with a new bandage. Please do not use Neosporin, Polysporin, or Bacitracin, as these may cause unwanted allergic reactions in some patients, and are not necessary for good healing. 4. Repeat the above steps every day for 7 days unless otherwise directed by physician or nurse. 5. If any bleeding occurs, use a clean cotton or gauze, apply firm, direct pressure to the area for10 to 15 minutes. If the bleeding does not stop, call our office at [phone]. 6. The wound should improve daily. If you notice any increased redness, swelling, drainage, warmth,or pain in the area, please notify our office. Please be advised that it can take up to 2 weeks for these sites to heal. In some patients it may take even longer depending on location (lower legs / feet) and / or if the patient has history of diabetes. Our office will notify you of the results in about 2 weeks. documented in this [facility]09-14-2023 History of Present illness Narrative* Fifi Licea PA-C - 02/19/2023 10:00 AM EDT Images from the original note were not included. nnualDATE OF SERVICE: 02/19/2023 PATIENT NAME: Kodak Gamboa : 1960 AGE: 62 y.o. CLINIC NUMBER: [id number] Visit type: Established patient Chief Complaint Patient presents with Annual Exam Enio 02/06/2022 (ds) Subjective HISTORY OF PRESENT ILLNESS: Kodak Gamboa is a 62 y.o. who presents to the office for a check up. Patient's last FSE was doneon 02/06/2022. Patient has no h/o of ATN. Patient has h/o of Aks- Cryotherapy. Patient has personal h/o skin cancer: - sBCC Mid upper back s/p ED&C w/Suad Tate VETERINARY NURSE 11/16/19 Patient has no family h/o melanoma. History of pacemaker/ defibrillator? no History of HIV/ Hep C? no Allergies to Lidocaine, Epinephrine, Latex or Adhesive? No- patient has allergies to benzocaine andprocaine but states he has had testing done and is ok with lidocaine. Social History: Occupation [employer] [place]. [place]. Pets in the home: Yes. H/o excessive sun exposure. Never used tanning beds. Patient does currently spend frequent time outdoors-Spends a lot of time in [place]. Patient does wear SPF. Patient does use additional sun protection measures. Review of Systems There were no vitals filed for this visit. PHYSICAL EXAM: GENERAL APPEARANCE:?alert and oriented x3, well developed and well nourished. PSYCH: appropriate mood and affect 1. Multiple benign nevi (8) Generalized, Left Forearm - Anterior, Left Lower Back, Left Upper Back, Right Flank, Right Forearm - Anterior, Right Upper Back (2) Scattered uniform brown macules/ papules with globular appearance on dermoscopy No treatment is needed for the benign appearing and asymptomatic lesions described above. The ABCDE(Asymmetry, Border, Color, Diameter, Evolution/Change) criteria used to evaluate pigmented lesions were reviewed with the patient. Patient educated on the proper use of sunscreen, SPF 30 or greater, and how often to reapply. Try to limit sun exposure to underwriting manager or late evening hours. Patient advised to perform self-skin checks and call for follow up appointment if any new or concerning lesions detected. 2. History of nonmelanoma skin cancer No evidence of recurrence on exam today. Educated on signs of skin cancer, skin cancer causes, prevention, and risk of developing skin cancers in the future. Sun protection measures reviewed, recommended monthly self skin exams and annual full skin exam. 3. Actinic keratosis Related Procedures Cryotherapy, skin lesion 4. Seborrheic keratosis [place]-brown waxy papule(s) and plaque(s) with stuck on appearance Reassured that this is a benign lesion and does not require any treatment. Educated that if the lesion changes color, becomes larger, bleeds, becomes bothersome or painful then it should be reevaluated. Patient expresses understanding and is agreeable to plan. 5. Actinic keratoses (3) Head - Anterior (Face), Left Forearm - Anterior, Left Upper Arm - Anterior [place] scaly papules Patient educated on actinic keratosis and the possibility of transformation into SCC. Treatment options are discussed with risks and benefits reviewed. Cryotherapy is agreed upon and performed. Reassured that redness, swelling and the formation of a blister at the site of cryotherapy are possible reactions. After care instructions are given and reviewed. Patient to apply Vaseline to treated siteswhile healing. Patient to monitor for resolution. If unresolved after 2-3 months, patient to returnfor further evaluation and management Cryotherapy Actinic Keratosis: Medical Necessity: It was explained to the patient that actinic keratoses are precancerous. Consent: The patient understood all the risks and benefits prior to treatment. The risks explained included scarring, hyper and/or hypopigmentation. Although this treatment is highly effective, recurrences do occur and this was explained to the patient. The patient further understood that these lesions are precancerous and may develop into a malignancy. Method: Liquid nitrogen was used to treat the lesion(s) with two freeze-thaw cycles. Post-op: The patient was instructed to clean the site normally twice a day. Signs of infection werereviewed and patient was instructed to call if he/ she develops increasing pain, purulent drainage,or beefy redness. The patient was informed that a blister may occur at the cryo site and that this is an expected event. Sun protection was reviewed and patient advised to use sunscreen with SPF 30 or greater on exposed skin when outdoors. Post-op instructions were given orally and in writing. Cryotherapy, skin lesion - Head - Anterior (Face), Left Forearm - Anterior, Left Upper Arm - Anterior 6. Solar lentigo Light brown well-circumscribed macule(s) Educated and reassured, benign finding secondary to sun exposure. Patient educated on the proper use of sunscreen, SPF, and how often to reapply. Recommend use of OTC mineral sun block, like Neutrogena or [place] Posay. Patient advised to look for zinc or titanium as the active ingredient(s). Try to limit sun exposure to underwriting manager or late evening hours. Patient advised to perform self-skin checks and call for follow up appointment if any new or concerning lesions detected. 7. Neoplasm of uncertain behavior of skin Right Upper Back 0.9 x 0.7 dark brown macule Skin Biopsy Type of biopsy: tangential Informed consent: discussed and consent obtained Timeout: patient name, date of , surgical site, and procedure verified Procedure prep: Patient was prepped and draped in usual sterile fashion Prep type: Isopropyl alcohol Anesthesia: the lesion was anesthetized in a standard fashion Anesthetic: 1% lidocaine w/ epinephrine 1-100,000 buffered w/ 8.4% NaHCO3 Instrument used: DermaBlade Hemostasis achieved with: electrodesiccation Outcome: patient tolerated procedure well Post-procedure details: sterile dressing applied and wound care instructions given Dressing type: bandage and pressure dressing Specimen A - Tissue exam Differential Diagnosis: R/O NMSC VS OTHER Check Margins: No Biopsy recommended. Patient expresses understanding and is in agreement with the plan. Biopsy (x1) obtained today. Patient educated that we will call with the biopsy results within 2 weeks. Care instructions reviewed and written instructions provided to patient. Follow up in about 1 year (around 02/20/2024) for FSE. Fifi Licea PA-C 02/19/23 5:01 PM REFERRING MD: No referring provider defined for this encounter. documented in this [facility]09-14-2023 Instructions* Patient Instructions* Kip Tang LPN - 02/19/2023 10:00 AM EDT BIOPSY / SURGICAL AFTERCARE 1. If a dressing is in place, please leave it for 24 hours unless given other instructions. 2. After that time, remove the initial bandage, and cleanse the area with a mild, fragrance free soap such as Dove, Cetaphil, or CeraVe. 3. Apply Vaseline to the area and cover with a new bandage. Please do not use Neosporin, Polysporin, or Bacitracin, as these may cause unwanted allergic reactions in some patients, and are not necessary for good healing. 4. Repeat the above steps every day for 7 days unless otherwise directed by physician or nurse. 5. If any bleeding occurs, use a clean cotton or gauze, apply firm, direct pressure to the area for10 to 15 minutes. If the bleeding does not stop, call our office at [phone]. 6. The wound should improve daily. If you notice any increased redness, swelling, drainage, warmth,or pain in the area, please notify our office. Please be advised that it can take up to 2 weeks for these sites to heal. In some patients it may take even longer depending on location (lower legs / feet) and / or if the patient has history of diabetes. Our office will notify you of the results in about 2 weeks. documented in this [facility]02-24-2023 Hospital Discharge instructions Patient Education 07/31/2022 22:02:02 Dog Bite Dog Bite A dog bite can cause a wound deep enough to break the skin. In such cases, the wound is cleaned andsometimes closed. If the wound is closed, it is usually not completely closed. This is so that fluid can drain if the wound becomes infected. Often, wounds will be left open to heal. In addition to wound care, a tetanus shot may be given, if needed. Home care Wash your hands well with soap and warm water before and after caring for the wound. This helps lower the risk of infection. Care for the wound as directed. If a dressing was applied to the wound, be sure to change it as directed. If the wound bleeds, place a clean, soft cloth on the wound. Then firmly apply pressure until the bleeding stops. This may take up to 5 minutes. Do not release the pressure and look at the wound during this time. Most wounds heal within 10 days. But an infection can occur even with proper treatment. So be sure to check the wound daily for signs of infection (see below). Antibiotics may be prescribed. These help prevent or treat infection. If you re given antibiotics, take them as directed. Also be sure to complete the medicines. Rabies prevention Rabies is a virus that can be carried in certain animals. These can include domestic animals such as dogs and cats. Pets fully vaccinated against rabies (2 shots) are at very low risk of infection. But because human rabies is almost always fatal, any biting pet should be confined for 10 days as an extra precaution. In general, if there is a risk for rabies, the following steps may need to be taken: If someone s pet dog has bitten you, it should be kept in a secure area for the next 10 days to watch for signs of illness. (If the pet orthodontist small business owner won t allow this, contact your local animal control center.) If the dog becomes ill or dies during that time, contact your local animal control center at once so the animal may be tested for rabies. If the dog stays healthy for the next 10 days, there is no danger of rabies in the animal or you. oIf a stray dog bit you, contact your local animal control center. They can give information on capture, quarantine, and animal rabies testing. oIf you can t find the animal that bit you in the next 2 days, and if rabies exists in your area, you may need to receive the rabies vaccine series. Call your healthcare provider right away. Or, return to the emergency department promptly. oAll animal bites should be reported to the local animal control center. If you were not given a form to fill out, you can report this yourself. Follow-up care Follow up with your healthcare provider, or as directed. When to seek medical advice Call your healthcare provider right away if any of these occur: Signs of infection: oSpreading redness or warmth from the wound oIncreased pain or swelling oFever of 100.4 F (38 C) or higher, or as directed by your healthcare provider oColored fluid or pus draining from the wound Signs of rabies infection: oHeadache oConfusion oStrange behavior oIncreased salivating and drooling oSeizure Decreased ability to move any body part near the wound Bleeding that can't be stopped after 5 minutes of firm pressure [id number] [employer]. [address] [place] [address]. All rights reserved. This information is not intended as a substitute for professional medical care. Always follow yourhealthcare professional's instructions. Follow Up Care 07/31/2022 20:34:37 With:BROCK CAREY MD Address: [address] [place] [address] [address] [place] [address]- [phone] When:2-4 days [facility] 02-23-2023 Note Discharge Instructions Thank you for allowing [facility] to assist you with your healthcare needs. The following is importantdischarge information regarding your hospital visit. Diagnosis from Today's Visit Dog bite What to Do Next Instructions from Your Care Team No qualifying data available. Post Acute Orders No qualifying data available. You Need to Schedule the Following Appointments Follow Up with BROCK CAREY MD When Within 2-4 days Where: [address] [place] [address] [address] [place] [address] [phone] Allergies benzocaine topical Medications Please ask your primary doctor or pharmacist before taking any other medication not listed, including over the counter drugs, herbal medications, vitamins and or supplements as they may interact withyour home medications. What How Much When Instructions Last Dose New amoxicillin-clavulanate (amoxicillin-clavulanate 875 mg-125 mg oral tablet) 1 tab(s) by mouth Every 12 hours Duration: 7 Days Printed Prescription Unchanged albuterol (Ventolin HFA MDI (90 mcg/ inh) inhalation aerosol) Unchanged amLODIPine (amLODIPine 10 mg oral tablet) 1 tab(s) by mouth Once a day Unchanged atorvastatin (atorvastatin 40 mg oral tablet) 1 tab(s) by mouth Every day Unchanged budesonide-formoterol (Symbicort 160 mcg-4.5 mcg/ inh Inhaler) Unchanged dicyclomine (dicyclomine 10 mg oral capsule) 1 cap by mouth Four (4) times a day as needed for abdominal pain/diarrhea Duration: 10 Days Unchanged FLUoxetine (FLUoxetine 40 mg oral capsule) 1 cap by mouth Once a day Unchanged hydroCHLOROthiazide (hydroCHLOROthiazide 25 mg oral tablet) 1 tab(s) by mouth Once a day Unchanged loratadine (loratadine 10 mg oral tablet) 1 tab(s) by mouth Once a day Unchanged LORazepam (Ativan) Unchanged losartan by mouth Once a day Unchanged meloxicam (meloxicam 15 mg oral tablet) 1 tab(s) Unchanged pantoprazole (pantoprazole 20 mg oral enteric coated tablet) 1 tab(s) by mouth Once a day before a meal Unchanged tiotropium (Spiriva Respimat 60 ACT 2.5 mcg/ inh inhalation aerosol) Unchanged tiZANidine (tiZANidine 4 mg oral tablet) Please take this list to your next doctor s visit. Bring all medications you take, including over the counter medications, herbals and other supplements with you to your doctor s visit. Patients and families are reminded to discard old lists and to update any records with all medication providers or retail pharmacies. Medication Leaflets amoxicillin and clavulanate potassium (am [place] i JOHAN in KLAV ue SUJATA ate agustina TAS ee um) Augmentin What is the most important information I should know about amoxicillin and clavulanate potassium? You should not use this medicine if you have severe kidney disease, if you have had liver problems or jaundice while taking amoxicillin and clavulanate potassium, or if you are allergic to any penicillin or cephalosporin antibiotic, such as Amoxil, Ceftin, Cefzil, Moxatag, Omnicef, and others. What is amoxicillin and clavulanate potassium? Amoxicillin is a penicillin antibiotic. Clavulanate potassium helps prevent certain bacteria from becoming resistant to amoxicillin. Amoxicillin and clavulanate potassium is a combination medicine used to treat many different infections caused by bacteria, such as sinusitis, pneumonia, ear infections, bronchitis, urinary tract infections, and infections of the skin. Amoxicillin and clavulanate potassium may also be used for purposes not listed in this medication guide. What should I discuss with my healthcare provider before taking amoxicillin and clavulanate potassium? You should not use this medicine if you are allergic to it, or if: you have severe kidney disease (or if you are on dialysis); you have had liver problems or jaundice while taking amoxicillin and clavulanate potassium; or you are allergic to any penicillin or cephalosporin antibiotic, such as Amoxil, Ceftin, Cefzil, Moxatag, Omnicef, and others. Tell your doctor if you have ever had: liver disease (hepatitis or jaundice); kidney disease; or mononucleosis. The liquid or chewable tablet may contain phenylalanine. Tell your doctor if you have phenylketonuria (PKU). Tell your doctor if you are or . Amoxicillin and clavulanate potassium can make control pills less effective. Ask your doctor about using a non-hormonal control (condom, diaphragm, cervical cap, or contraceptive sponge) to prevent . Do not give this medicine to a child without medical advice. How should I take amoxicillin and clavulanate potassium? Follow all directions on your prescription label and read all medication guides or instruction sheets. Use the medicine exactly as directed. Amoxicillin and clavulanate potassium may work best if you take it at the start of a meal. Take the medicine every 12 hours. Do not crush or chew the extended-release tablet. Swallow the pill whole, or break the pill in halfand take both halves one at a time. Tell your doctor if you have trouble swallowing a whole or halfpill. You must chew the chewable tablet before you swallow it. Shake the oral suspension (liquid) before you measure a dose. Use the dosing syringe provided, or use a medicine dose-measuring device (not a kitchen spoon). This medicine can affect the results of certain medical tests. Tell any doctor who treats you that you are using amoxicillin and clavulanate potassium. Use this medicine for the full prescribed length of time, even if your symptoms quickly improve. Skipping doses can increase your risk of infection that is resistant to medication. Amoxicillin and clavulanate potassium will not treat a viral infection such as the flu or a common cold. Store the tablets at room temperature away from moisture and heat. Store the liquid in the refrigerator. Throw away any unused liquid after 10 days. What happens if I miss a dose? Take the medicine as soon as you can, but skip the missed dose if it is almost time for your next dose. Do not take two doses at one time. What happens if I overdose? Seek emergency medical attention or call the Poison Help line at . Overdose can cause nausea, vomiting, stomach pain, diarrhea, skin rash, drowsiness, hyperactivity, and decreased urination. What should I avoid while taking amoxicillin and clavulanate potassium? Avoid taking this medicine together with or just after eating a high-fat meal. This will make it harder for your body to absorb the medication. Antibiotic medicines can cause diarrhea, which may be a sign of a new infection. If you have diarrhea that is watery or bloody, call your doctor before using anti-diarrhea medicine. What are the possible side effects of amoxicillin and clavulanate potassium? Get emergency medical help if you have signs of an allergic reaction (hives, difficult breathing, swelling in your face or throat) or a severe skin reaction (fever, sore throat, burning eyes, skin pain, red or purple skin rash with blistering and peeling). Stop using amoxicillin and clavulanate potassium and seek medical treatment if you have a serious drug reaction that can affect many parts of your body. Symptoms may include skin rash, fever, swollenglands, muscle aches, severe weakness, unusual bruising, or yellowing of your skin or eyes. Call your doctor at once if you have: severe stomach pain, diarrhea that is watery or bloody (even if it occurs months after your last dose); pale or yellowed skin, dark colored urine, fever, confusion or weakness; loss of appetite, upper stomach pain; little or no urination; or easy bruising or bleeding. Common side effects may include: nausea, vomiting; diarrhea; rash, itching; vaginal itching or discharge; or diaper rash. This is not a complete list of side effects and others may occur. Call your doctor for medical advice about side effects. You may report side effects to FDA at 8-854-NZK-1827. What other drugs will affect amoxicillin and clavulanate potassium? Tell your doctor about all your other medicines, especially: allopurinol; probenecid; or a blood thinner--warfarin, Coumadin, Jantoven. This list is not complete. Other drugs may affect amoxicillin and clavulanate potassium, including prescription and qnot-bkt-pmsfdyq medicines, vitamins, and herbal products. Not all possible drug interactions are listed here. Where can I get more information? Your doctor or pharmacist can provide more information about amoxicillin and clavulanate potassium. Remember, keep this and all other medicines out of the reach of children, never share your medicines with others, and use this medication only for the indication prescribed. Every effort has been made to ensure that the information provided by [employer] ('[employer]') is accurate, up-to-date, and complete, but no guarantee is made to that effect. Drug information contained herein may be time sensitive. [employer] information has been compiled for use by healthcare practitioners and consumers in the [place] and therefore [employer] does not warrant that uses outside of the [place] are appropriate, unless specifically indicated otherwise. [employer] drug information does not endorse drugs, diagnose patients or recommend therapy. [employer] drug information isan informational resource designed to assist licensed healthcare practitioners in caring for their p atients and/or to serve consumers viewing this service as a supplement to, and not a substitute for, the expertise, skill, knowledge and judgment of healthcare practitioners. The absence of a warningfor a given drug or drug combination in no way should be construed to indicate that the drug or drug combination is safe, effective or appropriate for any given patient. [employer] does not assume any responsibility for any aspect of healthcare administered with the aid of information [employer] provides. The information contained herein is not intended to cover all possible uses, directions, precautions, warnings, drug interactions, allergic reactions, or adverse effects. If you have questions about the drugs you are taking, check with your doctor, nurse or pharmacist. Copyright 1039-9171 [employer] Version: 14.. Revision Date: 03/14/2022. Education Materials Dog Bite A dog bite can cause a wound deep enough to break the skin. In such cases, the wound is cleaned andsometimes closed. If the wound is closed, it is usually not completely closed. This is so that fluid can drain if the wound becomes infected. Often, wounds will be left open to heal. In addition to wound care, a tetanus shot may be given, if needed. Home care Wash your hands well with soap and warm water before and after caring for the wound. This helps lower the risk of infection. Care for the wound as directed. If a dressing was applied to the wound, be sure to change it as directed. If the wound bleeds, place a clean, soft cloth on the wound. Then firmly apply pressure until the bleeding stops. This may take up to 5 minutes. Do not release the pressure and look at the wound during this time. Most wounds heal within 10 days. But an infection can occur even with proper treatment. So be sure to check the wound daily for signs of infection (see below). Antibiotics may be prescribed. These help prevent or treat infection. If you re given antibiotics, take them as directed. Also be sure to complete the medicines. Rabies prevention Rabies is a virus that can be carried in certain animals. These can include domestic animals such as dogs and cats. Pets fully vaccinated against rabies (2 shots) are at very low risk of infection. But because human rabies is almost always fatal, any biting pet should be confined for 10 days as an extra precaution. In general, if there is a risk for rabies, the following steps may need to be taken: If someone s pet dog has bitten you, it should be kept in a secure area for the next 10 days to watch for signs of illness. (If the pet orthodontist small business owner won t allow this, contact your local animal control center.) If the dog becomes ill or dies during that time, contact your local animal control center at once so the animal may be tested for rabies. If the dog stays healthy for the next 10 days, there is no danger of rabies in the animal or you. oIf a stray dog bit you, contact your local animal control center. They can give information on capture, quarantine, and animal rabies testing. oIf you can t find the animal that bit you in the next 2 days, and if rabies exists in your area, you may need to receive the rabies vaccine series. Call your healthcare provider right away. Or, return to the emergency department promptly. oAll animal bites should be reported to the local animal control center. If you were not given a form to fill out, you can report this yourself. Follow-up care Follow up with your healthcare provider, or as directed. When to seek medical advice Call your healthcare provider right away if any of these occur: Signs of infection: oSpreading redness or warmth from the wound oIncreased pain or swelling oFever of 100.4 F (38 C) or higher, or as directed by your healthcare provider oColored fluid or pus draining from the wound Signs of rabies infection: oHeadache oConfusion oStrange behavior oIncreased salivating and drooling oSeizure Decreased ability to move any body part near the wound Bleeding that can't be stopped after 5 minutes of firm pressure [id number] The [employer]. [address] [place] [address]. All rights reserved. This information is not intended as a substitute for professional medical care. Always follow yourhealthcare professional's instructions. Additional Information VACCINATE! IT SAVES LIVES! Members of the community who have not yet received the COVID-19 vaccine and would like to receive it can visit one of [facility] vaccine clinics. There are many vaccine clinic locations within the [facility]. For locations and available times, please visit [email or web address]/. It is important to note that some COVID mobile vaccine clinics are held outdoors and may be canceled in rainy or stormy conditions. To learn more about pediatric vaccinations (ages 5-11), we invite you to visit the [facility] webpage. [email or web address]/pages/[email or web address]-[email or web address]-[email or web address] stions.htmlTo learn more about the COVID-19 vaccine, we invite you to visit the CDC website for a list of frequently asked questions. https://www.cdc.gov/coronavirus/2019-ncov/vaccines/faq.html [facility] Patient Portal Access Instructions: Stay connected with your healthcare team and access your personal medical information anytime with the [facility] Patient Portal. If you would like a full copy of your medical records please contact the [facility] Medical Records Department Thursday through Thursday between 8a.m. and 4:30p.m. Please follow the directions below to access the portal: 1.Access the email account you provided upon registration to the [facility].2.Look for an invitation email from [facility].3.Open the email and access the invitation link: Accept Invitation to [facility].Fill in the required dominguez to create your account. Sign into [email or web address] with your username and password that you created in the above steps to stay up to date. You can then view a summary of results, a summary of your visits, and the ability to download your summaries to your computer or send the information securely to a physician. Remember that your healthcare information is confidential, so carefully consider who you will allow to register on the [facility] Patient Portal for access to your information. You can also access the [facility] Patient Portal on the [employer] yasemin. Simply click on Health Records under [employer] and then click on the [employer] logo. HOW TO SAFELY DISPOSE OF PRESCRIPTION MEDICATIONS Please use one of the following methods to safely dispose of your unused medications. 1.Use a drug disposal kit: the drug disposal pouch allows you to safely discard your old and unuseddrugs. Ask your nurse to give you one when you are discharged.2.Visit a local take-back location: Many local pharmacies and police departments have programs that collect old and unwanted prescriptiondrugs. Call your local pharmacy or go to http://bit.Betterfly/6M0Vj4x to find one close to you.3.Make use of household items: Use cat litter or old coffee grounds to dispose medications if other options arenot available. Mix your drugs with these household products, seal them in an airtight container andthrow it into the garbage. Call [facility]: [phone] to be sure your drugs can be disposed of in this way. Some medicines may require a different approach.4.Never flush your medications down the toilet. IF YOU HAVE BEEN PRESCRIBED AN OPIOIDS FOR PAIN If you have been prescribed an opioid (such as hydrocodone, oxycodone or morphine), it is critical to understand the possible side effects and risks of opioid pain medications. Even when taken as directed, opioids can have several side effects including: Tolerance, meaning you might need to take more of a medication for the same pain relief. Nausea, vomiting and/or constipation. Sleepiness, dizziness, dry mouth, confusion, depression or itching. Physical dependence, meaning you have withdrawal symptoms when a medication is stopped ? this can develop within a few days. KNOW YOUR RESPONSIBILITIES It is important to know exactly how much and how often to take the opioid pain medications you are prescribed. Never take opioids in higher amounts or more often than prescribed. Do not combine opioids with alcohol or other drugs that cause drowsiness, such as benzodiazepines, also known as benzos,including diazepam and alprazolam, muscle relaxants or sleep aids. Never sell or share prescriptionopioids. This is illegal. Store opioids in a secure place and out of reach of others (including children, family, friends and visitors). The last page(s) of this document has been signed and retained as a CHART COPY Signatures Patient Education Materials Dog Bite Medication Leaflets amoxicillin and clavulanate potassium My discharge plan and instructions have been reviewed and explained to me and I,KODAK GAMBOA understand my current condition and have read and understand these discharge instructions. I have received a written copy of the plan/instructions. If I have questions, I am aware that I should contact my doctor. Patient/Virtual Customer Assistant Signature: Date/Time: Relationship to Patient: Witness Name/Signature: Date/Time: [facility]10-31-2022 Hospital Discharge instructions Patient Education 04/07/2022 12:33:25 Monitored Anesthesia Care, Care After Monitored Anesthesia Care, Care After These instructions provide you with information about caring for yourself after your procedure. Your health care provider may also give you more specific instructions. Your treatment has been plannedaccording to current medical practices, but problems sometimes occur. Call your health care provider if you have any problems or questions after your procedure. What can I expect after the procedure? After your procedure, you may: Feel sleepy for several hours. Feel clumsy and have poor balance for several hours. Feel forgetful about what happened after the procedure. Have poor judgment for several hours. Feel nauseous or vomit. Have a sore throat if you had a breathing tube during the procedure. Follow these instructions at home: For at least 24 hours after the procedure: Have a responsible adult stay with you. It is important to have someone help care for you until youare awake and alert. Rest as needed. Do not: ?Participate in activities in which you could fall or become injured. ?Drive. ?Use heavy machinery. ?Drink alcohol. ?Take sleeping pills or medicines that cause drowsiness. ?Make important decisions or sign legal documents. ?Take care of children on your own. Eating and drinking Follow the diet that is recommended by your health care provider. If you vomit, drink water, juice, or soup when you can drink without vomiting. Make sure you have little or no nausea before eating solid foods. General instructions Take qeiv-dpv-hpcxjbi and prescription medicines only as told by your health care provider. If you have sleep apnea, surgery and certain medicines can increase your risk for breathing problems. Follow instructions from your health care provider about wearing your sleep device: ?Anytime you are sleeping, including during daytime naps. ?While taking prescription pain medicines, sleeping medicines, or medicines that make you drowsy. If you smoke, do not smoke without supervision. Keep all follow-up visits as told by your health care provider. This is important. Contact a health care provider if: You keep feeling nauseous or you keep vomiting. You feel light-headed. You develop a rash. You have a fever. Get help right away if: You have trouble breathing. Summary For several hours after your procedure, you may feel sleepy and have poor judgment. Have a responsible adult stay with you for at least 24 hours or until you are awake and alert. This information is not intended to replace advice given to you by your health care provider. Make sure you discuss any questions you have with your health care provider. Document Released: 09/14/2016 Document Revised: 08/23/2018 Document Reviewed: 09/14/2016 [employer] Patient Education 2020 [employer]. 04/07/2022 12:33:22 9 - AO Minor Esophagogastroduodenoscopy (08/19) (CUSTOM) Esophagogastroduodenoscopy This is an endoscopic procedure (a procedure that uses a device like a flexible telescope) that allows your caregiver to view the upper stomach and small bowel. This test allows your caregiver to look at the esophagus. The esophagus carries food from your mouth to your stomach. They can also look at your duodenum. This is the first part of the small intestine that attaches to the stomach. This saadia t is used to detect problems in the bowel such as ulcers and inflammation. MEANING OF TEST Your caregiver will go over the test results with you and discuss the importance and meaning of your results, as well as treatment options and the need for additional tests if necessary. OBTAINING THE TEST RESULTS Your caregiver s office will call you with the results of the test. POST SEDATION INSTRUCTIONS Rest at home today. Since your coordination may be impaired, be cautious on stairways, do not drive any vehicle or operate any heavy machinery, or use any sharp instruments for the remainder of the day. Do not drink any alcoholic beverages or make any major decisions for 24 hours. POST PROCEDURE INSTRUCTIONS Progress slowly with full liquids then resume previous diet and medications. Belching or passing of gas is to be expected. Notify the physician if you have severe chest pain, fever, or if difficulty when swallowing persists. 08/16/13 Custom Follow Up Care 03/27/2022 08:24:56 With:MONTRELL WALTON Address: [address] [place] [address] [place] [address]- [phone] Business (1) When:Within 2 Week(s) [facility] 10-31-2022 Summary of episode note Discharge Instructions Thank you for allowing [facility] to assist you with your healthcare needs. The following is importantdischarge information regarding your hospital visit. Your Care Team CHERRY MORALES, BROCK AVALOS What to do next Follow Up Appointments Follow Up with MONTRELL WALTON When In 2 weeks Where: [address] [place] [address] [place] [address]- [phone] Business (1) The Following Activity and Diet Have Been Ordered for You Discharge Activity - Ordered -- Other, Follow the post-operative/post-procedure activity instructions provided by your physician's office., 04/07/22 12:29:00 EDT Discharge Diet - Ordered -- Follow the post-operative/post-procedure diet instructions provided by your physician's office.,04/07/22 12:29:00 EDT Allergies benzocaine topical Medications Please ask your primary doctor or pharmacist before taking any other medication not listed, including over the counter drugs, herbal medications, vitamins and or supplements as they may interact withyour home medications. What How Much When Instructions Last Dose Unchanged albuterol (Ventolin HFA MDI (90 mcg/ inh) inhalation aerosol) Unchanged amLODIPine (amLODIPine 10 mg oral tablet) 1 tab(s) by mouth Once a day Unchanged atorvastatin (atorvastatin 40 mg oral tablet) 1 tab(s) by mouth Every day Unchanged budesonide-formoterol (Symbicort 160 mcg-4.5 mcg/ inh Inhaler) Unchanged dicyclomine (dicyclomine 10 mg oral capsule) 1 cap by mouth Four (4) times a day as needed for abdominal pain/diarrhea Duration: 10 Days Unchanged FLUoxetine (FLUoxetine 40 mg oral capsule) 1 cap by mouth Once a day Unchanged hydroCHLOROthiazide (hydroCHLOROthiazide 25 mg oral tablet) 1 tab(s) by mouth Once a day Unchanged loratadine (loratadine 10 mg oral tablet) 1 tab(s) by mouth Once a day Unchanged LORazepam (Ativan) Unchanged losartan by mouth Once a day Unchanged meloxicam (meloxicam 15 mg oral tablet) 1 tab(s) Unchanged pantoprazole (pantoprazole 20 mg oral enteric coated tablet) 1 tab(s) by mouth Once a day before a meal Unchanged tiotropium (Spiriva Respimat 60 ACT 2.5 mcg/ inh inhalation aerosol) Unchanged tiZANidine (tiZANidine 4 mg oral tablet) Please take this list to your next doctor s visit. Bring all medications you take, including over the counter medications, herbals and other supplements with you to your doctor s visit. Patients and families are reminded to discard old lists and to update any records with all medication providers or retail pharmacies. Education Materials Monitored Anesthesia Care, Care After These instructions provide you with information about caring for yourself after your procedure. Your health care provider may also give you more specific instructions. Your treatment has been plannedaccording to current medical practices, but problems sometimes occur. Call your health care provider if you have any problems or questions after your procedure. What can I expect after the procedure? After your procedure, you may: Feel sleepy for several hours. Feel clumsy and have poor balance for several hours. Feel forgetful about what happened after the procedure. Have poor judgment for several hours. Feel nauseous or vomit. Have a sore throat if you had a breathing tube during the procedure. Follow these instructions at home: For at least 24 hours after the procedure: Have a responsible adult stay with you. It is important to have someone help care for you until youare awake and alert. Rest as needed. Do not: ? Participate in activities in which you could fall or become injured. ? Drive. ? Use heavy machinery. ? Drink alcohol. ? Take sleeping pills or medicines that cause drowsiness. ? Make important decisions or sign legal documents. ? Take care of children on your own. Eating and drinking Follow the diet that is recommended by your health care provider. If you vomit, drink water, juice, or soup when you can drink without vomiting. Make sure you have little or no nausea before eating solid foods. General instructions Take sgdh-guc-wddhvix and prescription medicines only as told by your health care provider. If you have sleep apnea, surgery and certain medicines can increase your risk for breathing problems. Follow instructions from your health care provider about wearing your sleep device: ? Anytime you are sleeping, including during daytime naps. ? While taking prescription pain medicines, sleeping medicines, or medicines that make you drowsy. If you smoke, do not smoke without supervision. Keep all follow-up visits as told by your health care provider. This is important. Contact a health care provider if: You keep feeling nauseous or you keep vomiting. You feel light-headed. You develop a rash. You have a fever. Get help right away if: You have trouble breathing. Summary For several hours after your procedure, you may feel sleepy and have poor judgment. Have a responsible adult stay with you for at least 24 hours or until you are awake and alert. This information is not intended to replace advice given to you by your health care provider. Make sure you discuss any questions you have with your health care provider. Document Released: 09/14/2016 Document Revised: 08/23/2018 Document Reviewed: 09/14/2016 [employer] Patient Education 2020 [employer] Esophagogastroduodenoscopy This is an endoscopic procedure (a procedure that uses a device like a flexible telescope) that allows your caregiver to view the upper stomach and small bowel. This test allows your caregiver to look at the esophagus. The esophagus carries food from your mouth to your stomach. They can also look at your duodenum. This is the first part of the small intestine that attaches to the stomach. This saadia t is used to detect problems in the bowel such as ulcers and inflammation. MEANING OF TEST Your caregiver will go over the test results with you and discuss the importance and meaning of your results, as well as treatment options and the need for additional tests if necessary. OBTAINING THE TEST RESULTS Your caregiver s office will call you with the results of the test. POST SEDATION INSTRUCTIONS Rest at home today. Since your coordination may be impaired, be cautious on stairways, do not drive any vehicle or operate any heavy machinery, or use any sharp instruments for the remainder of the day. Do not drink any alcoholic beverages or make any major decisions for 24 hours. POST PROCEDURE INSTRUCTIONS Progress slowly with full liquids then resume previous diet and medications. Belching or passing of gas is to be expected. Notify the physician if you have severe chest pain, fever, or if difficulty when swallowing persists. 08/16/13 Custom Additional Information VACCINATE! IT SAVES LIVES! Members of the community who have not yet received the COVID-19 vaccine and would like to receive it can visit one of [facility] vaccine clinics. There are many vaccine clinic locations within the [facility]. For locations and available times, please visit [email or web address] It is important to note that some COVID mobile vaccine clinics are held outdoors and may be canceled in rainy or stormy conditions. To learn more about pediatric vaccinations (ages 5-11), we invite you to visit the [facility] webpage. [email or web address] learn more about the COVID-19 vaccine, we invite you to visit the [employer] website for a list of frequently asked questions. [email or web address] [employer] Patient Portal Access Instructions: Stay connected with your healthcare team and access your personal medical information anytime with the [facility] Patient Portal.If you would like a full copy of your medical records, please contact the [facility] Medical Records Department, Thursday through Thursday between 8a.m. and 4:30p.m. Please follow the directions below to access the portal: 1.Access the email account you provided upon registration to the [facility].2.Look for an invitation email from [facility].3.Open the email and access the invitation link: Accept Invitation to [facility].Fill in the required dominguez to create your account. Sign into www.[employer] with your username and password that you created in the above steps to stay up to date. You can then view a summary of results, a summary of your visits, and the ability to download your summaries to your computer or send the information securely to a physician. Remember that your healthcare information is confidential, so carefully consider who you will allow to register on the [facility] Patient Portal for access to your information. You can also access the [facility] Patient Portal on the [employer]asemin. Simply click on Health Records under [employer] and then click on the [employer] logo. HOW TO SAFELY DISPOSE OF PRESCRIPTION MEDICATIONS Please use one of the following methods to safely dispose of your unused medications. 1.Use a drug disposal kit: the drug disposal pouch allows you to safely discard your old and unuseddrugs. Ask your nurse to give you one when you are discharged.2.Visit a local take-back location: Many local pharmacies and police departments have programs that collect old and unwanted prescriptiondrugs. Call your local pharmacy or go to http://bit.ly/8O3Il8q to find one close to you.3.Make use of household items: Use cat litter or old coffee grounds to dispose medications if other options arenot available. Mix your drugs with these household products, seal them in an airtight container andthrow it into the garbage. Call [facility]: [phone] to be sure your drugs can be disposed of in this way. Some medicines may require a different approach.4.Never flush your medications down the toilet. IF YOU HAVE BEEN PRESCRIBED AN OPIOID FOR PAIN If you have been prescribed an opioid (such as hydrocodone, oxycodone or morphine), it is critical to understand the possible side effects and risks of opioid pain medications. Even when taken as directed, opioids can have several side effects including: Tolerance, meaning you might need to take more of a medication for the same pain relief. Nausea, vomiting and/or constipation. Sleepiness, dizziness, dry mouth, confusion, depression or itching. Physical dependence, meaning you have withdrawal symptoms when a medication is stopped, can develop within a few days. KNOW YOUR RESPONSIBILITIES It is important to know exactly how much and how often to take the opioid pain medications you are prescribed. Never take opioids in higher amounts or more often than prescribed. Do not combine opioids with alcohol or other drugs that cause drowsiness, such as benzodiazepines, also known as benzos, including diazepam and alprazolam, muscle relaxants or sleep aids. Never sell or share prescription opioids. This is illegal. Store opioids in a secure place and out of reach of others (including children, family, friends and visitors). The last page of this document has been signed and retained as a CHART COPY. Signatures Patient Education Materials Monitored Anesthesia Care, Care After 9 - AO Minor Esophagogastroduodenoscopy (08/19) (CUSTOM) Medication Leaflets My discharge plan and instructions have been reviewed and explained to me and I,KODAK GAMBOA understand my current condition and have read and understand these discharge instructions. I have received a written copy of the plan/instructions. If I have questions, I am aware that I should contact my doctor. Patient/Virtual Customer Assistant Signature: Date/Time: Relationship to Patient: Witness Name/Signature: Date/Time: [facility]10-31-2022 Anesthesiology Consult note Patient: KODAK GAMBOA Age: 61 years Sex: Male : 1960 Associated Diagnoses: None Author: MEDHAT MCMULLEN Assessment Postanesthesia assessment Mental status: alert & oriented x 4. Respiratory function: lungs are clear to auscultation. Respiratory support: none. CV function: Normal rate. Cardiovascular support: none. Pain. Nausea status: denies nausea. Postoperative hydration status: within normal limits. Digitally Signed by MEDHAT MCMULLEN on 04/07/2022 12:31 PM [facility]10-31-2022 Note Date of Service 04/07/2022 This is a preprocedural/presurgical H&P update. The patient was originally evaluated by mauri Prado PA. Please refer to her note also. I independently and personally performed a history and physical examination with this patient and repeated the carlin components of the exam/history. I have reviewed her note. The patient was scheduled for endoscopy based on that visit and was evaluated by me prior to it. Voice recognition software was utilized for this document and may contain recognition errors inherent in that process. Is a 61-year-old who was referred for evaluation of reflux symptoms treated with pantoprazole. Symptoms for over 2 to 3 years. Nausea vomiting odynophagia. His symptoms are primarily reflux. He has had a few episodes that seem like aspiration resulting in difficulty breathing or choking. He also has had infrequent episodes of dysphagia for solids. On examination he is alert oriented no apparent distress nonicteric neck normal lungs clear. Cardiac regular rate and rhythm. Abdomen is nondistended soft nontender no masses. No inguinal lymphadenopathy. Extremities normal no focal neurologic deficits. Recent and remote memory seem intact. Conference was held for upper endoscopy and possible dilatation. He agrees to proceed. Digitally Signed by MONTRELL WALTON MD on 04/07/2022 12:21 PM [facility]10-31-2022 Anesthesiology Consult note Patient: KODAK GAMBOA Age: 61 years Sex: Male : 1960 Associated Diagnoses: None Author: MEDHAT MCMULLEN MAINTENANCE FOREMAN-PROPRIETARY TRADER Preoperative Information Time of last food or liquid consumption: 04/07/2022 00:00:00 Anesthesia history Patient's history: negative. Family's history: negative. Review of Systems Ear/Nose/Mouth/Throat: Negative. Respiratory: asthma. Cardiovascular: htn. Gastrointestinal: Reflux. Genitourinary: Negative. Endocrine: Negative. Musculoskeletal: Negative. Integumentary: Negative. Neurologic: anxiety. Health Status Allergies: Allergic Reactions (Selected) Severity Not Documented Benzocaine topical- No reactions were documented., Allergies (1) ActiveReaction benzocaine topicalNone Documented Current medications: (Selected) Documented Medications Documented Ativan: 0 Refill(s) FLUoxetine 40 mg oral capsule: 40 mg, 1 cap(s), Oral, qDay, 30 cap(s), 0 Refill(s) Spiriva Respimat 60 ACT 2.5 mcg/inh inhalation aerosol: 0 Refill(s) Symbicort 160 mcg-4.5 mcg/inh Inhaler: 0 Refill(s) Ventolin HFA MDI (90 mcg/inh) inhalation aerosol: 0 Refill(s) amLODIPine 10 mg oral tablet: 10 mg, 1 tab(s), Oral, qDay, 30 tab(s), 0 Refill(s) atorvastatin 40 mg oral tablet: 40 mg, 1 tab(s), Oral, Daily, 0 Refill(s) dicyclomine 10 mg oral capsule: 10 mg, 1 cap(s), Oral, QID, for 10 day(s), PRN: abdominal pain/diarrhea, 0 Refill(s) hydroCHLOROthiazide 25 mg oral tablet: 25 mg, 1 tab(s), Oral, qDay, 30 tab(s), 0 Refill(s) loratadine 10 mg oral tablet: 10 mg, 1 tab(s), Oral, qDay, 30 tab(s), 0 Refill(s) losartan: Oral, qDay, 0 Refill(s) meloxicam 15 mg oral tablet: 15 mg, 1 tab(s), 0 Refill(s) pantoprazole 20 mg oral enteric coated tablet: 20 mg, 1 tab(s), Oral, qDayAC, 0 Refill(s) tiZANidine 4 mg oral tablet: 0 Refill(s), No qualifying data available Problem list: Medical Current use of proton pump inhibitor / SNOMED CT 663614860 / Confirmed Epigastric pain / SNOMED CT 954256755 / Confirmed GERD (gastroesophageal reflux disease) / SNOMED CT 588073270 / Confirmed NSAID long-term use / SNOMED CT 453487084 / Confirmed, Active Problems (8) Anxiety Asthma Current use of proton pump inhibitor Epigastric pain GERD (gastroesophageal reflux disease) Hyperlipidemia Hypertension NSAID long-term use Histories Past Medical History: No active or resolved past medical history items have been selected or recorded. Family History: Cancer Grandparent Hypertension Mother Heart disease Grandparent Cardiac angina Mother Stroke Mother Heart attack Father Colon cancer Grandparent Procedure history: Colonoscopy (609851372). Inguinal herniorrhaphy ([id number]). Comments: 02/17/2022 11:00 EDT - Codie Shields RN RIGHT LASIK ([id number]). Tonsillectomy (656997625). Colonoscopy (831205586). Fusion ([id number]). Comments: 04/07/2022 11:25 Miguel Angel Biggs RN C5-7 Tennis elbow ([id number]). Comments: 04/07/2022 11:26 Miguel Angel Biggs RN RIGHT Social History Social & Psychosocial Habits Alcohol 11/18/2021 Use: Current Type: Beer 04/07/2022 Use: Current Type: Beer, Liquor, Wine Frequency: 1-2 times per week Substance Abuse 11/18/2021 Use: Never Tobacco 11/18/2021 Tobacco Use: Never (less than 100 in l Nutrition/Health 04/07/2022 Type of diet: Regular Appetite Excellent Eating Difficulties None . Physical Examination Vital Signs 04/07/2022 11:30 EDT Temperature Tympanic 36 DegC LOW Peripheral Pulse Rate 60 bpm Respiratory Rate 15 br/min Systolic Blood Pressure 150 mmHg HI Diastolic Blood Pressure 97 mmHg HI Vital Signs(last 24 hrs) Last Charted Temp TympanicL 36DegC (APR 07 11:30) Resp Rate 15 br/min (APR 07 11:30) BMI31.07 (APR 07 11:30) Measurements from flowsheet : Measurements 04/07/2022 11:30 EDT Height 185.4 cm Admission Weight 106.8 kg Weight Method Stated [place] Body Weight 79.88 kg BSA Admission 2.31 Body Mass Index 31.07 kg/m2 General: Alert and oriented. Airway: Normal temporomandibular joint mobility. Mallampati classification: II (soft palate, fauces, uvula visible). Head: Normocephalic. Dentition Evaluation: Own teeth. Neck: Supple. Respiratory: Lungs are clear to auscultation. Cardiovascular: Normal rate. Heart Sounds: Normal. Gastrointestinal: Soft. Musculoskeletal Normal range of motion. Integumentary: Intact. Neurologic: Alert, Oriented. Review / Management Results review: No qualifying data available , Lab results 04/07/2022 11:30 EDT Designated Person #1 We May Share [facility] [phone] ROLANDA Designated Person #1 Relationship Other: S/O Height 185.4 cm Admission Weight 106.8 kg Weight Method Stated [place] Body Weight 79.88 kg BSA Admission 2.31 Body Mass Index 31.07 kg/m2 Temperature Tympanic 36 DegC LOW Peripheral Pulse Rate 60 bpm Respiratory Rate 15 br/min Systolic Blood Pressure 150 mmHg HI Diastolic Blood Pressure 97 mmHg HI Oxygen Saturation 97 % Status N/A Sensory Deficits None Infectious Disease Symptoms Patient states no symptoms Infectious Disease Recent Exposure No Alcohol and Drug Use No Employee of Institutional Living No Health Care Employee No History of Exposure to TB No History of Positive Chest X-Ray for TB No History of Positive TB Skin Test No Homeless No Known Immunosuppression No Recent Immigrant No Resident of Institutional Living No Bloody Sputum No Fatigue No Fever No Loss of Appetite No Night Sweats No Persistent Cough > 3 Weeks No Weight Loss No Barriers to Learning None evident Teaching Method Explanation Preferred Written Language Taiwanese Preferred Spoken Language Taiwanese Information Given by Patient Patient's Current Physicians Patient's Current Physicians Discharge To, Anticipated Home independently Prev Test Positive/Diagnosis w/COVID-19 No Current Quarantine/Isolated any Illness No Any Contact with Sick Animals/Birds No Traveled Anywhere in Last 30 Days No N/A Personal Devices, Patient Valuables None Admission Note-Nursing Procedure/Therapy Intake . Assessment and Plan [place] [employer] Anesthesiologists (ASA) physical status classification: Class II. Anesthetic Preoperative Plan Anesthetic technique: MAC. Postoperative pain management: Per surgeon. Informed consent: signed by patient. Digitally Signed by MEDHAT MCMULLEN APRN-PROPRIETARY TRADER on 04/07/2022 11:36 AM [facility]06-22-2022 NoteHNO ID: [id number] Author: Mirtha Rodriguez MD Service: ? Author Type: Physician Type: Progress Notes Filed: 11/27/2021 9:07 AM Note Text: VIRTUAL VISIT PROGRESS NOTE This is a virtual visit using Tastebuds video visit. It required patient-provider interaction for the medical decision making as documented below. Kodak Gamboa is a 61 year old male seen for joint pain. He is here to discuss results. He saw ortho for back pain. Had injections which did not help. Recent MRI shows disc bulging. Sciatica, numbness and tingling in feet. RF was slightly high so was referred here. There might be some procedures scheduled. Not on Ibuprofen, on mobic with careful monitoring of kidney functions. Tylenol did not help. 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 Neck surgery Head injury ? Knee pain, shoulders, wrists. No swelling. Shooting pain in knees sometimes. Pain in mornings and evenings. AM stiffness lasting for 30 min. Family history of autoimmune disease: sister with RA, severe and psoriasis. Great aunt in wheelchair with RA. Niece with crohn's disease. Smoking status: Tobacco Use: Never HISTORY REVIEWED (electronic chart updated): PAST MEDICAL HISTORY Diagnosis Date - Anxiety Celexa, Lexapro, Buspar - Asthma - High cholesterol - Hypertension - Migraines Topamax - Noncompliance with treatment 06/29/2018 Declined Narcan - Subdural hematoma caused by concussion (HCC) 2001 PAST SURGICAL HISTORY Procedure Laterality Date - ADDTL NECK SPINE FUSION - COLONOSCOPY 2010 Repeat 2016 - COLONOSCOPY 09/2017 No polyps - ELBOW SURGERY HX Right - HERNIA REPAIR HX Right - PRK ENHANCEMENT - SHX CRANIOTOMY 2002 Subdural hematoma - TONSILLECTOMY PRIMARY/SECONDARY FAMILY HISTORY Problem Relation Age of Onset - Hypertension Mother - Arthritis Mother - Heart disease Father - other (Pancreatic Cancer) Maternal Grandmother - Colon Cancer Maternal Grandfather - Heart disease Paternal Grandfather Social History Tobacco Use - Smoking status: Never Smoker - Smokeless tobacco: Never Used Vaping Use - Vaping Use: Never used Substance Use Topics - Alcohol use: Yes Comment: Occasional - Drug use: No Current Outpatient Medications Medication Sig - meloxicam (MOBIC) 15 mg tablet Take 15 mg by mouth once daily. - testosterone cypionate (DEPO-TESTOSTERONE) 200 mg/mL injection INJECT 1 ML INTRAMUSCULARLY ONCE EVERY MONTH - traZODone (DESYREL) 50 mg tablet Take 1 tablet by mouth daily at bedtime. - tiZANidine (ZANAFLEX) 4 mg tablet Take 1 tablet by mouth three times daily as needed (muscle pain). - pantoprazole DR (PROTONIX) 40 mg tablet Take 1 tablet by mouth once daily. - montelukast (SINGULAIR) 10 mg tablet Take 1 tablet by mouth daily at bedtime. - metoprolol succinate ER (TOPROL XL) 50 mg 24 hr tablet Take 1 tablet by mouth once daily. - losartan (COZAAR) 100 mg tablet Take 1 tablet by mouth once daily. - LORazepam (ATIVAN) 1 mg tablet Take 1 tablet by mouth twice daily for 30 days. - loratadine (CLARITIN) 10 mg tablet Take 1 tablet by mouth once daily. - ibuprofen (MOTRIN) 800 mg tablet Take 1 tablet by mouth every 8 hours as needed. (Patient not taking: Reported on 10/17/2021 ) - hydroCHLOROthiazide (HYDRODIURIL, ESIDRIX) 25 mg tablet Take 1 tablet by mouth once daily. - fluticasone (FLONASE) 50 mcg/actuation nasal spray Use 2 Sprays in each nostril once daily. - FLUoxetine HCl (PROZAC) 40 mg capsule Take 1 capsule by mouth once daily. - atorvastatin (LIPITOR) 40 mg tablet Take 1 tablet by mouth once daily. - amLODIPine (NORVASC) 10 mg tablet Take 1 tablet by mouth once daily. - albuterol HFA (VENTOLIN HFA) 90 mcg/actuation inhaler Inhale 2 Puffs as instructed every 4 hours as needed. - Biotin 10 mg tab Take 5 mg by mouth once daily. No current facility-administered medications for this visit. ALLERGIES Allergen Reactions - Bactrim [Sulfametho* Unknown - Benzocaine Hives - Grass Pollen Other: See Comments Patient states he had allergy testing and he is allergic to all grasses. Causes exacerbation of asthma. - Pollen Extracts Itching - Procaine Hives REVIEW OF SYSTEMS: All other ROS: negative As noted in HPI PHYSICAL EXAMINATION: VIDEO EXAM: (if completed, performed via video enabled technology) GENERAL: alert and appropriate, in no distress, well-hydrated, well nourished and happy, smiling, interactive RF 18.4 Results for SARA GAMBOA ( ) as of 11/27/2021 08:22 Ref. Range 10/17/2021 14:47 Vitamin D 25 Hydroxy Latest Ref Range: 30.0 - 100.0 ng/mL 41.7 CCP Antibody, IgG Latest Ref Range: <20 Units <15 CCP Antibody IgG Qualitative Latest Ref Range: Negative Negative IMPRESSION: NORMAL SINGLE VIEW OF THE KNEES. IMPRESSION: FINDINGS CONSISTENT WITH REMOTE DISTAL CLAVICLE FRACTURE AND SMALL NONUNITED BURSAL SIDED FRAGMENT OTHERWISE NORMAL SHOULDER. IMPRESSIO (more content not included)...[facility]06-22-2022 History of Present illness Narrative* Mirtha Rodriguez MD - 11/27/2021 8:21 AM EDT VIRTUAL VISIT PROGRESS NOTE This is a virtual visit using Tastebuds video visit. It required patient-provider interaction for themedical decision making as documented below. Kodak Gamboa is a 61 year old male seen for joint pain. He is here to discuss results. He saw ortho for back pain. Had injections which did not help. Recent MRI shows disc bulging. Sciatica, numbness and tingling in feet. RF was slightly high so was referred here. There might be some procedures scheduled. Not on Ibuprofen, on mobic with careful monitoring of kidney functions. Tylenoldid not help. 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 No swelling. Shooting pain in knees sometimes. Pain in mornings and evenings. AM stiffness lasting for 30 min. Family history of autoimmune disease: sister with RA, severe and psoriasis. Great aunt in wheelchair with RA. Niece with crohn's disease. Smoking status: Tobacco Use: Never HISTORY REVIEWED (electronic chart updated): PAST MEDICAL HISTORY Diagnosis Date Anxiety Celexa, Lexapro, Buspar Asthma High cholesterol Hypertension Migraines Topamax Noncompliance with treatment 06/29/2018 Declined Narcan Subdural hematoma caused by concussion (HCC) 2001 PAST SURGICAL HISTORY Procedure Laterality Date ADDTL NECK SPINE FUSION COLONOSCOPY 2010 Repeat 2016 COLONOSCOPY 09/2017 No polyps ELBOW SURGERY HX Right HERNIA REPAIR HX Right PRK ENHANCEMENT SHX CRANIOTOMY 2002 Subdural hematoma TONSILLECTOMY PRIMARY/SECONDARY <AGE 12 FAMILY HISTORY Problem Relation Age of Onset Hypertension Mother Arthritis Mother Heart disease Father other (Pancreatic Cancer) Maternal Grandmother Colon Cancer Maternal Grandfather Heart disease Paternal Grandfather Social History Tobacco Use Smoking status: Never Smoker Smokeless tobacco: Never Used Vaping Use Vaping Use: Never used Substance Use Topics Alcohol use: Yes Comment: Occasional Drug use: No Current Outpatient Medications Medication Sig meloxicam (MOBIC) 15 mg tablet Take 15 mg by mouth once daily. testosterone cypionate (DEPO-TESTOSTERONE) 200 mg/mL injection INJECT 1 ML INTRAMUSCULARLY ONCE EVERY MONTH traZODone (DESYREL) 50 mg tablet Take 1 tablet by mouth daily at bedtime. tiZANidine (ZANAFLEX) 4 mg tablet Take 1 tablet by mouth three times daily as needed (muscle pain). pantoprazole DR (PROTONIX) 40 mg tablet Take 1 tablet by mouth once daily. montelukast (SINGULAIR) 10 mg tablet Take 1 tablet by mouth daily at bedtime. metoprolol succinate ER (TOPROL XL) 50 mg 24 hr tablet Take 1 tablet by mouth once daily. losartan (COZAAR) 100 mg tablet Take 1 tablet by mouth once daily. LORazepam (ATIVAN) 1 mg tablet Take 1 tablet by mouth twice daily for 30 days. loratadine (CLARITIN) 10 mg tablet Take 1 tablet by mouth once daily. ibuprofen (MOTRIN) 800 mg tablet Take 1 tablet by mouth every 8 hours as needed. (Patient not taking: Reported on 10/17/2021 ) hydroCHLOROthiazide (HYDRODIURIL, ESIDRIX) 25 mg tablet Take 1 tablet by mouth once daily. fluticasone (FLONASE) 50 mcg/actuation nasal spray Use 2 Sprays in each nostril once daily. FLUoxetine HCl (PROZAC) 40 mg capsule Take 1 capsule by mouth once daily. atorvastatin (LIPITOR) 40 mg tablet Take 1 tablet by mouth once daily. amLODIPine (NORVASC) 10 mg tablet Take 1 tablet by mouth once daily. albuterol HFA (VENTOLIN HFA) 90 mcg/actuation inhaler Inhale 2 Puffs as instructed every 4 hours asneeded. Biotin 10 mg tab Take 5 mg by mouth once daily. No current facility-administered medications for this visit. ALLERGIES Allergen Reactions Bactrim [Sulfametho* Unknown Benzocaine Hives Grass Pollen Other: See Comments Patient states he had allergy testing and he is allergic to all grasses. Causes exacerbation of asthma. Pollen Extracts Itching Procaine Hives REVIEW OF SYSTEMS: All other ROS: negative As noted in HPI PHYSICAL EXAMINATION: VIDEO EXAM: (if completed, performed via video enabled technology) GENERAL: alert and appropriate, in no distress, well-hydrated, well nourished and happy, smiling, interactive RF 18.4 Results for SARA GAMBOA ( ) as of 11/27/2021 08:22 Ref. Range 10/17/2021 14:47 Vitamin D 25 Hydroxy Latest Ref Range: 30.0 - 100.0 ng/mL 41.7 CCP Antibody, IgG Latest Ref Range: <20 Units <15 CCP Antibody IgG Qualitative Latest Ref Range: Negative Negative IMPRESSION: NORMAL SINGLE VIEW OF THE KNEES. IMPRESSION: FINDINGS CONSISTENT WITH REMOTE DISTAL CLAVICLE FRACTURE AND SMALL NONUNITED BURSAL SIDED FRAGMENT OTHERWISE NORMAL SHOULDER. IMPRESSION: NORMAL SACROILIAC JOINTS. ASSESSMENT: (R76.8) Elevated rheumatoid factor (primary encounter diagnosis) (M25.50) Pain in joint, multiple sites (M15.9) Primary osteoarthritis involving multiple joints PLAN: 60-year-old pleasant male is here for evaluation management recommendation for chronic joint pain. Patient has chronic low back pain for which she sees orthopedics. He has had injections in the past without much improvement. He was established with pain management but not following with them at present. He also reports mild arthralgia over knees and shoulder. He was noted to have mildly elevated rheumatoid factor. No synovitis on exam. Rheumatoid arthritis typically spares the lumbar spine. Symptoms does not seem to be inflammatory. no signs of RA or inflammatory arthritis on labs and x rays. He likely has primary osteoarthritis of multiple joints. periodic monitoring There are no Patient Instructions on file for this visit. I spent a total of 20 minutes on the date of the service which included preparing to see the patient, [id number] patient care, completing clinical documentation, obtaining and/or reviewing separately obtained history, counseling and educating the patient/family/caregiver and independently interpre ting results (not separately reported) Mirtha Rodriguez MD No orders found for this visit on 11/27/21. No orders of the defined types were placed in this encounter. Platform used - my chart [facility] NoteHNO ID: [id number] Author: Mirtha Rodriguez MD Service: ? Author Type: Physician Type: Progress Notes Filed: 10/18/2021 9:00 AM Note Text: RHEUMATOLOGY NEW PATIENT NOTE REFERRING PHYSICIAN: Self CHIEF COMPLAINT: Patient presents with: Joint Pain Back Pain New Patient HPI: Kodak Gamboa is a 60 year old male who presents with back pain He saw ortho for back pain. Had injections which did not help. Recent MRI shows disc bulging. Sciatica, numbness and tingling in feet. RF was slightly high so was referred here. There might be some procedures scheduled. Not on Ibuprofen, on mobic with careful monitoring of kidney functions. Tylenol did not help. 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 No swelling. Shooting pain in knees sometimes. Pain in mornings and evenings. AM stiffness lasting for 30 min. Family history of autoimmune disease: sister with RA, severe and psoriasis. Great aunt in wheelchair with RA. Niece with crohn's disease. Smoking status: Tobacco Use: Never Rheumatology REVIEW OF SYSTEMS: Constitutional: Recent Weight Change: No Fatigue: YES covid jun 2020 - since then Fever: No Night sweats: No Heent: Alopecia: No H/o Inflammatory eye disease (iritis/scleritis): No Hearing loss: No Frequent sinusitis: No Oral ulcers: No Sicca: YES due to meds Parotid swelling: No Hoarseness: No Dysphagia: No Heme/lymph: Lymphadenopathy: No Hematological abnormalities (anemia, thrombocytopenia, leukopenia): No Abnormal bleeding: No Skin: Malar or discoid lesions: No Photosensitivity: No Other rashes: No Raynaud's phenomenon: No Hives: No Tightness: No Nodules/bumps: No Easy Bruising: No Nail changes: No H/o psoriasis: No Gastroenterology: Nausea: {No Vomiting: No Change in bowel movements: YES from ibuprofen Heartburn: No Respiratory: Dry cough/SOB: No Asthma got worse since covid Cardiovascular: Pain in chest: No Musculoskeletal: Per HPI Joint pain or swelling: No Prolonged morning stiffness: No Back pain or neck pain: No Muscle weakness: No Genitourinary: Vaginal dryness: No Rash/ulcers: No Neurological: Headaches: YES migraines Sensitivity or pain of hands and/or feet: YES L>R Psychiatry: Anxiety: YES takes ativan Depression: YES on Prozac - helps with anxiety Poor sleep: YES better with meds. OTC sleep aids, muscle relaxer H/o loss: No H/o thrombosis: No Increased susceptibility to infection: No PAST MEDICAL HISTORY Diagnosis Date - Anxiety Celexa, Lexapro, Buspar - Asthma - High cholesterol - Hypertension - Migraines Topamax - Noncompliance with treatment 06/29/2018 Declined Narcan - Subdural hematoma caused by concussion (HCC) 2001 PAST SURGICAL HISTORY Procedure Laterality Date - ADDTL NECK SPINE FUSION - COLONOSCOPY 2010 Repeat 2016 - COLONOSCOPY 09/2017 No polyps - ELBOW SURGERY HX Right - HERNIA REPAIR HX Right - PRK ENHANCEMENT - SHX CRANIOTOMY 2002 Subdural hematoma - TONSILLECTOMY PRIMARY/SECONDARY Current Outpatient Medications Medication Sig - meloxicam (MOBIC) 15 mg tablet Take 15 mg by mouth once daily. - traZODone (DESYREL) 50 mg tablet Take 1 tablet by mouth daily at bedtime. - tiZANidine (ZANAFLEX) 4 mg tablet Take 1 tablet by mouth three times daily as needed (muscle pain). - pantoprazole DR (PROTONIX) 40 mg tablet Take 1 tablet by mouth once daily. - montelukast (SINGULAIR) 10 mg tablet Take 1 tablet by mouth daily at bedtime. - metoprolol succinate ER (TOPROL XL) 50 mg 24 hr tablet Take 1 tablet by mouth once daily. - losartan (COZAAR) 100 mg tablet Take 1 tablet by mouth once daily. - loratadine (CLARITIN) 10 mg tablet Take 1 tablet by mouth once daily. - hydroCHLOROthiazide (HYDRODIURIL, ESIDRIX) 25 mg tablet Take 1 tablet by mouth once daily. - fluticasone (FLONASE) 50 mcg/actuation nasal spray Use 2 Sprays in each nostril once daily. - FLUoxetine HCl (PROZAC) 40 mg capsule Take 1 capsule by mouth once daily. - atorvastatin (LIPITOR) 40 mg tablet Take 1 tablet by mouth once daily. - amLODIPine (NORVASC) 10 mg tablet Take 1 tablet by mouth once daily. - albuterol HFA (VENTOLIN HFA) 90 mcg/actuation inhaler Inhale 2 Puffs as instructed every 4 hours as needed. - Biotin 10 mg tab Take 5 mg by mouth once daily. - testosterone cypionate (DEPO-TESTOSTERONE) 200 mg/mL injection INJECT 1 ML INTRAMUSCULARLY ONCE EVERY MONTH - LORazepam (ATIVAN) 1 mg tablet Take 1 tablet by mouth twice daily for 30 days. - ibuprofen (MOTRIN) 800 mg tablet Take 1 tablet by mouth every 8 hours as needed. (Patient not taking: Reported on 10/17/2021 ) No current facility-administered medications for this visit. ALLERGIES Allergen Reactions - Bactrim [Sulfametho* Unknown - Benzocaine Hives - Grass Pollen Other: See Comments Patient states he weldon (more content not included)...[facility] 10-17-[facility]21 History of Present illness Narrative* Mirtha Rodriguez MD - 10/17/2021 1:29 PM EDT RHEUMATOLOGY NEW PATIENT NOTE REFERRING PHYSICIAN: Self CHIEF COMPLAINT: Patient presents with: Joint Pain Back Pain New Patient HPI: Kodak Gamboa is a 60 year old male who presents with back pain He saw ortho for back pain. Had injections which did not help. Recent MRI shows disc bulging. Sciatica, numbness and tingling in feet. RF was slightly high so was referred here. There might be some procedures scheduled. Not on Ibuprofen, on mobic with careful monitoring of kidney functions. Tylenoldid not help. 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 No swelling. Shooting pain in knees sometimes. Pain in mornings and evenings. AM stiffness lasting for 30 min. Family history of autoimmune disease: sister with RA, severe and psoriasis. Great aunt in wheelchair with RA. Niece with crohn's disease. Smoking status: Tobacco Use: Never Rheumatology REVIEW OF SYSTEMS: Constitutional: Recent Weight Change: No Fatigue: YES covid jun 2020 - since then Fever: No Night sweats: No Heent: Alopecia: No H/o Inflammatory eye disease (iritis/scleritis): No Hearing loss: No Frequent sinusitis: No Oral ulcers: No Sicca: YES due to meds Parotid swelling: No Hoarseness: No Dysphagia: No Heme/lymph: Lymphadenopathy: No Hematological abnormalities (anemia, thrombocytopenia, leukopenia): No Abnormal bleeding: No Skin: Malar or discoid lesions: No Photosensitivity: No Other rashes: No Raynaud's phenomenon: No Hives: No Tightness: No Nodules/bumps: No Easy Bruising: No Nail changes: No H/o psoriasis: No Gastroenterology: Nausea: {No Vomiting: No Change in bowel movements: YES from ibuprofen Heartburn: No Respiratory: Dry cough/SOB: No Asthma got worse since covid Cardiovascular: Pain in chest: No Musculoskeletal: Per HPI Joint pain or swelling: No Prolonged morning stiffness: No Back pain or neck pain: No Muscle weakness: No Genitourinary: Vaginal dryness: No Rash/ulcers: No Neurological: Headaches: YES migraines Sensitivity or pain of hands and/or feet: YES L>R Psychiatry: Anxiety: YES takes ativan Depression: YES on Prozac - helps with anxiety Poor sleep: YES better with meds. OTC sleep aids, muscle relaxer H/o loss: No H/o thrombosis: No Increased susceptibility to infection: No PAST MEDICAL HISTORY Diagnosis Date Anxiety Celexa, Lexapro, Buspar Asthma High cholesterol Hypertension Migraines Topamax Noncompliance with treatment 06/29/2018 Declined Narcan Subdural hematoma caused by concussion (HCC) 2002 PAST SURGICAL HISTORY Procedure Laterality Date ADDTL NECK SPINE FUSION COLONOSCOPY 2010 Repeat 2016 COLONOSCOPY 09/2017 No polyps ELBOW SURGERY HX Right HERNIA REPAIR HX Right PRK ENHANCEMENT SHX CRANIOTOMY 2002 Subdural hematoma TONSILLECTOMY PRIMARY/SECONDARY <AGE 14 Current Outpatient Medications Medication Sig meloxicam (MOBIC) 15 mg tablet Take 15 mg by mouth once daily. traZODone (DESYREL) 50 mg tablet Take 1 tablet by mouth daily at bedtime. tiZANidine (ZANAFLEX) 4 mg tablet Take 1 tablet by mouth three times daily as needed (muscle pain). pantoprazole DR (PROTONIX) 40 mg tablet Take 1 tablet by mouth once daily. montelukast (SINGULAIR) 10 mg tablet Take 1 tablet by mouth daily at bedtime. metoprolol succinate ER (TOPROL XL) 50 mg 24 hr tablet Take 1 tablet by mouth once daily. losartan (COZAAR) 100 mg tablet Take 1 tablet by mouth once daily. loratadine (CLARITIN) 10 mg tablet Take 1 tablet by mouth once daily. hydroCHLOROthiazide (HYDRODIURIL, ESIDRIX) 25 mg tablet Take 1 tablet by mouth once daily. fluticasone (FLONASE) 50 mcg/actuation nasal spray Use 2 Sprays in each nostril once daily. FLUoxetine HCl (PROZAC) 40 mg capsule Take 1 capsule by mouth once daily. atorvastatin (LIPITOR) 40 mg tablet Take 1 tablet by mouth once daily. amLODIPine (NORVASC) 10 mg tablet Take 1 tablet by mouth once daily. albuterol HFA (VENTOLIN HFA) 90 mcg/actuation inhaler Inhale 2 Puffs as instructed every 4 hours asneeded. Biotin 10 mg tab Take 5 mg by mouth once daily. testosterone cypionate (DEPO-TESTOSTERONE) 200 mg/mL injection INJECT 1 ML INTRAMUSCULARLY ONCE EVERY MONTH LORazepam (ATIVAN) 1 mg tablet Take 1 tablet by mouth twice daily for 30 days. ibuprofen (MOTRIN) 800 mg tablet Take 1 tablet by mouth every 8 hours as needed. (Patient not taking: Reported on 10/17/2021 ) No current facility-administered medications for this visit. ALLERGIES Allergen Reactions Bactrim [Sulfametho* Unknown Benzocaine Hives Grass Pollen Other: See Comments Patient states he had allergy testing and he is allergic to all grasses. Causes exacerbation of asthma. Pollen Extracts Itching Procaine Hives FAMILY HISTORY Problem Relation Age of Onset Hypertension Mother Arthritis Mother Heart disease Father other (Pancreatic Cancer) Maternal Grandmother Colon Cancer Maternal Grandfather Heart disease Paternal Grandfather Social History Tobacco Use Smoking status: Never Smoker Smokeless tobacco: Never Used Vaping Use Vaping Use: Never used Substance Use Topics Alcohol use: Yes Comment: Occasional Drug use: No Occupation: Employer And Job Title: None on file Years Of Education Completed: Not specified Marital Status: History Review: I have reviewed and modified as needed, the following during this visit: Allergies,Past Medical History, Past Surgical History, Past Family History, Past Social History. BP 128/80 Pulse (!) 52 Temp (!) 17.9 C (64.2 F) (Temporal) Ht (!) 15.2 cm (6) Wt 107 kg (236 lb) BMI 4609.06 kg/m Physical Exam GENERAL: Well appearing, alert, comfortable, in no acute distress, well- hydrated, well nourished. HEENT: Negative for external ears normal. Canals are clear. Both TMs visualized and are normal. EyeExam normal. External nose normal, no nasal ulcer or throat ulcer. NECK: NECK Supple, no adenopathy; thyroid symmetric, normal size, no bruits CARDIAC: regular rate and rhythm, No murmur asculated. and Equal peripheral pulses RESPIRATORY: Lungs clear to auscultation. No wheezing, rhonchi, rales VASCULAR: RRR without murmur, gallop, or rubs. No ectopy. ABDOMEN: Soft, non tender. BS active. No masses or organomegaly. LYMPHATIC: Negative for adenopathy in the neck, axillae, groin, supraclavicular and auricular. NEURO: Motor and sensory exam normal MOTOR: Normal; including tone, gait, stressed gait, power and coordination. SKIN: Negative for alopecia, skin rash, malar rash, skin lesion, skin ulcer, pits, thickening, color changes, telangiectasias, nail changes, nail ridging, nail pitting, onycholysis MUSCULOSKELETAL: DIPS: Normal PIPS: Normal MCPs: Normal Wrists: Normal Elbows: Normal Shoulders: Normal C-Spine: Normal Hips: Normal Knees: Normal Ankles: Normal MTPs / Toes: Normal Arches: Normal Summary of old labs/radiology: Review/request of outside labs and imaging: Pertinent labs: No results found for this basename: gluc, K, NA, CHLOR, CO2, CREAT, BUN, ANION, CA, TPROT, ALB, TBILI, ALKPHOS, AST,ALT,WBC,HB,PLT,wsr,crp Serology: RF 18.4 Pertinent imaging: Assessment and Plan (M25.50) Pain in joint, multiple sites (primary encounter diagnosis) (M15.9) Primary osteoarthritis involving multiple joints (M54.50) Low back pain, unspecified back pain laterality, unspecified chronicity, unspecified whether sciatica present (R76.8) Elevated rheumatoid factor 60-year-old pleasant male is here for evaluation management recommendation for chronic joint pain. Patient has chronic low back pain for which she sees orthopedics. He has had injections in the past without much improvement. He was established with pain management but not following with them at present. He also reports mild arthralgia over knees and shoulder. He was noted to have mildly elevated rheumatoid factor. No synovitis on exam. Rheumatoid arthritis typically spares the lumbar spine. Symptoms does not seem to be inflammatory. We will evaluate with below labs and x-rays. He likely has primary osteoarthritis of multiple joints. Office Visit on 10/17/21 XR KNEE SURVEY ARTHRITIS 1V AP BILATERAL XR SHOULDER GENERAL 3V OR MORE AP/TRUE AP/OTHER RIGHT XR SACROILIAC JOINTS 2V AP PELVIS/FERGUESON CCP ANTIBODY IGG VITAMIN D 25 HYDROXY No orders of the defined types were placed in this encounter. Return for discuss lab results. Mirtha Rodriguez MD documented [facility] Evaluation + Plan note Diagnostic Tests Pending * Rheumatoid Factor 05/30/21 * [facility] Send out (Blood Specimens) 05/30/21 [facility] 07-06-2021 NoteHNO ID: [id number] Author: Sherley Hutton APRN.VETERINARY NURSE Service: ? Author Type: Nurse Practitioner Type: Progress Notes Filed: 12/11/2020 12:01 PM Note Text: Subjective Neck Pain This is a chronic problem. The problem has been unchanged. The pain is present in the left side, midline and right side (back pain). The quality of the pain is described as aching. The pain is at a severity of 6/10. The pain is moderate. Associated symptoms include chest pain, headaches and tingling. Pertinent negatives include no weakness. he was last here in 01/2020 and we had requested the 2nd MBB, but this was denied. He had COVID19 in June this year and is on o2 still. He is still having breathing issues and fatigue. He is now seeing pulmonology. He still cannot smell or taste. He is not back to work as of yet. He is wondering the next step. Review of Systems Eyes: Negative for blurred vision. Respiratory: Positive for shortness of breath. Cardiovascular: Positive for chest pain. Negative for leg swelling. Gastrointestinal: Negative for constipation, diarrhea, nausea and vomiting. Genitourinary: Negative for dysuria. Musculoskeletal: Positive for back pain and neck pain. Negative for joint pain. Skin: Negative for itching. Neurological: Positive for tingling and headaches. Negative for dizziness and weakness. Endo/Heme/Allergies: Does not bruise/bleed easily. Psychiatric/Behavioral: Negative for depression and suicidal ideas. The patient is nervous/anxious. PAST MEDICAL HISTORY Diagnosis Date - Anxiety Celexa, Lexapro, Buspar - Asthma - High cholesterol - Hypertension - Migraines Topamax - Noncompliance with treatment 06/29/2018 Declined Narcan - Subdural hematoma caused by concussion (HCC) 2001 PAST SURGICAL HISTORY Procedure Laterality Date - ADDTL NECK SPINE FUSION - COLONOSCOPY 2010 Repeat 2016 - COLONOSCOPY 09/2017 No polyps - ELBOW SURGERY HX Right - HERNIA REPAIR HX Right - PRK ENHANCEMENT - REMOVAL OF TONSILS,<12 Y/O - SHX CRANIOTOMY 2002 Subdural hematoma FAMILY HISTORY Problem Relation Age of Onset - Hypertension Mother - Arthritis Mother - Heart disease Father - other (Pancreatic Cancer) Maternal Grandmother - Colon Cancer Maternal Grandfather - Heart disease Paternal Grandfather Social History Tobacco Use - Smoking status: Never Smoker - Smokeless tobacco: Never Used Substance Use Topics - Alcohol use: Yes Comment: Occasional - Drug use: No Current Meds traZODone (DESYREL) 50 mg tablet Take 1 tablet by mouth daily at bedtime. tiZANidine (ZANAFLEX) 4 mg tablet Take 1 tablet by mouth three times daily as needed (muscle pain). pantoprazole DR (PROTONIX) 40 mg tablet Take 1 tablet by mouth once daily. montelukast (SINGULAIR) 10 mg tablet Take 1 tablet by mouth daily at bedtime. metoprolol succinate ER (TOPROL XL) 50 mg 24 hr tablet Take 1 tablet by mouth once daily. losartan (COZAAR) 100 mg tablet Take 1 tablet by mouth once daily. loratadine (CLARITIN) 10 mg tablet Take 1 tablet by mouth once daily. ibuprofen (MOTRIN) 800 mg tablet Take 1 tablet by mouth every 8 hours as needed. hydroCHLOROthiazide (HYDRODIURIL, ESIDRIX) 25 mg tablet Take 1 tablet by mouth once daily. fluticasone (FLONASE) 50 mcg/actuation nasal spray Use 2 Sprays in each nostril once daily. FLUoxetine HCl (PROZAC) 40 mg capsule Take 1 capsule by mouth once daily. atorvastatin (LIPITOR) 40 mg tablet Take 1 tablet by mouth once daily. amLODIPine (NORVASC) 10 mg tablet Take 1 tablet by mouth once daily. albuterol HFA (VENTOLIN HFA) 90 mcg/actuation inhaler Inhale 2 Puffs as instructed every 4 hours as needed. Biotin 10 mg tab Take 5 mg by mouth once daily. testosterone cypionate (DEPO-TESTOSTERONE) 200 mg/mL injection INJECT 1 ML INTRAMUSCULARLY ONCE EVERY MONTH LORazepam (ATIVAN) 1 mg tablet Take 1 tablet by mouth twice daily for 30 days. Objective Temp 36.9 ?C (98.4 ?F) Ht 185.4 cm (6' 1) Wt 108.9 kg (240 lb) BMI 31.66 kg/m? Physical Exam Vitals and nursing note reviewed. Constitutional: Appearance: Normal appearance. HENT: Head: Normocephalic and atraumatic. No abrasion or contusion. Hair is normal. Right Ear: Hearing normal. Left Ear: Hearing normal. Eyes: General: Lids are normal. Conjunctiva/sclera: Right eye: Right conjunctiva is not injected. Left eye: Left conjunctiva is not injected. Pupils: Pupils are equal, round, and reactive to light. Neck: Vascular: No JVD. Cardiovascular: Pulses: Normal pulses. Pulmonary: Effort: Pulmonary effort is normal. No tachypnea or respiratory distress. Breath sounds: No stridor. Abdominal: General: There is distension. Musculoskeletal: Cervical back: Spasms and bony tenderness present. Muscular tenderness present. No spinous process tenderness. Decreased range of motion (increased pain with facet loading). Lumbar back: Spasms, tenderness a (more content not included)...[facility] in joint, multiple sites [facility] Pain in joint, multiple sites- Primary Primary osteoarthritis involving multiple joints Low back pain, unspecified back pain laterality, unspecified chronicity, unspecified whether sciatica present Elevated rheumatoid factor Other and unspecified nonspecific immunological findings [facility] Diagnosis Elevated rheumatoid factor- Primary Other and unspecified nonspecific immunological findings Pain in joint, multiple sites Primary osteoarthritis involving multiple joints [facility] Diagnosis Multiple benign nevi- Primary History of nonmelanoma skin cancer Actinic keratosis Seborrheic keratosis Actinic keratoses Actinic keratosis Solar lentigo Other dyschromia Neoplasm of uncertain behavior of skin [facility]* Diagnosis Neoplasm of uncertain behavior of skin- Primary [facility]* Diagnosis Neoplasm of uncertain behavior of skin- Primary Actinic keratosis Multiple benign melanocytic nevi of both upper extremities, both lower extremities, and trunk Seborrheic keratosis Solar lentigo Other dyschromia Nguyen angioma [facility] Narrative No data available for this section [facility] Discharge instructions No data available for this section [facility] Progress note No data available for this section [facility] Reason for referral (narrative)* Diagnostic Procedure Only (Routine) - Closed Specialty Diagnoses / Procedures Referred By Contac t Referred To Contact XR IMAGING Diagnoses Pain in joint, multiple sites Procedures XR SACROILIAC JOINTS 2V AP PELVIS/FERGUESON RADIOLOGIC EXAMINATION SACROILIAC JNTS <3 VIEWS Mirtha Rodriguez MD [address] [facility] [address] [place] [address] Xr Imaging Referral ID Status Reason Start Date Expiration Date V isits Requested Visits Authorized [id number] Closed Auto-Generate d Referral 10/17/2021 11/16/2022 1 1 * Diagnostic Procedure Only (Routine) - Closed Specialty Diagnoses / Procedures Referred By Contac t Referred To Contact XR IMAGING Diagnoses Pain in joint, multiple sites Procedures XR SHOULDER GENERAL 3V OR MORE AP/TRUE AP/OTHER RIGHT RADEX SHOULDER COMPLETE MINIMUM 2 VIEWS Mirtha Rodriguez MD [address] [facility] [address] [place] [address] Xr Imaging Referral ID Status Reason Start Date Expiration Date V isits Requested Visits Authorized [id number] Closed Auto-Generate d Referral 10/17/2021 11/16/2022 1 1 * Diagnostic Procedure Only (Routine) - Closed Specialty Diagnoses / Procedures Referred By Contac t Referred To Contact XR IMAGING Diagnoses Pain in joint, multiple sites Procedures XR KNEE SURVEY ARTHRITIS 1V AP BILATERAL RADIOLOGIC EXAM BOTH KNEES STANDING ANTEROPOST Mirtha Rodriguez MD [address] [place] [address] Xr Imaging Referral ID Status Reason Start Date Expiration Date V isits Requested Visits Authorized [id number] Closed Auto-Generate d Referral 10/17/2021 11/16/2022 1 1 [facility] for referral (narrative)* Diagnostic Procedure Only (Routine) - Closed Specialty Diagnoses / Procedures Referred By Contac t Referred To Contact XR IMAGING Diagnoses Pain in joint, multiple sites Procedures XR SACROILIAC JOINTS 2V AP PELVIS/FERGUESON RADIOLOGIC EXAMINATION SACROILIAC JNTS <3 VIEWS Mirtha Rodriguez MD [address] [place] [address] Xr Imaging Referral ID Status Reason Start Date Expiration Date V isits Requested Visits Authorized [id number] Closed Auto-Generate d Referral 10/17/2021 11/16/2022 1 1 * Diagnostic Procedure Only (Routine) - Closed Specialty Diagnoses / Procedures Referred By Contac t Referred To Contact XR IMAGING Diagnoses Pain in joint, multiple sites Procedures XR SHOULDER GENERAL 3V OR MORE AP/TRUE AP/OTHER RIGHT RADEX SHOULDER COMPLETE MINIMUM 2 VIEWS Mirtha Rodriguez MD [address] [place] [address] Xr Imaging Referral ID Status Reason Start Date Expiration Date V isits Requested Visits Authorized [id number] Closed Auto-Generate d Referral 10/17/2021 11/16/2022 1 1 * Diagnostic Procedure Only (Routine) - Closed Specialty Diagnoses / Procedures Referred By Contac t Referred To Contact XR IMAGING Diagnoses Pain in joint, multiple sites Procedures XR KNEE SURVEY ARTHRITIS 1V AP BILATERAL RADIOLOGIC EXAM BOTH KNEES STANDING ANTEROPOST Mirtha Rodrigeuz MD [address] [place] [address] Xr Imaging Referral ID Status Reason Start Date Expiration Date V isits Requested Visits Authorized [id number] Closed Auto-Generate d Referral 10/17/2021 11/16/2022 1 1 [facility]No reason for referral information availableWMcKitrick [facility] Work Phone: Reason for visit Narrative* Diagnostic Procedure Only (Routine) - Closed Specialty Diagnoses / Procedures Referred By Contac t Referred To Contact XR IMAGING Diagnoses Pain in joint, multiple sites Procedures XR SACROILIAC JOINTS 2V AP PELVIS/FERGUESON RADIOLOGIC EXAMINATION SACROILIAC JNTS <3 VIEWS Mirtha Rodriguez MD [address] [place] [address] Xr Imaging Referral ID Status Reason Start Date Expiration Date V isits Requested Visits Authorized [id number] Closed Auto-Generate d Referral 10/17/2021 11/16/2022 1 1 [facility] Summary Purpose Family History No Family History Records Found Relationship Condition Age at Onset Recorded Date/T markus father Coronary artery disease Unknown Myocardial infarction Unknown mother Hypertension Unknown Cerebrovascular accident (CVA) Unknown grandfather Cardiac disease Unknown Malignant neoplasm of colon Unknown Advance Directives No Advanced Directives Records FoundDocuments on File Type Date Recorded Patient Virtual Customer Assistant Expl anation Advance Directive(s) 09/17/2017 12:50 PM Documents on File Type Date Recorded Patient Virtual Customer Assistant Expl anation Advance Directive(s) 09/17/2017 12:50 PM Advance Directive Response Recorded Date/ Time Living Will No August 19, 2020 10:28pm Do you have a Healthcare Power of Tool Turret Lathe Set Up Operator? No August 19, 2020 10:28pm Chief Complaint and Reason for Visit Chief Complaint Admit Date [place] FOR F/U August 12:42pm RE-EST (SELF) September 14, 2024 10:5 3am J45.51 - Severe persistent asthma with ( acute) exa November 17, 2024 8:28am J45.51 - Severe persistent asthma with ( acute) exa November 22, 2024 11:05am Reason for Visit Admit Date Hypoxemia August 31, 2024 12: 42pm Asthma August 31, 2024 12: 42pm Essential (primary) hypertension September 142024 10:53am Chief Complaint Admit Date [place] FOR F/U August 12:42pm RE-EST (SELF) September 14, 2024 10:5 3am J45.51 - Severe persistent asthma with ( acute) exa November 17, 2024 8:28am J45.51 - Severe persistent asthma with ( acute) exa November 17, 2024 8:36am J45.51 - Severe persistent asthma with ( acute) exa November 22, 2024 11:05am J45.51 - Severe persistent asthma with ( acute) exa November 25, 2024 10:46am MURMUR November 25, 2024 12:5 5pm Chief Complaint Admit Date [place] FOR F/U August 12:42pm RE-EST (SELF) September 14, 2024 10:5 3am J45.51 - Severe persistent asthma with ( acute) exa November 17, 2024 8:28am J45.51 - Severe persistent asthma with ( acute) exa November 17, 2024 8:36am J45.51 - Severe persistent asthma with ( acute) exa November 22, 2024 11:05am J45.51 - Severe persistent asthma with ( acute) exa November 25, 2024 10:46am MURMUR November 25, 2024 12:5 5pm 3 M FU November 30, 2024 10:0 9am Reason for Visit Admit Date Hypoxemia August 31, 2024 12: 42pm Asthma August 31, 2024 12: 42pm Essential (primary) hypertension September 142024 10:53am Hypoxemia November 30, 2024 10:0 9am Asthma November 30, 2024 10:0 9am Reason for Visit Admit Date Hypoxemia August 31, 2024 12: 42pm Asthma August 31, 2024 12: 42pm Essential (primary) hypertension September 142024 10:53am Daytime hypersomnia November 30, 2024 10:0 9am Hypoxemia November 30, 2024 10:0 9am Asthma November 30, 2024 10:0 9am Chief Complaint Admit Date RE-EST (SELF) September 14, 2024 10:5 3am J45.51 - Severe persistent asthma with ( acute) exa November 17, 2024 8:28am J45.51 - Severe persistent asthma with ( acute) exa November 17, 2024 8:36am J45.51 - Severe persistent asthma with ( acute) exa November 22, 2024 11:05am J45.51 - Severe persistent asthma with ( acute) exa November 25, 2024 10:46am MURMUR November 25, 2024 12:5 5pm 3 M FU November 30, 2024 10:0 9am daytime hypersomnia STOP-BANG December 7:56pm Reason for Visit Admit Date Essential (primary) hypertension September 142024 10:53am Daytime hypersomnia November 30, 2024 10:0 9am Hypoxemia November 30, 2024 10:0 9am Asthma November 30, 2024 10:0 9am Additional Source Comments (unrecognized sect ion and content) No Status Records FoundNo Status Records FoundNo Status Records FoundNo Status Records FoundNo Status Records FoundNo Status Records FoundNo Status Records FoundNo Status Records FoundNo Status Records Found INFORMATION SOURCE (unrecogn ized section and content) DATE CREATED AUTHOR 05/16/2018 [facility] DATE CREATED AUTHOR AUTHOR'S ORGANIZ ATION 08/26/2018 [facility] DATE CREATED AUTHOR AUTHOR'S ORGANIZ ATION 03/17/2019 [facility] DATE CREATED AUTHOR AUTHOR'S ORGANIZ ATION 06/22/2021 [facility] DATE CREATED AUTHOR AUTHOR'S ORGANIZ ATION 11/27/2021 [facility] DATE CREATED AUTHOR AUTHOR'S ORGANIZ ATION 06/30/2023 [facility] DATE CREATED AUTHOR AUTHOR'S ORGANIZ ATION 12/10/2024 [facility] DATE CREATED AUTHOR AUTHOR'S ORGANIZ ATION 01/05/2025 [facility] DATE CREATED AUTHOR AUTHOR'S ORGANIZ ATION 04/08/2025 [facility] Care Team (unrecognized sect ion and content) Compressor Assembler Relationship Specialty Start Date End Date Brock Carey MD [address] [place] [address] PCP - General Family Practice 02/02/[address] [place] [address] Dentist Dentistry 08/20/17 Compressor Assembler Relationship Specialty Start Date End Date Brock Carey MD [address] [place] [address] PCP - General Family Practice 02/02/[address] [place] [address] Dentist Dentistry 08/20/17 Compressor Assembler Relationship Specialty Start Date End Date Brock Carey MD [address] [place] [address] PCP - General Family Practice 02/02/[address] [place] [address] Dentist Dentistry 08/20/17 Compressor Assembler Relationship Specialty Start Date End Date Brock Carey MD [address] [place] [address] PCP - General 07/08/16 Compressor Assembler Relationship Specialty Start Date End Date Brock Carey MD [address] [place] [address] PCP - General 07/08/16 Compressor Assembler Relationship Specialty Start Date End Date Brock Carey MD [address] [place] [address] PCP - General 07/08/16 Compressor Assembler Relationship Specialty Start Date End Date Brock Carey MD [address] [place] [address] PCP - General 07/08/16 Team Status: Active Member Role Status Dates Dr. Brock Carey MD Primary Care Provider Active Team Status: Inactive Member Role Status Dates Dr. Brock Carey MD Primary Care Provider Active Start: August 31, 2024 End: August 31, 2024 Dr. Brock Carey MD Referring Provider Active Start: August 31, 2024 End: August 31, 2024 JOSE Cortes Attending Provider Active Start: August 31, 2024 End: August 31, 2024 Team Status: Inactive Member Role Status Dates Dr. Brock Carey MD Primary Care Provider Active Start: September 14, 2024 End: September 14, 2024 Dr. Brock Carey MD Referring Provider Active Start: September 14, 2024 End: September 14, 2024 Dr. Fermin Vogt MD Attending Provider Active S tart: September 14, 2024 End: September 14, 2024 Team Status: Inactive Member Role Status Dates Dr. Brock Carey MD Primary Care Provider Active Start: November 17, 2024 End: November 17, 2024 JOSE Cortes Attending Provider Active Start: November 17, 2024 End: November 17, 2024 JOSE Cortes Referring Provider Active Start: November 17, 2024 End: November 17, 2024 Team Status: Active Member Role Status Dates Dr. Brock Carey MD Primary Care Provider Active Start: November 22, 2024 JOSE Cortes Attending Provider Active Start: November 22, 2024 JOSE Cortes Referring Provider Active Start: November 22, 2024 Team Status: Active Member Role Status Dates Dr. Brock Carey MD Primary Care Provider Active Start: November 17, 2024 Dr. Meet Ford DO Attending Provider Active S tart: November 17, 2024 JOSE Cortes Referring Provider Active Start: November 17, 2024 Team Status: Inactive Member Role Status Dates Dr. Brock Carey MD Primary Care Provider Active Start: November 22, 2024 End: November 22, 2024 Su Stewart NP-Chasity Attending Provider Active Start: November 22, 2024 End: November 22, 2024 JOSE Cortes Referring Provider Active Start: November 22, 2024 End: November 22, 2024 Team Status: Active Member Role Status Dates Dr. Brock Carey MD Primary Care Provider Active Start: November 25, 2024 JOSE Cortes Referring Provider Active Start: November 25, 2024 JOSE Cortes Other Provider Active St art: November 25, 2024 Dr. Meet Ford DO Attending Provider Active S tart: November 25, 2024 Team Status: Active Member Role Status Dates Dr. Brock Carey MD Primary Care Provider Active Start: November 25, 2024 Dr. Fermin Vogt MD Attending Provider Active S tart: November 25, 2024 Dr. Fermin Vogt MD Referring Provider Active S tart: November 25, 2024 Team Status: Active Member Role Status Dates Dr. Brock Carey MD Primary Care Provider Active Start: November 25, 2024 Dr. 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 Brock Carey MD Primary Care Provider Active Start: November 30, 2024 End: November 30, 2024 Dr. Brock Carey MD Referring Provider Active Start: November 30, 2024 End: November 30, 2024 JOSE Cortes Attending Provider Active Start: November 30, 2024 End: November 30, 2024 Team Status: Active Member Role/Relationship Status Dates Dr. Brock Carey MD Primary Care Provider Active Team Status: Inactive Member Role/Relationship Status Dates Dr. Brock Carey MD Primary Care Provider Active Start: August 31, 2024 End: August 31, 2024 Dr. Brock Carey MD Referring Provider Active Start: August 31, 2024 End: August 31, 2024 Su Stewart NP-C Attending Provider Active Start: August 31, 2024 End: August 31, 2024 Team Status: Inactive Member Role/Relationship Status Dates Dr. Brock Carey MD Primary Care Provider Active Start: September 14, 2024 End: September 14, 2024 Dr. Brock Carey MD Referring Provider Active Start: September 14, 2024 End: September 14, 2024 Dr. Fermin Vogt MD Attending Provider Active S tart: September 14, 2024 End: September 14, 2024 Team Status: Inactive Member Role/Relationship Status Dates Dr. Brock Carey MD Primary Care Provider Active Start: November 17, 2024 End: November 17, 2024 Su Stewart NP-C Attending Provider Active Start: November 17, 2024 End: November 17, 2024 Su Stewart NP-C Referring Provider Active Start: November 17, 2024 End: November 17, 2024 Team Status: Active Member Role/Relationship Status Dates Dr. Brock Caery MD Primary Care Provider Active Start: November 17, 2024 Dr. Meet Ford DO Attending Provider Active S tart: November 17, 2024 Su Stewart NP-C Referring Provider Active Start: November 17, 2024 Team Status: Inactive Member Role/Relationship Status Dates Dr. Brock Carey MD Primary Care Provider Active Start: November 22, 2024 End: November 22, 2024 Su Stewart NP-C Attending Provider Active Start: November 22, 2024 End: November 22, 2024 Su Stewart NP-C Referring Provider Active Start: November 22, 2024 End: November 22, 2024 Team Status: Active Member Role/Relationship Status Dates Dr. Brock Carey MD Primary Care Provider Active Start: November 25, 2024 Su M Rufener , WOODS SUPERINTENDENT-C Referring Provider Active Start: November 25, 2024 JOSE Cortes Other Provider Active St art: November 25, 2024 Dr. Meet Ford DO Attending Provider Active S tart: November 25, 2024 Team Status: Inactive Member Role/Relationship Status Dates Dr. Brock Carey MD Primary Care Provider Active Start: November 25, 2024 End: November 25, 2024 Dr. Fermin Vogt MD Attending Provider Active S tart: November 25, 2024 End: November 25, 2024 Dr. Fermin Vogt MD Referring Provider Active S tart: November 25, 2024 End: November 25, 2024 Team Status: Active Member Role/Relationship Status Dates Dr. Brock Carey MD Primary Care Provider Active Start: November 25, 2024 Dr. Fermin Vogt MD Attending Provider Active S tart: November 25, 2024 Team Status: Inactive Member Role/Relationship Status Dates Dr. Brock Carey MD Primary Care Provider Active Start: November 30, 2024 End: November 30, 2024 Dr. Brock Carey MD Referring Provider Active Start: November 30, 2024 End: November 30, 2024 PRISCILLA CortesC Attending Provider Active Start: November 30, 2024 End: November 30, 2024 Team Status: Inactive Member Role/Relationship Status Dates Dr. Brock Carey MD Primary Care Provider Active Start: September 14, 2024 End: September 14, 2024 Dr. Brock Carey MD Referring Provider Active Start: September 14, 2024 End: September 14, 2024 Dr. Fermin Vogt MD Attending Provider Active S tart: September 14, 2024 End: September 14, 2024 Team Status: Inactive Member Role/Relationship Status Dates Dr. Brock Carey MD Primary Care Provider Active Start: November 17, 2024 End: November 17, 2024 JOSE Cortes Attending Provider Active Start: November 17, 2024 End: November 17, 2024 Su Stewart NP-C Referring Provider Active Start: November 17, 2024 End: November 17, 2024 Team Status: Active Member Role/Relationship Status Dates Dr. Brock Carey MD Primary Care Provider Active Start: November 17, 2024 Dr. Meet Ford DO Attending Provider Active S tart: November 17, 2024 JOSE Cortes Referring Provider Active Start: November 17, 2024 Team Status: Inactive Member Role/Relationship Status Dates Dr. Brock Carey MD Primary Care Provider Active Start: November 22, 2024 End: November 22, 2024 JOSE Cortes Attending Provider Active Start: November 22, 2024 End: November 22, 2024 JOSE Cortes Referring Provider Active Start: November 22, 2024 End: November 22, 2024 Team Status: Active Member Role/Relationship Status Dates Dr. Brock Carey MD Primary Care Provider Active Start: November 25, 2024 JOSE Cortes Referring Provider Active Start: November 25, 2024 JOSE Cortes Other Provider Active St art: November 25, 2024 Dr. Meet Ford DO Attending Provider Active S tart: November 25, 2024 Team Status: Inactive Member Role/Relationship Status Dates Dr. Brock Carey MD Primary Care Provider Active Start: November 25, 2024 End: November 25, 2024 Dr. Fermin Vogt MD Attending Provider Active S tart: November 25, 2024 End: November 25, 2024 Dr. Fermin Vogt MD Referring Provider Active S tart: November 25, 2024 End: November 25, 2024 Team Status: Active Member Role/Relationship Status Dates Dr. Brock Carey MD Primary Care Provider Active Start: November 25, 2024 Dr. Fermin Vogt MD Attending Provider Active S tart: November 25, 2024 Team Status: Inactive Member Role/Relationship Status Dates Dr. Brock Carey MD Primary Care Provider Active Start: November 30, 2024 End: November 30, 2024 Dr. Brock Carey MD Referring Provider Active Start: November 30, 2024 End: November 30, 2024 JOSE Cortes Attending Provider Active Start: November 30, 2024 End: November 30, 2024 Team Status: Inactive Member Role/Relationship Status Dates Dr. Brock Carey MD Primary Care Provider Active Start: December 27, 2024 End: December 27, 2024 JOSE Cortes Attending Provider Active Start: December 27, 2024 End: December 27, 2024 JOSE Cortes Referring Provider Active Start: December 27, 2024 End: December 27, 2024 Source Comments (unrecognize d section and content) In the event this informatio n is protected by the Federal Confidentiality of Alcohol and Drug Abuse Patient Records regulations: The Federal rules restrict any use of the information to criminally investigate or prosecute any alcohol or drug abuse patient.[facility] the event this information is protected by the Federal Confidentiality of Alcohol and Drug Abuse Patient Records regulations: The Federal rules restrict any use of the information to criminally investigate or prosecute any alcohol or drug abuse patient.[facility] the event this information is protected by the Federal Confidentiality of Alcohol and Drug Abuse Patient Records regulations: The Federal rules restrict any use of the information to criminally investigate or prosecute any alcohol or drug abuse patient.[facility] Reason for Visit (unrecogniz ed section and content) Reason Comments Joint Pain Back Pain New Patient Reason Comments Joint Pain Reason Comments Annual Exam Enio 02/06/2022 (ds) Reason Comments Skin Lesion (PKN) Reason Onset Date Comments Med Refill 08/11/2023 Reason Comments Annual Exam Enio 08/04/2023 Care Team (unrecognized sect ion and content) Care Team Personnel Name: CHERRY MORALES, BROCK AVALOS Member Role: Primary Care Physician Address: Address: [address] [place] [address] [address] [place] [address]- Care Team Related Persons Name: ROLANDA DAVILA Address: Home [address] [place] [address] [place] [id number] Care Team Personnel Name: BROCK CAREY MD Member Role: Primary Care Physician Address: Address: [address] [place] [address] [address] [place] [address]- Name: CONCETTA JOVEL DO Position: ED Physician Member Role: ED Physician Address: Address: [address] [place] [id number] Name: Jess Baez RN Position: AO RN Member Role: ED RN Care Team Related Persons Name: ROLANDA DAVILA Address: [address] [place] [id number] Goals (unrecognized section and content) Goals may be documented in a n alternate section FOR RECORDS PERTAINING TO PATIENTS WHO ARE OR HAVE BEEN ENROLLED IN A CHEMICAL DEPENDENCY/SUBSTANCEABUSE PROGRAM, SOME INFORMATION MAY BE OMITTED. This clinical summary was aggregated from multiple sources. Caution should be exercised in using it in the provision of clinical care. This summary normalizes information from multiple sources, and as a consequence, information in this document may materially change the coding, format and clinical context of patient data. In addition, data may be omitted in some cases. CLINICAL DECISIONS SHOULD BE BASED ON THE PRIMARY CLINICAL RECORDS. [employer] provides no warranty or guarantee of the accuracy or completeness of information in this document.
== END | disposition home or self-care (01) ==
LOC: CVS 06:46
PROVIDERS: Referring Provider Nurse Practitioner Family; Visit Provider Nurse Practitioner Family
DX: R06.02 Shortness of breath (principal); R06.09 Other forms of dyspnea
CPT/HCPCS: 93308; A4216